=== PATIENT | female | born 1995 | race Caucasian/White ===

== ENCOUNTER 2024-06-17 13:25 | Outpatient (OUT) | payer BC, SELFPAY ==
--- NOTE | 2024-06-17 13:27 | US_ITS ---
[address] [address] Patient Name: VITALIY PAIZ MRN: [id number] date: 1995 Sex: F Assigned Patient Location: [facility] Current Patient Location: Accession/Order Number: [id number] Exam Date: 06/17/2024 13:27 Report Date: 06/18/2024 04:19 At the request of: OUMAR LAGOS Procedure: US OB transvaginal EXAMINATION: US OB transvaginal HISTORY: MISSED MENSES COMPARISON: No relevant comparison available. FINDINGS: GESTATIONAL SAC: Present and normal appearing. YOLK SAC: Present and normal appearing. POLE: Present and normal appearing. CARDIAC: Present. UTERUS: Normal size and appearance. OVARIES: Right: Normal. Left: Not seen. CERVIX: 4.1 cm in length and closed. CUL-DE-SAC: Normal. OTHER: Tiny subchorionic hematoma. AGE BY LMP: 8 weeks 3 days BRIAN BY LMP: 01/24/2025 AGE BY US CRL: 8 weeks 0 days BRIAN BY US CRL: 01/27/2025 US/US OB transvaginal IMPRESSION: 1. Single live intrauterine . Electronically authenticated by: LEONOR COOPER Date: 06/18/2024 04:19
== END 2024-06-17 13:26 | disposition home or self-care (01) ==
LOC: NOMS 13:26
PROVIDERS: PCP Family Medicine; Visit Provider Obstetrics & Gynecology
DX: Z34.91 Encounter for supervision of normal pregnancy, unspecified, first trimester (principal); Z3A.08 8 weeks gestation of pregnancy; N92.6 Irregular menstruation, unspecified
CPT/HCPCS: 76817

== ENCOUNTER 2024-07-08 11:34 | Outpatient (OUT) | payer BC, SELFPAY ==
--- OUTSIDE RECORDS SUMMARY | 2024-07-08 11:47 | XMS_ITS | CCD ---
Author Organization [facility] CliniSywv Care Team Providers Care Dye Winch Operator Name Role Phone PACO CHACON Attending Unavailable PACO CHACON Consulting Unavailable PACO CHACON Admitting Unavailable REQUEST, NONE LISTED Admitting Unavaila ble REQUEST, NONE LISTED Attending Unavaila ble REQUEST, NONE LISTED Consulting Unavaila ble Samra Aguirre DO Primary Care Provider [phone] Raegan Medina MD Primary Care Provider CANDICE MENG Attending Unavailable BHUMIKA CARRILLO Attending Unavailable Medications Current Medications Medication Drug Class(es) Dates Sig (Normalized) Sig (Original) busPIRone hydrochloride 5 mg oral tablet (5 sources) Start: 04-28-2023 take 1 tablet by mouth twice daily busPIRone (Buspar) 5 MG tablet Indications: Major depressive disorder, recurrent, moderate (CMS/HCC) TAKE 1 TABLET BY MOUTH TWICE A DAY FOR 90 DAYS 180 tablet 3 04/28/2023 Active cetirizine hydrochloride 10 mg oral tablet (4 sources) Histamine-1 Receptor Antagonist cetirizine (ZyrTEC) 10 MG tablet 1 (one) time each day at the same time Active citalopram 20 mg oral tablet (3 sources) Serotonin Reuptake Inhibitor Start: 04-28-2023 End: 06-02-2024 take 1 tablet by mouth once daily citalopram (CeleXA) 20 MG tablet Indications: Major depressive disorder, recurrent, moderate (CMS/HCC) TAKE 1 TABLET BY MOUTH EVERY DAY FOR 90 DAYS 90 tablet 3 04/28/2023 06/02/2024 Discontinued (Alternate therapy) sertraline 25 mg oral tablet (4 sources) Serotonin Reuptake Inhibitor Start: 06-02-2024 take 1 tablet by mouth once daily sertraline (Zoloft) 25 MG tablet Indications: Panic disorder (CMS/HCC) , Moderate episode of recurrent major depressive disorder (CMS/HCC) Take 1 tablet (25 mg) by mouth Daily 90 tablet 06/02/2024 Active Problems Active Problems Problem Classification Problem Date Documented Da te Episodic/Chronic Anxiety disorders (6 sources) Panic disorder; Translations: [Panic disorder [episodic paroxysmal anxiety]] Onset: 06-02-2024 06-02-2024 Chronic Asthma (4 sources) Exercise-induced asthma; Translations: [Exercise induced bronchospasm] Onset: 06-02-2024 06-02-2024 Chronic Menstrual disorders (1 source) Missed period; Translations: [Irregular menstruation, unspecified] 06-17-2024 Chronic Mood disorders (6 sources) Moderate recurrent major depression; Translations: [Major depressive disorder, recurrent, moderate] Onset: 06-02-2024 06-02-2024 Chronic Other and delivery including normal (2 sources) ; Translations: [Encounter for supervision of normal , unspecified, unspecified trimester] 06-17-2024 Episodic Other upper respiratory disease (4 sources) Allergic rhinitis; Translations: [Allergic rhinitis, unspecified] Onset: 06-02-2024 06-02-2024 Chronic Past or Other Problems Problem Classification Problem Date Documented Da te Episodic/Chronic Mood disorders (4 sources) Mood disorders Onset: 06-02-2024 06-02-2024 Results Test Name Value Interpretation Reference Range Facil ity HCG ( test) Ql (U)o n 06-17-2024 Interpretation and review of laboratory results Abnormal [facility] P[facility] Test, Ur Positive Negative [facility] care [facility] Urinalysis macro (dipstick) panel (U)on 06-17-2024 Bilirubin, UA Negative Negative - 4(7 0) +++ mg/dL [facility] Blood, UA Negative Negative - 50 Immanuel/mcL [facility] Clarity, UA Clear [facility] Color, UA Yellow [facility] Glucose, UA Negative Negative - 2000 (110) ++++ mg/dL [facility] Interpretation and review of laboratory results [facility] Ketones, UA Negative Negative - 160( 16) ++++ mg/dL [facility] Leukocytes, UA Negative Negative - 50 0+++ Jennyfer/mcL [facility] Nitrite, UA Negative Negative - Positive [facility] pH, UA 5.5 5 - 9 [facility] e Protein, UA Negative Negative - 1999 (20) ++++ mg/dL [facility] Spec Grav, UA 1.02 1 - 1.03 [facility] Urobilinogen, UA 1.0 0.2 - 12 mg/dL [facility] Vital Signs Date Time Vital Sign Value Performing Clinician Juliann cooper 06-17-2024 14:25-0500 Body mass index (BMI) [Ratio] 24.88 kg/m2 [facility] Nurse [facility] 06-17-2024 14:25-0500 Body weight 68.86 kg [facility] Nurse [facility] 06-02-2024 10:49-0400 Body height 166.4 cm Bhumika Dorseyjose PROCESS SPECIALIST Work Phone: [facility] 06-02-2024 10:49-0400 Body mass index (BMI) [Ratio] 24.88 kg/m2 Bhumika Dorseyjose PROCESS SPECIALIST Work Phone: [facility] 06-02-2024 10:49-0400 Body weight 68.86 kg Bhumika Dorseysunnywilliam PROCESS SPECIALIST Work Phone: [facility] 06-02-2024 10:49-0400 Diastolic blood pressure 60 mm[Hg] Bhumika Dorseyjose PROCESS SPECIALIST Work Phone: [facility] 06-02-2024 10:49-0400 Heart rate 75 /min Bhumika Dorseysunnywilliam PROCESS SPECIALIST Work Phone: [facility] 06-02-2024 10:49-0400 SaO2% (BldA) [Mass fraction] 99 % Bhumika Dorseyjose PROCESS SPECIALIST Work Phone: [facility] 06-02-2024 10:49-0400 Systolic blood pressure 120 mm[Hg] Bhumika Dorseyjose PROCESS SPECIALIST Work Phone: [facility] Encounters Encounter Date Encounter Type Care Provider Facility Start: 07-08-2024 End: 07-08-2024 Bamboo flowsheet Slim Yvonne DO Work Phone: [facility] Start: 07-08-2024 End: 07-08-2024 Bamboo flowsheet Slim Yvonne DO Work Phone: [facility] Start: 06-17-2024 End: 06-17-2024 Office outpatient visit 5 minutes [facility] Yvonne Nurse [facility] Comment on above: GA: 8w3d Start: 06-17-2024 End: 06-17-2024 ambulatory CANDICE TAQUERIA Not Available Start: 06-02-2024 End: 06-02-2024 Bamboo flowsheet Bhumika Carrillo PROCESS SPECIALIST Work Phone: [facility] Start: 06-02-2024 End: 06-02-2024 Bamboo flowsheet Bhumika Carrillo PROCESS SPECIALIST Work Phone: [facility] Start: 06-02-2024 End: 06-02-2024 Office outpatient visit 15 minutes Bhumika Carrillo PROCESS SPECIALIST Work Phone: [facility] Comment on above: Panic disorder (CMS/ HCC) (Primary Dx); Moderate episode of recurrent major depressive disorder (CMS/HCC) Start: 06-02-2024 End: 06-02-2024 ambulatory BHUMIKA CARRILLO Not Available Start: 02-12-2024 End: 02-12-2024 ambulatory CANDICE MENG Not Available Start: 11-29-2020 End: 11-30-2020 ambulatory PACO CHACON Facility: Start: 11-08-2020 End: 11-09-2020 ambulatory NONE LISTED REQUEST Facility: Procedures Date Procedure Procedure Detail Performing Clinician Start: 06-17-2024 End: 06-17-2024 Urnls dip stick/tablet rgnt non-auto w/o micrscp Slim Yvonne DO Work Phone: Start: 02-27-2019 Follow-up visit Plan of Treatment Date Care Activity Detail Author Start: 10-13-2025 Screening for malign ant neoplasm of cervix [facility] Healthcare Start: 07-08-2024 End: 07-08-2024 Patient encounter procedure [facility] Comment on above: Arrived Start: 06-17-2024 End: 06-17-2025 ABO/Rh ABO/Rh Lab Routine Missed menses , unspecified gestational age Expected: 06/17/2024 (Approximate), Expires: 06/17/2025 [facility] Comment on above: Expected: 06/17/2024 (Approximate), Expires: 06/17/2025 Start: 06-17-2024 End: 06-17-2024 ambulatory 06/17/2024 2:00 PM EST Initial [facility] [address] [place] [address] [place] [id number] [facility] Start: 06-17-2024 End: 06-17-2025 Blood type and Indirect antibody screen panel - Blood Type and screen Lab Routine Missed menses , unspecified gestational age Expected: 06/17/2024 (Approximate), Expires: 06/17/2025 [facility] Work Phone: Comment on above: Expected: 06/17/2024 (Approximate), Expires: 06/17/2025 Start: 06-17-2024 End: 06-17-2025 Drugs of abuse panel - Urine by Screen method Rapid drug screen, urine Lab Routine , unspecified gestational age Encounter for supervision of normal first in first trimester Expected: 06/17/2024 (Approximate), Expires: 06/17/2025 [facility] Healthcare Comment on above: Expected: 06/17/2024 (Approximate), Expires: 06/17/2025 Start: 06-17-2024 End: 06-17-2025 US Pelvis transvaginal US OB transvaginal Imaging Routine Missed menses Expected: 06/17/2024 (Approximate), Expires: 06/17/2025 [facility] Healthcare Comment on above: Expected: 06/17/2024 (Approximate), Expires: 06/17/2025 Start: 06-17-2024 End: 06-17-2024 Professional / ancillary services management 06/17/2024 1:30 PM EST Ancillary Procedure [facility] [address] [place] [phone] [facility] OB Start: 06-02-2024 End: 06-02-2024 Patient encounter procedure 06/02/2024 11:00 AM EDT Office Visit [facility] [address] [facility] [place] [address] Bhumika Carrillo, SANDHYA [address] [place] [address] Arrived [facility] Comment on above: Arrived Start: 04-04-2024 Influenza vaccination Influenza Vacc ine (#1) [facility] Start: 2014 Screening for malign ant neoplasm of cervix Pap Smear [facility] Bacteria identified in Urine by Culture Urine culture Microbiology Routine Missed menses Ordered: 06/17/2024 [facility] Comment on above: Ordered: 06/17/2024 CBC W Auto Different ial panel - Blood CBC and differential Lab Routine Missed menses , unspecified gestational age Ordered: 06/17/2024 [facility] Comment on above: Ordered: 06/17/2024 Hemoglobin A1c/Hemoglobin.total in Blood Hemoglobin A1c Lab Routine Missed menses , unspecified gestational age Ordered: 06/17/2024 [facility] Comment on above: Ordered: 06/17/2024 Hepatitis B virus surface Ag [Presence] in Serum or Plasma by Immunoassay Hepatitis B surface antigen Lab Routine Missed menses , unspecified gestational age Ordered: 06/17/2024 [facility] Comment on above: Ordered: 06/17/2024 Hepatitis C virus Ab [Presence] in Serum or Plasma by Immunoassay Hepatitis C antibody Lab Routine Missed menses , unspecified gestational age Ordered: 06/17/2024 [facility] Comment on above: Ordered: 06/17/2024 HIV-1/HIV-2 antigen/antibody combination immunoassay HIV-1 and HIV-2 antibodies Lab Routine Missed menses , unspecified gestational age Ordered: 06/17/2024 [facility] Comment on above: Ordered: 06/17/2024 Reagin Ab [Presence] in Serum by RPR RPR Lab Routine Missed menses , unspecified gestational age Ordered: 06/17/2024 [facility] Comment on above: Ordered: 06/17/2024 Rubella antibody, IgG Rubella an tibody, IgG Lab Routine Missed menses , unspecified gestational age Ordered: 06/17/2024 [facility] Comment on above: Ordered: 06/17/2024 Immunizations Immunization Date Immunization Notes Care Provider Fa cility 02-24-2012 tetanus toxoid, redu srinath diphtheria toxoid, and acellular pertussis vaccine, adsorbed Bhumika Hoskinsfer PROCESS SPECIALIST Work Phone: [facility] Payers Date Payer Category Payer [facility] er [id number] 2022 Unknown [id number] 1995 Unknown [id number] 1995 Unknown [id number] 1995 Unknown [id number] 1961 Self-pay Unknown [id number] Unknown [id number] Social History Date Type Detail Facility Start: 02-12-2024 Tobacco smoking status TXIS Never sm oked tobacco [facility] Start: 02-12-2024 Tobacco use and exposure Smoke less tobacco non-user [facility] Start: 02-12-2024 Alcoholic beverage intake Curr ent drinker of alcohol (finding) [facility] Start: 06-01-2024 End: 06-02-2024 History of Social function [facility] Start: 06-01-2024 End: 06-02-2024 [id number] Health Literacy [facility] How often do you nee d to have someone help you when you read instructions, pamphlets, or other written material from your doctor or pharmacy [SILS] Never [facility] Do you belong to any clubs or organizations such as evangelical groups, unions, fraternal or athletic groups, or school groups? No [facility] Are you now , , , , never or living with a partner? Living with partner [facility] How often to you hav e a drink containing alcohol? Never [facility] How hard is it for y ou to pay for the very basics like food, housing, medical care, and heating Not very hard [facility] Do you feel stress - tense, restless, nervous, or anxious, or unable to sleep at night because your mind is troubled all the time - these days [OSQ] Only a little [facility] (I/We) worried wheth er (my/our) food would run out before (I/we) got money to buy more. Never true [facility] Start: 1995 Sex assigned at Not on file [facility] Start: 06-02-2024 End: 06-17-2024 Alcoholic beverage intake Ex-drinker (finding) [facility] Start: 06-02-2024 Alcohol Comment caffeine intak e: 200mg daily [facility] Start: 05-03-2024 [facility] History of Present illness Narrative 06-17-2024 Laura Jacome LPN - 06/17/2024 2:00 PM EST Note Date & Type Note Facility 06-17-2024 History of Presen t illness Narrative Reason for Appointment: Patient ID: Greta Pineda is a 28 y.o. female who presents for Amenorrhea Patient presents today for a Nurse OB Intake appointment. Patient is 8w3d with a Estimated Date of Delivery: 01/24/25 OB History Para Term AB Living 1 0 0 0 0 0 SAB IAB Ectopic Multiple Live Births 0 0 0 0 0 # Outcome Date GA Lbr Luis/2nd Weight Sex Type Anes PTL Lv 1 Current Current Medications: has a current medication list which includes the following prescription(s): buspirone, cetirizine, and sertraline. Medical History: Active Ambulatory Problems Diagnosis Date Noted Allergic rhinitis 06/02/2024 Exercise-induced asthma (CMS/HCC) 06/02/2024 Moderate episode of recurrent major depressive disorder (CMS/HCC) 06/02/2024 Panic disorder (CMS/HCC) 06/02/2024 Resolved Ambulatory Problems Diagnosis Date Noted No Resolved Ambulatory Problems Past Medical History: Diagnosis Date Anxiety Depression (CMS/HCC) No family history on file. Social History Tobacco Use Smoking status: Never Smokeless tobacco: Never Vaping Use Vaping status: Never Used Substance Use Topics Alcohol use: Not Currently Comment: caffeine intake: 200mg daily Drug use: Never Past Surgical History: Procedure Laterality Date ANTERIOR CRUCIATE LIGAMENT REPAIR No Known Allergies Vitals: Estimated body mass index is 24.88 kg/m as calculated from the following: Height as of 06/02/24: 5' 5.5 . Weight as of this encounter: 151 lb 12.8 oz. BP: Patient's last menstrual period was 04/19/2024. Assessment/Plan Diagnoses and all orders for this visit: Missed menses - Type and screen; Future - ABO/Rh; Future - CBC and differential - Hemoglobin A1c - RPR - Rubella antibody, IgG - Hepatitis B surface antigen - Hepatitis C antibody - HIV-1 and HIV-2 antibodies - Urine culture - US OB transvaginal; Future - POCT , urine manually resulted - POCT urinalysis dipstick manually resulted , unspecified gestational age - Type and screen; Future - ABO/Rh; Future - CBC and differential - Hemoglobin A1c - RPR - Rubella antibody, IgG - Hepatitis B surface antigen - Hepatitis C antibody - HIV-1 and HIV-2 antibodies - Rapid drug screen, urine; Future Encounter for supervision of normal first in first trimester - Rapid drug screen, urine; Future Nurse Note: OB Intake: Patient presents today for first OB visit. Patients history has been reviewed in great detail including any potential risks. Patient signed consent forms and patient desires testing in both trimesters. Patient currently has no complaints and has been advised to drink 6-8 glasses of water a day, eat no raw or undercooked meat, and [facility]. Patient has also been advised to not change litter boxes and eat 6 small meals a day. Patient has been consulted regarding the do's and don'ts of . Patient was given labs and all questions and concerns were answered. Follow Up: Patient is to return in 4 weeks for routine OB appointment. Follow Up: Patient is to have labs drawn at directed and return to office for initial OB appointment with provider. Patient may call office as needed with any concerns or questions. Nurse Visit Completed by: Laura Jacome LPN Documented by Laura Jacome LPN on behalf of: * No providers found * documented in this encounter [facility] History of Present illness Narrative 06-02-2024 Bhumika Carrillo NP - 06/02/2024 11:00 AM EDT Note Date & Type Note Facility 06-02-2024 History of Presen t illness Narrative Images from the original note were not included. Greta Pineda is a 28 y.o. female presents with chief complaint of Medication Problem HPI: HPI LMP 04/17/24, had a positive test at home, Has an appointment scheduled with Dr. Russell next month. Would like to discuss switching her medications d/t . Over the past 2 weeks, how often have you been bothered by any of the following problems? Little interest or pleasure in doing things: Not at all Feeling down, depressed, or hopeless: Not at all Trouble falling or staying asleep, or sleeping too much: Not at all Feeling tired or having little energy: Not at all Poor appetite or overeating: Not at all Feeling bad about yourself - or that you are a failure or have let yourself or your family down: Not at all Trouble concentrating on things, such as reading the newspaper or watching television: Not at all Moving or speaking so slowly that other people could have noticed? Or the opposite - being so fidgety or restless that you have been moving around a lot more than usual.: Not at all Thoughts that you would be better off or hurting yourself in some way: Not at all Patient Health Questionnaire-9 Score: 0 Over the last 2 weeks, how often have you been bothered by any of the following problems? Feeling nervous, anxious, or on edge: Several days Not being able to stop or control worrying: Not at all Worrying too much about different things: Not at all Trouble relaxing: Not at all Being so restless that it is hard to sit still: Not at all Becoming easily annoyed or irritable: Several days Feeling afraid as if something awful might happen: Not at all MIKE-7 Total Score: 2 SUBJECTIVE: MEDICATIONS: Current Outpatient Medications Medication Instructions busPIRone (Buspar) 5 MG tablet TAKE 1 TABLET BY MOUTH TWICE A DAY FOR 90 DAYS cetirizine (ZyrTEC) 10 MG tablet Every 24 hours citalopram (CeleXA) 20 MG tablet TAKE 1 TABLET BY MOUTH EVERY DAY FOR 90 DAYS REVIEW OF SYMPTOMS: Review of Systems OBJECTIVE: Visit Vitals BP 120/60 (BP Location: Left arm, Patient Position: Sitting, BP Cuff Size: Adult) Pulse 75 Ht 5' 5.5 Wt 151 lb 12.8 oz LMP 01/22/2024 (Approximate) SpO2 99% BMI 24.88 kg/m OB Status Smoking Status Never BSA 1.78 m Physical Exam Vitals reviewed. Constitutional: Appearance: Normal appearance. HENT: Head: Normocephalic and atraumatic. Nose: Nose normal. Mouth/Throat: Mouth: Mucous membranes are moist. Eyes: Pupils: Pupils are equal, round, and reactive to light. Cardiovascular: Rate and Rhythm: Normal rate and regular rhythm. Pulses: Normal pulses. Heart sounds: Normal heart sounds. Pulmonary: Effort: Pulmonary effort is normal. Breath sounds: Normal breath sounds. Abdominal: General: Bowel sounds are normal. Palpations: Abdomen is soft. Musculoskeletal: Cervical back: Normal range of motion and neck supple. Right lower leg: No edema. Left lower leg: No edema. Skin: General: Skin is warm and dry. Capillary Refill: Capillary refill takes less than 2 seconds. Findings: No rash. Neurological: General: No focal deficit present. Mental Status: She is alert and oriented to person, place, and time. ASSESSMENT AND PLAN: Assessment/Plan Diagnoses and all orders for this visit: Panic disorder (CMS/HCC) - sertraline (Zoloft) 25 MG tablet; Take 1 tablet (25 mg) by mouth Daily Moderate episode of recurrent major depressive disorder (CMS/HCC) - sertraline (Zoloft) 25 MG tablet; Take 1 tablet (25 mg) by mouth Daily -Stop celexa and switch to zoloft d/t . Reviewed importance of healthy diet and exercise, stress management, and social support. Follow up with OBGYN as scheduled documented in this encounter [facility] Evaluation note Note Date & Type Note Facility Evaluation note Diagnosis Panic disorder (CMS/HCC)- Primary Panic disorder without agoraphobia Moderate episode of recurrent major depressive disorder (CMS/HCC) documented in this encounter [facility] Evaluation note Note Date & Type Note Facility Evaluation note Diagnosis Missed menses , unspecified gestational age Encounter for supervision of normal first in first trimester documented in this encounter [facility] Summary Purpose Family History No Family History Records FoundNo Family History Records FoundNo Family History Records Found Advance Directives No Advanced Directives Records FoundNo Advanced Directives Records FoundNo Advanced Directives Records Found Additional Source Comments INFORMATION SOURCE (unrecogn ized section and content) DATE CREATED AUTHOR 02/27/2019 [facility] DATE CREATED AUTHOR AUTHOR'S ORGANIZ ATION 11/28/2020 [facility] DATE CREATED AUTHOR AUTHOR'S ORGANIZ ATION 06/20/2024 [facility] dical Specialists [facility] Care Teams (unrecognized sec tion and content) Dye Winch Operator Relationship Specialty Start Date End Date Samra Aguirre DO [address] [place] [address] PCP - General Family Medicine 12/10/22 Dye Winch Operator Relationship Specialty Start Date End Date Raegan Medina MD [address] [place] [address] PCP - General Family Medicine 06/02/24 Dye Winch Operator Relationship Specialty Start Date End Date Raegan Medina MD [address] [place] [address] PCP - General Family Medicine 06/02/24 Dye Winch Operator Relationship Specialty Start Date End Date Raegan Medina MD [address] [place] [address] PCP - General Family Medicine 06/02/24 Reason for Visit (unrecogniz ed section and content) Reason Comments Medication Problem Pt would like to see about switching anxiety medication due to . Reason Comments Amenorrhea FOR RECORDS PERTAINING TO PATIENTS WHO ARE OR HAVE BEEN ENROLLED IN A CHEMICAL DEPENDENCY/SUBSTANCEABUSE PROGRAM, SOME INFORMATION MAY BE OMITTED. This clinical summary was aggregated from multiple sources. Caution should be exercised in using it in the provision of clinical care. This summary normalizes information from multiple sources, and as a consequence, information in this document may materially change the coding, format and clinical context of patient data. In addition, data may be omitted in some cases. CLINICAL DECISIONS SHOULD BE BASED ON THE PRIMARY CLINICAL RECORDS. [employer] [facility]. provides no warranty or guarantee of the accuracy or completeness of information in this document.
[2024-07-08 12:47] LABS: Basophils Absolute Auto 0.1 10^3/uL (0.0-0.1); Basophils Percent Auto 0.6 % (0.2-2.0); Eosinophils Absolute Auto 0.1 10^3/uL (0.0-0.7); Eosinophils Percent Auto 0.6 % (0.9-7.0); Hematocrit 39.1 % (36.0-48.0); Immature Granulocytes Abs Auto 0.02 10^3/uL (0.00-0.03); Immature Granulocytes Pct Auto 0.2 % (0.0-0.5); Lymphocytes Percent Auto 22.3 % (20.5-60.0); Mean Corpuscular HGB Conc 33.2 g/dL (29.9-35.2); Mean Corpuscular Hemoglobin 31.5 pg (26.7-34.0); Mean Corpuscular Volume 94.7 fL (81.0-99.0); Mean Platelet Volume 9.3 fL (9.5-13.5); Monocytes Absolute Auto 0.5 10^3/uL (0.3-0.8); Monocytes Percent Auto 5.6 % (1.7-12.0); Neutrophils Absolute Auto 6.3 10^3/uL (1.4-6.5); Neutrophils Percent Auto 70.7 % (43.0-75.0); Platelet Count 268 10^3/uL (150-450); Red Blood Count 4.13 10^6/uL (4.20-5.40); Red Cell Distribution Width 11.5 % (11.0-15.0)
[2024-07-08 12:57] LABS: Amphetamine Screen Urine NEGATIVE (NEGATIVE); Benzodiazepines Screen Urine NEGATIVE (NEGATIVE); Cannabinoid Screen Urine NEGATIVE (NEGATIVE); Cocaine Screen Urine NEGATIVE (NEGATIVE); Methamphetamines Screen Urine NEGATIVE (NEGATIVE); Opiate Screen Urine NEGATIVE (NEGATIVE); Phencyclidine Screen Urine NEGATIVE (NEGATIVE); Tricyclic Antidepressant Urine NEGATIVE (NEGATIVE)
[2024-07-08 13:00] LABS: Barbiturates Screen Urine NEGATIVE (NEGATIVE); Buprenorphine Screen Urine NEGATIVE (NEGATIVE); Methadone Screen Urine NEGATIVE (NEGATIVE); Oxycodone Screen Urine NEGATIVE (NEGATIVE)
[2024-07-08 13:12] LABS: Estimated Average Glucose 111 mg/dL; Glycohemoglobin A1C 5.5 % (4.5-6.2)
[2024-07-08 16:13] LABS: BOX Test Reference Lab UNITY; BOX Test Sent Out Y
[2024-07-09 06:10] LABS: HBsAg Screen Negative (Negative); HCV Ab Non Reactive (Non Reactive); HIV Ab/p24 Ag Screen Non Reactive (Non Reactive)
[2024-07-09 08:13] LABS: Rubella Antibodies, IgG 1.86 index (Immune >0.99)
[2024-07-09 10:11] LABS: Rapid Plasma Reagin, Quant Non Reactive titer (NonRea<1:1)
== END 2024-07-08 11:35 | disposition home or self-care (01) ==
LOC: LAB 11:35
PROVIDERS: PCP Family Medicine; Visit Provider Obstetrics & Gynecology
DX: Z34.01 Encounter for supervision of normal first pregnancy, first trimester (principal); Z36.0 Encounter for antenatal screening for chromosomal anomalies; N92.6 Irregular menstruation, unspecified
CPT/HCPCS: 36415; 80307; 83036; 85025; 86592; 86762; 86803; 86850; 86900; 86901; 87086; 87340; 87389

== ENCOUNTER 2024-09-06 11:22 | Outpatient (OUT) | payer BC, SELFPAY ==
--- OUTSIDE RECORDS SUMMARY | 2024-09-06 11:27 | XMS_ITS | CCD ---
Author Organization [facility] CliniSyga Care Team Providers Care Corduroy Cutter Operator Name Role Phone PACO CHACON Attending Unavailable PACO CHACON Consulting Unavailable PACO CHACON Admitting Unavailable REQUEST, NONE LISTED Admitting Unavaila ble REQUEST, NONE LISTED Attending Unavaila ble REQUEST, NONE LISTED Consulting Unavaila ble Samra Aguirre DO Primary Care Provider Raegan Medina MD Primary Care Provider CANDICE MENG Attending Unavailable BHUMIKA JOHNSON Attending Unavailable OUMAR RUSSELL Attending Unavailable BRENDA JEFF Attending Unavailable Medications Current Medications Medication Drug Class(es) Dates Sig (Normalized) Sig (Original) busPIRone hydrochloride 5 mg oral tablet (13 sources) Start: 04-28-2023 take 1 tablet by mouth twice daily busPIRone (Buspar) 5 MG tablet Indications: Major depressive disorder, recurrent, moderate (CMS/HCC) TAKE 1 TABLET BY MOUTH TWICE A DAY FOR 90 DAYS 180 tablet 3 04/28/2023 Active cetirizine hydrochloride 10 mg oral tablet (12 sources) Histamine-1 Receptor Antagonist cetirizine (ZyrTEC) 10 [...] (Alternate therapy) sertraline 25 mg oral tablet (13 sources) Serotonin Reuptake Inhibitor Start: 09-01-2024 take 1 tablet by mouth once daily sertraline (Zoloft) 25 MG tablet Indications: Panic disorder (CMS/HCC) , Moderate episode of recurrent major depressive disorder (CMS/HCC) TAKE 1 TABLET BY MOUTH EVERY DAY 90 tablet 1 09/01/2024 Active Start: 06-02-2024 End: 09-01-2024 take 1 tablet by mouth once daily sertraline (Zoloft) 25 MG tablet Indications: Panic disorder (CMS/HCC) , Moderate episode of recurrent major depressive disorder (CMS/HCC) Take 1 tablet (25 mg) by mouth Daily 90 tablet 06/02/2024 09/01/2024 Discontinued Problems Active Problems Problem Classification Problem Date Documented Date Episodic/Chronic Anxiety disorders (15 sources) Panic disorder; Translations: [Panic disorder [episodic paroxysmal anxiety]] Onset: 06-02-2024 06-02-2024 Chronic Asthma (12 sources) Exercise-induced asthma; Translations: [Exercise induced bronchospasm] Onset: 06-02-2024 06-02-2024 Chronic Immunizations and screening for infectious disease (2 sources) Exposure to sexually transmissible disorder; Translations: [Contact with and (suspected) exposure to infections with a predominantly sexual mode of transmission] 08-09-2024 Episodic Menstrual disorders (1 source) Missed period; Translations: [Irregular menstruation, unspecified] 06-17-2024 Chronic Mood disorders (15 sources) Moderate recurrent major depression; Translations: [Major depressive disorder, recurrent, moderate] Onset: 06-02-2024 06-02-2024 Chronic Other and delivery including normal (6 sources) ; Translations: [Encounter for supervision of normal , unspecified, unspecified trimester] 06-17-2024 Episodic Other screening for suspected conditions (not mental disorders or infectious disease) (4 sources) Alpha-fetoprotein blood test status; Translations: [Encounter for screening for raised alphafetoprotein level] 08-09-2024 Episodic Other upper respiratory disease (12 sources) Allergic rhinitis; Translations: [Allergic rhinitis, unspecified] Onset: 06-02-2024 06-02-2024 Chronic Residual codes; unclassified (2 sources) Gestation period, 13 weeks; Translations: [13 weeks gestation of ] 07-08-2024 Episodic Residual codes; unclassified (2 sources) Gestation period, 16 weeks; Translations: [16 weeks gestation of ] 08-09-2024 Episodic Past or Other Problems Problem Classification Problem Date Documented Da te Episodic/Chronic Mood disorders (12 sources) Mood disorders Onset: 06-02-2024 06-02-2024 Results Test Name Value Interpretation Reference Range Facil ity RECURRENT VAGINITIS (HTRX)on 08-11-2024 ATOPOBIUM VAGINAE 0 [facility] ATOPOBIUM VAGINAE Not detected [facility] BVAB 2,3 (BACTERIAL VAGINOSIS ASSOCIATED BACTERIA 2, 3); MOBILUNCUS SPP 0 [facility] BVAB 2,3 (BACTERIAL VAGINOSIS ASSOCIATED BACTERIA 2, 3); MOBILUNCUS SPP Not detected [facility] MALOU ALBICANS, PARAPSILOSIS, TROPICALIS 0 [facility] MALOU ALBICANS, PARAPSILOSIS, TROPICALIS Not detected [facility] MALOU GLABRATA 0 [facility] MALOU GLABRATA Not detected [facility] Not detected [facility] CHLAMYDIA TRACHOMATIS 0 [facility] CHLAMYDIA TRACHOMATIS Not detected [facility] GARDNERELLA VAGINALIS 0 [facility] GARDNERELLA VAGINALIS Not detected [facility] MEGASPHAERA (TYPES 1, 2) 0 [facility] MEGASPHAERA (TYPES 1, 2) Not detected [facility] MYCOPLASMA GENITALIUM 0 [facility] MYCOPLASMA GENITALIUM Not detected [facility] NEISSERIA GONORRHOEAE 0 [facility] NEISSERIA GONORRHOEAE Not detected N [facility] TRICHOMONAS VAGINALIS 0 [facility] TRICHOMONAS VAGINALIS Not detected N [facility] Urinalysis macro (dipstick) panel (U)on 08-09-2024 Bilirubin, UA Negative Negative - 4(7 0) +++ mg/dL [facility] Blood, UA Negative Negative - 50 Immanuel/mcL [facility] Clarity, UA Clear [facility] Color, UA Yellow [facility] Glucose, UA Negative Negative - 1999(110) ++++ mg/dL [facility] Interpretation and review of laboratory results Normal [facility] Ketones, UA Negative Negative - 160( 16) ++++ mg/dL [facility] Leukocytes, UA Negative Negative - 50 0+++ Jennyfer/mcL [facility] Nitrite, UA Negative Negative - Positive [facility] pH, UA 7 5 - 9 [facility] Protein, UA Negative Negative - 1999(20) ++++ mg/dL [facility] Spec Grav, UA 1.01 1 - 1.03 [facility] Urobilinogen, UA 0.2 0.2 - 12 mg/dL [facility] ALL CBC WITH AUTO DIFFon BASOPHILS ABSOLUTE AUTO 0.1 N [facility] Basophils/100 WBC (Bld) 0.6 % 0.2 - 2.0 % [facility] Eosinophils/100 WBC (Bld) 0.6 % Low 0.9 - 7.0 % [facility] Erythrocyte distribution width (RBC) [Ratio] 11.5 % 11.0 - 15.0 % [facility] Hematocrit (Bld) [Volume fraction] 39.1 % 36.0 - 48.0 % [facility] e Hemoglobin (Bld) [Mass/Vol] 13 g/dL 12.0 - 16.0 g/dL [facility] IMMATURE GRANULOCYTES ABS AUTO 0.02 [facility] Immature granulocytes/100 WBC (Bld) 0.2 % 0.0 - 0.5 % [facility] Interpretation and review of laboratory results Abnormal [facility] LYMPHOCYTES ABSOLUTE AUTO 2 [facility] Lymphocytes/100 WBC (Bld) 22.3 % 20.5 - 60.0 % [facility] MCH (RBC) [Entitic mass] 31.5 pg 26.7 - 34.0 pg [facility] MCHC (RBC) [Mass/Vol] 33.2 g/dL 29.9 - 35.2 g/ dL [facility] MCV (RBC) [Entitic vol] 94.7 fL 81.0 - 99.0 fL [facility] MONOCYTES ABSOLUTE AUTO 0.5 N [facility] Monocytes/100 WBC (Bld) 5.6 % 1.7 - 12.0 % [facility] NEUTROPHILS ABSOLUTE AUTO 6.3 [facility] Neutrophils/100 WBC (Bld) 70.7 % 43.0 - 75.0 % [facility] Platelet mean volume (Bld) [Entitic vol] 9.3 fL Low 9.5 - 13.[address] EO # 0.1 [facility] PLT 268 [facility] RBC 4.13 Low [facility] TB WBC 9 [facility] Urinalysis macro (dipstick) panel (U)on 07-08-2024 Bilirubin, UA Negative Negative - 4(7 0) +++ mg/dL [facility] Blood, UA Negative Negative - 50 Immanuel/mcL [facility] Clarity, UA Clear [facility] re Color, UA Yellow [facility] Glucose, UA Negative Negative - 1999(110) ++++ mg/dL [facility] Interpretation and review of laboratory results Normal [facility] Ketones, UA Negative Negative - 160( 16) ++++ mg/dL [facility] Leukocytes, UA Negative Negative - 50 0+++ Jennyfer/mcL [facility] Nitrite, UA Negative Negative - Positive [facility] pH, UA 6.5 5 - 9 [facility] Protein, UA Negative Negative - 1999(20) ++++ mg/dL [facility] Spec Grav, UA 1.02 1 - 1.03 [facility] Urobilinogen, UA 1.0 0.2 - 12 mg/dL [facility] HCG ( test) Ql (U)o n 06-17-2024 Interpretation and review of laboratory results Abnormal [facility] Preg Test, Ur Positive Negative [facility] Urinalysis macro (dipstick) panel (U)on 06-17-2024 Bilirubin, UA Negative Negative - 4(7 0) +++ mg/dL [facility] Blood, UA Negative Negative - 50 Immanuel/mcL [facility] Clarity, UA Clear [facility] Color, UA Yellow [facility] Glucose, UA Negative Negative - 1999(110) ++++ mg/dL [facility] Interpretation and review of laboratory results Normal [facility] Ketones, UA Negative Negative - 160( 16) ++++ mg/dL [facility] Leukocytes, UA Negative Negative - 50 0+++ Jennyfer/mcL [facility] Nitrite, UA Negative Negative - Positive [facility] pH, UA 5.5 5 - 9 [facility] Protein, UA Negative Negative - 1999(20) ++++ mg/dL [facility] Spec Grav, UA 1.02 1 - 1.03 [facility] care Urobilinogen, UA 1.0 0.2 - 12 mg/dL [facility] Vital Signs Date Time Vital Sign Value Performing Clinician Faci lity 08-09-2024 10:44-0500 Body mass index (BMI) [Ratio] 26.06 kg/m2 Brenda Jeff PA Work Phone: [facility] 08-09-2024 10:44-0500 Body weight 72.12 kg Brenda Jeff PA Work Phone: [facility] 08-09-2024 10:44-0500 Diastolic blood pressure 68 mm[Hg] Brenda Jeff PA Work Phone: [facility] 08-09-2024 10:44-0500 Systolic blood pressure 110 mm[Hg] Brenda Jeff PA Work Phone: [facility] 07-08-2024 10:50-0500 Body mass index (BMI) [Ratio] 25.73 kg/m2 Oumar Yvonne DO Work Phone: [facility] 07-08-2024 10:50-0500 Body weight 71.22 kg Oumar Yvonne DO Work Phone: [facility] 07-08-2024 10:50-0500 Diastolic blood pressure 70 mm[Hg] Oumar Yvonne DO Work Phone: [facility] 07-08-2024 10:50-0500 Systolic blood pressure 110 mm[Hg] Oumar Yvonne DO Work Phone: [facility] 06-17-2024 14:25-0500 Body mass index (BMI) [Ratio] 24.88 kg/m2 Nom Nurse [facility] 06-17-2024 14:25-0500 Body weight 68.86 kg [facility] Nurse [facility] 06-02-2024 10:49-0400 Body height 166.4 cm Bhumika Johnson [employer] Work Phone: [facility] 06-02-2024 10:49-0400 Body mass index (BMI) [Ratio] 24.88 kg/m2 Bhumika Johnson [employer] Work Phone: [facility] 06-02-2024 10:49-0400 Body weight 68.86 kg Bhumika Johnson [employer] Work Phone: [facility] 06-02-2024 10:49-0400 Diastolic blood pressure 60 mm[Hg] Bhumika Johnson [employer] Work Phone: [facility] 06-02-2024 10:49-0400 Heart rate 75 /min Bhumika Johnson [employer] Work Phone: [facility] 06-02-2024 10:49-0400 SaO2% (BldA) [Mass fraction] 99 % Bhumika Johnson [employer] Work Phone: [facility] 06-02-2024 10:49-0400 Systolic blood pressure 120 mm[Hg] Bhumika Johnson [employer] Work Phone: [facility] Encounters Encounter Date Encounter Type Care Provider Facility Start: 08-28-2024 End: 09-01-2024 Refill Bhumika Johnson [employer] Work Phone: [facility] Comment on above: Panic disorder (CMS/ HCC); Moderate episode of recurrent major depressive disorder (CMS/HCC) Start: 08-09-2024 End: 08-09-2024 Bamboo flowsheet Brenda ZIMMER Work Phone: [facility] Start: 08-09-2024 End: 08-11-2024 Bamboo flowsheet Brenda ZIMMER Work Phone: [facility] Start: 08-09-2024 End: 08-11-2024 External Result Encounter Brenda ZIMMER Work Phone: [facility] External Department Unsolicited Start: 08-09-2024 End: 08-09-2024 flow sheet Brenda ZIMMER Work Phone: [facility] Comment on above: Second trimester pre gnancy; 16 weeks gestation of ; Need for maternal serum alpha-protein (MSAFP) screening; Exposure to STD; Screening, , for anatomic survey Start: 08-09-2024 End: 08-09-2024 ambulatory BRENDA JEFF Not Available Start: 07-08-2024 End: 07-08-2024 Bamboo flowsheet Oumar Russell DO Work Phone: [facility] Start: 07-08-2024 End: 07-08-2024 Bamboo flowsheet Oumar Yvonne DO Work Phone: [facility] Start: 07-08-2024 End: 07-08-2024 Clinisync Result Encounter Oumar Yvonne DO Work Phone: [facility] External [facility] Unsolicited Start: 07-08-2024 End: 07-08-2024 flow sheet Oumar Yvonne DO Work Phone: [facility] Comment on above: Second trimester pre gnancy; 13 weeks gestation of Start: 07-08-2024 End: 07-08-2024 ambulatory OUMAR YVONNE Not Available Start: 06-17-2024 End: 06-17-2024 Office outpatient visit 5 minutes [facility] Yvonne Nurse [facility] Comment on above: GA: 8w3d Start: 06-17-2024 End: 06-17-2024 ambulatory CANDICE FLORO Not Available Start: 06-02-2024 End: 06-02-2024 Bamboo flowsheet Bhumika Johnson [employer]ER Work Phone: [facility] Start: 06-02-2024 End: 06-02-2024 Bamboo flowsheet Bhumika Johnson [employer]ER Work Phone: [facility] Start: 06-02-2024 End: 06-02-2024 Office outpatient visit 15 minutes Bhumika Johnson [employer]ER Work Phone: [facility] Comment on above: Panic disorder (CMS/ HCC) (Primary Dx); Moderate episode of recurrent major depressive disorder (CMS/HCC) Start: 06-02-2024 End: 06-02-2024 ambulatory BHUMIKA MARMOLEJOFER Not Available Start: 02-12-2024 End: 02-12-2024 ambulatory CANDICE L FLORO Not Available Start: 11-29-2020 End: 11-30-2020 ambulatory PACO CHACON Facility:[facility] Start: 11-08-2020 End: 11-09-2020 ambulatory NONE LISTED REQUEST Facility:[facility] Procedures Date Procedure Procedure Detail Performing Clinician Start: 08-09-2024 RECURRENT VAGINITIS (HTRX) Brenda ZIMMER Work Phone: Start: 08-09-2024 Urnls dip stick/tabl et rgnt non-auto w/o micrscp Brenda ZIMMER Work Phone: Start: 07-08-2024 ALL CBC WITH AUTO DIFF Oumar Yvonne DO Work Phone: Start: 07-08-2024 Urnls dip stick/tabl et rgnt non-auto w/o micrscp Oumar Yvonne DO Work Phone: Start: 06-17-2024 End: 06-17-2024 Urnls dip stick/tablet rgnt non-auto w/o micrscp Oumar Yvonne DO Work Phone: Start: 02-27-2019 Follow-up visit Plan of Treatment Date Care Activity Detail Author Start: 10-13-2025 Screening for malign ant neoplasm of cervix [facility] Start: 09-06-2024 End: 09-06-2024 Patient encounter procedure 09/06/2024 10:50 AM EST Routine [facility] [address] [place] [id number] Oumar Russell, [place] [address] [facility] Start: 09-06-2024 End: 09-06-2024 Professional / ancillary services management 09/06/2024 9:30 AM EST Ancillary Procedure [facility] [address] [place] [id number] [facility] Start: 08-09-2024 End: 09-09-2024 Alpha fetoprotein, maternal Alpha fetoprotein, maternal Lab Routine Need for maternal serum alpha-protein (MSAFP) screening Expected: 08/09/2024 (Approximate), Expires: 09/09/2024 [facility] Comment on above: Expected: 08/09/2024 (Approximate), Expires: 09/09/2024 Start: 08-09-2024 End: 08-09-2025 US for US OB 14+ weeks anatomy scan Imaging Routine Screening, , for anatomic survey Expected: 08/09/2024, Expires: 08/09/2025 [facility] Comment on above: Expected: 08/09/2024 , Expires: 08/09/2025 Start: 08-09-2024 End: 08-09-2024 Patient encounter procedure [facility] Comment on above: Arrived Start: 07-08-2024 End: 07-08-2024 Patient encounter procedure [facility] Comment on above: Arrived Start: 06-17-2024 End: 06-17-2025 ABO/Rh ABO/Rh Lab Routine Missed menses , unspecified gestational age Expected: 06/17/2024 (Approximate), Expires: 06/17/2025 [facility] Comment on above: Expected: 06/17/2024 (Approximate), Expires: 06/17/2025 Start: 06-17-2024 End: 06-17-2024 ambulatory 06/17/2024 2:00 PM EST Initial [facility] [address] [place] [address] [place] [address] [facility] Start: 06-17-2024 End: 06-17-2025 Blood type and Indirect antibody screen panel - Blood Type and screen Lab Routine Missed menses , unspecified gestational age Expected: 06/17/2024 (Approximate), Expires: 06/17/2025 [facility] Work Phone: Comment on above: Expected: 06/17/2024 (Approximate), Expires: 06/17/2025 Start: 06-17-2024 End: 06-17-2025 Drugs of abuse panel - Urine by Screen method Rapid drug screen, urine Lab Routine , unspecified gestational age Encounter for supervision of normal first in first trimester Expected: 06/17/2024 (Approximate), Expires: 06/17/2025 [facility] Comment on above: Expected: 06/17/2024 (Approximate), Expires: 06/17/2025 Start: 06-17-2024 End: 06-17-2025 US Pelvis transvaginal US OB transvaginal Imaging Routine Missed menses Expected: 06/17/2024 (Approximate), Expires: 06/17/2025 [facility] Comment on above: Expected: 06/17/2024 (Approximate), Expires: 06/17/2025 Start: 06-17-2024 End: 06-17-2024 Professional / ancillary services management 06/17/2024 1:30 PM EST Ancillary Procedure [facility] [address] [place] [address] [facility] Start: 06-02-2024 End: 06-02-2024 Patient encounter procedure 06/02/2024 11:00 AM EDT [facility] [address] [place] [address] Bhumika Johnson NP [address] [place], [place] [id number] Arrived [facility] Comment on above: Arrived Start: 04-04-2024 Influenza vaccination Influenza Vacc ine (#1) [facility] Start: 2014 Screening for malign ant neoplasm of cervix Pap Smear [facility] Bacteria identified in Urine by Culture Urine culture Microbiology Routine Missed menses Ordered: 06/17/2024 [facility] Comment on above: Ordered: 06/17/2024 CBC W Auto Different ial panel - Blood CBC and differential Lab Routine Missed menses , unspecified gestational age Ordered: 06/17/2024 [facility] Comment on above: Ordered: 06/17/2024 CHLAMYDIA TRACHOMATI S (GENITO/STI) CHLAMYDIA TRACHOMATIS (GENITO/STI) Lab Routine Exposure to STD Ordered: 08/09/2024 [facility] Comment on above: Ordered: 08/09/2024 Hemoglobin A1c/Hemoglobin.total in Blood Hemoglobin A1c Lab Routine Missed menses , unspecified gestational age Ordered: 06/17/2024 [facility] Comment on above: Ordered: 06/17/2024 Hepatitis B virus surface Ag [Presence] in Serum or Plasma by Immunoassay Hepatitis B surface antigen Lab Routine Missed menses , unspecified gestational age Ordered: 06/17/2024 [facility] Comment on above: Ordered: 06/17/2024 Hepatitis C virus Ab [Presence] in Serum or Plasma by Immunoassay Hepatitis C antibody Lab Routine Missed menses , unspecified gestational age Ordered: 06/17/2024 [facility] Comment on above: Ordered: 06/17/2024 HIV-1/HIV-2 antigen/antibody combination immunoassay HIV-1 and HIV-2 antibodies Lab Routine Missed menses , unspecified gestational age Ordered: 06/17/2024 [facility] Comment on above: Ordered: 06/17/2024 Neisseria gonorrhoea e DNA [Presence] in Unspecified specimen by SEVERO with probe detection Neisseria gonorrhea DNA probe, direct Lab Routine Exposure to STD Ordered: 08/09/2024 [facility] Comment on above: Ordered: 08/09/2024 Reagin Ab [Presence] in Serum by RPR RPR Lab Routine Missed menses , unspecified gestational age Ordered: 06/17/2024 [facility] Comment on above: Ordered: 06/17/2024 Rubella antibody, IgG Rubella an tibody, IgG Lab Routine Missed menses , unspecified gestational age Ordered: 06/17/2024 [facility] Comment on above: Ordered: 06/17/2024 SURESWAB(R) ADVANCED VAGINITIS PLUS, TMA SURESWAB(R) ADVANCED VAGINITIS PLUS, TMA Pathology and Cytology Routine Exposure to STD Ordered: 08/09/2024 [facility] Work Phone: Comment on above: Ordered: 08/09/2024 Immunizations Immunization Date Immunization Notes Care Provider Damon dumont 02-24-2012 tetanus toxoid, redu srinath diphtheria toxoid, and acellular pertussis vaccine, adsorbed Bhumika Johnson NP Work Phone: [facility] Payers Date Payer Category Payer [facility] [id number] 2022 Unknown [id number] 1993 Unknown [id number] 2.16.84 [id number] 1993 Unknown [id number] 2.16.84 [id number] 1993 Unknown [id number] 2.16.84 [id number] 1993 Unknown [id number] 2.16.84 [id number] 1993 Unknown [id number] 2.16.84 [id number] 1959 Self-pay Unknown [id number] 2.16.84 [id number] Unknown [id number] 2.16.84 [id number] Social History Date Type Detail Facility Start: 02-12-2024 Tobacco smoking status NHIS Never sm oked tobacco [facility] Start: [...] to any clubs or organizations such as uatsdin groups, unions, fraternal or athletic groups, or [...] file [facility] Start: 06-02-2024 End: 08-09-2024 Alcoholic beverage intake Ex-drinker (finding) [facility] Start: 06-02-2024 Alcohol Comment caffeine intak e: 200mg daily [facility] Start: 05-03-2024 [facility] History of Present illness Narrative 08-09-2024 GORAN Pedroza - 08/09/2024 10:30 AM EST Note Date & Type Note Facility 08-09-2024 History of Presen t illness Narrative Reason for Appointment: Patient ID: Greta Pineda is a 28 y.o. female who presents for Routine Visit Patient presents today for STD Check. and Return OB appointment. MEDICATIONS Current Outpatient Medications Medication Instructions busPIRone (Buspar) 5 MG tablet TAKE 1 TABLET BY MOUTH TWICE A DAY FOR 90 DAYS cetirizine (ZyrTEC) 10 MG tablet Every 24 hours sertraline (ZOLOFT) 25 mg, Oral, Daily ALLERGIES No Known Allergies PROBLEMS Active Ambulatory Problems Diagnosis Date Noted Allergic rhinitis 06/02/2024 Exercise-induced asthma (CMS/HCC) 06/02/2024 Moderate episode of recurrent major depressive disorder (CMS/HCC) 06/02/2024 Panic disorder (CMS/HCC) 06/02/2024 Resolved Ambulatory Problems Diagnosis Date Noted No Resolved Ambulatory Problems Past Medical History: Diagnosis Date Anxiety Depression (CMS/HCC) HISTORY PAST MEDICAL HISTORY SOCIAL HISTORY Past Medical History: Diagnosis Date Anxiety Depression (CMS/HCC) Social History Tobacco Use Smoking status: Never Smokeless tobacco: Never Vaping Use Vaping status: Never Used Substance Use Topics Alcohol use: Not Currently Comment: caffeine intake: 200mg daily Drug use: Never FAMILY HISTORY No family history on file. SURGICAL HISTORY Past Surgical History: Procedure Laterality Date ANTERIOR CRUCIATE LIGAMENT REPAIR REVIEW OF SYSTEMS Review of Systems: Review of Systems Constitutional: Negative. HENT: Negative. Eyes: Negative. Respiratory: Negative. Cardiovascular: Negative. Gastrointestinal: Negative. Genitourinary: Negative. Musculoskeletal: Negative. Skin: Negative. Neurological: Negative. All other systems reviewed and are negative. Hematological: Negative. Endocrine: Negative. Allergic/Immunologic: Negative. OBJECTIVE Objective: Physical Exam Constitutional: Appearance: Normal appearance. Genitourinary: Right Adnexa: not tender and no mass present. Left Adnexa: not tender and no mass present. No cervical discharge. Breasts: Breasts are soft. Right: Normal. Left: Normal. HENT: Head: Normocephalic. Nose: Nose normal. Mouth/Throat: Mouth: Mucous membranes are moist. Cardiovascular: Rate and Rhythm: Normal rate. Pulmonary: Effort: Pulmonary effort is normal. Abdominal: General: Bowel sounds are normal. Palpations: Abdomen is soft. Musculoskeletal: General: Normal range of motion. Cervical back: Normal range of motion. Neurological: General: No focal deficit present. Mental Status: She is alert. Skin: General: Skin is warm and dry. Psychiatric: Mood and Affect: Mood normal. Vitals and nursing note reviewed. Exam conducted with a washing and screening plant supervisor present. Vitals: Estimated body mass index is 25.73 kg/m as calculated from the following: Height as of 06/02/24: 5' 5.5 . Weight as of 07/08/24: 157 lb. BP: Patient's last menstrual period was 04/19/2024. ASSESSMENT & PLAN ICD-10-CM 1. Second trimester Z34.92 POCT urinalysis dipstick manually resulted 2. 16 weeks gestation of Z3A.16 3. Need for maternal serum alpha-protein (MSAFP) screening Z36.1 Alpha fetoprotein, maternal Alpha fetoprotein, maternal 4. Exposure to STD Z20.2 SURESWAB(R) ADVANCED VAGINITIS PLUS, TMA CHLAMYDIA TRACHOMATIS (GENITO/STI) Neisseria gonorrhea DNA probe, direct 5. Screening, , for anatomic survey Z36.89 US OB 14+ weeks anatomy scan Return OB/Annual Exam: Patient presents today for a annual exam/routine obstetrics appointment. Patient is currently 16w0d . Patient states she is doing well but has complaints of nausea in the morning. Pap was done on 02/12/2024. Cultures was obtained without difficulty and patient was given orders for anatomy scan and msAFP to be obtained. Orders Placed This Encounter Procedures US OB 14+ weeks anatomy scan CHLAMYDIA TRACHOMATIS (GENITO/STI) Neisseria gonorrhea DNA probe, direct Alpha fetoprotein, maternal POCT urinalysis dipstick manually resulted Follow Up: Patient is to schedule annual exam for next year and return to office in 4 weeks for OB appointment. Documented by Edita Chavez MA on behalf of: GORAN Pedroza documented in this encounter [facility] History of Present illness Narrative 07-08-2024 Rosa MeredithCOLBY judd - 07/08/2024 10:30 AM EST Note Date & Type Note Facility 07-08-2024 History of Presen t illness Narrative Reason for Appointment: Patient ID: Greta Pineda is a 28 y.o. female who presents for Routine Visit Patient presents today for Return OB appointment. MEDICATIONS Current Outpatient Medications Medication Instructions busPIRone (Buspar) 5 MG tablet TAKE 1 TABLET BY MOUTH TWICE A DAY FOR 90 DAYS cetirizine (ZyrTEC) 10 MG tablet Every 24 hours sertraline (ZOLOFT) 25 mg, Oral, Daily ALLERGIES No Known Allergies PROBLEMS Active Ambulatory Problems Diagnosis Date Noted Allergic rhinitis 06/02/2024 Exercise-induced asthma ([facility]/HCC) 06/02/2024 Moderate episode of recurrent major depressive disorder ([facility]/HCC) 06/02/2024 Panic disorder (CMS/HCC) 06/02/2024 Resolved Ambulatory Problems Diagnosis Date Noted No Resolved Ambulatory Problems Past Medical History: Diagnosis Date Anxiety Depression (CMS/HCC) HISTORY PAST MEDICAL HISTORY SOCIAL HISTORY Past Medical History: Diagnosis Date Anxiety Depression (CMS/HCC) Social History Tobacco Use Smoking status: Never Smokeless tobacco: Never Vaping Use Vaping status: Never Used Substance Use Topics Alcohol use: Not Currently Comment: caffeine intake: 200mg daily Drug use: Never FAMILY HISTORY No family history on file. SURGICAL HISTORY Past Surgical History: Procedure Laterality Date ANTERIOR CRUCIATE LIGAMENT REPAIR REVIEW OF SYSTEMS Review of Systems: Review of Systems All other systems reviewed and are negative. OBJECTIVE Objective: Physical Exam Constitutional: Appearance: Normal appearance. She is well-developed. Genitourinary: Vulva normal. Cardiovascular: Rate and Rhythm: Normal rate and regular rhythm. Pulmonary: Effort: Pulmonary effort is normal. Breath sounds: Normal breath sounds. Abdominal: General: Bowel sounds are normal. There is no distension. Palpations: Abdomen is soft. Tenderness: There is no abdominal tenderness. There is no guarding or rebound. Musculoskeletal: General: No swelling. Normal range of motion. Right lower leg: No edema. Left lower leg: No edema. Neurological: Mental Status: She is alert and oriented to person, place, and time. Skin: General: Skin is warm and dry. Psychiatric: Mood and Affect: Mood normal. Behavior: Behavior normal. Vitals and nursing note reviewed. Exam conducted with a washing and screening plant supervisor present. Vitals: Estimated body mass index is 25.73 kg/m as calculated from the following: Height as of 06/02/24: 5' 5.5 . Weight as of this encounter: 157 lb. BP: 110/70 Patient's last menstrual period was 04/19/2024. ASSESSMENT & PLAN ICD-10-CM 1. Second trimester Z34.92 POCT urinalysis dipstick manually resulted 2. 13 weeks gestation of Z3A.13 POCT urinalysis dipstick manually resulted New OB: Patient presents today for 1st time obstetrics appointment with provider. Patient is currently 11w3d . Patients history has been reviewed in great detail including any potential risks. Patient stated she currently has no complaints. Expectations throughout regarding labs, ultrasounds, and appointments have been discussed with the patient in detail. It was reiterated that the patient is to drink 6-8 glasses of water a day, eat 6 small meals a day, do not consume raw or undercooked meat, and stay away from [facility]. Patient has been consulted regarding any further do's and don'ts of . Patient voiced understanding and all questions and concerns were answered. Orders Placed This Encounter Procedures POCT urinalysis dipstick manually resulted Follow Up: Patient is to return in 4 weeks for routine OB appointment. Documented by Rosa Nguyen LPN on behalf of: Oumar Russell DO documented in this encounter [facility] History of Present illness Narrative 06-17-2024 Laura [...] Date Noted Allergic rhinitis 06/02/2024 Exercise-induced asthma ([facility]) 06/02/2024 Moderate episode of recurrent major depressive disorder ([facility]) 06/02/2024 Panic disorder ([facility]) 06/02/2024 Resolved Ambulatory Problems Diagnosis Date Noted No Resolved Ambulatory Problems Past Medical History: Diagnosis Date Anxiety Depression ([facility]) No family history on file. Social History [...] or undercooked meat, and stay away from [facility]. Patient has also been advised to [...] History of Present illness Narrative 06-02-2024 Bhumika Johnson NP - 06/02/2024 11:00 AM EDT Note [...] OBGYN as scheduled documented in this encounter [facility] Evaluation note Note Date & Type Note Facility Evaluation note Diagnosis Panic disorder (CMS/HCC)- Primary Panic disorder without agoraphobia Moderate episode of recurrent major depressive disorder (CMS/HCC) documented in this encounter [facility] Evaluation note Note Date & Type Note Facility Evaluation note Diagnosis Missed menses , unspecified gestational age Encounter for supervision of normal first in first trimester documented in this encounter [facility] Evaluation note Note Date & Type Note Facility Evaluation note Diagnosis Second trimester state, incidental 13 weeks gestation of documented in this encounter [facility] Evaluation note Note Date & Type Note Facility Evaluation note Diagnosis Second trimester state, incidental 16 weeks gestation of Need for maternal serum alpha-protein (MSAFP) screening Exposure to STD Screening, , for anatomic survey Encounter for anatomic survey documented in this encounter [facility] Evaluation note Note Date & Type Note Facility Evaluation note Diagnosis Panic disorder (CMS/HCC) Panic disorder without agoraphobia Moderate episode of recurrent major depressive disorder (CMS/HCC) documented in this encounter [facility] Summary Purpose Family History No Family History Records FoundNo Family History Records FoundNo Family History Records Found Advance Directives No Advanced Directives Records FoundNo Advanced Directives Records FoundNo Advanced Directives Records Found Additional Source Comments INFORMATION SOURCE (unrecogn ized section and content) DATE CREATED AUTHOR 02/27/2019 [employer] DATE CREATED AUTHOR AUTHOR'S ORGANIZ ATION 11/28/2020 [facility] DATE CREATED AUTHOR AUTHOR'S ORGANIZ ATION 08/15/2024 [facility] EPIC Care Teams (unrecognized sec tion and content) Corduroy Cutter Operator Relationship Specialty Start Date End Date Samra Aguirre DO [address] [place] [address] PCP - General Family Medicine 12/10/22 Corduroy Cutter Operator Relationship Specialty Start Date End Date Raegan Medina MD [address] [place] [address] PCP - General Family Medicine 06/02/24 Corduroy Cutter Operator Relationship Specialty Start Date End Date Raegan Medina MD [address] [facility] [place] [address] PCP - General Family Medicine 06/02/24 Corduroy Cutter Operator Relationship Specialty Start Date End Date Raegan Medina MD [address] [place] [address] PCP - General Family Medicine 06/02/24 Corduroy Cutter Operator Relationship Specialty Start Date End Date Raegan Medina MD [address] [facility] [place] [address] PCP - General Family Medicine 06/02/24 Corduroy Cutter Operator Relationship Specialty Start Date End Date Raegan Medina MD [address] [place] [address] PCP - General Family Medicine 06/02/24 Corduroy Cutter Operator Relationship Specialty Start Date End Date Raegan Medina MD [address] [place] [address] PCP - General Family Medicine 06/02/24 Reason for Visit (unrecogniz ed section and content) Reason Comments Medication Problem Pt would like to see about switching anxiety medication due to . Reason Comments Amenorrhea Reason Comments Routine Visit Reason Comments Med Refill FOR RECORDS PERTAINING TO PATIENTS WHO ARE [...] BE BASED ON THE PRIMARY CLINICAL RECORDS. [facility]. provides no warranty or guarantee of the accuracy or completeness of information in this document.
[2024-09-08 17:07] LABS: AFP Value 74.7 ng/mL (.); Insulin Dep Diabetes No (.); Maternal Age At EDD 31.1 yr (.); OSBR Risk 1 IN 3704 (.); Results Report (.)
== END 2024-09-06 11:23 | disposition home or self-care (01) ==
LOC: LAB 11:24
PROVIDERS: Visit Provider Physician Assistant
DX: Z34.92 Encounter for supervision of normal pregnancy, unspecified, second trimester (principal); Z36.1 Encounter for antenatal screening for raised alphafetoprotein level
CPT/HCPCS: 36415; 82105

== ENCOUNTER 2024-10-04 09:12 | Outpatient (OUT) | payer BC, SELFPAY ==
[2024-10-04 10:30] LABS: Basophils Percent Auto 0.3 % (0.2-2.0); Eosinophils Absolute Auto 0.1 10^3/uL (0.0-0.7); Eosinophils Percent Auto 1.3 % (0.9-7.0); Hematocrit 35.1 % (36.0-48.0); Hemoglobin 11.5 g/dL (12.0-16.0); Immature Granulocytes Abs Auto 0.02 10^3/uL (0.00-0.03); Immature Granulocytes Pct Auto 0.2 % (0.0-0.5); Lymphocytes Absolute Auto 1.6 10^3/uL (1.2-3.8); Lymphocytes Percent Auto 17.7 % (20.5-60.0); Mean Corpuscular HGB Conc 32.8 g/dL (29.9-35.2); Mean Corpuscular Hemoglobin 31.6 pg (26.7-34.0); Mean Corpuscular Volume 96.4 fL (81.0-99.0); Mean Platelet Volume 8.8 fL (9.5-13.5); Monocytes Absolute Auto 0.4 10^3/uL (0.3-0.8); Monocytes Percent Auto 4.7 % (1.7-12.0); Neutrophils Percent Auto 75.8 % (43.0-75.0); Platelet Count 300 10^3/uL (150-450); Red Blood Count 3.64 10^6/uL (4.20-5.40); Red Cell Distribution Width 11.9 % (11.0-15.0); White Blood Count 9.2 10^3/uL (4.0-11.0)
[2024-10-04 10:43] LABS: Glucose 1 Hour 120 mg/dL (<130)
== END 2024-10-04 09:13 | disposition home or self-care (01) ==
PROVIDERS: PCP Nurse Practitioner Family; Visit Provider Physician Assistant
DX: Z13.1 Encounter for screening for diabetes mellitus (principal); Z3A.24 24 weeks gestation of pregnancy
CPT/HCPCS: 36415; 82950; 85025

== ENCOUNTER 2024-12-29 11:50 | Outpatient (REF) | payer BC, SELFPAY ==
--- OUTSIDE RECORDS SUMMARY | 2024-12-29 09:00 | XMS_ITS | Encounter Summary ---
Author Organization [facility] Address [address] [place] [address] Care Team Providers Care Manual Plate Filler Name Role Phone Raegan Medina MD Primary Care Provider [phone] Encounter Details Date Type Department Care Team (Latest Contact Info) Description 12/29/2024 9:00 AM EDT Ancillary Procedure [facility] [address] [place] [address] LGA (large for gestational age) fetus affecting management of mother, first trimester, fetus 3 Social History Tobacco Use Types Packs/Day Years Used Date Smoking Tobacco: Never Smokeless Tobacco: Never Alcohol Use Standard Drinks/Week Comments Not Currently 0 (1 standard drink = 0.6 oz pur e alcohol) caffeine intake: 200mg daily [id number] Health Literacy Answer Date Recor ded How often do you need to hav e someone help you when you read instructions, pamphlets, or other written material from your doctor or pharmacy? Never 06/01/2024 Social Connection and Isolation Panel [NHANES] A nswer Date Recorded In a typical week, how many times do you talk on the phone with family, friends, or neighbors? Once a week 06/01/20 How often do you get togethe r with friends or relatives? Once a week 06/01/2024 How often do you attend chur ch or synagogue services? Never 06/01/2024 Do you belong to any clubs o r organizations such as anabaptist groups, unions, fraternal or athletic groups, or school groups? No 06/01/2024 How often do you attend meet ings of the clubs or organizations you belong to? Never 06/01/2024 Are you , , di vorced, , never , or living with a partner? Living with partner 06/01/2024 AUDIT-C Answer Date Recorded Q1: How often do you have a drink containing alcohol? Never 06/01/2024 Q2: How many drinks containi ng alcohol do you have on a typical day when you are drinking? Patient does not drink Q3: How often do you have si x or more drinks on one occasion? Never 06/01/2024 Overall Financial Resource Strain (CARDIA) Answe r Date Recorded How hard is it for you to pa y for the very basics like food, housing, medical care, and heating? Not very hard 06/01/2024 PHQ-2 Answer Date Recorded Patient Health Questionnaire-2 Score 0 06/02/2024 [facility] - Occupational Stress Questionnaire Answer Date Recorded Do you feel stress - tense, restless, nervous, or anxious, or unable to sleep at night because your mind is troubled all the time - these days? Only a little 06/01/2024 Exercise Vital Sign Answer Date Recorde d On average, how many days pe r week do you engage in moderate to strenuous exercise (like a brisk walk)? 7 days 06/01/2024 On average, how many minutes do you engage in exercise at this level? 30 min 06/01/2024 Hunger Vital Sign Answer Date Recorded Within the past 12 months, y ou worried that your food would run out before you got the money to buy more. Never true 06/01/20 24 Within the past 12 months, t he food you bought just didn't last and you didn't have money to get more. Never true 06/01/2024 PRAPARE - Transportation Answer Date Re corded In the past 12 months, has l ack of transportation kept you from medical appointments or from getting medications? No 05/05 In the past 12 months, has l ack of transportation kept you from meetings, work, or from getting things needed for daily living? No 06/01/2024 Housing Stability Vital Sign Answer Javier e Recorded In the last 12 months, was t here a time when you were not able to pay the mortgage or rent on time? No 06/01/2024 In the past 12 months, how m any times have you moved where you were living? 0 06/01/2024 At any time in the past 12 m [facility], were you homeless or living in a prison (including now)? No 06/01/2024 Estimated Date of Delivery Comme nts Yes 01/24/2025 Date entered radha or to episode creation Sex and Gender Information Value Date Recorded Sex Assigned at Not on file Legal Sex Female 7:40 PM EDT Gender Identity Not on file Sexual Orientation Not on file documented as of this encounter Plan of Treatment Upcoming Encounters Date Type Department Care Team (Late st Contact Info) Description 01/05/2025 1:20 PM EDT Routine [facility] [address] [place] [id number] Slim Russell, [address] [place] [address] Pending Results Name Type Priority Associated Diagnoses Date /Time US OB follow up transabdominal approach Imaging Routine LGA (large for gestational age) fetus affecting management of mother, first trimester, fetus 3 12/29/2024 9:17 AM EDT documented as of this encounter Visit Diagnoses Diagnosis LGA (large for gestational age) fetus affecting management of mother, first trimester, fetus 3 documented in this encounter Additional Health Concerns Assessment Noted Time PHQ-9 Depression Total Score: 0 06/02/20 10:00 AM EDT documented as of this encounter Care Teams Manual Plate Filler Relationship Specialty Start Date End Date Raegan Medina MD [address] [place] [address] PCP - General Family Medicine 06/02/24 documented as of this encounter
--- OUTSIDE RECORDS SUMMARY | 2024-12-29 09:20 | XMS_ITS | Encounter Summary ---
Author Organization [facility] Address [address] [place] [address] Care Team Providers Care River Tester Name Role Phone Raegan Medina MD Primary Care Provider [phone] Reason for Visit * Reason Comments Routine Visit Encounter Details Date Type Department Care Team (Late st Contact Info) Description 12/29/2024 9:20 AM EDT Routine [facility] [address] [place] [address] Brenda Owusu PA [address] [place] [address] 36 weeks gestation of ; Third trimester Social History Tobacco Use Types Packs/Day Years [...] friends, or neighbors? Once a week 06/01/20 24 How often do you get togethe r with friends or relatives? Once a week 06/01/2024 How often do you attend chur or episcopalian services? Never 06/01/2024 Do you belong to any clubs o r organizations such as sikhism groups, unions, fraternal or athletic groups, or [...] Recorded Patient Health Questionnaire-2 Score 0 06/02/2024 [facility] - Occupational [...] any time in the past 12 m [facility], were you homeless or living in a detention (including now)? No 06/01/2024 Estimated Date of Delivery Comme nts Yes 01/24/2025 Date entered radha or to episode creation Sex and Gender Information Value Date Recorded Sex Assigned at Not on file Legal Sex Female 7:40 PM EDT Gender Identity Not on file Sexual Orientation Not on file documented as of this encounter Last Filed Vital Signs Vital Sign Reading Time Taken Comments Blood Pressure 120/70 12/29/2024 9:25 AM EDT Pulse - - Temperature - - Respiratory Rate - - Oxygen Saturation - - Inhaled Oxygen Concentration - - Weight 83 kg (183 lb) 12/29/2024 9:25 AM EDT Height - - Body Mass Index 29.99 06/02/2024 10:49 AM EDT documented in this encounter Progress Notes * GORAN Pedroza - 12/29/2024 9:20 AM EDT Reason for Appointment: Patient ID: Greta Pineda is a 29 y.o. female who presents for Routine Visit Patient presents today for Return OB appointment. MEDICATIONS Current Outpatient Medications Medication Instructions busPIRone (Buspar) 5 MG tablet TAKE 1 TABLET BY MOUTH TWICE A DAY FOR 90 DAYS cetirizine (ZyrTEC) 10 MG tablet Every 24 hours MV-Min-Fe Fum-FA-DHA ( 1 PO) Take by mouth sertraline (ZOLOFT) 25 mg, Oral, Daily ALLERGIES No Known Allergies PROBLEMS Active Ambulatory Problems Diagnosis Date Noted Allergic rhinitis 06/02/2024 Exercise-induced asthma 06/02/2024 Moderate episode of recurrent major depressive [...] Exam Constitutional: Appearance: Normal appearance. She is normal weight. HENT: Head: Normocephalic. Cardiovascular: Rate and Rhythm: Normal rate. Pulses: Normal pulses. Pulmonary: Effort: Pulmonary effort is normal. Breath sounds: Normal breath sounds. Abdominal: Palpations: Abdomen is soft. Musculoskeletal: General: Normal range of motion. Neurological: General: No focal deficit present. Mental Status: She is alert and oriented to person, place, and time. Psychiatric: Mood and Affect: Mood normal. Behavior: Behavior normal. Thought Content: Thought content normal. Judgment: Judgment normal. Vitals and nursing note reviewed. Vitals: Estimated body mass index is 29.99 kg/m?? as calculated from the following: Height as of 06/02/24: 5' 5.5 . Weight as of this encounter: 183 lb. BP: 120/70 Patient's last menstrual period was 04/19/2024. ASSESSMENT & PLAN ICD-10-CM 1. 36 weeks gestation of Z3A.36 POCT urinalysis dipstick manually resulted 2. Third trimester Z34.93 POCT urinalysis dipstick manually resulted CULTURE, GROUP B STREP WITH SUSCEPTIBLITY CULTURE, GROUP B STREP WITH SUSCEPTIBLITY Return OB: Patient presents today for a routine obstetrics appointment. Patient is currently 36w2d . Patient states she is doing well but has complaints of being tired due to current . Patient has verbalizes frequent movement. labor precautions was discussed/given and patient was instructed to perform kick counts three times a day. Orders Placed This Encounter Procedures CULTURE, GROUP B STREP WITH SUSCEPTIBLITY POCT urinalysis dipstick manually resulted Follow Up: Patient is to return to office in 1 week for routine OB appointment. Documented by GORAN Pedroza on behalf of: GORAN Pedroza documented in this encounter Plan of Treatment Upcoming Encounters Date Type Department Care Team (Late st Contact Info) Description 01/05/2025 1:20 PM EDT Routine [facility] [address] [place] [address] Slim Russell DO [address] [place] [address] Scheduled Orders Name Type Priority Associated Diagnoses Orde r Schedule CULTURE, GROUP B STREP WITH SUSCEPTIBLITY Lab Routine Third trimester Expected: 12/29/2024, Expires: 12/29/2025 documented as of this encounter Procedures Procedure Name Priority Date/Time Associated Diagnosis Comments POCT URINALYSIS DIPSTICK Routine 12/29/2024 9:31 AM EDT 36 weeks gestation of Third trimester documented in this encounter Results * (ABNORMAL) POCT urinalysis dipstick manually resulted (12/29/2024 9:31 AM EDT) Color, UA Yellow Clarity, UA Clear Glucose, UA Negative Negative - 2000(110) ++++ mg/dL Bilirubin, UA Negative Negative - 4(70) +++ mg/dL Ketones, UA Negative Negative - 160(16) ++++ mg/dL Spec Grav, UA 1.010 1 - 1.03 Blood, UA Negative Negative - 50 Immanuel/mcL pH, UA 7.0 5 - 9 Protein, UA Negative Negative - 2000(20) ++++ mg/dL Urobilinogen, UA 0.2 0.2 - 12 mg/dL Leukocytes, UA Trace Negative - 500+++ Jennyfer/mcL Nitrite, UA Negative Negative - Positive Urine 12/29/2024 9:31 AM EDT us Brenda ZIMMER POINT OF CARE TEST ENTER/EDIT OR DERABLES Final Result documented in this encounter Visit Diagnoses Diagnosis 36 weeks gestation of Third trimester state, incidental documented in this encounter Additional Health Concerns Assessment Noted Time PHQ-9 Depression Total Score: 0 06/02/20 10:00 AM EDT documented as of this encounter Care Teams River Tester Relationship Specialty Start Date End Date Raegan Medina MD [address] [place] [address] PCP - General Family Medicine 06/02/24 documented as of this encounter
--- OUTSIDE RECORDS SUMMARY | 2024-12-29 11:54 | XMS_ITS | Encounter Summary ---
Author Organization [facility] Address [address] [place] [address] Care Team Providers Care Securities Settlement Processor Name Role Phone Raegan Medina MD Primary Care Provider [phone] Mary Ann Johnson NP Unavailable [phone] Encounter Details Date Type Department Care Team (Late st Contact Info) Description 06/18/2024 Clinisync Result Encounter [facility] External Department Unsolicited Oumar Russell, DO [address] [place] [address] Social History Tobacco Use Types Packs/Day Years [...] often do you attend chur ch or advent services? Never 06/01/2024 Do you belong to any clubs o r organizations such as religious groups, unions, fraternal or athletic groups, or [...] Recorded Patient Health Questionnaire-2 Score 0 06/02/2024 [facility] - Occupational Stress [...] any time in the past 12 m [facility], were you homeless or living in a correction (including now)? No 06/01/2024 Estimated Date of [...] Description 01/05/2025 1:20 PM EDT Routine [facility] OB [address] [place] [id number] Oumar Russell DO [address] [place] [address] documented as of this encounter Procedures Procedure Name Priority Date/Time Associated Diagnosis Comments US OB TRANSVAGINAL 06/18/2024 4: 19 AM EST documented in this encounter Results * US OB TRANSVAGINAL (06/18/2024 4:19 AM EST) Anatomical Region Laterality Modality Other 06/18/2024 4:19 AM EST Narrative 06/18/2024 4:21 AM EST [facility] [place] [id number] Ultrasound Report Signed Patient: Greta Pineda MR#: [id number] : 1995 Acct:[id number] Age/Sex: 28 / F ADM Date: 06/17/24 Loc: [facility] Attending Dr: Oumar Russell D.O. Ordering Physician: Oumar Russell D.O. Date of Service: 06/17/24 Procedure(s): US OB transvaginal Accession Number(s): [id number] cc: Oumar Russell D.O.; Samra Aguirre D.O. The [address] [address] Patient Name: GRETA PINEDA MRN: [id number] date: 1995 Sex: F Assigned Patient Location: [facility] Current Patient Location: Accession/Order Number: [id number] Exam Date: 06/17/2024 13:27 Report Date: 06/18/2024 04:19 At the request of: OUMAR RUSSELL Procedure: US OB transvaginal EXAMINATION: US OB transvaginal HISTORY: MISSED MENSES COMPARISON: No relevant comparison available. FINDINGS: GESTATIONAL SAC: Present and normal appearing. YOLK SAC: Present and normal appearing. POLE: Present and normal appearing. CARDIAC: Present. UTERUS: Normal size and appearance. OVARIES: Right: Normal. Left: Not seen. CERVIX: 4.1 cm in length and closed. CUL-DE-SAC: Normal. OTHER: Tiny subchorionic hematoma. AGE BY LMP: 8 weeks 3 days BRIAN BY LMP: 01/24/2025 AGE BY US CRL: 8 weeks 0 days BRIAN BY US CRL: 01/27/2025 US/US OB transvaginal IMPRESSION: 1. Single live intrauterine . Electronically authenticated by: MANPREET GARRIDO Date: 06/18/2024 04:19 Dictated By: Manpreet Garrido M.D. Signed By: 06/18/24 0421 DD/ 0419 TD/TT: Shaft Tender: Procedure Note Radiology, Radiologist, MD - 06/18/2024 [place] [address] Ultrasound Report Signed Patient: Mary Pindea#: [id number] : 1995Acct:[id number] Age/Sex: 28 / FADM Date: 06/17/24 Loc: [facility] Attending Dr: Oumar Russell D.O. Ordering Physician: Oumar Russell D.O. Date of Service: 06/17/24 Procedure(s): US OB transvaginal Accession Number(s): [id number] cc: Oumar Russell D.O.; Samra Aguirre D.O. [place] [id number] Patient Name: GRETA PINEDA MRN: [id number] date: 1995 Sex: F Assigned Patient Location: [facility] Current Patient Location: Accession/Order Number: [id number] Exam Date: 06/17/2024 13:27 Report Date: 06/18/2024 04:19 At the request of: OUMAR RUSSELL Procedure: US OB transvaginal EXAMINATION: US OB transvaginal HISTORY: MISSED MENSES COMPARISON: No relevant comparison available. FINDINGS: GESTATIONAL SAC: Present and normal appearing. YOLK SAC: Present and normal appearing. POLE: Present and normal appearing. CARDIAC: Present. UTERUS: Normal size and appearance. OVARIES: Right: Normal. Left: Not seen. CERVIX: 4.1 cm in length and closed. CUL-DE-SAC: Normal. OTHER: Tiny subchorionic hematoma. AGE BY LMP: 8 weeks 3 days BRIAN BY LMP: 01/24/2025 AGE BY US CRL: 8 weeks 0 days BRIAN BY US CRL: 01/27/2025 US/US OB transvaginal IMPRESSION: 1. Single live intrauterine . Electronically authenticated by: MANRPEET GARRIDO Date: 06/18/2024 04:19 Dictated By: Manpreet Garrido M.D. Signed By:06/18/24 0421 DD/ 0419 TD/TT: Shaft Tender: us Oumar Russell DO [facility] Final Result documented in this encounter Visit Diagnoses Not on filedocumented in this encounter Additional Health Concerns Assessment Noted Time PHQ-9 Depression Total Score: 0 06/02/20 24 10:00 AM EDT documented as of this encounter Care Teams Securities Settlement Processor Relationship Specialty Start Date End Date Raegan Medina MD [address] [place] [address] PCP - General Family Medicine 06/02/24 Mary Ann Johnson NP [address] [place] [address] PCP - [place] Commercial 07/04/24 documented as of this encounter
--- OUTSIDE RECORDS SUMMARY | 2024-12-29 11:54 | XMS_ITS | Clinical Summary ---
[facility] Address [id number] [address] [id number] Care Team Providers Care Orthotist/Prosthetist Name Role Phone Unavailable Primary Care Provider Unavailabl e Social History Tobacco Use Types Packs/Day Years Used Date Smoking Tobacco: Never Assessed Childcare Answer Date Recorded Childcare Unknown 01/13/2019 Employment Answer Date Recorded Employment Unknown 01/13/2019 Comments Unknown Sex and Gender Information Value Date Recorded Sex Assigned at Not on file Legal Sex Female 11:48 AM EDT Gender Identity Not on file Sexual Orientation Not on file Plan of Treatment Not on file Medical Devices Not on file
--- OUTSIDE RECORDS SUMMARY | 2024-12-29 11:54 | XMS_ITS | Encounter Summary ---
Author Organization [facility] Address [address] [place] [address] Care Team Providers Care Regional Program Manager Name Role Phone Raegan Medina MD Primary Care Provider [phone] Mary Ann Johnson NP Unavailable [phone] Encounter Details Date Type Department Care Team (Late st Contact Info) Description 06/18/2024 Abstract [facility] OB [address] [place] [address] Slim Russell, DO [address] [place], [id number] Social History Tobacco Use Types Packs/Day Years [...] often do you attend chur ch or faith services? Never 06/01/2024 Do you belong to [...] Recorded Patient Health Questionnaire-2 Score 0 06/02/2024 [facility] - Occupational Stress Questionnaire Answer Date Recorded [...] any time in the past 12 m [facility], were you homeless or living in a snf (including now)? No 06/01/2024 Estimated Date of [...] PM EDT Routine [facility] OB [address] [place] [address] Slim Russell, DO [address] [place], [place] [id number] documented as of this encounter Visit Diagnoses Not on filedocumented in this encounter Additional Health Concerns Assessment Noted Time PHQ-9 Depression Total Score: 0 06/02/20 24 10:00 AM EDT documented as of this encounter Care Teams Regional Program Manager Relationship Specialty Start Date End Date Raegan Medina MD [address] [facility] [place] [address] PCP - General Family Medicine 06/02/24 Mary Ann Johnson NP [address] [facility] [place] [address] PCP - Anny Commercial 07/04/24 documented as of this encounter
--- OUTSIDE RECORDS SUMMARY | 2024-12-29 11:54 | XMS_ITS | Patient Health Record ---
Author Organization [facility] Address [address] [place], [place] [id number] Care Team Providers Care Fisher Gill Net Name Role Phone Stanley Martellmarisa Unavailable [phone] Allergies No Known Allergies Reason For Referral No Information Medications Medication SIG (Take, Route, Frequency, Duration) Notes Start Date End Date Status ZyrTEC 10 MG 1 tablet Orally Once a day Active Sertraline HCl 25 MG Oral for 90 Days Active Citalopram Hydrobromide 20 MG TAKE 1 TABLET BY MOUTH EVERY DAY Oral for 90 Days Not-Taking busPIRone HCl 5 MG TAKE 1 TABLET BY VALERIE TH TWICE A DAY Oral for 90 Days Active Social History Tobacco Use: Social History Observation Description Date Details (start date - stop date) Never Smoker NA - NA Sex Assigned At : Social History Observation Description Sex Assigned At Female Tobacco Control (Standard) Question Answer Notes Tobacco use: Nonsmoker Additional Findings: Tobacco non-user Current no nsmoker Vital Signs Heart Rate 75 /min 09/10/2024 Blood pressure diastolic 67 mm Hg 09/10/2024 Height-cm 162.56 cm 09/10/2024 Weight-kg 71.21 kg 09/10/2024 Height 5'4 in 09/10/2024 Blood pressure systolic 112 mm Hg 09/10/2024 Weight 157 lbs 09/10/2024 BMI 26.95 kg/m2 09/10/2024 Encounters Encounter Location Date Provider Diagnosis Dental Main [address] [place], [place] [id number] 09/10/2024 [facility] Dental caries into dentine K02.62 and Encounter for dental examination and cleaning with abnormal findings Z01.21 Assessments Encounter Date Diagnosis (ICD Code) Assessment Notes Treatment Notes Treatment Clinical Notes Section Notes 09/10/2024 Dental caries into dentine (ICD-10 - K02.62) 09/10/2024 Encounter for dental examination and cleaning with abnormal findings (ICD-10 - Z01.21) Plan Of Treatment Next Appt Details Provider Name:An Angel , 02/14/2025 09:15:00 AM, [address] [place] [address], [id number], Insurance Providers Payer Name Payer Address Payer Phone Subscriber Number Group Number Insured Name Patient Relationship to Insured Coverage Start Date Coverage End Date [address] [place], [place] [id number] Greta Pineda Self - patient is the insured 4
--- OUTSIDE RECORDS SUMMARY | 2024-12-29 11:54 | XMS_ITS | Encounter Summary ---
Author Organization [facility] Address [address] [place] [address] Care Team Providers Care Insurance Risk Manager Name Role Phone Raegan Medina MD Primary Care Provider [phone] Mary Ann Johnson NP Unavailable [phone] Encounter Details Date Type Department Care Team (Late st Contact Info) Description 07/14/2024 Abstract [facility] OB [address] [place] [address] Slim Russell, DO [address] [place], [facility] Social History Tobacco Use Types Packs/Day Years [...] any clubs o r organizations such as buddhist groups, unions, fraternal or athletic groups, or [...] Recorded Patient Health Questionnaire-2 Score 0 06/02/2024 [facility] - Occupational Stress Questionnaire Answer [...] any time in the past 12 m [facility], were you homeless or living in a [...] EDT Routine [facility] OB [address] [place] [address] Slim Russell, DO [address] [place], [place] [id number] documented as of this encounter Visit Diagnoses Not on filedocumented in this encounter Additional Health Concerns Assessment Noted Time PHQ-9 Depression Total Score: 0 06/02/20 24 10:00 AM EDT documented as of this encounter Care Teams Insurance Risk Manager Relationship Specialty Start Date End Date Raegan Medina MD [address] [facility] [place] [address] PCP - General Family Medicine 06/02/24 Mary Ann Johnson NP [address] [facility] [place] [address] PCP - Anny Commercial 07/04/24 documented as of this encounter
--- OUTSIDE RECORDS SUMMARY | 2024-12-29 11:54 | XMS_ITS | Encounter Summary ---
Author Organization [facility] Address [address] [place] [address] Care Team Providers Care Business Development Manager Name Role Phone Raegan Medina MD Primary Care Provider [phone] Encounter Details Date Type Department Care Team (Latest Contact Info) Description 12/22/2024 Travel Social History Tobacco Use Types Packs/Day Years [...] often do you attend chur ch or scientology services? Never 06/01/2024 Do you belong to [...] Recorded Patient Health Questionnaire-2 Score 0 06/02/2024 [facility] Occupat ional Health - Occupational [...] any time in the past 12 m [facility], were you homeless or living in a jail (including now)? No 06/01/2024 Estimated Date of [...] PM EDT Routine [facility] OB [address] [place] [address] Slim Russell, DO [address] [place] [address] documented as of this encounter Visit Diagnoses Not on filedocumented in this encounter Additional Health Concerns Assessment Noted Time PHQ-9 Depression Total Score: 0 06/02/20 10:00 AM EDT documented as of this encounter Care Teams Business Development Manager Relationship Specialty Start Date End Date Raegan Medina MD [address] [place] [address] PCP - General Family Medicine 06/02/24 documented as of this encounter
--- OUTSIDE RECORDS SUMMARY | 2024-12-29 11:54 | XMS_ITS | Clinical Summary ---
Author Organization [facility] Address [address] [place] [address] Phone Care Team Providers Care Parts Washer Name Role Phone Unavailable Primary Care Provider Unavailabl e Social History Tobacco Use Types Packs/Day Years Used Date Smoking Tobacco: Never Assessed Comments Unknown Sex and Gender Information Value Date Recorded Sex Assigned at Not on file Legal Sex Female 7:08 AM EST Gender Identity Not on file Sexual Orientation Not on file Plan of Treatment Not on file
--- OUTSIDE RECORDS SUMMARY | 2024-12-29 11:54 | XMS_ITS | Encounter Summary ---
Author Organization [facility] Address [address] [place] [address] Care Team Providers Care It Operations Specialist Name Role Phone Raegan Medina MD Primary Care Provider [phone] Mary Ann Johnson NP Unavailable [phone] Encounter Details Date Type Department Care Team (Late st Contact Info) Description 06/18/2024 Abstract [facility] OB [address] [place] [address] Slim Russell, DO [address] [place], [facility] Social History Tobacco Use Types Packs/Day Years [...] often do you attend chur ch or protestant services? Never 06/01/2024 Do you belong to any clubs o r organizations such as muslim groups, unions, fraternal or athletic groups, or [...] Recorded Patient Health Questionnaire-2 Score 0 06/02/2024 [facility] - Occupational Stress Questionnaire Answer Date Recorded [...] any time in the past 12 m [facility], were you homeless or living in [...] EDT Routine [facility] OB [address] [place] [address] Slim Russell, DO [address] [place], [place] [id number] documented as of this encounter Visit Diagnoses Not on filedocumented in this encounter Additional Health Concerns Assessment Noted Time PHQ-9 Depression Total Score: 0 06/02/20 24 10:00 AM EDT documented as of this encounter Care Teams It Operations Specialist Relationship Specialty Start Date End Date Raegan Medina MD [address] [facility] [place] [place] [address] PCP - General Family Medicine 06/02/24 Mary Ann Johnson NP [address] [facility] [place] [place] [address] PCP - Anny Commercial 07/04/24 documented as of this encounter
--- OUTSIDE RECORDS SUMMARY | 2024-12-29 11:54 | XMS_ITS | Encounter Summary ---
Author Organization [facility] Address [address] [place] [address] Care Team Providers Care Maintenance Shop Laborer Name Role Phone Raegan Medina MD Primary Care Provider [phone] Mary Ann Johnson NP Unavailable [phone] Encounter Details Date Type Department Care Team (Late st Contact Info) Description 07/14/2024 Abstract [facility] OB [address] [place] [address] Slim Russell, DO [address] [facility] [address] [facility] [address] [place], [facility] Social History Tobacco Use Types Packs/Day Years [...] often do you attend chur ch or restorationism services? Never 06/01/2024 Do you belong to any clubs o r organizations such as islam groups, unions, fraternal or athletic groups, or [...] Recorded Patient Health Questionnaire-2 Score 0 06/02/2024 [facility] - Occupational Stress Questionnaire Answer Date Recorded [...] any time in the past 12 m [facility], were you homeless or living in a fpc (including now)? No 06/01/2024 Estimated Date of [...] EDT Routine [facility] OB [address] [place] [address] Slim Russell, DO [address] [facility] [address] [place], [place] [id number] documented as of this encounter Visit Diagnoses Not on filedocumented in this encounter Additional Health Concerns Assessment Noted Time PHQ-9 Depression Total Score: 0 06/02/20 24 10:00 AM EDT documented as of this encounter Care Teams Maintenance Shop Laborer Relationship Specialty Start Date End Date Raegan Medina MD [address] [facility] [place] [address] PCP - General Family Medicine 06/02/24 Mary Ann Johnson NP [address] [facility] [place] [address] PCP - Anny Commercial 07/04/24 documented as of this encounter
--- OUTSIDE RECORDS SUMMARY | 2024-12-29 11:54 | XMS_ITS | Encounter Summary ---
Author Organization [facility] Address [address] [place] [address] Care Team Providers Care Participant Administrator Name Role Phone Raegan Medina MD Primary Care Provider [phone] Mary Ann Johnson NP Unavailable [phone] Encounter Details Date Type Department Care Team (Late st Contact Info) Description 07/19/2024 Abstract [facility] OB [address] [place] [address] Slim Russell, DO [address] [facility] [address] [place], [facility] Social History Tobacco Use Types Packs/Day [...] often do you attend chur ch or rastafari services? Never 06/01/2024 Do you belong to any clubs o r organizations such as congregational groups, unions, fraternal or athletic groups, or [...] Patient Health Questionnaire-2 Score 0 06/02/2024 [facility] - Occupational Stress Questionnaire Answer [...] were you homeless or living in a chcf (including now)? No 06/01/2024 Estimated Date of [...] EDT Routine [facility] OB [address] [place] [address] Slim Russell, DO [address] [facility] [address] [place], [place] [address] documented as of this encounter Visit Diagnoses Not on filedocumented in this encounter Additional Health Concerns Assessment Noted Time PHQ-9 Depression Total Score: 0 06/02/20 24 10:00 AM EDT documented as of this encounter Care Teams Participant Administrator Relationship Specialty Start Date End Date Raegan Medina MD [address] [place] [address] PCP - General Family Medicine 06/02/24 Mary Ann Johnson NP [address] [facility] [address] PCP - Anny Commercial 07/04/24 documented as of this encounter
--- OUTSIDE RECORDS SUMMARY | 2024-12-29 11:54 | XMS_ITS | Clinical Summary ---
Author Organization [facility] Healthcare Address [address] [place] [address] Care Team Providers Care Referral Specialist Name Role Phone Raegan Medina MD Primary Care Provider [phone] Allergies No known active allergies Medications busPIRone (Buspar) 5 MG tabletIndication s:Major depressive disorder, recurrent, moderate (CMS/HCC) TAKE 1 TABLET BY MOUTH TWICE A DAY FOR 90 DAYS 180 tablet 3 04/28/2023 Active cetirizine (ZyrTEC) 10 MG tablet 1 (one) time each day at the same time Active sertraline (Zoloft) 25 MG tabletIndication s:Panic disorder (CMS/HCC),Modera te episode of recurrent major depressive disorder (CMS/HCC) TAKE 1 TABLET BY MOUTH EVERY DAY 90 tablet 1 09/01/2024 Active MV-Min-Fe Fum-FA-DHA ( 1 PO) Take by mouth Active Active Problems Problem Noted Date Diagnosed Date Allergic rhinitis 06/02/2024 Exercise-induced asthma 06/02/2024 Moderate episode of recurrent major depressive d isorder 06/02/2024 Panic disorder 06/02/2024 Estimated Date of Delivery Comme nts Yes 01/24/2025 Date entered radha or to episode creation Encounters Date Type Department Care Team Description 12/29/2024 9:20 AM EDT Routine [facility] [place] [address] [place] [id number] Brenda Owusu PA 36 weeks gestation of ; Third trimester 12/29/2024 9:00 AM EDT Ancillary Procedure [facility] [address] [place] [address] LGA (large for gestational age) fetus affecting management of mother, first trimester, fetus 3 12/22/2024 Travel 12/14/2024 8:30 AM EDT Routine [facility] [address] [place] [address] [place] [address] Slim Russell, DO Third trimester ; 34 weeks gestation of 12/14/2024 Bamboo flowsheet [facility] [address] [place] [address] [place] [address] Slim Russell, DO 12/08/2024 Telephone [facility] [address] [place] [address] [place] [address] Slim Russell, DO 12/07/2024 Travel 12/01/2024 9:50 AM EDT Routine [facility] [address] [place] [address] [place] [address] Ling Graham, SANDHYA LGA (large for gestational age) fetus affecting management of mother, first trimester, fetus 3 (Primary Dx); Third trimester ; 32 weeks gestation of 12/01/2024 9:00 AM EDT Ancillary Procedure [facility] [address] [place] [address] [place] [address] size inconsistent with dates 11/30/2024 Travel 11/28/2024 Travel 11/16/2024 11:20 AM EDT Routine [facility] [address] [place] [address] [place] [address] Slim Russell, DO Third trimester ; 30 weeks gestation of ; size inconsistent with dates 11/16/2024 Bamboo flowsheet [facility] OB [address] [place] [address] [place] [address] Slim Russell, DO 11/15/2024 Travel 11/01/2024 8:50 AM EDT Routine [facility] [address] [place] [address] [place] [address] Slim Russell DO Size of fetus inconsistent with dates in third trimester (Primary Dx); Third trimester ; 28 weeks gestation of 11/01/2024 Bamboo flowsheet [facility] [address] [place] [address] Slim Russell DO 10/30/2024 Travel 10/18/2024 11:30 AM EDT Ancillary Procedure [facility] [address] [place] [address] Encounter for follow-up ultrasound of anatomy 10/17/2024 Travel 10/04/2024 8:30 AM EST Routine [facility] [address] [place] [address] Brenda Owusu PA Second trimester ; 24 weeks gestation of ; Diabetes mellitus screening; Encounter for follow-up ultrasound of anatomy 10/04/2024 Clinisync Result Encounter [facility] External Department Unsolicited Brenda Owusu PA 10/04/2024 Bamboo flowsheet [facility] [address] [place] [address] Brenda Owusu PA 10/03/2024 Travel from Last 3 Months Immunizations Immunization Administration Dates Next Due Tdap 02/24/2012 Family History Relation Name Status Comments Father Alive Mother Alive Social History Tobacco Use Types Packs/Day Years Used Date Smoking Tobacco: Never Smokeless Tobacco: Never Tobacco Cessation:Counseling Given: Not Answered Alcohol Use Standard Drinks/Week Comments Not Currently [...] week 06/01/2024 How often do you attend [facility] or denominational services? Never 06/01/2024 Do you belong to any clubs o r organizations such as amish groups, unions, fraternal or athletic groups, or [...] Recorded Patient Health Questionnaire-2 Score 0 06/02/2024 [facility] - Occupational Stress Questionnaire Answer Date Recorded [...] any time in the past 12 m [facility], were you homeless or living in a [place] facility (including now)? No 06/01/2024 Estimated Date of Delivery Comme nts Yes 01/24/2025 Date entered radha or to episode creation Sex and Gender Information Value Date Recorded Sex Assigned at Not on file Legal Sex Female 7:40 PM EDT Gender Identity Not on file Sexual Orientation Not on file Last Filed Vital Signs Vital Sign Reading Time Taken Comments Blood Pressure 120/70 12/29/2024 9:25 AM EDT Pulse 75 06/02/2024 10:49 AM EDT Temperature - - Respiratory Rate - - Oxygen Saturation 99% 06/02/2024 10:49 AM EDT Inhaled Oxygen Concentration - - Weight 83 kg (183 lb) 12/29/2024 9:25 AM EDT Height 166.4 cm (5' 5.5 ) 06/02/2024 10:49 AM ED T Body Mass Index 29.99 06/02/2024 10:49 AM EDT Plan of Treatment Upcoming Encounters Date Type Department Care Team (Late st Contact Info) Description 01/05/2025 1:20 PM EDT Routine [facility] [address] [facility] [place] [address] Slim Russell, [address] [facility] [place] [address] Health Maintenance Due Date Last Done Comments Pap Smear 2014 Influenza Vaccine (Season Ended) 2025 Cervical Cancer Screening 10/13/2025 HPV/Cotest 10/13/2025 10/13/2020, 09/05, 09/21/2018 Procedures Procedure Name Priority Date/Time Associated Diagnosis Comments POCT URINALYSIS DIPSTICK Routine 12/29/2024 9:31 AM EDT 36 weeks gestation of Third trimester POCT URINALYSIS DIPSTICK Routine 12/14/2024 8:35 AM EDT Third trimester POCT URINALYSIS DIPSTICK Routine 12/01/2024 9:29 AM EDT Third trimester US OB FOLLOW UP TRANSABDOMINAL APPROACH Routine 12/01/2024 9:14 AM EDT size inconsistent with dates POCT URINALYSIS DIPSTICK Routine 11/16/2024 11:42 AM EDT Third trimester 30 weeks gestation of POCT URINALYSIS DIPSTICK Routine 11/01/2024 9:04 AM EDT Third trimester US OB LIMITED 1+ FETUSES Routine 10/18/2024 11:38 AM EDT Encounter for follow-up ultrasound of anatomy GLUCOSE 1 HOUR Routine 10/04/2024 10:21 AM EST ALL CBC WITH AUTO DIFF Routine 10:21 AM EST POCT URINALYSIS DIPSTICK Routine 10/04/2024 8:32 AM EST Second trimester Q - THINPREP(R) TIS AND HPV MRNA E6/E7 RFL HPV 16,18/45 Routine 10/13/2020 from Last 3 Months or Most Recently Relevant to Health Maintenance Results * (ABNORMAL) POCT urinalysis dipstick manually resulted (12/29/2024 9:31 AM EDT) Only the most recent of6 resultswithin the time period is included. Color, UA Yellow Clarity, UA Clear Glucose, [...] CARE TEST ENTER/EDIT OR DERABLES Final Result * US OB follow up transabdominal approach (12/01/2024 9:14 AM EDT) Anatomical Region Laterality Modality Body Ultrasound 12/05/2024 8:54 PM EDT Narrative 12/05/2024 8:54 PM EDT EXAM: US OB FOLLOW UP TRANSABDOMINAL APPROACH HISTORY: Inconsistent size. BRIAN 01/24/2025. G1. COMPARISON: U/S OB 10/18/2024 TECHNIQUE: Two-dimensional transabdominal grayscale ultrasound imaging of the pelvis was performed. FINDINGS: Gestation: Single Presentation: Cephalic Cardiac Activity: 150 beats per minute Placental Location: Anterior with no sonographic abnormalities identified. Distance from Placental Tip to Cervix: Not visualized Cervical Length: Not visualized Amniotic Fluid Index: 10.0 cm; MVP 3.5 cm MEASUREMENTS: BPD: 8.2 cm EGA: 32 weeks 6 days HC: 30.4 cm EGA: 33 weeks 6 days AC: 30.7 cm EGA: 34 weeks 5 days FL: 6.3 cm EGA: 32 weeks 5 days HC/AC Ratio: 0.99 (0.95 -1.11) Gestational age by today's ultrasound is 32 weeks 2 days (+/- 16 days gestation). Estimated Weight: 2295 grams, +/- 344 grams ( 5 lb 1 oz). Weight Percentile for gestational age: 87 % IMPRESSION: 1. Single, live intrauterine gestation 32 weeks, 2 days by LMP. Today's ultrasound measurements correlate with a gestational age of 33 weeks for days. The fetus is measuring in the 87th weight percentile for gestational age. Interpreted by: Electronically signed by ARVIN JIMENEZ II, MD, PHD at 05-Dec-2024 08:53:04 PM [facility] Procedure Note Arvin Jimenez MD - 12/05/2024 EXAM: US OB FOLLOW UP TRANSABDOMINAL APPROACH HISTORY: Inconsistent size. BRIAN 01/24/2025. G1. COMPARISON: U/S OB 10/18/2024 TECHNIQUE: Two-dimensional transabdominal grayscale ultrasound imaging ofthe pelvis was performed. FINDINGS: Gestation: Single Presentation: Cephalic Cardiac Activity: 150 beats per minute Placental Location: Anterior with no sonographic abnormalitiesidentified. Distance from Placental Tip to Cervix: Not visualized Cervical Length: Not visualized Amniotic Fluid Index: 10.0 cm; MVP 3.5 cm MEASUREMENTS: BPD: 8.2 cm EGA: 32 weeks 6 days HC: 30.4 cm EGA: 33 weeks 6 days AC: 30.7 cm EGA: 34 weeks 5 days FL: 6.3 cm EGA: 32 weeks 5 days HC/AC Ratio: 0.99 (0.95 -1.11) Gestational age by today's ultrasound is 32 weeks 2 days (+/- 16 daysgestation). Estimated Weight: 2295 grams, +/- 344 grams ( 5 lb 1 oz). Weight Percentile for gestational age: 87 % IMPRESSION: 1. Single, live intrauterine gestation 32 weeks, 2 days by LMP. Today'sultrasound measurements correlate with a gestational age of 33 weeks fordays. The fetus is measuring in the 87th weight percentile forgestational age. Interpreted by: Electronically signed by ARVIN JIMENEZ II, MD, PHD [id number] 08:53:04 PM [facility] us Slim Yvonne DO IMG OB US PROCEDURES Final Resul t * US OB limited 1+ fetuses (10/18/2024 11:38 AM EDT) Anatomical Region Laterality Modality Body Ultrasound 10/19/2024 12:3 4 AM EDT Narrative 10/19/2024 12:34 AM EDT EXAM: US OB LIMITED 1+ FETUSES HISTORY: Follow up anatomy. COMPARISON: Ob ultrasound 09/06/2024. TECHNIQUE: Two-dimensional transabdominal grayscale ultrasound imaging of the pelvis was performed. FINDINGS: Gestation: Single Presentation: Cephalic Cardiac Activity: 144 beats per minute Placental Location: Anterior with no sonographic abnormalities identified. Cervical canal: Not well visualized Amniotic Fluid: Appears adequate ANATOMY Four Chamber Heart: Unremarkable IMPRESSION: 1. Single, live intrauterine gestation 26 weeks, 0 days by LMP. BRIAN is 01/24/2025. 2. Unremarkable follow-up anatomy, as described above. Electronically Signed:Electronically signed by ARVIN JIMENEZ II, MD, PHD at 19-Oct-2024 12:32:31 AM [facility] Procedure Note Arvin Jimenez MD - 10/19/2024 EXAM: US OB LIMITED 1+ FETUSES HISTORY: Follow up anatomy. COMPARISON: Ob ultrasound 09/06/2024. TECHNIQUE: Two-dimensional transabdominal grayscale ultrasound imaging ofthe pelvis was performed. FINDINGS: Gestation: Single Presentation: Cephalic Cardiac Activity: 144 beats per minute Placental Location: Anterior with no sonographic abnormalitiesidentified. Cervical canal: Not well visualized Amniotic Fluid: Appears adequate ANATOMY Four Chamber Heart: Unremarkable IMPRESSION: 1. Single, live intrauterine gestation 26 weeks, 0 days by LMP. BRIAN is01/24/2025. 2. Unremarkable follow-up anatomy, as described above. Electronically Signed:Electronically signed by ARVIN JIMENEZ II, MD, PHDat 19-Oct-2024 12:32:31 AM [facility] us Brenda ZIMMRE IMG OB US PROCEDURES Final Resul t * GLUCOSE 1 HOUR (10/04/2024 10:21 AM EST) GLUCOSE 1 HOUR 120 <130 mg/dL [facility] 10/04/2024 10:2 1 AM EST 10/04/2024 10:23 AM EST Narrative [facility] - 10/04/2024 10:45 AM EST us Brenda ZIMMER LAB BLOOD ORDERABLES Final Resul t [facility] * (ABNORMAL) ALL CBC WITH AUTO DIFF (10/04/2024 10:21 AM EST) [facility] WBC 9.2 4.0 - 11.0 10 3/uL [facility] RBC 3.64(L) 4.20 - 5.40 10 6/uL [facility] HGB 11.5(L) 12.0 - 16.0 g/dL [facility] TB[facility] HCT 35.1(L) 36.0 - 48.0 % [facility] MCV 96.4 81.0 - 99.0 fL [facility]H TBH MCH 31.6 26.7 - 34.0 pg TBH TBH MCHC 32.8 29.9 - 35.2 g/dL [facility] TBH RDW 11.9 11.0 - 15.0 % [facility] PLT 300 150 - 450 10 3/uL [facility]H MPV 8.8(L) 9.5 - 13.5 fL [facility]H NEUTROPHILS PERCENT AUTO 75.8(H) 43.0 - 75.0 % [facility]H LYMPHOCYTES PERCENT AUTO 17.7(L) 20.5 - 60.0 % [facility] MONOCYTES PERCENT AUTO 4.7 1.7 - 12.0 % [facility]H EO % 1.3 0.9 - 7.0 % [facility] BASOPHILS PERCENT AUTO 0.3 0.2 - 2.0 % [facility] IMMATURE GRANULOCYTES PCT AUTO 0.2 0.0 - 0.5 % [facility] NEUTROPHILS ABSOLUTE AUTO 7.0(H) 1.4 - 6.5 10 3/uL [facility]H LYMPHOCYTES ABSOLUTE AUTO 1.6 1.2 - 3.8 10 3/uL [facility] MONOCYTES ABSOLUTE AUTO 0.4 0.3 - 0.8 10 3/uL [facility] TBH EO # 0.1 0.0 - 0.7 10 3/uL [facility]H BASOPHILS ABSOLUTE AUTO 0.0 0.0 - 0.1 10 3/uL [facility] IMMATURE GRANULOCYTES ABS AUTO 0.02 0.00 - 0.03 10 3/uL [facility] 10/04/2024 10:2 1 AM EST 10/04/2024 10:23 AM EST Narrative [facility] - 10/04/2024 10:30 AM EST us Brenda CARDENAS Final Result RONALD [facility] * (ABNORMAL) Q - THINPREP(R) TIS AND HPV MRNA E6/E7 RFL HPV 16,18/45 (10/13/2020) CLINICAL INFORMATION: None given [facility] LMP: None given [facility] PREV. PAP: None given [facility] ACY [facility] PREV. BX: None given [facility] SOURCE: None given [facility] STATEMENT OF ADEQUACY: SEE NOTE [facility] Comment: Satisfactory for evaluation. Endocervical/transformation zone component present. INTERPRETATION/RE SULT: Negative for intraepithelial lesion or malignancy. [facility] COMMENT: This Pap test has been evaluated with computer assisted technology. [facility] DATA ANALYTICS DEVELOPER: SEE NOTE NO [facility] Comment: PCJ, SCT(ASCP) CT screening location: [place] [address]. REVIEW DATA ANALYTICS DEVELOPER: SEE NOTE [facility] Comment: [facility], CT(ASCP) CT screening location: [place] [address]. COMMENT SEE NOTE [facility] Comment: EXPLANATORY NOTE: The Pap is a screening test for cervical cancer. It is not a diagnostic test and is subject to false negative and false positive results. It is most reliable when a satisfactory sample, regularly obtained, is submitted with relevant clinical findings and history, and when the Pap result is evaluated along with historic and current clinical information. HPV MRNA E6/E7 Detected(A) Not Detected [facility] Comment: Methodology: Senior Production Manager-Mediated Amplification This assay detects E6/E7 viral messenger RNA (mRNA) from 14 high-risk HPV types (16,18,31,33,35,39,45,51,52,56,58,59,66,68). The analytical performance characteristics of this assay have been determined by [employer]. The modifications have not been cleared or approved by the FDA. This assay has been validated pursuant to the CLIA regulations and is used for clinical purposes. For additional information, please refer to http://education.[employer].com.com/faq/DDX378e9 (This link if provided for information/ educational purposes only.) 10/13/2020 us Bennie Cosme FEEDER/FOLDER [facility] Final Result [facility] from Last 3 Months or Most Recently Relevant to Health Maintenance Insurance BCBS Care Teams Referral Specialist Relationship Specialty Start Date End Date Raegan Medina MD [address] [place] [address] PCP - General Family Medicine 06/02/24
--- OUTSIDE RECORDS SUMMARY | 2024-12-29 12:11 | XMS_ITS | CCD ---
Author Organization [facility] CliniSynd Care Team Providers Care Converting Supervisor Name Role Phone PACO CHACON Attending Unavailable PACO CHACON Consulting Unavailable PACO CHACON Admitting Unavailable REQUEST, NONE LISTED Admitting Unavaila ble REQUEST, NONE LISTED Attending Unavaila ble REQUEST, NONE LISTED Consulting Unavaila ble Samra Aguirre DO Primary Care Provider Raegan Medina MD Primary Care Provider Alex REAL ESTATE APPRAISER SUPERVISOR, Bhumika Unavailable OUMAR RUSSELL Attending Unavailable BRENDA JEFF Attending Unavailable OUMAR RUSSELL Attending Unavailable OUMAR RUSSELL Attending Unavailable CANDICE MENG Attending Unavailable BHUMIKA JOHNSON Attending Unavailable OUMAR RUSSELL Attending Unavailable BRENDA JEFF Attending Unavailable OUMAR RUSSELL Referring Unavailable LING GRAHAM Attending Unavailable OUMAR RUSSELL Attending Unavailable Medications Current Medications Medication Drug Class(es) Dates Sig (Normalized) Sig (Original) busPIRone hydrochloride 5 mg oral tablet (20 sources) Start: 04-28-2023 take 1 tablet by mouth twice daily busPIRone (Buspar) 5 MG tablet Indications: Major depressive disorder, recurrent, moderate (CMS/HCC) TAKE 1 TABLET BY MOUTH TWICE A DAY FOR 90 DAYS 180 tablet 3 04/28/2023 Active cetirizine hydrochloride 10 mg oral tablet (20 sources) Histamine-1 Receptor Antagonist cetirizine (ZyrTEC) 10 [...] tablet 3 04/28/2023 06/02/2024 Discontinued (Alternate therapy) MV-Min-Fe Fum-FA-DHA ( 1 PO) (12 sources) MV-Min- Fe Fum-FA-DHA ( 1 PO) Take by mouth Active sertraline 25 mg oral tablet (20 sources) Serotonin Reuptake Inhibitor Start: 06-02-2024 End: 09-01-2024 take 1 tablet by mouth once daily sertraline (Zoloft) 25 MG tablet Indications: Panic disorder (CMS/HCC) , Moderate episode of recurrent major depressive disorder (CMS/HCC) TAKE 1 TABLET BY MOUTH EVERY DAY 90 tablet 1 09/01/2024 Active Problems Active Problems Problem Classification Problem Date Documented Date Episodic/Chronic Anxiety disorders (20 sources) Panic disorder; Translations: [Panic disorder [episodic paroxysmal anxiety]] Onset: 06-02-2024 06-02-2024 Chronic Asthma (20 sources) Exercise-induced asthma; Translations: [Exercise induced bronchospasm] Onset: 06-02-2024 06-02-2024 Chronic Immunizations and screening for infectious disease (2 sources) Exposure to sexually transmissible disorder; Translations: [Contact with and (suspected) exposure to infections with a predominantly sexual mode of transmission] 08-09-2024 Episodic Menstrual disorders (1 source) Missed period; Translations: [Irregular menstruation, unspecified] 06-17-2024 Chronic Mood disorders (20 sources) Moderate recurrent major depression; Translations: [Major depressive disorder, recurrent, moderate] Onset: 06-02-2024 06-02-2024 Chronic Other complications of (4 sources) size does not accord with dates; Translations: [Uterine size-date discrepancy, third trimester] 11-01-2024 Episodic Other and delivery including normal (20 sources) ; Translations: [Encounter for supervision of normal , unspecified, unspecified trimester] 06-17-2024 Episodic Other screening for suspected conditions (not mental disorders or infectious disease) (10 sources) Alpha-fetoprotein blood test status; Translations: [Encounter for screening for raised alphafetoprotein level] 08-09-2024 Episodic Other upper respiratory disease (20 sources) Allergic rhinitis; Translations: [Allergic rhinitis, unspecified] Onset: 06-02-2024 06-02-2024 Chronic Residual codes; unclassified (2 sources) Gestation period, 13 weeks; Translations: [13 weeks gestation of ] 07-08-2024 Episodic Residual codes; unclassified (2 sources) Gestation period, 16 weeks; Translations: [16 weeks gestation of ] 08-09-2024 Episodic Residual codes; unclassified (2 sources) Gestation period, 20 weeks; Translations: [20 weeks gestation of ] 09-06-2024 Episodic Residual codes; unclassified (2 sources) Gestation period, 24 weeks; Translations: [24 weeks gestation of ] 10-04-2024 Episodic Residual codes; unclassified (2 sources) Gestation period, 28 weeks; Translations: [28 weeks gestation of ] 11-01-2024 Episodic Residual codes; unclassified (2 sources) Gestation period, 30 weeks; Translations: [30 weeks gestation of ] 11-16-2024 Episodic Residual codes; unclassified (2 sources) Gestation period, 32 weeks; Translations: [32 weeks gestation of ] 12-01-2024 Episodic Residual codes; unclassified (2 sources) Gestation period, 34 weeks; Translations: [34 weeks gestation of ] 12-14-2024 Episodic Residual codes; unclassified (2 sources) Gestation period, 36 weeks; Translations: [36 weeks gestation of ] 12-29-2024 Episodic Past or Other Problems Problem Classification Problem Date Documented Da te Episodic/Chronic Mood disorders (20 sources) Mood disorders Onset: 06-02-2024 06-02-2024 Results Test Name Value Interpretation Reference Range Facility Urinalysis macro (dipstick) panel (U)on 12-29-2024 Bilirubin, UA Negative Negative - 4(70) +++ mg/dL [facility] Blood, UA Negative Negative - 50 Immanuel/mcL [facility] Clarity, UA Clear [facility] Healthca re Color, UA Yellow [facility] Healthcar e Glucose, UA Negative Negative - 2000(110) ++++ mg/dL [facility] Interpretation and review of laboratory results Abnormal [facility] Ketones, UA Negative Negative - 160(16) ++++ mg/dL [facility] Leukocytes, UA Trace Negative - 500+++ Jennyfer/mcL [facility] Nitrite, UA Negative Negative - Positive [facility] pH, UA 7 5 - 9 [facility] Healthcar e Protein, UA Negative Negative - 1999(20) ++++ mg/dL [facility] Spec Grav, UA 1.01 1 - 1.03 [facility] Urobilinogen, UA 0.2 0.2 - 12 mg/dL [facility] Urinalysis macro (dipstick) panel (U)on 12-14-2024 Bilirubin, UA Negative Negative - 4(70) +++ mg/dL [facility] Blood, UA Negative Negative - 50 Immanuel/mcL [facility] Clarity, UA Clear [facility] re Color, UA Light [facility] Glucose, UA Negative Negative - 1999(110) ++++ mg/dL [facility] Interpretation and review of laboratory results Normal [facility] Ketones, UA Negative Negative - 160(16) ++++ mg/dL [facility] Leukocytes, UA Trace Negative - 500+++ Jennyfer/mcL [facility] Nitrite, UA Negative Negative - Positive [facility] pH, UA 7 5 - 9 [facility] [employer] Protein, UA Negative Negative - 1999(20) ++++ mg/dL [facility] Spec Grav, UA 1.015 1 - 1.03 [facility] Urobilinogen, UA 0.2 0.2 - 12 mg/dL [facility] e US OB FOLLOW UP TRANSABDOMIN AL APPROACHon 12-01-2024 US OB FOLLOW UP TRANSABDOMINAL APPROACH EXAM: US OB FOLLOW UP TRANSABDOMINAL APPROACH [...] II, MD, PHD at 05-Dec-2024 08:53:04 PM [facility] Normal Not Available Comment on above: Order Comment: US OB SCAN FOR GROWTH Estimated Date of Delivery: 01/24/25 Gestational Age as of 11/16/2024: 30w1d Urinalysis macro (dipstick) panel (U)on 12-01-2024 Bilirubin, UA Negative Negative - 4(70) +++ mg/dL [facility] Blood, UA Positive Negative - 50 Immanuel/mcL [facility] Healthcare Comment on above: Trace-intact Clarity, UA Clear [facility] Color, UA Yellow [facility] Glucose, UA Negative Negative - 1999(110) ++++ mg/dL [facility] Interpretation and review of laboratory results Abnormal [facility] Ketones, UA Negative Negative - 160(16) ++++ mg/dL [facility] Leukocytes, UA Positive Negative - 500+++ Jennyfer/mcL [facility] Healthcare Comment on above: Moderate Nitrite, UA Negative Negative - Positive [facility] pH, UA 6.5 5 - 9 [facility] Healthcar e Comment on above: ne Protein, UA Negative Negative - 1999(20) ++++ mg/dL [facility] Spec Grav, UA 1.01 1 - 1.03 [facility] care Urobilinogen, UA 0.2 0.2 - 12 mg/dL [facility] Urinalysis macro (dipstick) panel (U)on 11-16-2024 Bilirubin, UA Negative Negative - 4(70) +++ mg/dL [facility] Blood, UA Negative Negative - 50 Immanuel/mcL [facility] Healthcare Clarity, UA Clear [facility] Color, UA Yellow [facility] Glucose, UA Negative Negative - 1999(110) ++++ mg/dL [facility] Interpretation and review of laboratory results Normal [facility] Ketones, UA Negative Negative - 160(16) ++++ mg/dL [facility] Leukocytes, UA Negative Negative - 500+++ Jennyfer/mcL [facility] Nitrite, UA Negative Negative - Positive [facility] pH, UA 6.5 5 - 9 [facility] Healthcar e Protein, UA Negative Negative - 1999(20) ++++ mg/dL [facility] Spec Grav, UA 1.025 1 - 1.03 [facility] Urobilinogen, UA 1.0 0.2 - 12 mg/dL [facility] Urinalysis macro (dipstick) panel (U)on 11-01-2024 Bilirubin, UA Negative Negative - 4(70) +++ mg/dL [facility] Blood, UA Negative Negative - 50 Immanuel/mcL [facility] Clarity, UA Clear [facility] re Color, UA Yellow [facility] e Glucose, UA Negative Negative - 1999(110) ++++ mg/dL [facility] Interpretation and review of laboratory results Normal [facility] Ketones, UA Negative Negative - 160(16) ++++ mg/dL [facility] Leukocytes, UA Negative Negative - 500+++ Jennyfer/mcL [facility] Nitrite, UA Negative Negative - Positive [facility] pH, UA 6.5 5 - 9 [facility] Healthcar e Protein, UA Negative Negative - 1999(20) ++++ mg/dL [facility] Spec Grav, UA 1.01 1 - 1.03 [facility] Urobilinogen, UA 0.2 0.2 - 12 mg/dL [facility] US OB LIMITED 1+ FETUSESon 0 10-18-2024 US OB LIMITED 1+ FETUSES EXAM: US OB LIMITED 1+ FETUSES HISTORY: [...] II, MD, PHD at 19-Oct-2024 12:32:31 AM [facility] Normal Not Available Comment on above: Order Comment: US OB INCOMPLETE ANATOMY Estimated Date of Delivery: 01/24/25 Gestational Age as of 10/04/2024: 24w0d ALL CBC WITH AUTO DIFFon BASOPHILS ABSOLUTE AUTO 0 [facility] Basophils/100 WBC (Bld) 0.3 % 0.2 - 2.0 % [facility] Eosinophils/100 WBC (Bld) 1.3 % 0.9 - 7.0 % [facility] Erythrocyte distribution width (RBC) [Ratio] 11.9 % 11.0 - 15.0 % [facility] Hematocrit (Bld) [Volume fraction] 35.1 % Low 36.0 - 48.0 % [facility] Hemoglobin (Bld) [Mass/Vol] 11.5 g/dL Low 12.0 - 16.0 g/dL [facility] IMMATURE GRANULOCYTES ABS AUTO 0.02 [facility] Healthcare Immature granulocytes/100 WBC (Bld) 0.2 % 0.0 - 0.5 % [facility] Interpretation and review of laboratory results Abnormal [facility] LYMPHOCYTES ABSOLUTE AUTO 1.6 [facility] Lymphocytes/100 WBC (Bld) 17.7 % Low 20.5 - 60.0 % [facility] Healthcare MCH (RBC) [Entitic mass] 31.6 pg 26.7 - 34.0 pg [facility] MCHC (RBC) [Mass/Vol] 32.8 g/dL 29.9 - 35.2 g/dL [facility] MCV (RBC) [Entitic vol] 96.4 fL 81.0 - 99.0 fL [facility] MONOCYTES ABSOLUTE AUTO 0.4 [facility] Monocytes/100 WBC (Bld) 4.7 % 1.7 - 12.0 % [facility] NEUTROPHILS ABSOLUTE AUTO 7 High [facility] Neutrophils/100 WBC (Bld) 75.8 % High 43.0 - 75.0 % [facility] Platelet mean volume (Bld) [Entitic vol] 8.8 fL Low 9.5 - 13.5 fL [facility] are [facility] EO # 0.1 [facility] PLT 300 [facility] TB RBC 3.64 Low [facility] WBC 9.2 [facility] Urinalysis macro (dipstick) panel (U)on 10-04-2024 Bilirubin, UA Negative Negative - 4(70) +++ mg/dL [facility] Blood, UA Negative Negative - 50 Immanuel/mcL [facility] Clarity, UA Clear [facility] re Color, UA Yellow [facility] e Glucose, UA Negative Negative - 1999(110) ++++ mg/dL [facility] Interpretation and review of laboratory results Normal [facility] Ketones, UA Negative Negative - 160(16) ++++ mg/dL [facility] Leukocytes, UA Negative Negative - 500+++ Jennyfer/mcL [facility] Nitrite, UA Negative Negative - Positive [facility] pH, UA 7 5 - 9 [facility] e Protein, UA Negative Negative - 1999(20) ++++ mg/dL [facility] Spec Grav, UA 1.01 1 - 1.03 [facility] Urobilinogen, UA 0.2 0.2 - 12 mg/dL [facility] AFP, SERUM, OPEN SPINA BIFID Aon 09-08-2024 AFP MOM 1.39 . [facility] Health[facility] e AFP VALUE 74.7 ng/mL . [facility] COMMENT: Comment . [facility] Comment on above: Gwendolyn Tarango , Ph.D., [facility] Director References: Available Upon Request. Multiples Of Median Cutoffs For AFP Elevations Stevens 2.5 Black 2.8 IDD 2.0 Twins 4.5 Abbreviation Definitions IDD - Insulin Dep Diabetes OSBR - Open Spina Bifida Risk For further inquiries contact [employer] at [phone]. This test was developed and its performance characteristics determined by [employer]. It has not been cleared or approved by the Food and Drug Administration. Performed at: [facility] [address] [place], [place] [id number] Business Transformation Manager: Micah Mancia [facility], Phone: [phone] GEST. AGE ON COLLECTION DATE 20.0 . weeks [facility] GESTAT. AGE BASED ON LMP . [facility] Comment on above: Recalculations are n ot recommended when gestational dating by LMP and ultrasound are within 10 days. INSULIN DEP DIABETES No . [facility] INTERPRETATION Comment . [facility] Comment on above: Interpretation: Scre en Negative This result is screen negative for OSB. The AFP MoM calculated is based on the gestational age provided. MS-AFP can identify up to 80% of open neural tube defects. Closed neural tube defects and some open defects may not be detected by this test. This test does not screen for Down Syndrome or Trisomy 18. If screening for Down Syndrome or Trisomy 18 is desired, contact [employer] to discuss available options. The [employer] recommends amniocentesis be offered to women age 35 and older. [age] [facility] MULTIPLE GESTATION No . [facility] H [facility]althcare OSBR RISK 1 [place] [phone] . [facility] Ariadna [employer]wer RACE . [facility] [employer] RESULTS Report . [facility] [employer] TEST RESULTS: Negative . [facility] [employer] [facility] WEIGHT 159 . lbs [facility] [employer] N [id number] N LMP [id number] 0 16 N 1 Y 159 N N N N N White/ [facility] [employer] US OB 14+ WEEKS ANATOMY SCAN on 09-06-2024 US OB 14+ WEEKS ANATOMY SCAN TITLE OF EXAM: OB Ultrasound: REASON FOR EXAM: Anatomy. COMPARISON: None TECHNIQUE: Grayscale and M-mode Doppler imaging is performed. FINDINGS: heart rate: 148 bpm BPD: 4.6 cm HC: 17.0 cm AC: 15.2 cm FL: 3.4 cm GA for sonogram: 20.0 wk (18.6-21.4) Hadlock Cervix length: 4.3 cm BRIAN: 01/24/2025 Weight Estimate: Weight: 353 gm / 0 lbs, 12 oz (301-404 gm) Hadlock Normal: 331 gm (275-387 gm) Hadlock Wt%: 70% for 20.0 wks Presentation: Cephalic Lie: Longitudinal Amniotic Fluid: Subjectively normal Placental Location: Anterior Distance from Placenta edge to Cervical os: 6.6 cm Cervical Length: 4.3 Closed Heart Rate: 148 bpm Anatomy Observed: Lateral Ventricles: Visualized Cerebellum: Visualized Posterior Fossa: Visualized Nose Lips: Visualized Orbits: Visualized 4 Chamber heart: Visualized RVOT/LVOT: Visualized Diaphragm: Visualized Stomach: Visualized Kidneys: Visualized Abd Cord Insert: Visualized Bladder: Visualized Umbilical Arteries: Visualized 3 Vessel Cord: Visualized Spine: Visualized Extremities: Visualized Gender: XX IMPRESSION: 1. Single live intrauterine gestation demonstrated in cephalic position. EGA by ultrasound 20.0 weeks. This corresponds with provided clinical dates. 2. Four-chamber heart view is slightly suboptimal related to position and/or habitus. Repeat ultrasound in 4-6 weeks could be useful to better demonstrate. 3. Otherwise visualized structures are unremarkable. *This report is generated using voice recognition reporting (Monesbat). On occasion [employer] erroneously drops words from the report or replaces the spoken word with similar sounding words. Please call with any questions/concerns regarding this report.* Dictated and transcribed 09/06/24/dpd This report has been electronically signed and approved by the interpreting radiologist. Normal Not Available Comment on above: Order Comment: US OB ANATOMY SINGLE W US OB CERVICAL LENGTH Estimated Date of Delivery: 01/24/25 Gestational Age as of 08/09/2024: 16w0d Urinalysis macro (dipstick) panel (U)on 09-06-2024 Bilirubin, UA Negative Negative - 4(70) +++ mg/dL [facility] Blood, UA Negative Negative - 50 Immanuel/mcL [facility] Clarity, UA Clear [facility] re Color, UA Colorless [facility] e Glucose, UA Negative Negative - 1999(110) ++++ mg/dL [facility] Interpretation and review of laboratory results Normal [facility] Ketones, UA Negative Negative - 160(16) ++++ mg/dL [facility] Leukocytes, UA Negative Negative - 500+++ Jennyfer/mcL [facility] Nitrite, UA Negative Negative - Positive [facility] pH, UA 7 5 - 9 [facility] e Protein, UA Negative Negative - 1999(20) ++++ mg/dL [facility] Spec Grav, UA 1.01 1 - 1.03 [facility] Urobilinogen, UA 0.2 0.2 - 12 mg/dL [facility] e RECURRENT VAGINITIS (HTRX)on 08-11-2024 ATOPOBIUM VAGINAE 0 [facility] ATOPOBIUM VAGINAE Not detected [facility] BVAB 2,3 (BACTERIAL VAGINOSIS ASSOCIATED BACTERIA 2, 3); MOBILUNCUS SPP 0 [facility] BVAB 2,3 (BACTERIAL VAGINOSIS ASSOCIATED BACTERIA 2, 3); MOBILUNCUS SPP Not detected [facility] MALOU ALBICANS, PARAPSILOSIS, TROPICALIS 0 [facility] MALOU ALBICANS, PARAPSILOSIS, TROPICALIS Not detected [facility] MALOU GLABRATA 0 [facility] MALOU GLABRATA Not detected [facility] MALOU KRUSEI 0 [facility] Healt hcare MALOU KRUSEI Not detected [facility] CHLAMYDIA TRACHOMATIS 0 [facility] CHLAMYDIA TRACHOMATIS Not detected [facility] GARDNERELLA VAGINALIS 0 [facility] GARDNERELLA VAGINALIS Not detected [facility] MEGASPHAERA (TYPES 1, 2) 0 [facility] MEGASPHAERA (TYPES 1, 2) Not detected [facility] MYCOPLASMA GENITALIUM 0 [facility] MYCOPLASMA GENITALIUM Not detected [facility] NEISSERIA GONORRHOEAE 0 [facility] NEISSERIA GONORRHOEAE Not detected [facility] TRICHOMONAS VAGINALIS 0 [facility] TRICHOMONAS VAGINALIS Not detected [facility] Urinalysis macro (dipstick) panel (U)on 08-09-2024 Bilirubin, UA Negative Negative - 4(70) +++ mg/dL [facility] Blood, UA Negative Negative - 50 Immanuel/mcL [facility] Clarity, UA Clear [facility] re Color, UA Yellow [facility] Glucose, UA Negative Negative - 1999(110) ++++ mg/dL [facility] Interpretation and review of laboratory results Normal [facility] Ketones, UA Negative Negative - 160(16) ++++ mg/dL [facility] Leukocytes, UA Negative Negative - 500+++ Jennyfer/mcL [facility] Nitrite, UA Negative Negative - Positive [facility] pH, UA 7 5 - 9 [facility] Health[facility] e Protein, UA Negative Negative - 1999(20) ++++ mg/dL [facility] Spec Grav, UA 1.01 1 - 1.03 [facility] Urobilinogen, UA 0.2 0.2 - 12 mg/dL [facility] ALL CBC WITH AUTO DIFFon BASOPHILS ABSOLUTE AUTO 0.1 [facility] Basophils/100 WBC (Bld) 0.6 % 0.2 - 2.0 % [facility] Eosinophils/100 WBC (Bld) 0.6 % Low 0.9 - 7.0 % [facility] Erythrocyte distribution width (RBC) [Ratio] 11.5 % 11.0 - 15.0 % [facility] Hematocrit (Bld) [Volume fraction] 39.1 % 36.0 - 48.0 % [facility] Health[facility] e Hemoglobin (Bld) [Mass/Vol] 13 g/dL 12.0 - 16.0 g/dL [facility] IMMATURE GRANULOCYTES ABS AUTO 0.02 [facility] Immature granulocytes/100 WBC (Bld) 0.2 % 0.0 - 0.5 % [facility] Interpretation and review of laboratory results Abnormal [facility] LYMPHOCYTES ABSOLUTE AUTO 2 [facility] Lymphocytes/100 WBC (Bld) 22.3 % 20.5 - 60.0 % [facility] MCH (RBC) [Entitic mass] 31.5 pg 26.7 - 34.0 pg [facility] MCHC (RBC) [Mass/Vol] 33.2 g/dL 29.9 - 35.2 g/dL [facility] MCV (RBC) [Entitic vol] 94.7 fL 81.0 - 99.0 fL [facility] MONOCYTES ABSOLUTE AUTO 0.5 [facility] Monocytes/100 WBC (Bld) 5.6 % 1.7 - 12.0 % [facility] NEUTROPHILS ABSOLUTE AUTO 6.3 [facility] Neutrophils/100 WBC (Bld) 70.7 % 43.0 - 75.0 % [facility] Platelet mean volume (Bld) [Entitic vol] 9.3 fL Low 9.5 - 13.5 fL [facility] EO # 0.1 [facility] TB PLT 268 [facility] TB RBC 4.13 Low [facility] WBC 9 [facility] e Urinalysis macro (dipstick) panel (U)on 07-08-2024 Bilirubin, UA Negative Negative - 4(70) +++ mg/dL [facility] Blood, UA Negative Negative - 50 Immanuel/mcL [facility] Clarity, UA Clear [facility] re Color, UA Yellow [facility] e Glucose, UA Negative Negative - 2000(110) ++++ mg/dL [facility] Interpretation and review of laboratory results Normal [facility] Ketones, UA Negative Negative - 160(16) ++++ mg/dL [facility] Leukocytes, UA Negative Negative - 500+++ Jennyfer/mcL [facility] Nitrite, UA Negative Negative - Positive [facility] pH, UA 6.5 5 - 9 [facility] Health[facility] e Protein, UA Negative Negative - 1999(20) ++++ mg/dL [facility] Spec Grav, UA 1.02 1 - 1.03 [facility] Urobilinogen, UA 1.0 0.2 - 12 mg/dL [facility] HCG ( test) Ql (U)o n 06-17-2024 Interpretation and review of laboratory results Abnormal [facility] Preg Test, Ur Positive Negative [facility] Urinalysis macro (dipstick) panel (U)on 06-17-2024 Bilirubin, UA Negative Negative - 4(70) +++ mg/dL [facility] Blood, UA Negative Negative - 50 Immanuel/mcL [facility] Clarity, UA Clear [facility] re Color, UA Yellow [facility] Glucose, UA Negative Negative - 1999(110) ++++ mg/dL [facility] Interpretation and review of laboratory results Normal [facility] Ketones, UA Negative Negative - 160(16) ++++ mg/dL [facility] Leukocytes, UA Negative Negative - 500+++ Jennyfer/mcL [facility] Nitrite, UA Negative Negative - Positive [facility] pH, UA 5.5 5 - 9 [facility] Health[facility] e Protein, UA Negative Negative - 1999(20) ++++ mg/dL [facility] Spec Grav, UA 1.02 1 - 1.03 [facility] Urobilinogen, UA 1.0 0.2 - 12 mg/dL [facility] Vital Signs Date Time Vital Sign Value Performing Clinician Juliann cooper 12-29-2024 09:25-0400 Body mass index (BMI) [Ratio] 29.99 kg/m2 Brenda ZIMMER Work Phone: [facility] 12-29-2024 09:25-0400 Body weight 83.01 kg Brenda ZIMMER Work Phone: [facility] 12-29-2024 09:25-0400 Diastolic blood pressure 70 mm[Hg] Brenda ZIMMER Work Phone: [facility] 12-29-2024 09:25-0400 Systolic blood pressure 120 mm[Hg] Brenda ZIMMER Work Phone: [facility] 12-14-2024 08:35-0400 Body mass index (BMI) [Ratio] 29.66 kg/m2 Oumar Yvonne DO Work Phone: [facility] 12-14-2024 08:35-0400 Body weight 82.1 kg Oumar Yvonne DO Work Phone: [facility] 12-14-2024 08:35-0400 Diastolic blood pressure 68 mm[Hg] Oumar Yvonne DO Work Phone: [facility] 12-14-2024 08:35-0400 Systolic blood pressure 110 mm[Hg] Oumar Yvonne DO Work Phone: [facility] 12-01-2024 10:07-0400 Body mass index (BMI) [Ratio] 29.14 kg/m2 Ling Graham [employer] AP[employer]ISER SUPERVISOR Work Phone: [facility] 12-01-2024 10:07-0400 Body weight 80.65 kg Ling Graham [employer] E[employer] APPRAISER SUPERVISOR Work Phone: [facility] 12-01-2024 10:07-0400 Diastolic blood pressure 72 mm[Hg] Ling Graham [employer] ESTATE APPRAISER SUPERVISOR Work Phone: [facility] 12-01-2024 10:07-0400 Systolic blood pressure 120 mm[Hg] Ling Graham REAL ESTATE APPRAISER SUPERVISOR Work Phone: [facility] 11-16-2024 11:39-0400 Body mass index (BMI) [Ratio] 28.65 kg/m2 Oumar Yvonne DO Work Phone: [facility] 11-16-2024 11:39-0400 Body weight 79.29 kg Oumar Yvonne DO Work Phone: [facility] 11-16-2024 11:39-0400 Diastolic blood pressure 74 mm[Hg] Oumar Yvonne DO Work Phone: [facility] 11-16-2024 11:39-0400 Systolic blood pressure 122 mm[Hg] Oumar Yvonne DO Work Phone: [facility] 11-01-2024 08:58-0400 Body mass index (BMI) [Ratio] 28.25 kg/m2 Oumar Yvonne DO Work Phone: [facility] 11-01-2024 08:58-0400 Body weight 78.2 kg Oumar Yvonne DO Work Phone: [facility] 11-01-2024 08:58-0400 Diastolic blood pressure 60 mm[Hg] Oumar Yvonne DO Work Phone: [facility] 11-01-2024 08:58-0400 Systolic blood pressure 120 mm[Hg] Oumar Yvonne DO Work Phone: [facility] 10-04-2024 08:30-0500 Body mass index (BMI) [Ratio] 27.92 kg/m2 Brenda Jeff PA Work Phone: [facility] 10-04-2024 08:30-0500 Body weight 77.29 kg Brenda Umer PA Work Phone: [facility] 10-04-2024 08:30-0500 Diastolic blood pressure 64 mm[Hg] Brenda Umer PA Work Phone: [facility] 10-04-2024 08:30-0500 Systolic blood pressure 110 mm[Hg] Brenda Umer PA Work Phone: [facility] 09-06-2024 10:48-0500 Body mass index (BMI) [Ratio] 25.86 kg/m2 Oumar Yvonne DO Work Phone: [facility] 09-06-2024 10:48-0500 Body weight 71.58 kg Oumar Yvonne DO Work Phone: [facility] 09-06-2024 10:48-0500 Diastolic blood pressure 60 mm[Hg] Oumar Yvonne DO Work Phone: [facility] 09-06-2024 10:48-0500 Systolic blood pressure 116 mm[Hg] Oumar Yvonne DO Work Phone: [facility] 08-09-2024 10:44-0500 Body mass index (BMI) [Ratio] 26.06 kg/m2 Brenda Jeff PA Work Phone: [facility] 08-09-2024 10:44-0500 Body weight 72.12 kg Brenda Umer PA Work Phone: [facility] 08-09-2024 10:44-0500 Diastolic blood pressure 68 mm[Hg] Brenda Umer PA Work Phone: [facility] 08-09-2024 10:44-0500 Systolic blood pressure 110 mm[Hg] Brenda Umer PA Work Phone: [facility] 07-08-2024 10:50-0500 Body mass index (BMI) [Ratio] 25.73 kg/m2 Oumar Yvonne DO Work Phone: [facility] 07-08-2024 10:50-0500 Body weight 71.22 kg Oumar Yvonne DO Work Phone: [facility] 07-08-2024 10:50-0500 Diastolic blood pressure 70 mm[Hg] Oumar Yvonne DO Work Phone: [facility] 07-08-2024 10:50-0500 Systolic blood pressure 110 mm[Hg] Oumar Yvonne DO Work Phone: [facility] 06-17-2024 14:25-0500 Body mass index (BMI) [Ratio] 24.88 kg/m2 Nom Nurse [facility] 06-17-2024 14:25-0500 Body weight 68.86 kg [facility] Nurse [facility] 06-02-2024 10:49-0400 Body height 166.4 cm Bhumika Johnson [employer]ER SUPERVISOR Work Phone: [facility] 06-02-2024 10:49-0400 Body mass index (BMI) [Ratio] 24.88 kg/m2 Bhumika Johnson [employer] APPRAISER SUPERVISOR Work Phone: [facility] 06-02-2024 10:49-0400 Body weight 68.86 kg Bhumika Johnson REAL ESTATE APPRAISER SUPERVISOR Work Phone: [facility] 06-02-2024 10:49-0400 Diastolic blood pressure 60 mm[Hg] Bhumika Johnson REAL ESTATE APPRAISER SUPERVISOR Work Phone: [facility] 06-02-2024 10:49-0400 Heart rate 75 /min Bhumika Johnson REAL ESTATE APPRAISER SUPERVISOR Work Phone: [facility] 06-02-2024 10:49-0400 SaO2% (BldA) [Mass fraction] 99 % Bhumika Johnson [employer] ESTATE APPRAISER SUPERVISOR Work Phone: [facility] 06-02-2024 10:49-0400 Systolic blood pressure 120 mm[Hg] Bhumika Johnson REAL ESTATE APPRAISER SUPERVISOR Work Phone: [facility] Healthcare Encounters Encounter Date Encounter Type Care Provider Facility Start: 12-29-2024 End: 12-29-2024 flow sheet Brenda ZIMMER Work Phone: [facility] Comment on above: 36 weeks gestation o f ; Third trimester Start: 12-14-2024 End: 12-14-2024 Bamboo flowsheet Oumar Yvonne DO Work Phone: [facility] Start: 12-14-2024 End: 12-14-2024 Bamboo flowsheet Oumar Yvonne DO Work Phone: [facility] Start: 12-14-2024 End: 12-14-2024 flow sheet Oumar Yvonne DO Work Phone: [facility] Comment on above: Third trimester preg kirk; 34 weeks gestation of Start: 12-14-2024 End: 12-14-2024 ambulatory OUMAR YVONNE Not Available Start: 12-01-2024 End: 12-01-2024 flow sheet Ling Graham [employer] APPRAISER SUPERVISOR Work Phone: [facility] Comment on above: Third trimester preg kirk; 32 weeks gestation of Start: 12-01-2024 End: 12-01-2024 ambulatory OUMAR YVONNE Not Available Start: 11-16-2024 End: 11-16-2024 Bamboo flowsheet Oumar Yvonne DO Work Phone: [facility] Start: 11-16-2024 End: 11-16-2024 Bamboo flowsheet Oumar Yvonne DO Work Phone: [facility] Start: 11-16-2024 End: 11-16-2024 flow sheet Oumar Yvonne DO Work Phone: [facility] Comment on above: Third trimester preg kirk; 30 weeks gestation of ; size inconsistent with dates Start: 11-16-2024 End: 11-16-2024 ambulatory OUMAR YVONNE Not Available Start: 11-01-2024 End: 11-01-2024 Bamboo flowsheet Oumar Yvonne DO Work Phone: [facility] Start: 11-01-2024 End: 11-01-2024 Bamboo flowsheet Oumar Yvonne DO Work Phone: [facility] Start: 11-01-2024 End: 11-01-2024 flow sheet Oumar Yvonne DO Work Phone: [facility] Comment on above: Size of fetus incons istent with dates in third trimester (Primary Dx); Third trimester ; 28 weeks gestation of Start: 11-01-2024 End: 11-01-2024 ambulatory OUMAR YVONNE Not Available Start: 10-18-2024 End: 10-18-2024 ambulatory OUMAR YVONNE Not Available Start: 10-04-2024 End: 10-04-2024 Bamboo flowsheet Brenda ZIMMER Work Phone: [facility] Start: 10-04-2024 End: 10-04-2024 Bamboo flowsheet Brenda ZIMMER Work Phone: [facility] Start: 10-04-2024 End: 10-04-2024 Clinisync Result Encounter Brenda ZIMMER Work Phone: [facility] External Department Unsolicited Start: 10-04-2024 End: 10-04-2024 flow sheet Brenda ZIMMER Work Phone: [facility] Comment on above: Second trimester pre gnancy; 24 weeks gestation of ; Diabetes mellitus screening; Encounter for follow-up ultrasound of anatomy Start: 10-04-2024 End: 10-04-2024 ambulatory BRENDA JEFF Not Available Start: 09-06-2024 End: 09-08-2024 Clinisync Result Encounter Brenda ZIMMER Work Phone: [facility] Unsolicited Start: 09-06-2024 End: 09-08-2024 Clinisync Result Encounter Brenda ZIMMER Work Phone: [facility] Unsolicited Start: 09-06-2024 End: 09-06-2024 flow sheet Oumar Yvonne DO Work Phone: [facility] Comment on above: 20 weeks gestation o f ; Second trimester ; Diabetes mellitus screening Start: 09-06-2024 End: 09-06-2024 ambulatory OUMAR YVONNE Not Available Start: 09-06-2024 End: 09-06-2024 ambulatory OUMAR YVONNE Not Available Start: 08-28-2024 End: 09-01-2024 Refill Bhumika Johnson NP Work Phone: [facility] Comment on above: Panic disorder (CMS/ HCC); Moderate episode of recurrent major depressive disorder (CMS/HCC) Start: 08-09-2024 End: 08-09-2024 Bamboo flowsheet Brenda ZIMMER Work Phone: [facility] Start: 08-09-2024 End: 08-11-2024 Bamboo flowsheet Brenda ZIMMER Work Phone: [facility] Start: 08-09-2024 End: 08-11-2024 External Result Encounter Brenda ZIMMER Work Phone: [facility] Unsolicited Start: 08-09-2024 End: 08-09-2024 flow sheet Brenda ZIMMER Work Phone: [facility] Comment on above: Second trimester pre gnancy; 16 weeks gestation of ; Need for maternal serum alpha-protein (MSAFP) screening; Exposure to STD; Screening, , for anatomic survey Start: 08-09-2024 End: 08-09-2024 ambulatory BRENDA JEFF Not Available Start: 07-08-2024 End: 07-08-2024 Bamboo flowsheet Oumar Yvonne DO Work Phone: [facility] Start: 07-08-2024 End: 07-08-2024 Bamboo [...] GA: 8w3d Start: 06-17-2024 End: 06-17-2024 ambulatory OUMAR YVONNE Not Available Start: 06-02-2024 End: 06-02-2024 Bamboo flowsheet Bhumika Johnson [employer] APPRAISER SUPERVISOR Work Phone: [facility] Start: 06-02-2024 End: 06-02-2024 Bamboo flowsheet Bhumika Johnson [employer] APPRAISER SUPERVISOR Work Phone: [facility] Start: 06-02-2024 End: 06-02-2024 Office outpatient visit 15 minutes Bhumika Johnson NP Work Phone: [facility] Comment on above: Panic disorder (CMS/ HCC) (Primary Dx); Moderate episode of recurrent major depressive disorder (CMS/HCC) Start: 06-02-2024 End: 06-02-2024 ambulatory BHUMIKA JOHNSON Not Available Start: 02-12-2024 End: 02-12-2024 ambulatory CANDICE MENG Not Available Start: 11-29-2020 End: 11-30-2020 ambulatory PACO CHACON Facility:[facility] Start: 11-08-2020 End: 11-09-2020 ambulatory NONE LISTED REQUEST Facility: Procedures Date Procedure Procedure Detail Performing Clinician Start: 12-29-2024 Urnls dip stick/tabl et rgnt non-auto w/o micrscp Brenda ZIMMER Work Phone: Start: 12-14-2024 Urnls dip stick/tabl et rgnt non-auto w/o micrscp Oumar Yvonne DO Work Phone: Start: 12-01-2024 Urnls dip stick/tabl et rgnt non-auto w/o micrscp Ling Graham NP Work Phone: Start: 11-16-2024 Urnls dip stick/tabl et rgnt non-auto w/o micrscp Oumar Yvonne DO Work Phone: Start: 11-01-2024 Urnls dip stick/tabl et rgnt non-auto w/o micrscp Oumar Yvonne DO Work Phone: Start: 10-04-2024 ALL CBC WITH AUTO DIFF Brenda ZIMMER Work Phone: Start: 10-04-2024 Urnls dip stick/tabl et rgnt non-auto w/o micrscp Brenda ZIMMER Work Phone: Start: 09-06-2024 AFP, SERUM, OPEN SPI NA BIFIDA Brenda ZIMMER Work Phone: Start: 09-06-2024 Urnls dip stick/tabl et rgnt non-auto w/o micrscp Oumar Yvonne DO Work Phone: Start: 08-09-2024 RECURRENT VAGINITIS (HTRX) Brenda ZIMMER [...] Screening for malign ant neoplasm of cervix [facility] Start: 04-04-2025 Influenza vaccination Influenz a Vaccine (Season Ended) [facility] Start: 01-05-2025 End: 01-05-2025 Patient encounter procedure 01/05/2025 1:20 PM EDT Routine [facility] [address] [place] [address] Oumar Russell DO [address] [place] [address] [facility] Start: 12-29-2024 End: 12-29-2025 CULTURE, GROUP B STREP WITH SUSCEPTIBLITY CULTURE, GROUP B STREP WITH SUSCEPTIBLITY Lab Routine Third trimester Expected: 12/29/2024, Expires: 12/29/2025 [facility] Work Phone: Comment on above: Expected: 12/29/2024 , Expires: 12/29/2025 Start: 12-29-2024 End: 12-29-2024 Patient encounter procedure 12/29/2024 9:20 AM EDT Routine [facility] [address] [place] [id number] Brenda Jeff PA [address] [facility] [address] [place], [place] [id number] [facility] Start: 12-29-2024 End: 12-29-2024 Professional / ancillary services management 12/29/2024 9:00 AM EDT Ancillary Procedure [facility] [address] [place] [phone] [facility] Start: 12-14-2024 End: 12-14-2024 Patient encounter procedure [facility] Comment on above: Arrived Start: 12-01-2024 End: 12-01-2024 Patient encounter procedure 12/01/2024 9:50 AM EDT Routine [facility] [address] [place] [phone] Brenda Jeff PA [address] [place] [address] [facility] Start: 12-01-2024 End: 12-01-2024 Professional / ancillary services management 12/01/2024 9:00 AM EDT Ancillary Procedure [facility] [address] [place] [phone] [facility] Start: 11-16-2024 End: 03-18-2025 US for US OB follow up transabdominal approach Imaging Routine size inconsistent with dates Expected: 11/16/2024, Expires: 03/18/2025 [facility] Work Phone: Comment on above: Expected: 11/16/2024 , Expires: 03/18/2025 Start: 11-16-2024 End: 11-16-2024 Patient encounter procedure [facility] Comment on above: Arrived Start: 11-01-2024 End: 11-01-2025 US for US OB follow up transabdominal approach Imaging Routine Size of fetus inconsistent with dates in third trimester Expected: 11/01/2024, Expires: 11/01/2025 [facility] Work Phone: Comment on above: Expected: 11/01/2024 , Expires: 11/01/2025 Start: 11-01-2024 End: 11-01-2024 Patient encounter procedure [facility] Comment on above: Arrived Start: 10-18-2024 End: 10-18-2024 Professional / ancillary services management 10/18/2024 11:30 AM EDT Ancillary Procedure [facility] [address] [place] [address] [facility] Start: 10-04-2024 End: 10-04-2025 CBC panel - Blood by Automated count CBC Lab Routine Diabetes mellitus screening Expected: 10/04/2024 (Approximate), Expires: 10/04/2025 [facility] Healthcare Comment on above: Expected: 10/04/2024 (Approximate), Expires: 10/04/2025 Start: 10-04-2024 End: 10-04-2025 Measurement of glucose 1 hour after glucose challenge for glucose tolerance test Glucose tolerance, 1 hour Lab Routine Diabetes mellitus screening Expected: 10/04/2024 (Approximate), Expires: 10/04/2025 [facility] Comment on above: Expected: 10/04/2024 (Approximate), Expires: 10/04/2025 Start: 10-04-2024 End: 10-04-2025 US for US OB limited 1+ fetuses Imaging Routine Encounter for follow-up ultrasound of anatomy Expected: 10/04/2024, Expires: 10/04/2025 [facility] Work Phone: Comment on above: Expected: 10/04/2024 , Expires: 10/04/2025 Start: 10-04-2024 End: 10-04-2024 Patient encounter procedure [facility] Comment on above: Arrived Start: 09-06-2024 End: 09-06-2025 CBC panel - Blood by Automated count CBC Lab Routine Diabetes mellitus screening Expected: 09/06/2024 (Approximate), Expires: 09/06/2025 [facility] Work Phone: Comment on above: Expected: 09/06/2024 (Approximate), Expires: 09/06/2025 Start: 09-06-2024 End: 09-06-2025 Measurement of glucose 1 hour after glucose challenge for glucose tolerance test Glucose tolerance, 1 hour Lab Routine Diabetes mellitus screening Expected: 09/06/2024 (Approximate), Expires: 09/06/2025 [facility] Comment on above: Expected: 09/06/2024 (Approximate), Expires: 09/06/2025 Start: 09-06-2024 End: 09-06-2024 Patient encounter procedure 09/06/2024 10:50 AM EST Routine [facility] [address] [place] [phone] Oumar Russell, DO [address] [place] [address] [facility] Start: 09-06-2024 End: 09-06-2024 Professional / ancillary services management 09/06/2024 9:30 AM EST Ancillary Procedure [facility] [address] [place] [phone] [facility] Start: 08-09-2024 End: 09-09-2024 Alpha fetoprotein, maternal Alpha fetoprotein, maternal Lab Routine Need for maternal serum alpha-protein (MSAFP) screening Expected: 08/09/2024 (Approximate), Expires: 09/09/2024 [facility] Comment on above: Expected: 08/09/2024 (Approximate), Expires: [...] 2:00 PM EST Initial [facility] [address] [place] [place] [phone] [facility] Start: 06-17-2024 End: 06-17-2025 Blood [...] Missed menses Expected: 06/17/2024 (Approximate), Expires: 06/17/2025 [facility] Comment on above: Expected: 06/17/2024 (Approximate), Expires: 06/17/2025 Start: 06-17-2024 End: 06-17-2024 Professional / ancillary services management 06/17/2024 1:30 PM EST Ancillary Procedure [facility] [address] [place] [address] [facility] Start: 06-02-2024 End: 06-02-2024 Patient encounter procedure 06/02/2024 11:00 AM EDT Office Visit [facility] [address] [place] [phone] Bhumika Johnson NP [address] [place] [address] [facility] Comment on above: Arrived Start: 04-04-2024 Influenza vaccination Influenza Vacc ine (#1) [facility] Start: 2014 Screening for malign ant neoplasm of cervix Pap Smear [facility] Bacteria identified in Urine by Culture Urine culture Microbiology Routine Missed menses Ordered: 06/17/2024 [facility] Comment on above: Ordered: 06/17/2024 CBC W Auto Different ial panel - Blood CBC and differential Lab Routine Missed menses , unspecified gestational age Ordered: 06/17/2024 [facility] Comment on above: Ordered: 06/17/2024 CHLAMYDIA TRACHOMATI S (GENITO/STI) CHLAMYDIA TRACHOMATIS (GENITO/STI) Lab Routine Exposure to STD Ordered: 08/09/2024 [facility] Comment on above: Ordered: 08/09/2024 Hemoglobin A1c/Hemoglobin.total in Blood Hemoglobin A1c Lab Routine Missed menses , unspecified gestational age Ordered: 06/17/2024 [facility] Comment on above: Ordered: 06/17/2024 Hepatitis B virus surface Ag [Presence] in Serum or Plasma by Immunoassay Hepatitis B surface antigen Lab Routine Missed menses , unspecified gestational age Ordered: 06/17/2024 [facility] Comment on above: Ordered: 06/17/2024 Hepatitis C virus Ab [Presence] in Serum or Plasma by Immunoassay Hepatitis C antibody Lab Routine Missed menses , unspecified gestational age Ordered: 06/17/2024 [facility] Comment on above: Ordered: 06/17/2024 HIV-1/HIV-2 antigen/antibody combination immunoassay HIV-1 and HIV-2 antibodies Lab Routine Missed menses , unspecified gestational age Ordered: 06/17/2024 [facility] Comment on above: Ordered: 06/17/2024 Neisseria gonorrhoea e DNA [Presence] in Unspecified specimen by SEVERO with probe detection Neisseria gonorrhea DNA probe, direct Lab Routine Exposure to STD Ordered: 08/09/2024 [facility] Comment on above: Ordered: 08/09/2024 Reagin Ab [Presence] in Serum by RPR RPR Lab Routine Missed menses , unspecified gestational age Ordered: 06/17/2024 [facility] Comment on above: Ordered: 06/17/2024 Rubella antibody, IgG Rubella an tibody, IgG Lab Routine Missed menses , unspecified gestational age Ordered: 06/17/2024 [facility] Comment on above: Ordered: 06/17/2024 SURESWAB(R) ADVANCED VAGINITIS PLUS, TMA SURESWAB(R) ADVANCED VAGINITIS PLUS, TMA Pathology and Cytology Routine Exposure to STD Ordered: 08/09/2024 [facility] Work Phone: Comment on above: Ordered: 08/09/2024 Immunizations Immunization Date Immunization Notes Care Provider Damon dumont 02-24-2012 tetanus toxoid, redu srinath diphtheria toxoid, and acellular pertussis vaccine, adsorbed Bhumika Alex [employer] APPRAISER SUPERVISOR Work Phone: [facility] Healthcare Payers Date Payer Category Payer [facility] [id number] 2022 Unknown [id number] 1993 Unknown [id number] 2.16.84 [id number] 1993 Unknown [id number] 2.16.84 [id number] 1993 Unknown [id number] 2.16.84 0.1.190183.3.579.2.1258 1993 Unknown [id number] 2.16.84 0.1.149904.3.579.2.1258 1993 Unknown [id number] 2.16.84 0.1.185330.3.579.2.1258 1993 Unknown [id number] 2.16.84 0.1.350510.3.579.2.1258 1993 Unknown [id number] 2.16.84 0.1.892137.3.579.2.1258 1993 Unknown [id number] 2.16.84 0.1.963974.3.579.2.1258 1993 Unknown [id number] 2.16.84 0.1.830646.3.579.2.1259 1993 Unknown [id number] 2.16.84 0.1.816158.3.579.2.9 1993 Unknown [id number] 2.16.84 0.1.415098.3.579.2.1259 1993 Unknown [id number] 2.16.84 0.1.597397.3.579.2.9 1993 Unknown [id number] 2.16.84 0.1.000068.3.579.2.1259 1993 Unknown [id number] 2.16.84 0.1.599751.3.579.2.1259 1959 Self-pay Unknown [id number] 2.16.84 [id number] Unknown [id number] 2.16.84 [id number] Social History Date Type Detail Facility Start: 02-12-2024 Tobacco smoking status [facility] Never sm oked tobacco [facility] Start: [...] to any clubs or organizations such as holiness groups, unions, fraternal or athletic groups, or [...] file [facility] Start: 06-02-2024 End: 12-29-2024 Alcoholic beverage intake Ex-drinker (finding) [facility] Start: 06-02-2024 Alcohol Comment caffeine intak e: 200mg daily [facility] Start: 05-03-2024 [facility] Clinical Notes 06-02-2024 to 12-29-2024 GORAN Pedroza - 12/29/2024 9:20 AM Iveth Dietrich LPN - 12/14/2024 8:30 AM Nathalie Graham NP - 12/01/2024 9:50 AM Iveth Dietrich LPN - 11/16/2024 11:20 AM EDT Note Date & Type Note Facility 12-29-2024 History of Presen t illness Narrative Reason [...] Vitals: Estimated body mass index is 29.99 kg/m as calculated from the following: Height [...] of: GORAN Pedroza documented in this encounter [facility] 12-14-2024 History of Presen t illness Narrative Reason [...] 24 hours MV-Min-Fe Fum-FA-DHA ( 1 PO) Oral sertraline (ZOLOFT) 25 mg, Oral, Daily ALLERGIES [...] Constitutional: Appearance: Normal appearance. She is well-developed. Cardiovascular: Rate and Rhythm: Normal rate and [...] nursing note reviewed. Exam conducted with a teletype telegrapher present. Vitals: Estimated body mass index is 29.66 kg/m as calculated from the following: Height as of 06/02/24: 5' 5.5 . Weight as of this encounter: 181 lb. BP: 110/68 Patient's last menstrual period was 04/19/2024. ASSESSMENT & PLAN ICD-10-CM 1. Third trimester Z34.93 POCT urinalysis dipstick manually resulted 2. 34 weeks gestation of Z3A.34 Return OB: Patient presents today for a routine obstetrics appointment. Patient is currently 34w1d . Patient states she is doing well but has complaints of being tired due to current . Patient has verbalizes frequent movement. labor precautions was discussed/given and patient was instructed to perform kick counts three times a day. Discussed GBS and cervical check next visit. Will repeat growth ultrasound. Orders Placed This Encounter Procedures POCT urinalysis dipstick manually resulted Follow Up: Patient is to return to office in 2 week for routine OB appointment. Documented by Ronda Dietrich LPN on behalf of: Oumar Russell DO documented in this encounter [facility] 12-01-2024 History of Presen t illness Narrative Reason [...] 24 hours MV-Min-Fe Fum-FA-DHA ( 1 PO) Oral sertraline (ZOLOFT) 25 mg, Oral, Daily ALLERGIES No Known Allergies PROBLEMS Active Ambulatory Problems Diagnosis Date Noted Allergic rhinitis 06/02/2024 Exercise-induced asthma 06/02/2024 Moderate episode of recurrent major depressive disorder ([facility]) 06/02/2024 Panic disorder ([facility]) 06/02/2024 Resolved Ambulatory Problems Diagnosis Date Noted No Resolved Ambulatory Problems Past Medical History: Diagnosis Date Anxiety Depression ([facility]) HISTORY PAST MEDICAL HISTORY SOCIAL HISTORY Past Medical History: Diagnosis Date Anxiety Depression ([facility]) Social History Tobacco Use Smoking status: Never [...] Constitutional: Appearance: Normal appearance. She is well-developed. Cardiovascular: Rate and Rhythm: Normal rate and [...] nursing note reviewed. Exam conducted with a teletype telegrapher present. Vitals: Estimated body mass index is 29.09 kg/m as calculated from the following: Height as of 06/02/24: 5' 5.5 . Weight as of this encounter: 177 lb 8 oz. BP: 120/72 Patient's last menstrual period was 04/19/2024. ASSESSMENT & PLAN ICD-10-CM 1. Third trimester Z34.93 POCT urinalysis dipstick manually resulted 2. 32 weeks gestation of Z3A.32 Return OB: Patient presents today for a routine obstetrics appointment. Patient is currently 32w2d . Patient states she is doing well but has complaints of being tired due to current . Patient has verbalizes frequent movement. labor precautions was discussed/given and patient was instructed to perform kick counts three times a day. Orders Placed This Encounter Procedures POCT urinalysis dipstick manually resulted Follow Up: Patient is to return to office in 2 week for routine OB appointment. Documented by Ling Graham NP on behalf of: Ling Graham NP documented in this encounter [facility] 11-16-2024 History of Presen t illness Narrative Reason [...] 24 hours MV-Min-Fe Fum-FA-DHA ( 1 PO) Oral sertraline (ZOLOFT) 25 mg, Oral, Daily ALLERGIES [...] Constitutional: Appearance: Normal appearance. She is well-developed. Cardiovascular: Rate and Rhythm: Normal rate and [...] nursing note reviewed. Exam conducted with a teletype telegrapher present. Vitals: Estimated body mass index is 28.65 kg/m as calculated from the following: Height as of 06/02/24: 5' 5.5 . Weight as of this encounter: 174 lb 12.8 oz. BP: 122/74 Patient's last menstrual period was 04/19/2024. ASSESSMENT & PLAN ICD-10-CM 1. Third trimester Z34.93 POCT urinalysis dipstick manually resulted 2. 30 weeks gestation of Z3A.30 POCT urinalysis dipstick manually resulted Return OB: Patient presents today for a routine obstetrics appointment. Patient is currently 30w1d . Patient states she is doing well but has complaints of being tired due to current . Patient has verbalizes frequent movement. labor precautions was discussed/given and patient was instructed to perform kick counts three times a day. Orders Placed This Encounter Procedures POCT urinalysis dipstick manually resulted Follow Up: Patient is to return to office in 2 week for routine OB appointment. Documented by Ronda Dietrich LPN on behalf of: Oumar Russell DO documented in this encounter [facility] 11-01-2024 History of Presen t illness Narrative Reason [...] 24 hours MV-Min-Fe Fum-FA-DHA ( 1 PO) Oral sertraline (ZOLOFT) 25 mg, Oral, Daily ALLERGIES [...] Constitutional: Appearance: Normal appearance. She is well-developed. Cardiovascular: Rate and Rhythm: Normal rate and [...] nursing note reviewed. Exam conducted with a teletype telegrapher present. Vitals: Estimated body mass index is 28.25 kg/m as calculated from the following: Height as of 06/02/24: 5' 5.5 . Weight as of this encounter: 172 lb 6.4 oz. BP: 120/60 Patient's last menstrual period was 04/19/2024. ASSESSMENT & PLAN ICD-10-CM 1. Third trimester Z34.93 POCT urinalysis dipstick manually resulted 2. 28 weeks gestation of Z3A.28 Return OB: Patient presents today for a routine obstetrics appointment. Patient is currently 28w0d . Patient states she is doing well but has complaints of being tired due to current . Patient has verbalizes frequent movement. labor precautions was discussed/given and patient was instructed to perform kick counts three times a day. Orders Placed This Encounter Procedures POCT urinalysis dipstick manually resulted Follow Up: Patient is to return to office in 2 week for routine OB appointment. Documented by Ling Graham NP on behalf of: Oumar Russell DO documented in this encounter [facility] 10-04-2024 History of Presen t illness Narrative Reason [...] reviewed. Vitals: Estimated body mass index is 27.92 kg/m as calculated from the following: Height as of 06/02/24: 5' 5.5 . Weight as of this encounter: 170 lb 6.4 oz. BP: 110/64 Patient's last menstrual period was 04/19/2024. ASSESSMENT & PLAN ICD-10-CM 1. Second trimester Z34.92 POCT urinalysis dipstick manually resulted 2. 24 weeks gestation of Z3A.24 3. Diabetes mellitus screening Z13.1 CBC Glucose tolerance, 1 hour CBC Glucose tolerance, 1 hour 4. Encounter for follow-up ultrasound of anatomy Z36.2 US OB limited 1+ fetuses Patient presents today for a routine obstetrics appointment. Patient is currently 24w0d with a Estimated Date of Delivery: 01/24/25. Documented by Vonnie Del Cid MA on behalf of: GORAN Pedroza documented in this encounter [facility] 09-06-2024 History of Presen t illness Narrative Reason [...] Exam Constitutional: Appearance: Normal appearance. She is well-developed and normal weight. HENT: Head: Normocephalic. Cardiovascular: Rate and Rhythm: Normal rate and regular rhythm. Pulses: Normal pulses. Pulmonary: Effort: Pulmonary effort is normal. Breath sounds: Normal breath sounds. Abdominal: General: Bowel sounds are normal. There is no distension. Palpations: Abdomen is soft. Tenderness: There is no abdominal tenderness. There is no guarding or rebound. Musculoskeletal: General: No swelling. Normal range of motion. Right lower leg: No edema. Left lower leg: No edema. Neurological: General: No focal deficit present. Mental Status: She is alert and oriented to person, place, and time. Skin: General: Skin is warm and dry. Psychiatric: Mood and Affect: Mood normal. Behavior: Behavior normal. Thought Content: Thought content normal. Judgment: Judgment normal. Vitals and nursing note reviewed. Exam conducted with a teletype telegrapher present. Vitals: Estimated body mass index is 25.86 kg/m as calculated from the following: Height as of 06/02/24: 5' 5.5 . Weight as of this encounter: 157 lb 12.8 oz. BP: 116/60 Patient's last menstrual period was 04/19/2024. ASSESSMENT & PLAN ICD-10-CM 1. 20 weeks gestation of Z3A.20 POCT urinalysis dipstick manually resulted 2. Second trimester Z34.92 POCT urinalysis dipstick manually resulted 3. Diabetes mellitus screening Z13.1 CBC Glucose tolerance, 1 hour CBC Glucose tolerance, 1 hour Patient presents today for Routine OB visit. Patient was given her CBC and 1 hour test to have completed. Return to office in 4 weeks. Documented by Saira Jaime LPN on behalf of: Oumar Russell DO documented in this encounter [facility] 08-09-2024 History of Presen t illness Narrative [...] nursing note reviewed. Exam conducted with a teletype telegrapher present. Vitals: Estimated body mass index is [...] of: GORAN Pedroza documented in this encounter [facility] 07-08-2024 History of Presen t illness Narrative [...] nursing note reviewed. Exam conducted with a teletype telegrapher present. Vitals: Estimated body mass index is [...] or undercooked meat, and stay away from [facility]. Patient has been consulted regarding any further do's and don'ts of . Patient voiced understanding and all questions and concerns were answered. Orders Placed This Encounter Procedures POCT urinalysis dipstick manually resulted Follow Up: Patient is to return in 4 weeks for routine OB appointment. Documented by Rosa Nguyen LPN on behalf of: Oumar Russell DO documented in this encounter [place] [address]-14-2024 History of Presen t illness Narrative Reason [...] major depressive disorder (CMS/HCC) 06/02/2024 Panic disorder ([facility]/HCC) 06/02/2024 Resolved Ambulatory Problems Diagnosis Date Noted [...] or undercooked meat, and stay away from [facility]. Patient has also been advised to [...] providers found * documented in this encounter [facility] 06-02-2024 History of Presen t illness Narrative [...] OBGYN as scheduled documented in this encounter [facility] Healthcare Evaluation note Diagnosis Panic disorder (CMS/HCC)- Primary Panic disorder without agoraphobia Moderate episode of recurrent major depressive disorder (CMS/HCC) [facility] Diagnosis Missed menses , unspecified gestational age Encounter for supervision of normal first in first trimester [facility]* Diagnosis Second trimester state, incidental 13 weeks gestation of [facility]* Diagnosis Second trimester state, incidental 16 weeks gestation of Need for maternal serum alpha-protein (MSAFP) screening Exposure to STD Screening, , for anatomic survey Encounter for anatomic survey [facility]* Diagnosis Panic disorder (CMS/HCC) Panic disorder without agoraphobia Moderate episode of recurrent major depressive disorder (CMS/HCC) [facility]* Diagnosis 20 weeks gestation of Second trimester state, incidental Diabetes mellitus screening Screening for diabetes mellitus [facility] Diagnosis Second trimester state, incidental 24 weeks gestation of Diabetes mellitus screening Screening for diabetes mellitus Encounter for follow-up ultrasound of anatomy [facility]* Diagnosis Size of fetus inconsistent with dates in third trimester- Primary Third trimester state, incidental 28 weeks gestation of [facility]* Diagnosis Third trimester state, incidental 30 weeks gestation of size inconsistent with dates [facility]* Diagnosis Third trimester state, incidental 32 weeks gestation of [facility]* Diagnosis Third trimester state, incidental 34 weeks gestation of [facility]* Diagnosis 36 weeks gestation of Third trimester state, incidental documented in this encounter [facility] Summary Purpose Family History No Family History Records FoundNo Family History Records FoundNo Family History Records Found Advance Directives No Advanced Directives Records FoundNo Advanced Directives Records FoundNo Advanced Directives Records Found Additional Source Comments INFORMATION SOURCE (unrecogn ized section and content) DATE CREATED AUTHOR 02/27/2019 [employer] DATE CREATED AUTHOR AUTHOR'S ORGANIZ ATION 11/28/2020 [facility] DATE CREATED AUTHOR AUTHOR'S ORGANIZ ATION 12/15/2024 [facility] Care Teams (unrecognized sec tion and content) Converting Supervisor Relationship Specialty Start Date End Date Samra Aguirre DO [address] [place] [address] PCP - General Family Medicine 12/10/22 Converting Supervisor Relationship Specialty Start Date End Date Raegan Medina MD [address] [place] [address] PCP - General Family Medicine 06/02/24 Converting Supervisor Relationship Specialty Start Date End Date Raegan Medina MD [address] [place] [address] PCP - General Family Medicine 06/02/24 Converting Supervisor Relationship Specialty Start Date End Date Raegan Medina MD [address] [place] [address] PCP - General Family Medicine 06/02/24 Converting Supervisor Relationship Specialty Start Date End Date Raegan Medina MD [address] [place] [address] PCP - General Family Medicine 06/02/24 Converting Supervisor Relationship Specialty Start Date End Date Raegan Medina MD [address] [place] [address] PCP - General Family Medicine 06/02/24 Converting Supervisor Relationship Specialty Start Date End Date Raegan Medina MD [address] [place] [address] PCP - General Family Medicine 06/02/24 Converting Supervisor Relationship Specialty Start Date End Date Raegan Medina MD [address] [place] [address] PCP - General Family Medicine 06/02/24 Bhumika Johnson NP [address] [place] [address] PCP - [employer] 07/04/24 Converting Supervisor Relationship Specialty Start Date End Date Raegan Medina MD [address] [place] [address] PCP - General Family Medicine 06/02/24 Bhumika Johnson NP [address] [place] [address] PCP - [employer] 07/04/24 Converting Supervisor Relationship Specialty Start Date End Date Raegan Medina MD [address] [place] [address] PCP - General Family Medicine 06/02/24 Bhumika Johnson NP [address] [place] [address] PCP - [employer] 07/04/24 Converting Supervisor Relationship Specialty Start Date End Date Raegan Medina MD [address] [place] [address] PCP - General Family Medicine 06/02/24 Bhumika Johnson NP [address] [place] [address] PCP - [employer] 07/04/24 Converting Supervisor Relationship Specialty Start Date End Date Raegan Medina MD [address] [place] [address] PCP - General Family Medicine 06/02/24 Bhumika Johnson NP [address] [place] [address] PCP - [employer] 07/04/24 Converting Supervisor Relationship Specialty Start Date End Date Raegan Medina MD [address] [place] [address] PCP - General Family Medicine 06/02/24 Bhumika Johnson NP [address] [place] [address] PCP - [employer] 07/04/24 Converting Supervisor Relationship Specialty Start Date End Date Raegan Medina MD [address] [place] [address] PCP - General Family Medicine 06/02/24 Converting Supervisor Relationship Specialty Start Date End Date Raegan Medina MD [address] [place] [address] PCP - General Family Medicine 06/02/24 Reason [...] BE BASED ON THE PRIMARY CLINICAL RECORDS. [employer] provides no warranty or guarantee of the accuracy or completeness of information in this document.
== END 2024-12-29 11:51 | disposition home or self-care (01) ==
LOC: LAB 11:50
PROVIDERS: PCP Nurse Practitioner Family; Visit Provider Physician Assistant
DX: Z34.93 Encounter for supervision of normal pregnancy, unspecified, third trimester (principal)
CPT/HCPCS: 87081

== ENCOUNTER 2025-01-13 19:45 | Outpatient (OUT) | payer BC, SELFPAY ==
--- OUTSIDE RECORDS SUMMARY | 2025-01-13 19:49 | XMS_ITS | CCD ---
Author Organization [facility] CliniSymn Care Team Providers Care Wireless Sales Consultant Name Role Phone PACO CHACNO Attending Unavailable PACO CHACON Consulting Unavailable PACO CHACON Admitting Unavailable REQUEST, NONE LISTED Admitting Unavaila ble REQUEST, NONE LISTED Attending Unavaila ble REQUEST, NONE LISTED Consulting Unavaila ble Samra Aguirre DO Primary Care Provider Raegan Medina MD Primary Care Provider Alex MENTAL HEALTH SPECIALIST, Bhumika Unavailable OUMAR RUSSELL Attending Unavailable BRENDA JEFF Attending Unavailable YVONNE, OUMAR Attending Unavailable YVONNE, OUMAR Attending Unavailable YVONNE, OUMAR Referring Unavailable GLADYS, LING Attending Unavailable YVONNE, OUMAR Attending Unavailable GLADYS, LING Referring Unavailable TOMER, BRENDA Attending Unavailable YVONNE, OUMAR Attending Unavailable CANDICE MENG Attending Unavailable KAMToñoFER, BHUMIKA Attending Unavailable YVONNE, OUMAR Attending Unavailable TOMER, BRENDA Attending Unavailable Medications Current Medications Medication Drug [...] (Alternate therapy) MV-Min-Fe Fum-FA-DHA ( 1 PO) (18 sources) MV-Min- Fe Fum-FA-DHA ( 1 PO) [...] size-date discrepancy, third trimester] 11-01-2024 Episodic Other complications of (2 sources) Excessive growth affecting management of mother; Translations: [Maternal care for excessive growth, third trimester, not applicable or unspecified] 01-12-2025 Episodic Other and delivery including normal (20 [...] [36 weeks gestation of ] 12-29-2024 Episodic Residual codes; unclassified (2 sources) Gestation period, 37 weeks; Translations: [37 weeks gestation of ] 01-05-2025 Episodic Residual codes; unclassified (2 sources) Gestation period, 38 weeks; Translations: [38 weeks gestation of ] 01-12-2025 Episodic Past or Other Problems Problem Classification Problem Date Documented Da te Episodic/Chronic Mood disorders (20 sources) Mood disorders Onset: 06-02-2024 06-02-2024 Results Test Name Value Interpretation Reference Range Facility Urinalysis macro (dipstick) panel (U)on 01-12-2025 Bilirubin, UA Negative Negative - 4(70) +++ mg/dL [facility] Blood, UA Positive Negative - 50 Immanuel/mcL [facility] Comment on above: trace-intact Clarity, UA Clear [facility] re Color, UA Yellow [facility] Glucose, UA Negative Negative - 1999(110) ++++ mg/dL [facility] Interpretation and review of laboratory results Abnormal [facility] Ketones, UA Negative Negative - 160(16) ++++ mg/dL [facility] Leukocytes, UA Trace Negative - 500+++ Jennyfer/mcL [facility] Nitrite, UA Negative Negative - Positive [facility] pH, UA 6 5 - 9 formerly [facility] e Protein, UA Negative Negative - 1999(20) ++++ mg/dL [facility] Spec Grav, UA 1.01 1 - 1.03 [facility] Urobilinogen, UA 0.2 0.2 - 12 mg/dL [facility] OB FOLLOW UP TRANSABDOMIN AL APPROACHon 12-29-2024 US OB FOLLOW UP TRANSABDOMINAL APPROACH EXAM: US OB FOLLOW UP TRANSABDOMINAL APPROACH HISTORY: Large for gestational age. COMPARISON: Ob ultrasound 12/01/2024. TECHNIQUE: Two-dimensional transabdominal grayscale ultrasound imaging of the pelvis was performed. FINDINGS: Gestation: Single Presentation: Cephalic Cardiac Activity: 162 beats per minute Placental Location: Anterior with no sonographic abnormalities identified. Amniotic Fluid Index: 12.5 cm MEASUREMENTS: BPD: 8.9 cm EGA: 35 weeks 5 days HC: 32.4 cm EGA: 36 weeks 5 days AC: 34.9 cm EGA: 38 weeks 5 days FL: 7.5 cm EGA: 38 weeks 2 days HC/AC Ratio: 0.93 The gestational age by today's ultrasound is 37 weeks 3 days (+/- 18 days gestation). Estimated Weight: 3374 grams, +/- 506 grams ( 7 lb 7 oz). Weight Percentile for gestational age: 91 % IMPRESSION: 1. Single, live intrauterine gestation 36 weeks, 2 days by LMP. Today's ultrasound measurements correlate with a gestational age of 37 weeks 3 days. Estimated weight is 3374 grams, +/- 506 grams ( 7 lb 7 oz) which correlates to 91 %. BRIAN is 01/16/2025. 2. growth is measuring large for gestational age. Interpreted by: Electronically signed by ARVIN JIMENEZ II, MD, PHD at 29-Dec-2024 11:18:48 PM [facility] Normal Not Available Comment on above: Order Comment: US OB SCAN FOR GROWTH Estimated Date of Delivery: 01/24/25 Gestational Age as of 12/01/2024: 32w2d Urinalysis macro (dipstick) panel (U)on 12-29-2024 Bilirubin, UA Negative Negative - 4(70) +++ mg/dL [facility] Blood, UA Negative Negative - 50 Immanuel/mcL [facility] Clarity, UA Clear [facility] Color, UA Yellow [facility] Glucose, UA Negative Negative - 1999(110) ++++ mg/dL [facility] Interpretation and review of laboratory results Abnormal [facility] Ketones, UA Negative Negative - 160(16) ++++ mg/dL [facility] Leukocytes, UA Trace Negative - 500+++ Jennyfer/mcL [facility] Nitrite, UA Negative Negative - Positive [facility] pH, UA 7 5 - 9 [facility] Protein, UA Negative Negative - 1999(20) ++++ mg/dL [facility] Spec Grav, UA 1.01 1 - 1.03 [facility] Urobilinogen, UA 0.2 0.2 - 12 mg/dL [facility] Urinalysis macro (dipstick) panel (U)on 12-14-2024 Bilirubin, UA Negative Negative - 4(70) +++ mg/dL [facility] Blood, UA Negative Negative - 50 Immanuel/mcL [facility] Clarity, UA Clear [facility] Color, UA Light Yellow [facility] Glucose, UA Negative Negative - 1999(110) ++++ mg/dL [facility] Interpretation and review of laboratory results Normal [facility] Ketones, UA Negative Negative - 160(16) ++++ mg/dL [facility] Leukocytes, UA Trace Negative - 500+++ Jennyfer/mcL [facility] Nitrite, UA Negative Negative - Positive [facility] pH, UA 7 5 - 9 [facility] Protein, UA Negative Negative - 1999(20) ++++ mg/dL [facility] Spec Grav, UA 1.015 1 - 1.03 [facility] Urobilinogen, UA 0.2 0.2 - 12 mg/dL [facility] [employer] [facility] US OB FOLLOW UP TRANSABDOMIN [...] II, MD, PHD at 05-Dec-2024 08:53:04 PM [facility] Normal Not Available Comment on above: Order Comment: US OB SCAN FOR GROWTH Estimated Date of Delivery: 01/24/25 Gestational Age as of 11/16/2024: 30w1d Urinalysis macro (dipstick) panel (U)on 12-01-2024 Bilirubin, UA Negative Negative - 4(70) +++ mg/dL [facility] Blood, UA Positive Negative - 50 Immanuel/mcL [facility] Comment on above: Trace-intact Clarity, UA Clear [facility] Color, UA Yellow [facility] Glucose, UA Negative Negative - 2000(110) ++++ mg/dL [facility] Interpretation and review of laboratory results Abnormal [facility] Ketones, UA Negative Negative - 160(16) ++++ mg/dL [facility] Leukocytes, UA Positive Negative - 500+++ Jennyfer/mcL [facility] Comment on above: Moderate Nitrite, UA Negative Negative - Positive [facility] pH, UA 6.5 5 - 9 [facility] Comment on above: ne Protein, UA Negative Negative - 1999(20) ++++ mg/dL [facility] Spec Grav, UA 1.01 1 - 1.03 [facility] Urobilinogen, UA 0.2 0.2 - 12 mg/dL [facility] Urinalysis macro (dipstick) panel (U)on 11-16-2024 Bilirubin, UA Negative Negative - 4(70) +++ mg/dL [facility] Blood, UA Negative Negative - 50 Immanuel/mcL [facility] Clarity, UA Clear [facility] Color, UA Yellow [facility] Glucose, UA Negative Negative - 1999(110) ++++ mg/dL [facility] Interpretation and review of laboratory results Normal [facility] Ketones, UA Negative Negative - 160(16) ++++ mg/dL [facility] Leukocytes, UA Negative Negative - 500+++ Jennyfer/mcL [facility] Healthcare Nitrite, UA Negative Negative - Positive [facility] pH, UA 6.5 5 - 9 [facility] Protein, UA Negative Negative - 1999(20) ++++ mg/dL [facility] Spec Grav, UA 1.025 1 - 1.03 [facility] Urobilinogen, UA 1.0 0.2 - 12 mg/dL [facility] Urinalysis macro (dipstick) panel (U)on 11-01-2024 Bilirubin, UA Negative Negative - 4(70) +++ mg/dL [facility] Blood, UA Negative Negative - 50 Immanuel/mcL [facility] Clarity, UA Clear [facility] Color, UA Yellow [facility] Glucose, UA Negative Negative - 1999(110) ++++ mg/dL [facility] Interpretation and review of laboratory results Normal [facility] Ketones, UA Negative Negative - 160(16) ++++ mg/dL [facility] Leukocytes, UA Negative Negative - 500+++ Jennyfer/mcL [facility] Nitrite, UA Negative Negative - Positive [facility] pH, UA 6.5 5 - 9 [facility] Protein, UA Negative Negative - 1999(20) ++++ mg/dL [facility] Spec Grav, UA 1.01 1 - 1.03 [facility] Urobilinogen, UA 0.2 0.2 - 12 mg/dL [facility] US OB LIMITED 1+ FETUSESon [...] II, MD, PHD at 19-Oct-2024 12:32:31 AM [facility] Normal Not Available Comment on above: Order Comment: US OB INCOMPLETE ANATOMY Estimated Date of Delivery: 01/24/25 Gestational Age as of 10/04/2024: 24w0d ALL CBC WITH AUTO DIFFon BASOPHILS ABSOLUTE AUTO 0 [facility] Basophils/100 WBC (Bld) 0.3 % 0.2 - 2.0 % [facility] Eosinophils/100 WBC (Bld) 1.3 % 0.9 - 7.0 % [facility] Erythrocyte distribution width (RBC) [Ratio] 11.9 % 11.0 - 15.0 % [facility] Hematocrit (Bld) [Volume fraction] 35.1 % Low 36.0 - 48.0 % [facility] Hemoglobin (Bld) [Mass/Vol] 11.5 g/dL Low 12.0 - 16.0 g/dL [facility] IMMATURE GRANULOCYTES ABS AUTO 0.02 [facility] Immature granulocytes/100 WBC (Bld) 0.2 % 0.0 - 0.5 % [facility] Interpretation and review of laboratory results Abnormal [facility] LYMPHOCYTES ABSOLUTE AUTO 1.6 [facility] Lymphocytes/100 WBC (Bld) 17.7 % Low 20.5 - 60.0 % [facility] MCH (RBC) [Entitic mass] 31.6 pg 26.7 - 34.0 pg [facility] MCHC (RBC) [Mass/Vol] 32.8 g/dL 29.9 - 35.2 g/dL [facility] MCV (RBC) [Entitic vol] 96.4 fL 81.0 - 99.0 fL [facility] MONOCYTES ABSOLUTE AUTO 0.4 [facility] Monocytes/100 WBC (Bld) 4.7 % 1.7 - 12.0 % [facility] NEUTROPHILS ABSOLUTE AUTO 7 High [facility] Neutrophils/100 WBC (Bld) 75.8 % High 43.0 - 75.0 % [facility] Platelet mean volume (Bld) [Entitic vol] 8.8 fL Low 9.5 - 13.5 fL [facility] are TBH EO # 0.1 [facility] TB PLT 300 [facility] RBC 3.64 Low [facility] TB WBC 9.2 [facility] Urinalysis macro (dipstick) panel (U)on 10-04-2024 Bilirubin, UA Negative Negative - 4(70) +++ mg/dL [facility] Blood, UA Negative Negative - 50 Immanuel/mcL [facility] Clarity, UA Clear [facility] re Color, UA Yellow [facility] Glucose, UA Negative Negative - 1999(110) ++++ mg/dL [facility] Interpretation and review of laboratory results Normal [facility] Ketones, UA Negative Negative - 160(16) ++++ mg/dL [facility] Leukocytes, UA Negative Negative - 500+++ Jennyfer/mcL [facility] Nitrite, UA Negative Negative - Positive [facility] pH, UA 7 5 - 9 formerly [facility] e Protein, UA Negative Negative - 1999(20) ++++ mg/dL [facility] Spec Grav, UA 1.01 1 - 1.03 [facility] Urobilinogen, UA 0.2 0.2 - 12 mg/dL [facility] AFP, SERUM, OPEN SPINA BIFID Aon 09-08-2024 AFP MOM 1.39 . [facility] AFP VALUE 74.7 ng/mL . [facility] COMMENT: Comment . [facility] Comment on above: Gwendolyn Tarango , Ph.D., [facility] Director References: Available Upon Request. Multiples Of Median Cutoffs For AFP Elevations Stevens 2.5 Black 2.8 IDD 2.0 Twins 4.5 Abbreviation Definitions IDD - Insulin Dep Diabetes OSBR - Open Spina Bifida Risk For further inquiries contact [employer] at [phone]. This test was developed and its performance characteristics determined by [employer]. It has not been cleared or approved by the Food and Drug Administration. Performed at: [facility] [address] [place], [place] [id number] Game Designer: Micah Mancia [facility], Phone: [phone] GEST. AGE ON COLLECTION DATE 20.0 . weeks [facility] GESTAT. AGE BASED ON LMP . [facility] Comment on above: Recalculations are n ot recommended when gestational dating by LMP and ultrasound are within 10 days. INSULIN DEP DIABETES No . [facility] Healthcare INTERPRETATION Comment . [facility] Comment on above: Interpretation: Scre en Negative [...] Customer Services to discuss available options. The [employer] recommends amniocentesis be offered to women age 35 and older. [age]AN [age] [facility] [employer] MULTIPLE GESTATION No . [facility] OSBR RISK [phone] IN [phone] . [facility] RACE . [facility] RESULTS Report . [facility] TEST RESULTS: Negative . [facility] WEIGHT 159 . lbs [facility] [employer] N [id number] N LMP [id number] 0 16 N 1 Y 159 N N N N N White/ [facility] US OB 14+ WEEKS ANATOMY SCAN [...] report is generated using voice recognition reporting ([employer]). On occasion [employer] erroneously drops words from the report or [...] UA Negative Negative - 4(70) +++ mg/dL [facility] Blood, UA Negative Negative - 50 Immanuel/mcL [facility] Clarity, UA Clear [facility] Color, UA Colorless [facility] Glucose, UA Negative Negative - 1999(110) ++++ mg/dL [facility] Interpretation and review of laboratory results Normal [facility] Ketones, UA Negative Negative - 160(16) ++++ mg/dL [facility] Leukocytes, UA Negative Negative - 500+++ Jennyfer/mcL [facility] Nitrite, UA Negative Negative - Positive [facility] pH, UA 7 5 - 9 [facility] Protein, UA Negative Negative - 1999(20) ++++ mg/dL [facility] Spec Grav, UA 1.01 1 - 1.03 [facility] Urobilinogen, UA 0.2 0.2 - 12 mg/dL [facility] RECURRENT VAGINITIS (HTRX)on 08-11-2024 ATOPOBIUM VAGINAE 0 [facility] ATOPOBIUM VAGINAE Not detected [facility] BVAB 2,3 (BACTERIAL VAGINOSIS ASSOCIATED BACTERIA 2, 3); MOBILUNCUS SPP 0 [facility] BVAB 2,3 (BACTERIAL VAGINOSIS ASSOCIATED BACTERIA 2, 3); MOBILUNCUS SPP Not detected [facility] MALOU ALBICANS, PARAPSILOSIS, TROPICALIS 0 [facility] MAOLU ALBICANS, PARAPSILOSIS, TROPICALIS Not detected [facility] MALOU GLABRATA 0 [facility] lthcare MALOU GLABRATA Not detected [facility] ealthcare MALOU KRUSEI 0 [facility] hcare MALOU KRUSEI Not detected [facility] CHLAMYDIA TRACHOMATIS 0 [facility] CHLAMYDIA TRACHOMATIS Not detected [facility] GARDNERELLA VAGINALIS 0 [facility] GARDNERELLA VAGINALIS Not detected [facility] MEGASPHAERA (TYPES 1, 2) 0 [facility] MEGASPHAERA (TYPES 1, 2) Not detected [facility] MYCOPLASMA GENITALIUM 0 [facility] MYCOPLASMA GENITALIUM Not detected [facility] NEISSERIA GONORRHOEAE 0 [facility] NEISSERIA GONORRHOEAE Not detected [facility] TRICHOMONAS VAGINALIS 0 [facility] TRICHOMONAS VAGINALIS Not detected [facility] Urinalysis macro (dipstick) panel (U)on 08-09-2024 Bilirubin, UA Negative Negative - 4(70) +++ mg/dL [facility] Blood, UA Negative Negative - 50 Immanuel/mcL [facility] Clarity, UA Clear [facility] re Color, UA Yellow [facility] Glucose, UA Negative Negative - 1999(110) ++++ mg/dL [facility] Interpretation and review of laboratory results Normal [facility] Ketones, UA Negative Negative - 160(16) ++++ mg/dL [facility] Leukocytes, UA Negative Negative - 500+++ Jennyfer/mcL [facility] Nitrite, UA Negative Negative - Positive [facility] pH, UA 7 5 - 9 [facility] e Protein, UA Negative Negative - 1999(20) ++++ mg/dL [facility] Spec Grav, UA 1.01 1 - 1.03 [facility] Urobilinogen, UA 0.2 0.2 - 12 mg/dL [facility] ALL CBC WITH AUTO DIFFon BASOPHILS ABSOLUTE AUTO 0.1 [facility] Basophils/100 WBC (Bld) 0.6 % 0.2 - 2.0 % [facility] Eosinophils/100 WBC (Bld) 0.6 % Low 0.9 - 7.0 % [facility] Erythrocyte distribution width (RBC) [Ratio] 11.5 % 11.0 - 15.0 % [facility] Hematocrit (Bld) [Volume fraction] 39.1 % 36.0 - 48.0 % [facility] Hem[facility] (Bld) [Mass/Vol] 13 g/dL 12.0 - 16.0 g/dL [facility] IMMATURE GRANULOCYTES ABS AUTO 0.02 [facility] Immature granulocytes/100 WBC (Bld) 0.2 % 0.0 - 0.5 % [facility] Interpretation and review of laboratory results Abnormal [facility] LYMPHOCYTES ABSOLUTE AUTO 2 [facility] Lymphocytes/100 WBC (Bld) 22.3 % 20.5 - 60.0 % [facility] MCH (RBC) [Entitic mass] 31.5 pg 26.7 - 34.0 pg [facility] MCHC (RBC) [Mass/Vol] 33.2 g/dL 29.9 - 35.2 g/dL [facility] MCV (RBC) [Entitic vol] 94.7 fL 81.0 - 99.0 fL [facility] MONOCYTES ABSOLUTE AUTO 0.5 [facility] Monocytes/100 WBC (Bld) 5.6 % 1.7 - 12.0 % [facility] NEUTROPHILS ABSOLUTE AUTO 6.3 [facility] Neutrophils/100 WBC (Bld) 70.7 % 43.0 - 75.0 % [facility] Platelet mean volume (Bld) [Entitic vol] 9.3 fL Low 9.5 - 13.5 fL [facility] are TBH EO # 0.1 [facility] TB PLT 268 [facility] e [facility] RBC 4.13 Low [facility] e TB WBC 9 [facility] Urinalysis macro (dipstick) panel (U)on 07-08-2024 Bilirubin, UA Negative Negative - 4(70) +++ mg/dL [facility] Blood, UA Negative Negative - 50 Immanuel/mcL [facility] Clarity, UA Clear [facility] re Color, UA Yellow [facility] e Glucose, UA Negative Negative - 1999(110) ++++ mg/dL [facility] Interpretation and review of laboratory results Normal [facility] Ketones, UA Negative Negative - 160(16) ++++ mg/dL [facility] Leukocytes, UA Negative Negative - 500+++ Jennyfer/mcL [facility] Nitrite, UA Negative Negative - Positive [facility] pH, UA 6.5 5 - 9 formerly [facility] e Protein, UA Negative Negative - 1999(20) ++++ mg/dL [facility] Spec Grav, UA 1.02 1 - 1.03 [facility] Urobilinogen, UA 1.0 0.2 - 12 mg/dL [facility] HCG ( test) Ql (U)o n 06-17-2024 Interpretation and review of laboratory results Abnormal [facility] Preg Test, Ur Positive Negative [facility] Urinalysis macro (dipstick) panel (U)on 06-17-2024 Bilirubin, UA Negative Negative - 4(70) +++ mg/dL [facility] Blood, UA Negative Negative - 50 Immanuel/mcL [facility] Clarity, UA Clear [facility] Color, UA Yellow [facility] Glucose, UA Negative Negative - 1999(110) ++++ mg/dL [facility] Interpretation and review of laboratory results Normal [facility] Ketones, UA Negative Negative - 160(16) ++++ mg/dL [facility] Leukocytes, UA Negative Negative - 500+++ Jennyfer/mcL [facility] Nitrite, UA Negative Negative - Positive [facility] pH, UA 5.5 5 - 9 [facility] Protein, UA Negative Negative - 1999(20) ++++ mg/dL [facility] Spec Grav, UA 1.02 1 - 1.03 [facility] Urobilinogen, UA 1.0 0.2 - 12 mg/dL [facility] Vital Signs Date Time Vital Sign Value Performing Clinician Juliann cooper 01-12-2025 13:56-0400 Body mass index (BMI) [Ratio] 30.61 kg/m2 Brenda ZIMMER Work Phone: [facility] 01-12-2025 13:56-0400 Body weight 84.73 kg Brenda ZIMMER Work Phone: [facility] 01-12-2025 13:56-0400 Diastolic blood pressure 80 mm[Hg] Brenda ZIMMER Work Phone: [facility] 01-12-2025 13:56-0400 Systolic blood pressure 120 mm[Hg] Brenda ZIMMER Work Phone: [facility] 01-05-2025 13:27-0400 Body mass index (BMI) [Ratio] 30.61 kg/m2 Oumar Yvonne DO Work Phone: [facility] 01-05-2025 13:27-0400 Body weight 84.73 kg Oumar Yvonne DO Work Phone: [facility] 01-05-2025 13:27-0400 Diastolic blood pressure 72 mm[Hg] Oumar Yvonne DO Work Phone: [facility] 01-05-2025 13:27-0400 Systolic blood pressure 110 mm[Hg] Oumar Yvonne DO Work Phone: [facility] 12-29-2024 09:25-0400 Body mass index (BMI) [Ratio] 29.99 kg/m2 Brenda ZIMMER Work Phone: [facility] 12-29-2024 09:25-0400 Body weight 83.01 kg Brenda ZIMMER Work Phone: [facility] 12-29-2024 09:25-0400 Diastolic blood pressure 70 mm[Hg] Brenda ZIMMER Work Phone: [facility] 12-29-2024 09:25-0400 Systolic blood pressure 120 mm[Hg] Brenda ZIMMER Work Phone: [facility] 12-14-2024 08:35-0400 Body mass index (BMI) [Ratio] 29.66 kg/m2 Oumar Yvonne DO Work Phone: [facility] 12-14-2024 08:35-0400 Body weight 82.1 kg Oumar Yvonne DO Work Phone: [facility] 12-14-2024 08:35-0400 Diastolic blood pressure 68 mm[Hg] Oumar Yvonne DO Work Phone: [facility] 12-14-2024 08:35-0400 Systolic blood pressure 110 mm[Hg] Oumar Yvonne DO Work Phone: [facility] 12-01-2024 10:07-0400 Body mass index (BMI) [Ratio] 29.14 kg/m2 Ling Gladys MENTAL HEALTH SPECIALIST Work Phone: [facility] 12-01-2024 10:07-0400 Body weight 80.65 kg Ling Gladys MENTAL HEALTH SPECIALIST Work Phone: [facility] 12-01-2024 10:07-0400 Diastolic blood pressure 72 mm[Hg] Ling Gladys MENTAL HEALTH SPECIALIST Work Phone: [facility] 12-01-2024 10:07-0400 Systolic blood pressure 120 mm[Hg] Ling Gladys MENTAL HEALTH SPECIALIST Work Phone: [facility] 11-16-2024 11:39-0400 Body mass index (BMI) [Ratio] 28.65 kg/m2 Oumar Yvonne DO Work Phone: [facility] 11-16-2024 11:39-0400 Body weight 79.29 kg Oumar Yvonne DO Work Phone: [facility] 11-16-2024 11:39-0400 Diastolic blood pressure 74 mm[Hg] Oumar Yvonne DO Work Phone: [facility] 11-16-2024 11:39-0400 Systolic blood pressure 122 mm[Hg] Oumar Yvonne DO Work Phone: [facility] 11-01-2024 08:58-0400 Body mass index (BMI) [Ratio] 28.25 kg/m2 Oumar Yvonne DO Work Phone: [facility] 11-01-2024 08:58-0400 Body weight 78.2 kg Oumar Yvonne DO Work Phone: [facility] 11-01-2024 08:58-0400 Diastolic blood pressure 60 mm[Hg] Oumar Yvonne DO Work Phone: [facility] 11-01-2024 08:58-0400 Systolic blood pressure 120 mm[Hg] Oumar Yvonne DO Work Phone: [facility] 10-04-2024 08:30-0500 Body mass index (BMI) [Ratio] 27.92 kg/m2 Brenda Jeff PA Work Phone: [facility] 10-04-2024 08:30-0500 Body weight 77.29 kg Brenda Tomer PA Work Phone: [facility] 10-04-2024 08:30-0500 Diastolic blood pressure 64 mm[Hg] Brenda Tomer PA Work Phone: [facility] 10-04-2024 08:30-0500 Systolic blood pressure 110 mm[Hg] Brenda Tomer PA Work Phone: [facility] 09-06-2024 10:48-0500 Body mass index (BMI) [Ratio] 25.86 kg/m2 Oumar Yvonne DO Work Phone: [facility] 09-06-2024 10:48-0500 Body weight 71.58 kg Oumar Yvonne DO Work Phone: [facility] 02-03-2025 10:48-0500 Diastolic blood pressure 60 mm[Hg] Oumar Yvonne DO Work Phone: [facility] 09-06-2024 10:48-0500 Systolic blood pressure 116 mm[Hg] Oumar Yvonne DO Work Phone: [facility] 08-09-2024 10:44-0500 Body mass index (BMI) [Ratio] 26.06 kg/m2 Brenda Phoenix PA Work Phone: [facility] 08-09-2024 10:44-0500 Body weight 72.12 kg Brenda Phoenix PA Work Phone: [facility] 08-09-2024 10:44-0500 Diastolic blood pressure 68 mm[Hg] Brenda Phoenix PA Work Phone: [facility] 08-09-2024 10:44-0500 Systolic blood pressure 110 mm[Hg] Brenda Tomer PA Work Phone: [facility] 07-08-2024 10:50-0500 Body mass index (BMI) [Ratio] 25.73 kg/m2 Oumar Yvonne DO Work Phone: [facility] 07-08-2024 10:50-0500 Body weight 71.22 kg Oumar Yvonne DO Work Phone: [facility] 07-08-2024 10:50-0500 Diastolic blood pressure 70 mm[Hg] Oumar Yvonne DO Work Phone: [facility] 07-08-2024 10:50-0500 Systolic blood pressure 110 mm[Hg] Oumar Yvonne DO Work Phone: [facility] 06-17-2024 14:25-0500 Body mass index (BMI) [Ratio] 24.88 kg/m2 [facility] Nurse [facility] 06-17-2024 14:25-0500 Body weight 68.[address] [facility] Nurse [facility] 06-02-2024 10:49-0400 Body height 166.4 cm Bhumika Johnson NP Work Phone: [facility] 06-02-2024 10:49-0400 Body mass index (BMI) [Ratio] 24.88 kg/m2 Bhumika Johnson MENTAL HEALTH SPECIALIST Work Phone: [facility] 06-02-2024 10:49-0400 Body weight 68.86 kg Bhumika Johnson MENTAL HEALTH SPECIALIST Work Phone: [facility] 06-02-2024 10:49-0400 Diastolic blood pressure 60 mm[Hg] Bhumika Johnson MENTAL HEALTH SPECIALIST Work Phone: [facility] 06-02-2024 10:49-0400 Heart rate 75 /min Bhumika Johnson MENTAL HEALTH SPECIALIST Work Phone: [facility] 06-02-2024 10:49-0400 SaO2% (BldA) [Mass fraction] 99 % Bhumika Johnson MENTAL HEALTH SPECIALIST Work Phone: [facility] 06-02-2024 10:49-0400 Systolic blood pressure 120 mm[Hg] Bhumika Johnson MENTAL HEALTH SPECIALIST Work Phone: [facility] Healthcare Encounters Encounter Date Encounter Type Care Provider Facility Start: 01-12-2025 End: 01-12-2025 Bamboo flowsheet Brenda ZIMMER Work Phone: [facility] Start: 01-12-2025 End: 01-12-2025 Bamboo flowsheet Brenda ZIMMER Work Phone: [facility] Start: 01-12-2025 End: 01-12-2025 flow sheet Brenda ZIMMER Work Phone: [facility] Comment on above: Excessive grow th affecting management of in third trimester, single or unspecified fetus (Primary Dx); 38 weeks gestation of ; Third trimester Start: 01-05-2025 End: 01-05-2025 Bamboo flowsheet Oumar Yvonne DO Work Phone: [facility] Start: 01-05-2025 End: 01-05-2025 Bamboo flowsheet Oumar Yvonne DO Work Phone: [facility] Start: 01-05-2025 End: 01-05-2025 flow sheet Oumar Yvonne DO Work Phone: [facility] Comment on above: Third trimester preg kirk; 37 weeks gestation of Start: 01-05-2025 End: 01-05-2025 ambulatory OUMAR YVONNE Not Available Start: 12-29-2024 End: 12-29-2024 flow sheet Brenda Tomer PA Work Phone: [facility] Comment on above: 36 weeks gestation o f ; Third trimester Start: 12-29-2024 End: 12-29-2024 ambulatory BRENDA JEFF Not Available Start: 12-14-2024 End: 12-14-2024 Bamboo flowsheet Oumar Yvonne DO Work Phone: [facility] Start: 12-14-2024 End: 12-14-2024 Bamboo flowsheet Oumar Yvonne DO Work Phone: [facility] Start: 12-14-2024 End: 12-14-2024 flow sheet Oumar Yvonne DO Work Phone: [facility] Comment on above: Third trimester preg kirk; 34 weeks gestation of Start: 12-14-2024 End: 12-14-2024 ambulatory OUMAR YVONNE Not Available Start: 12-01-2024 End: 12-01-2024 flow sheet Ling Graham MENTAL HEALTH SPECIALIST Work Phone: [facility] Comment on [...] Bamboo flowsheet Oumar Yvonne DO Work Phone: [facility] Start: 11-01-2024 End: 11-01-2024 Bamboo flowsheet Oumar Yvonne DO Work Phone: [facility] Start: 11-01-2024 End: 11-01-2024 flow sheet Oumar Yvonne DO Work Phone: [facility] Comment on above: Size of fetus incons istent with dates in third trimester (Primary Dx); Third trimester ; 28 weeks gestation of Start: 11-01-2024 End: 11-01-2024 ambulatory OUMAR YVONNE Not Available Start: 10-18-2024 End: 10-18-2024 ambulatory OUMAR YVONNE Not Available Start: 10-04-2024 End: 10-04-2024 Bamboo flowsheet Brenda ZIMMER Work Phone: [facility] Start: 10-04-2024 End: 10-04-2024 Bamboo flowsheet Brenda ZIMMER Work Phone: [facility] Start: 10-04-2024 End: 10-04-2024 Clinisync Result Encounter Brenda ZIMMER Work Phone: [facility] External Department Unsolicited Start: 10-04-2024 End: 10-04-2024 flow sheet Brenda ZIMMER Work Phone: [facility] Comment on above: Second trimester [...] 08-09-2024 Bamboo flowsheet Brenda ZIMMER Work Phone: [facility] Start: 08-09-2024 End: 08-11-2024 Bamboo flowsheet Brenda ZIMMER Work Phone: [facility] Start: 08-09-2024 End: 08-11-2024 External Result Encounter Brenda ZIMMER Work Phone: [facility] External Department Unsolicited Start: 08-09-2024 End: 08-09-2024 [...] 06-02-2024 End: 06-02-2024 Bamboo flowsheet Bhumika Johnson MENTAL HEALTH SPECIALIST Work Phone: [facility] Start: 06-02-2024 End: 06-02-2024 Bamboo flowsheet Bhumika Johnson MENTAL HEALTH SPECIALIST Work Phone: [facility] Start: 06-02-2024 End: 06-02-2024 Office outpatient visit 15 minutes Bhumika Johnson MENTAL HEALTH SPECIALIST Work Phone: [facility] Comment [...] Date Procedure Procedure Detail Performing Clinician Start: 01-12-2025 Urnls dip stick/tabl et rgnt non-auto w/o micrscp Brenda ZIMMER Work Phone: Start: 12-29-2024 Urnls dip stick/tabl et rgnt non-auto w/o micrscp Brenda ZIMMER Work Phone: Start: 12-14-2024 Urnls dip stick/tabl et rgnt non-auto w/o micrscp Oumar Yvonne DO Work Phone: Start: 12-01-2024 Urnls dip stick/tabl et rgnt non-auto w/o micrscp Ling Tinocolilly ARTHUR Work Phone: Start: 11-16-2024 Urnls dip stick/tabl [...] dip stick/tabl et rgnt non-auto w/o micrscp Ouamr Yvonne DO Work Phone: Start: 06-17-2024 End: 06-17-2024 Urnls dip stick/tablet rgnt non-auto w/o micrscp Oumar Yvonne DO Work Phone: Start: 02-27-2019 Follow-up visit Plan of Treatment Date Care Activity Detail Author Start: 10-13-2025 Screening for malign ant neoplasm of cervix [facility] Start: 04-04-2025 Influenza vaccination Influenz a Vaccine (Season Ended) [facility] Start: 01-19-2025 End: 01-19-2025 Patient encounter procedure 01/19/2025 1:40 PM EDT Routine [facility] [address] [place] [id number] Oumar Russell, DO [address] [place] [address] [facility] Start: 01-12-2025 End: 07-14-2025 US biophysical profile w non stress test US biophysical profile w non stress test Imaging Routine Excessive growth affecting management of in third trimester, single or unspecified fetus Expected: 01/12/2025 (Approximate), Expires: 07/14/2025 [facility] Comment on above: Expected: 01/12/2025 (Approximate), Expires: 07/14/2025 Start: 01-12-2025 End: 05-14-2025 US for US OB follow up transabdominal approach Imaging Routine Excessive growth affecting management of in third trimester, single or unspecified fetus Expected: 01/12/2025, Expires: 05/14/2025 [facility] Work Phone: Comment on above: Expected: 01/12/2025 , Expires: 05/14/2025 Start: 01-12-2025 End: 01-12-2025 Patient encounter procedure [facility] Comment on above: Arrived Start: 01-05-2025 End: 01-05-2025 Patient encounter procedure [facility] Comment on above: Arrived Start: 12-29-2024 End: 12-29-2025 CULTURE, GROUP B STREP WITH SUSCEPTIBLITY CULTURE, GROUP B STREP WITH SUSCEPTIBLITY Lab Routine Third trimester Expected: 12/29/2024, Expires: 12/29/2025 [facility] Work Phone: Comment on above: Expected: 12/29/2024 , Expires: 12/29/2025 Start: 12-29-2024 End: 12-29-2024 Patient encounter procedure 12/29/2024 9:20 AM EDT Routine [facility] [address] [place] [id number] Brenda Jeff PA [address] [place] [address] [facility] Start: 12-29-2024 End: 12-29-2024 Professional / ancillary services management 12/29/2024 9:00 AM EDT Ancillary Procedure [facility] [address] [place] [address] [facility] Start: 12-14-2024 End: 12-14-2024 Patient encounter procedure [facility] Comment on above: Arrived Start: 12-01-2024 End: 12-01-2024 Patient encounter procedure 12/01/2024 9:50 AM EDT Routine [facility] [address] [place] [address] Brenda Jeff, PA [address] [place] [address] [facility] Start: 12-01-2024 End: 12-01-2024 Professional / ancillary services management 12/01/2024 9:00 AM EDT Ancillary Procedure [facility] [address] [place] [id number] [facility] Start: 11-16-2024 End: 03-18-2025 US for US OB follow up transabdominal approach Imaging Routine size inconsistent with dates Expected: 11/16/2024, Expires: 03/18/2025 [facility] Work Phone: Comment on above: Expected: 11/16/2024 , Expires: 03/18/2025 Start: 11-16-2024 End: 11-16-2024 Patient encounter procedure [facility] Comment on above: Arrived Start: 11-01-2024 End: 11-01-2025 US for US OB follow up transabdominal approach Imaging Routine Size of fetus inconsistent with dates in third trimester Expected: 11/01/2024, Expires: 11/01/2025 [facility] Work Phone: Comment on above: Expected: 11/01/2024 , Expires: 11/01/2025 Start: 11-01-2024 End: 11-01-2024 Patient encounter procedure [facility] Comment on above: Arrived Start: 10-18-2024 End: 10-18-2024 Professional / ancillary services management 10/18/2024 11:30 AM EDT Ancillary Procedure [facility] [address] [place] [address] [facility] Start: 10-04-2024 End: 10-04-2025 CBC panel - Blood by Automated count CBC Lab Routine Diabetes mellitus screening Expected: 10/04/2024 (Approximate), Expires: 10/04/2025 [facility] Comment on above: Expected: 10/04/2024 (Approximate), Expires: 10/04/2025 Start: 10-04-2024 End: 10-04-2025 Measurement of glucose 1 hour after glucose challenge for glucose tolerance test Glucose tolerance, 1 hour Lab Routine Diabetes mellitus screening Expected: 10/04/2024 (Approximate), Expires: 10/04/2025 [facility] Comment on above: Expected: 10/04/2024 (Approximate), Expires: 10/04/2025 Start: 10-04-2024 End: 10-04-2025 US for US OB limited 1+ fetuses Imaging Routine Encounter for follow-up ultrasound of anatomy Expected: 10/04/2024, Expires: 10/04/2025 [facility] Work Phone: Comment on above: Expected: 10/04/2024 , Expires: 10/04/2025 Start: 10-04-2024 End: 10-04-2024 Patient encounter procedure [facility] Comment on above: Arrived Start: 09-06-2024 End: 09-06-2025 CBC panel - Blood by Automated count CBC Lab Routine Diabetes mellitus screening Expected: 09/06/2024 (Approximate), Expires: 09/06/2025 [facility] Work Phone: Comment on above: Expected: 09/06/2024 (Approximate), Expires: 09/06/2025 Start: 09-06-2024 End: 09-06-2025 Measurement of glucose 1 hour after glucose challenge for glucose tolerance test Glucose tolerance, 1 hour Lab Routine Diabetes mellitus screening Expected: 09/06/2024 (Approximate), Expires: 09/06/2025 [facility] Comment on above: Expected: 09/06/2024 (Approximate), Expires: 09/06/2025 Start: 09-06-2024 End: 09-06-2024 Patient encounter procedure 09/06/2024 10:50 AM EST Routine [facility] [address] [place] [phone] Oumar Russell DO [address] [place] [address] [facility] Start: 09-06-2024 End: 09-06-2024 Professional / ancillary services management 09/06/2024 9:30 AM EST Ancillary Procedure [facility] [address] [place] [id number] [facility] Start: 08-09-2024 End: 09-09-2024 Alpha fetoprotein, maternal Alpha fetoprotein, maternal Lab Routine Need for maternal serum alpha-protein (MSAFP) screening Expected: 08/09/2024 (Approximate), Expires: 09/09/2024 [facility] Comment on above: Expected: 08/09/2024 (Approximate), [...] 2:00 PM EST Initial [facility] [address] [place] [address] [place] [address] [facility] Start: 06-17-2024 End: 06-17-2025 Blood type and Indirect antibody screen panel - Blood Type and screen Lab Routine Missed menses , unspecified gestational age Expected: 06/17/2024 (Approximate), Expires: 06/17/2025 [facility] Work Phone: Comment on above: [...] Missed menses Expected: 06/17/2024 (Approximate), Expires: 06/17/2025 [facility] Comment on above: Expected: 06/17/2024 (Approximate), Expires: 06/17/2025 Start: 06-17-2024 End: 06-17-2024 Professional / ancillary services management 06/17/2024 1:30 PM EST Ancillary Procedure [facility] [address] [place] [address] [facility] Start: 06-02-2024 End: 06-02-2024 Patient encounter procedure 06/02/2024 11:00 AM EDT [facility] [address] [place] [address] Bhumika Johnson NP [address] [place] [address] Arrived [facility] Comment on above: Arrived Start: 04-04-2024 Influenza vaccination Influenza Vacc ine (#1) [facility] Start: 2014 Screening for malign ant neoplasm of cervix Pap Smear [facility] Bacteria identified in Urine by Culture Urine culture Microbiology Routine Missed menses Ordered: 06/17/2024 [facility] Comment on above: Ordered: 06/17/2024 CBC W Auto Different ial panel - Blood CBC and differential Lab Routine Missed menses , unspecified gestational age Ordered: 06/17/2024 [facility] Comment on above: Ordered: 06/17/2024 CHLAMYDIA TRACHOMATI S (GENITO/STI) CHLAMYDIA TRACHOMATIS (GENITO/STI) Lab Routine Exposure to STD Ordered: 08/09/2024 [facility] Comment on above: Ordered: 08/09/2024 Hemoglobin A1c/Hemoglobin.total in Blood Hemoglobin A1c Lab Routine Missed menses , unspecified gestational age Ordered: 06/17/2024 [facility] Comment on above: Ordered: 06/17/2024 Hepatitis B virus surface Ag [Presence] in Serum or Plasma by Immunoassay Hepatitis B surface antigen Lab Routine Missed menses , unspecified gestational age Ordered: 06/17/2024 [facility] Comment on above: Ordered: 06/17/2024 Hepatitis C virus Ab [Presence] in Serum or Plasma by Immunoassay Hepatitis C antibody Lab Routine Missed menses , unspecified gestational age Ordered: 06/17/2024 [facility] Comment on above: Ordered: 06/17/2024 HIV-1/HIV-2 antigen/antibody combination immunoassay HIV-1 and HIV-2 antibodies Lab Routine Missed menses , unspecified gestational age Ordered: 06/17/2024 [facility] Comment on above: Ordered: 06/17/2024 Neisseria gonorrhoea e DNA [Presence] in Unspecified specimen by SEVERO with probe detection Neisseria gonorrhea DNA probe, direct Lab Routine Exposure to STD Ordered: 08/09/2024 [facility] Comment on above: Ordered: 08/09/2024 Reagin Ab [Presence] in Serum by RPR RPR Lab Routine Missed menses , unspecified gestational age Ordered: 06/17/2024 [facility] Comment on above: Ordered: 06/17/2024 Rubella antibody, IgG Rubella an tibody, IgG Lab Routine Missed menses , unspecified gestational age Ordered: 06/17/2024 [facility] Comment on above: Ordered: 06/17/2024 SURESWAB(R) ADVANCED VAGINITIS PLUS, TMA SURESWAB(R) ADVANCED VAGINITIS PLUS, TMA Pathology and Cytology Routine Exposure to STD Ordered: 08/09/2024 [facility] Work Phone: Comment on above: Ordered: 08/09/2024 Immunizations Immunization Date Immunization Notes Care Provider Damon dumont 02-24-2012 tetanus toxoid, redu srinath diphtheria toxoid, and acellular pertussis vaccine, adsorbed Bhumika Johnson MENTAL HEALTH SPECIALIST Work Phone: [facility] Payers Date Payer Category Payer [facility] [id number] 2022 Unknown [id number] 1993 Unknown [id number] 2.16.8 [id number] 1993 Unknown [id number] 2.16.84 0.1.097933.3.579.2.9 1993 Unknown [id number] 2.16.84 0.1.352480.3.579.2.1258 1993 Unknown [id number] 2.16.84 0.1.079974.3.579.2.1258 1993 Unknown [id number] 2.16.84 0.1.537528.3.579.2.1258 1993 Unknown [id number] 2.16.84 0.1.564748.3.579.2.1258 1993 Unknown [id number] 2.16.84 0.1.770962.3.579.2.1258 1993 Unknown [id number] 2.16.84 0.1.459147.3.579.2.1258 1993 Unknown [id number] 2.16.84 0.1.733705.3.579.2.1258 1993 Unknown [id number] 2.16.84 0.1.528145.3.579.2.1258 1993 Unknown [id number] 2.16.84 0.1.951035.3.579.2.1258 1993 Unknown [id number] 2.16.84 0.1.153895.3.579.2.1258 1993 Unknown [id number] 2.16.84 0.1.452142.3.579.2.1258 1993 Unknown [id number] 2.16.84 0.1.822245.3.579.2.1258 1993 Unknown [id number] 2.16.84 0.1.449824.3.579.2.1258 1993 Unknown [id number] 2.16.84 0.1.496626.3.579.2.1258 1993 Unknown [id number] 2.16.84 0.1.401229.3.579.2.1259 1959 Self-pay Unknown [id number] 2.16.84 0.1.510909.3.579.2.593 Unknown [id number] 2.16.84 0.1.146455.3.579.2.593 Social History Date Type Detail Facility Start: [...] to any clubs or organizations such as confucianism groups, unions, fraternal or athletic groups, or [...] file [facility] Start: 06-02-2024 End: 01-12-2025 Alcoholic beverage intake Ex-drinker (finding) [facility] Start: 06-02-2024 Alcohol Comment caffeine intak e: 200mg daily [facility] Start: 05-03-2024 [facility] Clinical Notes 06-02-2024 to 01-12-2025 GORAN Pedroza - 01/12/2025 1:50 PM Iveth Dietrich LPN - 01/05/2025 1:20 PM GORAN Miller - 12/29/2024 9:20 AM Iveth Dietrich LPN - 12/14/2024 8:30 AM Iveth Dietrich LPN - 11/16/2024 11:20 AM EDT Note Date & Type Note Facility 01-12-2025 History of Presen t illness Narrative Reason [...] Vitals: Estimated body mass index is 30.61 kg/m as calculated from the following: Height [...] of: GORAN Pedroza documented in this encounter [facility] 01-05-2025 History of Presen t illness Narrative Reason [...] Moderate episode of recurrent major depressive disorder ([facility]/HCC) 06/02/2024 Panic disorder ([facility]) 06/02/2024 Resolved Ambulatory Problems Diagnosis Date Noted No Resolved Ambulatory Problems Past Medical History: Diagnosis Date Anxiety Depression ([facility]) HISTORY PAST MEDICAL HISTORY SOCIAL HISTORY Past Medical History: Diagnosis Date Anxiety Depression ([facility]) Social History Tobacco Use Smoking status: Never [...] nursing note reviewed. Exam conducted with a glazier artist present. Vitals: Estimated body mass index is 30.61 kg/m as calculated from the following: Height as of 06/02/24: 5' 5.5 . Weight as of this encounter: 186 lb 12.8 oz. BP: 110/72 Patient's last menstrual period was 04/19/2024. ASSESSMENT & PLAN ICD-10-CM 1. Third trimester Z34.93 2. 37 weeks gestation of Z3A.37 Return OB: Patient presents today for a routine obstetrics appointment. Patient is currently 37w2d . Patient states she is doing well but has complaints of being tired due to current . Patient has verbalizes frequent movement. labor precautions was discussed/given and patient was instructed to perform kick counts three times a day. No orders of the defined types were placed in this encounter. Follow Up: Patient is to return to office in 1 week for routine OB appointment. Documented by Ronda Dietrich LPN on behalf of: Oumar Russell DO documented in this encounter [facility] 12-29-2024 History of Presen t illness Narrative [...] of: GORAN Pedroza documented in this encounter [facility] 12-14-2024 History of Presen t illness Narrative [...] nursing note reviewed. Exam conducted with a glazier artist present. Vitals: Estimated body mass index is [...] Oumar Russell DO documented in this encounter [facility] 12-01-2024 History of Presen t illness Narrative [...] nursing note reviewed. Exam conducted with a glazier artist present. Vitals: Estimated body mass index is [...] Ling Graham NP documented in this encounter [facility] 11-16-2024 History of Presen t illness Narrative [...] nursing note reviewed. Exam conducted with a glazier artist present. Vitals: Estimated body mass index is [...] Oumar Russell DO documented in this encounter [facility] 11-01-2024 History of Presen t illness Narrative [...] Moderate episode of recurrent major depressive disorder ([facility]) 06/02/2024 Panic disorder ([facility]) 06/02/2024 Resolved Ambulatory Problems Diagnosis Date Noted No Resolved Ambulatory Problems Past Medical History: Diagnosis Date Anxiety Depression ([facility]) HISTORY PAST MEDICAL HISTORY SOCIAL HISTORY Past Medical History: Diagnosis Date Anxiety Depression ([facility]) Social History Tobacco Use Smoking status: Never [...] nursing note reviewed. Exam conducted with a glazier artist present. Vitals: Estimated body mass index is [...] Oumar Russell DO documented in this encounter [facility] 10-04-2024 History of Presen t illness Narrative [...] of: GORAN Pedroza documented in this encounter [facility] 09-06-2024 History of Presen t illness Narrative [...] Date Noted Allergic rhinitis 06/02/2024 Exercise-induced asthma ([facility]) 06/02/2024 Moderate episode of recurrent major depressive disorder ([facility]) 06/02/2024 Panic disorder ([facility]) 06/02/2024 Resolved Ambulatory Problems Diagnosis Date Noted No Resolved Ambulatory Problems Past Medical History: Diagnosis Date Anxiety Depression ([facility]) HISTORY PAST MEDICAL HISTORY SOCIAL HISTORY Past Medical History: Diagnosis Date Anxiety Depression ([facility]) Social History Tobacco Use Smoking status: Never [...] nursing note reviewed. Exam conducted with a glazier artist present. Vitals: Estimated body mass index is [...] Oumar Russell DO documented in this encounter [facility] 08-09-2024 History of Presen t illness Narrative [...] nursing note reviewed. Exam conducted with a glazier artist present. Vitals: Estimated body mass index is [...] of: GORAN Pedroza documented in this encounter [facility] 07-08-2024 History of Presen t illness Narrative [...] nursing note reviewed. Exam conducted with a glazier artist present. Vitals: Estimated body mass index is [...] or undercooked meat, and stay away from [facility]. Patient has been consulted regarding any further do's and don'ts of . Patient voiced understanding and all questions and concerns were answered. Orders Placed This Encounter Procedures POCT urinalysis dipstick manually resulted Follow Up: Patient is to return in 4 weeks for routine OB appointment. Documented by Rosa Nguyen LPN on behalf of: Oumar Russell DO documented in this encounter [facility] 06-17-2024 History of Presen t illness Narrative [...] Date Noted Allergic rhinitis 06/02/2024 Exercise-induced asthma ([facility]) 06/02/2024 Moderate episode of recurrent major depressive disorder ([facility]) 06/02/2024 Panic disorder ([facility]) 06/02/2024 Resolved Ambulatory Problems Diagnosis Date Noted No Resolved Ambulatory Problems Past Medical History: Diagnosis Date Anxiety Depression ([facility]) No family history on file. Social History [...] or undercooked meat, and stay away from [facility]. Patient has also been advised to [...] providers found * documented in this encounter [facility] 06-02-2024 History of Presen t illness Narrative [...] in this encounter [facility] Evaluation note Diagnosis Panic disorder (CMS/HCC)- [...] state, incidental [facility] Diagnosis Third trimester state, incidental 37 weeks gestation of [facility] Diagnosis Excessive growth affecting management of in third trimester, single or unspecified fetus- Primary 38 weeks gestation of Third trimester state, incidental [...] pital DATE CREATED AUTHOR AUTHOR'S ORGANIZ ATION 01/06/2025 [facility] Care Teams (unrecognized sec tion and content) Wireless Sales Consultant Relationship Specialty Start Date End Date Samra Aguirre DO [address] [place] [address] PCP - General Family Medicine 12/10/22 Wireless Sales Consultant Relationship Specialty Start Date End Date Raegan Medina MD [address] [place] [address] PCP - General Family Medicine 06/02/24 Wireless Sales Consultant Relationship Specialty Start Date End Date Raegan Medina MD [address] [place] [address] PCP - General Family Medicine 06/02/24 Wireless Sales Consultant Relationship Specialty Start Date End Date Raegan Medina MD [address] [place] [address] PCP - General Family Medicine 06/02/24 Wireless Sales Consultant Relationship Specialty Start Date End Date Raegan Medina MD [address] [place] [address] PCP - General Family Medicine 06/02/24 Wireless Sales Consultant Relationship Specialty Start Date End Date Raegan Medina MD [address] [place] [address] PCP - General Family Medicine 06/02/24 Wireless Sales Consultant Relationship Specialty Start Date End Date Raegan Medina MD [address] [place] [address] PCP - General Family Medicine 06/02/24 Wireless Sales Consultant Relationship Specialty Start Date End Date Raegan Medina MD [address] [place] [address] PCP - General Family Medicine 06/02/24 Bhumika Johnson NP [address] [place] [address] PCP - [employer] 07/04/24 Wireless Sales Consultant Relationship Specialty Start Date End Date Raegan Medina MD [address] [place] [address] PCP - General Family Medicine 06/02/24 Bhumika Johnson NP [address] [place] [address] PCP - [employer] 07/04/24 Wireless Sales Consultant Relationship Specialty Start Date End Date Raegan Medina MD [address] [place] [address] PCP - General Family Medicine 06/02/24 Bhumika Johnson NP [address] [place] [address] PCP - [employer] 07/04/24 Wireless Sales Consultant Relationship Specialty Start Date End Date Raegan Medina MD [address] [place] [address] PCP - General Family Medicine 06/02/24 Bhumika Johnson NP [address] [place] [address] PCP - [employer] 07/04/24 Wireless Sales Consultant Relationship Specialty Start Date End Date Raegan Medina MD [address] [place] [address] PCP - General Family Medicine 06/02/24 Bhumika Johnson NP [address] [place] [address] PCP - [employer] 07/04/24 Wireless Sales Consultant Relationship Specialty Start Date End Date Raegan Medina MD [address] [place] [address] PCP - General Family Medicine 06/02/24 Bhumika Johnson NP [address] [place] [address] PCP - [employer] 07/04/24 Wireless Sales Consultant Relationship Specialty Start Date End Date Raegan Medina MD [address] [place] [address] PCP - General Family Medicine 06/02/24 Wireless Sales Consultant Relationship Specialty Start Date End Date Raegan Medina MD [address] [place] [address] PCP - General Family Medicine 06/02/24 Wireless Sales Consultant Relationship Specialty Start Date End Date Raegan Medina MD [address] [place] [address] PCP - General Family Medicine 06/02/24 Wireless Sales Consultant Relationship Specialty Start Date End Date Raegan Medina MD [address] [place] [address] PCP - General Family Medicine 06/02/24 Reason [...] BE BASED ON THE PRIMARY CLINICAL RECORDS. [employer] provides no warranty or guarantee of the accuracy or completeness of information in this document.
--- NOTE | 2025-01-13 19:54 | US_ITS ---
[place] [id number] Patient Name: VITALIY PAIZ MRN: [id number] date: 1995 Sex: F Assigned Patient Location: [facility] Current Patient Location: Accession/Order Number: [id number] Exam Date: 01/13/2025 21:27 Report Date: 01/13/2025 21:30 At the request of: JEFF JEFF Procedure: US OB BPP w non-stress Ultrasound biophysical profile HISTORY: Excessive growth Adequate breathing movement, gross body movement, tone and amniotic fluid volume for total score of 8 out of 8. The amniotic fluid index is 16.79cm within normal limits. The heart rate 148 bpm. US/US OB BPP w non-stress IMPRESSION: Adequate ultrasound biophysical profile Impression dictated by: Casper Bauman M.D. 01/13/2025 9:30 PM Dictation Location: [employer] Electronically authenticated by: [id number] Y Date: 01/13/2025 21:30
--- NOTE | 2025-01-13 19:58 | US_ITS ---
The [address] [address] Patient Name: VITALIY PAIZ MRN: [id number] date: 1995 Sex: F Assigned Patient Location: [facility] Current Patient Location: Accession/Order Number: [id number] Exam Date: 01/13/2025 21:21 Report Date: 01/13/2025 21:26 At the request of: JEFF JEFF Procedure: US OB growth Obstetrical Ultrasound for Fetus greater than 14 weeks HISTORY: growth heart rate is 148 bpm. The fetus is in cephalic presentation. The placenta is in a posterior position with normal appearance. Amniotic fluid index is 16.79cm. The cervix not assessed The estimated weight is 3248 g. with percentile 43%. The ovaries are not visualized. No fluid identified in the cul-de-sac. Following anatomy identifiednot assessed The biparietal diameter measures 9.1cm consistent with 37 weeks 1 day. Head circumference measures 33.3cm consistent with 38 weeks 1 day. Abdominal circumference measures 33.3cm consistent with 37 weeks 1 day. Femur length is 7.5cm consistent with 38 weeks 3 days. The average gestational age is 37 weeks 5 days. Estimated due date is 01/29/2025. somatic motion identified. US/US OB growth IMPRESSION: Single live intrauterine gestation 37 weeks 5 days. Impression dictated by: Casper Bauman M.D. 01/13/2025 9:26 PM Dictation Location[facility] Electronically authenticated by: [id number] Y Date: 01/13/2025 21:26
[2025-01-13 20:36] VITALS: BP 124/79; PULSE 74
== END 2025-01-13 21:02 | disposition home or self-care (01) ==
LOC: US 19:45 → FBC 19:48
PROVIDERS: Visit Provider Physician Assistant
DX: O36.63X0 Maternal care for excessive fetal growth, third trimester, not applicable or unspecified (principal); Z3A.38 38 weeks gestation of pregnancy
CPT/HCPCS: 76816; 76818

== ENCOUNTER 2025-01-17 06:56 | Outpatient (OUT) | payer BC, SELFPAY ==
--- OUTSIDE RECORDS SUMMARY | 2025-01-17 06:59 | XMS_ITS | CCD ---
Author Organization [facility] CliniSytn Care Team Providers Care Special Shopper Name Role Phone PACO CHACON Attending Unavailable PACO CHACON Consulting Unavailable PACO CHACON Admitting Unavailable REQUEST, NONE LISTED Admitting Unavaila ble REQUEST, NONE LISTED Attending Unavaila ble REQUEST, NONE LISTED Consulting Unavaila ble Samra Aguirre DO Primary Care Provider [phone] Raegan Medina MD Primary Care Provider Alex RADIUS CORNER MACHINE OPERATOR, Bhumika Unavailable OUMAR RUSSELL Attending Unavailable TOMER, BRENDA Attending Unavailable YVONNE, OUMAR Attending Unavailable YVONNE, OUMAR Attending Unavailable YVNONE, OUMAR Referring Unavailable GLADYS, LING Attending Unavailable YVONNE, OUMAR Attending Unavailable GLADYS, LING Referring Unavailable TOMER, BRENDA Attending Unavailable YVONNE, OUMAR Attending Unavailable TOMER, BRENDA Attending Unavailable CANDICE MENG Attending Unavailable KAMPFER, BHUMIKA Attending Unavailable YVONNE, OUMAR Attending Unavailable TOMER, BRENDA Attending Unavailable Medications Current Medications Medication Drug Class(es) Dates Sig (Normalized) Sig (Original) busPIRone hydrochloride 5 mg oral tablet (20 sources) Start: 04-28-2023 take 1 tablet by mouth twice daily busPIRone (Buspar) 5 MG tablet Indications: Major depressive disorder, recurrent, moderate (HCC) TAKE 1 TABLET BY MOUTH TWICE A [...] (Alternate therapy) MV-Min-Fe Fum-FA-DHA ( 1 PO) (20 sources) MV-Min- Fe Fum-FA-DHA ( 1 PO) Take by mouth Active sertraline 25 mg oral tablet (20 sources) Serotonin Reuptake Inhibitor Start: 06-02-2024 End: 09-01-2024 take 1 tablet by mouth once daily sertraline (Zoloft) 25 MG tablet Indications: Panic disorder , Moderate episode of recurrent major depressive disorder (HCC) TAKE 1 TABLET BY MOUTH EVERY DAY [...] Test Name Value Interpretation Reference Range Facility US OB BPP W NON-STRESS on 01-13-[address] [address] Ultrasound Report Signed Patient: GRETA PINEDA MR#: [id number] : 1995 Acct:[id number] Age/Sex: 29 / F ADM Date: 01/13/25 Loc: US Attending Dr: Brenda Jeff Ordering Physician: Brenda Jeff Date of Service: 01/13/25 Procedure(s): US OB BPP w non-stress Accession Number(s): [id number] cc: Brenda Jeff; Physician,Non-Staff M.D. The [place] [address] Patient Name: GRETA PINEDA MRN: [facility]:[id number] date: 1995 Sex: F Assigned Patient Location: [facility] Current Patient Location: Accession/Order Number: [id number] Exam Date: 01/13/2025 21:27 Report Date: 01/13/2025 21:30 At the request of: BRENDA JEFF Procedure: US OB BPP w non-stress Ultrasound biophysical profile HISTORY: Excessive growth Adequate breathing movement, gross body movement, tone and amniotic fluid volume for total score of 8 out of 8. The amniotic fluid index is 16.79cm within normal limits. The heart rate 148 bpm. US/US OB BPP w non-stress IMPRESSION: Adequate ultrasound biophysical profile Impression dictated by: Casper Bauman M.D. 01/13/2025 9:30 PM Dictation Location: [place] [address] Electronically authenticated by: [id number] Y Date: 01/13/2025 21:30 Dictated By: Casper Bauman D.O. Signed By: 01/13/252132 DD/ 29 TD/TT: Production Manufacturing Worker: [facility] Radiology, Radiologist, MD - 01/13/2025 [place] [address] Ultrasound Report Signed Patient: GRETA PINEDA MR#: [id number] : 1995 Acct:[id number] Age/Sex: 29 / F ADM Date: 01/13/25 Loc: US Attending Dr: Brenda Jeff Ordering Physician: Brenda Jeff Date of Service: 01/13/25 Procedure(s): US OB BPP w non-stress Accession Number(s): [id number] cc: Brenda Jeff; Physician,Non-Staff MIsabella The [address] [address] Patient Name: GRETA PINEDA MRN: [id number] date: 1995 Sex: F Assigned Patient Location: [facility] Current Patient Location: Accession/Order Number: [id number] Exam Date: 01/13/2025 21:27 Report Date: 01/13/2025 21:30 At the request of: BRENDA JEFF Procedure: US OB BPP w non-stress Ultrasound biophysical profile HISTORY: Excessive growth Adequate breathing movement, gross body movement, tone and amniotic fluid volume for total score of 8 out of 8. The amniotic fluid index is 16.79cm within normal limits. The heart rate 148 bpm. US/US OB BPP w non-stress IMPRESSION: Adequate ultrasound biophysical profile Impression dictated by: Casper Bauman M.D. 01/13/2025 9:30 PM Dictation Location: [place] [address] Electronically authenticated by: [id number] Y Date: 01/13/2025 21:30 Dictated By: Casper Bauman D.O. Signed By: 01/13/252132 DD/ 29 TD/TT: Production Manufacturing Worker: [facility] Radiology Study observation (narrative) [facility] US OB BPP W NON-STRESS Ordered By: Radiologist Radiology on 01-13-2025 [facility] e Work Phone: US OB GROWTHon 01-13-2025 [place] [address] Ultrasound Report Signed Patient: GRETA PINEDA MR#: [id number] : 1995 Acct:[id number] Age/Sex: 29 / F ADM Date: 01/13/25 Loc: US Attending Dr: Brenda Jeff Ordering Physician: Brenda Jeff Date of Service: 01/13/25 Procedure(s): US OB growth Accession Number(s): [id number] cc: Brenda Jeff; Physician,Non-Staff Radhames The [place] [id number] Patient Name: GRETA PINEDA MRN: [facility]:[id number] date: 1995 Sex: F Assigned Patient Location: [facility] Current Patient Location: Accession/Order Number: [id number] Exam Date: 01/13/2025 21:21 Report Date: 01/13/2025 21:26 At the request of: BRENDA JEFF Procedure: US OB growth Obstetrical Ultrasound for Fetus greater than 14 weeks HISTORY: growth heart rate is 148 bpm. The fetus is in cephalic presentation. The placenta is in a posterior position with normal appearance. Amniotic fluid index is 16.79cm. The cervix not assessed The estimated weight is 3248 g. with percentile 43%. The ovaries are not visualized. No fluid identified in the cul-de-sac. Following anatomy identifiednot assessed The biparietal diameter measures 9.1cm consistent with 37 weeks 1 day. Head circumference measures 33.3cm consistent with 38 weeks 1 day. Abdominal circumference measures 33.3cm consistent with 37 weeks 1 day. Femur length is 7.5cm consistent with 38 weeks 3 days. The average gestational age is 37 weeks 5 days. Estimated due date is 01/29/2025. somatic motion identified. US/US OB growth IMPRESSION: Single live intrauterine gestation 37 weeks 5 days. Impression dictated by: Casper Bauman M.D. 01/13/2025 9:26 PM Dictation Location: [place] [address] Electronically authenticated by: [id number] Y Date: 01/13/2025 21:26 Dictated By: Casper Bauman D.O. Signed By: 01/13/252128 DD/ 25 TD/TT: Production Manufacturing Worker: [facility] Radiology, Radiologist, - 01/13/2025 [place] [address] Ultrasound Report Signed Patient: GRETA PINEDA MR#: [id number] : 1995 Acct:[id number] Age/Sex: 29 / F ADM Date: 01/13/25 Loc: US Attending Dr: Brenda Jeff Ordering Physician: Brenda Jeff Date of Service: 01/13/25 Procedure(s): US OB growth Accession Number(s): [id number] cc: Brenda Jeff; Physician,Non-Staff Radhames [place] [id number] Patient Name: GRETA PINEDA MRN: [facility]:[id number] date: 1995 Sex: F Assigned Patient Location: [facility] Current Patient Location: Accession/Order Number: [id number] Exam Date: 01/13/2025 21:21 Report Date: 01/13/2025 21:26 At the request of: BRENDA JEFF Procedure: US OB growth Obstetrical Ultrasound for Fetus greater than 14 weeks HISTORY: growth heart rate is 148 bpm. The fetus is in cephalic presentation. The placenta is in a posterior position with normal appearance. Amniotic fluid index is 16.79cm. The cervix not assessed The estimated weight is 3248 g. with percentile 43%. The ovaries are not visualized. No fluid identified in the cul-de-sac. Following anatomy identifiednot assessed The biparietal diameter measures 9.1cm consistent with 37 weeks 1 day. Head circumference measures 33.3cm consistent with 38 weeks 1 day. Abdominal circumference measures 33.3cm consistent with 37 weeks 1 day. Femur length is 7.5cm consistent with 38 weeks 3 days. The average gestational age is 37 weeks 5 days. Estimated due date is 01/29/2025. somatic motion identified. US/US OB growth IMPRESSION: Single live intrauterine gestation 37 weeks 5 days. Impression dictated by: Casper Bauman M.D. 01/13/2025 9:26 PM Dictation Location: [facility] Electronically authenticated by: [id number] Y Date: 01/13/2025 21:26 Dictated By: Casper Bauman D.O. Signed By: 01/13/252128 DD/ 25 TD/TT: Production Manufacturing Worker: [facility] Radiology Study observation (narrative) [facility] OB GROWTHOrdered By: Lloyd ologist Radiology on 01-13-2025 [employer] Work Phone: Urinalysis macro (dipstick) panel (U)on 01-12-2025 Bilirubin, UA Negative Negative - 4(70) +++ mg/dL [facility] Blood, UA Positive Negative - 50 Immnauel/mcL [facility] Comment on above: trace-intact Clarity, UA Clear [facility] [employer] re Color, UA Yellow [facility] [employer] Glucose, UA Negative Negative - 1999(110) ++++ mg/dL [facility] Interpretation and review of laboratory results Abnormal [facility] Ketones, UA Negative Negative - 160(16) ++++ mg/dL [facility] Leukocytes, UA Trace Negative - 500+++ Jennyfer/mcL [facility] Nitrite, UA Negative Negative - Positive [facility] pH, UA 6 5 - 9 [facility] [employer] Protein, UA Negative Negative - 1999(20) ++++ mg/dL [facility] Spec Grav, UA 1.01 1 - 1.03 [facility] Urobilinogen, UA 0.2 0.2 - 12 mg/dL [facility] [employer] US OB FOLLOW UP TRANSABDOMIN AL [...] II, MD, PHD at 29-Dec-2024 11:18:48 PM [facility] Normal Not Available Comment on above: [...] UA Negative Negative - 1999(110) ++++ mg/dL [facility] Healthcare Interpretation and review of laboratory results Abnormal [facility] Ketones, UA Negative Negative - 160(16) ++++ mg/dL [facility] Leukocytes, UA Trace Negative - 500+++ Jennyfer/mcL [facility] Healthcare Nitrite, UA Negative Negative - Positive [facility] Healthcare pH, UA 7 5 - 9 [facility] Protein, UA Negative Negative - 1999(20) ++++ mg/dL [facility] Healthcare Spec Grav, UA 1.01 1 - 1.03 [facility] care Urobilinogen, UA 0.2 0.2 - 12 mg/dL [facility] Urinalysis macro (dipstick) panel (U)on 12-14-2024 Bilirubin, UA Negative Negative - 4(70) +++ mg/dL [facility] Healthcare Blood, UA Negative Negative - 50 Immanuel/mcL [facility] Clarity, UA Clear [facility] Color, UA Light Yellow [facility] are Glucose, UA Negative Negative - 1999(110) ++++ mg/dL [facility] Interpretation and review of laboratory results Normal [facility] Ketones, UA Negative Negative - 160(16) ++++ mg/dL [facility] Leukocytes, UA Trace Negative - 500+++ Jennyfer/mcL [facility] Nitrite, UA Negative Negative - Positive [facility] pH, UA 7 5 - 9 [facility] Protein, UA Negative Negative - 1999(20) ++++ mg/dL [facility] Spec Grav, UA 1.015 1 - 1.03 [facility] Urobilinogen, UA 0.2 0.2 - 12 mg/dL [facility] US OB FOLLOW UP TRANSABDOMIN [...] II, MD, PHD at 05-Dec-2024 08:53:04 PM [facility] Normal Not Available Comment on above: Order Comment: US OB SCAN FOR GROWTH Estimated Date of Delivery: 01/24/25 Gestational Age as of 11/16/2024: 30w1d Urinalysis macro (dipstick) panel (U)on 12-01-2024 Bilirubin, UA Negative Negative - 4(70) +++ mg/dL [facility] Blood, UA Positive Negative - 50 Immanuel/mcL [facility] Comment on above: Trace-intact Clarity, UA Clear [facility] Color, UA Yellow [facility] Glucose, UA Negative Negative - 1999(110) ++++ mg/dL [facility] Interpretation and review of laboratory results Abnormal [facility] Ketones, UA Negative Negative - 160(16) ++++ mg/dL [facility] Healthcare Leukocytes, UA Positive Negative - 500+++ Jennyfer/mcL [facility] Healthcare Comment on above: Moderate Nitrite, UA Negative Negative - Positive [facility] Healthcare pH, UA 6.5 5 - 9 [facility] Comment on above: ne Protein, UA Negative Negative - 1999(20) ++++ mg/dL [facility] Healthcare Spec Grav, UA 1.01 1 - 1.03 [facility] care Urobilinogen, UA 0.2 0.2 - 12 [facility]dL [facility] Urinalysis macro (dipstick) panel (U)on 11-16-2024 Bilirubin, UA Negative Negative - 4(70) +++ mg/dL [facility] Blood, UA Negative Negative - 50 Immanuel/mcL [facility] Healthcare Clarity, UA Clear [facility] Healthca re Color, UA Yellow [facility] e Glucose, UA Negative Negative - 1999(110) ++++ mg/dL [facility] Interpretation and review of laboratory results Normal [facility] Ketones, UA Negative Negative - 160(16) ++++ mg/dL [facility] Leukocytes, UA Negative Negative - 500+++ Jennyfer/mcL [facility] Nitrite, UA Negative Negative - Positive [facility] pH, UA 6.5 5 - 9 [facility] Health[facility] e Protein, UA Negative Negative - 1999(20) ++++ mg/dL [facility] Healthcare Spec Grav, UA 1.025 1 - 1.03 [facility] Health care Urobilinogen, UA 1.0 0.2 - 12 mg/dL [facility] Health[facility] e Urinalysis macro (dipstick) panel (U)on 11-01-2024 Bilirubin, UA Negative Negative - 4(70) +++ mg/dL [facility] Healthcare Blood, UA Negative Negative - 50 Immanuel/mcL [facility] Healthcare Clarity, UA Clear [facility] Color, UA Yellow [facility] Glucose, UA Negative Negative - 1999(110) ++++ mg/dL [facility] Interpretation and review of laboratory results Normal [facility] Ketones, UA Negative Negative - 160(16) ++++ mg/dL [facility] Leukocytes, UA Negative Negative - 500+++ Jennyfer/mcL [facility] Nitrite, UA Negative Negative - Positive [facility] pH, UA 6.5 5 - 9 [facility] e Protein, UA Negative Negative - 2000(20) ++++ mg/dL [facility] Spec Grav, UA 1.01 1 - 1.03 [facility] Urobilinogen, UA 0.2 0.2 - 12 mg/dL [facility] US OB LIMITED 1+ FETUSESon [...] II, MD, PHD at 19-Oct-2024 12:32:31 AM [facility] Normal Not Available Comment on above: Order Comment: US OB INCOMPLETE ANATOMY Estimated Date of Delivery: 01/24/25 Gestational Age as of 10/04/2024: 24w0d ALL CBC WITH AUTO DIFFon BASOPHILS ABSOLUTE AUTO 0 [facility] Basophils/100 WBC (Bld) 0.3 % 0.2 - 2.0 % [facility] Eosinophils/100 WBC (Bld) 1.3 % 0.9 - 7.0 % [facility] Erythrocyte distribution width (RBC) [Ratio] 11.9 % 11.0 - 15.0 % [facility] Hematocrit (Bld) [Volume fraction] 35.1 % Low 36.0 - 48.0 % [facility] Hemoglobin (Bld) [Mass/Vol] 11.5 g/dL Low 12.0 - 16.0 g/dL [facility] IMMATURE GRANULOCYTES ABS AUTO 0.02 [facility] Immature granulocytes/100 WBC (Bld) 0.2 % 0.0 - 0.5 % [facility] Interpretation and review of laboratory results Abnormal [facility] LYMPHOCYTES ABSOLUTE AUTO 1.6 [facility] Lymphocytes/100 WBC (Bld) 17.7 % Low 20.5 - 60.0 % [facility] MCH (RBC) [Entitic mass] 31.6 pg 26.7 - 34.0 pg [facility] MCHC (RBC) [Mass/Vol] 32.8 g/dL 29.9 - 35.2 g/dL [facility] MCV (RBC) [Entitic vol] 96.4 fL 81.0 - 99.0 fL [facility] MONOCYTES ABSOLUTE AUTO 0.4 [facility] Monocytes/100 WBC (Bld) 4.7 % 1.7 - 12.0 % [facility] NEUTROPHILS ABSOLUTE AUTO 7 High [facility] Neutrophils/100 WBC (Bld) 75.8 % High 43.0 - 75.0 % [facility] Platelet mean volume (Bld) [Entitic vol] 8.8 fL Low 9.5 - 13.5 fL [facility] EO # 0.1 [facility] TB PLT 300 [facility] e TB RBC 3.64 Low [facility] TB WBC 9.2 [facility] Urinalysis macro (dipstick) panel (U)on 10-04-2024 Bilirubin, UA Negative Negative - 4(70) +++ mg/dL [facility] Blood, UA Negative Negative - 50 Immanuel/mcL [facility] Clarity, UA Clear [facility] re Color, UA Yellow [facility] e Glucose, UA Negative Negative - 1999(110) ++++ mg/dL [facility] Interpretation and review of laboratory results Normal [facility] Ketones, UA Negative Negative - 160(16) ++++ mg/dL [facility] Leukocytes, UA Negative Negative - 500+++ Jennyfer/mcL [facility] Nitrite, UA Negative Negative - Positive [facility] pH, UA 7 5 - 9 [facility] e Protein, UA Negative Negative - 1999(20) ++++ mg/dL [facility] Spec Grav, UA 1.01 1 - 1.03 [facility] Urobilinogen, UA 0.2 0.2 - 12 mg/dL [facility] AFP, SERUM, OPEN SPINA BIFID Aon 09-08-2024 AFP MOM 1.39 . [facility] [employer] AFP VALUE 74.7 ng/mL . [facility] [employer] COMMENT: Comment . [facility] [employer] Comment on above: Gwendolyn Tarango , Ph.D., [facility] Director References: Available Upon Request. Multiples Of Median Cutoffs For AFP Elevations Stevens 2.5 Black 2.8 IDD 2.0 Twins 4.5 Abbreviation Definitions IDD - Insulin Dep Diabetes OSBR - Open Spina Bifida Risk For further inquiries contact [employer] [facility] at [phone]. This test was developed and its performance characteristics determined by [employer]. It has not been cleared or approved by the Food and Drug Administration. Performed at: [facility] [address] [place], [place] [id number] Supply Chain Project Manager: Micah Mancia [facility], Phone: [phone] GEST. AGE ON COLLECTION DATE 20.0 . weeks [facility] GESTAT. AGE BASED ON LMP . [facility] Comment on above: Recalculations are n ot recommended when gestational dating by LMP and ultrasound are within 10 days. INSULIN DEP DIABETES No . [facility] INTERPRETATION Comment . [facility] Ariadna brewer Comment on above: Interpretation: Scre en Negative [...] Customer Services to discuss available options. The [employer] recommends amniocentesis be offered to women age 35 and older. [age] [facility] MULTIPLE GESTATION No . [facility] OSBR RISK 1 IN 3703 . CHAKA brewer RACE . [facility] [employer] RESULTS Report . [facility] [employer] TEST RESULTS: Negative . [facility] WEIGHT 159 . lbs [facility] [employer] N [id number] N LMP [id number] [phone] N 1 Y 159 N N N N N White/ [facility] US OB 14+ WEEKS ANATOMY SCAN [...] report is generated using voice recognition reporting (Helishoptere). On occasion [employer] erroneously drops words from the report or [...] UA Negative Negative - 4(70) +++ mg/dL [facility] Blood, UA Negative Negative - 50 Immanuel/mcL [facility] Clarity, UA Clear [facility] re Color, UA Colorless [facility] e Glucose, UA Negative Negative - 1999(110) ++++ mg/dL [facility] Interpretation and review of laboratory results Normal [facility] Ketones, UA Negative Negative - 160(16) ++++ mg/dL [facility] Leukocytes, UA Negative Negative - 500+++ Jennyfer/mcL [facility] Nitrite, UA Negative Negative - Positive [facility] pH, UA 7 5 - 9 [facility] e Protein, UA Negative Negative - 1999(20) ++++ mg/dL [facility] Spec Grav, UA 1.01 1 - 1.03 [facility] Urobilinogen, UA 0.2 0.2 - 12 mg/dL [facility] RECURRENT VAGINITIS (HTRX)on 08-11-2024 ATOPOBIUM VAGINAE 0 [facility] ATOPOBIUM VAGINAE Not detected [facility] BVAB 2,3 (BACTERIAL VAGINOSIS ASSOCIATED BACTERIA 2, 3); MOBILUNCUS SPP 0 [facility] BVAB 2,3 (BACTERIAL VAGINOSIS ASSOCIATED BACTERIA 2, 3); MOBILUNCUS SPP Not detected [facility] MALOU ALBICANS, PARAPSILOSIS, TROPICALIS 0 [facility] MALOU ALBICANS, PARAPSILOSIS, TROPICALIS Not detected [facility]ATA 0 [facility] MALOU GLABRATA Not detected [facility] ealthcare MALOU KRUSEI 0 [facility] hcare MALOU KRUSEI Not detected [facility]thcare CHLAMYDIA TRACHOMATIS 0 [facility] CHLAMYDIA TRACHOMATIS Not detected [facility] GARDNERELLA VAGINALIS 0 [facility] GARDNERELLA VAGINALIS Not detected [facility] MEGASPHAERA (TYPES 1, 2) 0 [facility] MEGASPHAERA (TYPES 1, 2) Not detected [facility] MYCOPLASMA GENITALIUM 0 [facility] MYCOPLASMA GENITALIUM Not detected [facility] NEISSERIA GONORRHOEAE 0 [facility] NEISSERIA GONORRHOEAE Not detected [facility] TRICHOMONAS VAGINALIS 0 [facility] TRICHOMONAS VAGINALIS Not detected [facility] Urinalysis macro (dipstick) panel (U)on 08-09-2024 Bilirubin, UA Negative Negative - 4(70) +++ mg/dL [facility] Blood, UA Negative Negative - 50 Immanuel/mcL [facility] Clarity, UA Clear [facility] re Color, UA Yellow [facility] Glucose, UA Negative Negative - 1999(110) ++++ mg/dL [facility] Interpretation and review of laboratory results Normal [facility] Ketones, UA Negative Negative - 160(16) ++++ mg/dL [facility] Leukocytes, UA Negative Negative - 500+++ Jennyfer/mcL [facility] Nitrite, UA Negative Negative - Positive [facility] pH, UA 7 5 - 9 [facility] e Protein, UA Negative Negative - 1999(20) ++++ mg/dL [facility] Spec Grav, UA 1.01 1 - 1.03 [facility] Urobilinogen, UA 0.2 0.2 - 12 mg/dL [facility] ALL CBC WITH AUTO DIFFon BASOPHILS ABSOLUTE AUTO 0.1 [facility] Basophils/100 WBC (Bld) 0.6 % 0.2 - 2.0 % [facility] Eosinophils/100 WBC (Bld) 0.6 % Low 0.9 - 7.0 % [facility] Erythrocyte distribution width (RBC) [Ratio] 11.5 % 11.0 - 15.0 % [facility] Hematocrit (Bld) [Volume fraction] 39.1 % 36.0 - 48.0 % [facility] Hem[facility] (Bld) [Mass/Vol] 13 g/dL 12.0 - 16.0 g/dL [facility] IMMATURE GRANULOCYTES ABS AUTO 0.02 [facility] Immature granulocytes/100 WBC (Bld) 0.2 % 0.0 - 0.5 % [facility] Interpretation and review of laboratory results Abnormal [facility] LYMPHOCYTES ABSOLUTE AUTO 2 [facility] Lymphocytes/100 WBC (Bld) 22.3 % 20.5 - 60.0 % [facility] MCH (RBC) [Entitic mass] 31.5 pg 26.7 - 34.0 pg [facility] MCHC (RBC) [Mass/Vol] 33.2 g/dL 29.9 - 35.2 g/dL [facility] MCV (RBC) [Entitic vol] 94.7 fL 81.0 - 99.0 fL [facility] MONOCYTES ABSOLUTE AUTO 0.5 [facility] Monocytes/100 WBC (Bld) 5.6 % 1.7 - 12.0 % [facility] Healthcare NEUTROPHILS ABSOLUTE AUTO 6.3 [facility] Neutrophils/100 WBC (Bld) 70.7 % 43.0 - 75.0 % [facility] Platelet mean volume (Bld) [Entitic vol] 9.3 fL Low 9.5 - 13.5 [facility]L [facility].1 [facility] PLT 268 [facility] RBC 4.13 Low [facility] TB WBC 9 [facility] CLINISYNC [facility] Urinalysis macro (dipstick) panel (U)on 07-08-2024 Bilirubin, UA Negative Negative - 4(70) +++ mg/dL [facility] Blood, UA Negative Negative - 50 Immanuel/mcL [facility] Clarity, UA Clear [facility] Color, UA Yellow [facility] Glucose, UA Negative Negative - 1999(110) ++++ mg/dL [facility] Interpretation and review of laboratory results Normal [facility] Ketones, UA Negative Negative - 160(16) ++++ mg/dL [facility] Leukocytes, UA Negative Negative - 500+++ Jennyfer/mcL [facility] Nitrite, UA Negative Negative - Positive [facility] pH, UA 6.5 5 - 9 [facility] Protein, UA Negative Negative - 1999(20) ++++ mg/dL [facility] Spec Grav, UA 1.02 1 - 1.03 [facility] Urobilinogen, UA 1.0 0.2 - 12 mg/dL [facility] HCG ( test) Ql (U)o n 06-17-2024 Interpretation and review of laboratory results Abnormal [facility] Preg Test, Ur Positive Negative [facility] Urinalysis macro (dipstick) panel (U)on 06-17-2024 Bilirubin, UA Negative Negative - 4(70) +++ mg/dL [facility] Blood, UA Negative Negative - 50 Immanuel/mcL [facility] Clarity, UA Clear [facility] Color, UA Yellow [facility] Glucose, UA Negative Negative - 1999(110) ++++ mg/dL [facility] Interpretation and review of laboratory results Normal [facility] Ketones, UA Negative Negative - 160(16) ++++ mg/dL [facility] Leukocytes, UA Negative Negative - 500+++ Jennyfer/mcL [facility] Nitrite, UA Negative Negative - Positive [facility] pH, UA 5.5 5 - 9 [facility] Protein, UA Negative Negative - 2000(20) ++++ mg/dL [facility] Spec Grav, UA 1.02 1 - 1.03 [facility] Urobilinogen, UA 1.0 0.2 - 12 mg/dL [facility] Vital Signs Date Time Vital Sign Value Performing Clinician Juliann cooper 01-12-2025 13:56-0400 Body mass index (BMI) [Ratio] 30.61 kg/m2 Brenda ZIMMER Work Phone: [facility] 01-12-2025 13:56-0400 Body weight 84.73 kg Brenda ZIMMER Work Phone: [facility] 01-12-2025 13:56-0400 Diastolic blood pressure 80 mm[Hg] Brenda ZIMMER Work Phone: [facility] 01-12-2025 13:56-0400 Systolic blood pressure 120 mm[Hg] Brenda ZIMMER Work Phone: [facility] 01-05-2025 13:27-0400 Body mass index (BMI) [Ratio] 30.61 kg/m2 Oumar Yvonne DO Work Phone: [facility] 01-05-2025 13:27-0400 Body weight 84.73 kg Oumar Yvonne DO Work Phone: [facility] 01-05-2025 13:27-0400 Diastolic blood pressure 72 mm[Hg] Oumar Yvonne DO Work Phone: [facility] 01-05-2025 13:27-0400 Systolic blood pressure 110 mm[Hg] Oumar Yvonne DO Work Phone: [facility] 12-29-2024 09:25-0400 Body mass index (BMI) [Ratio] 29.99 kg/m2 Brenda Mobile PA Work Phone: [facility] 12-29-2024 09:25-0400 Body weight 83.01 kg Brenda Paytoney PA Work Phone: [facility] 12-29-2024 09:25-0400 Diastolic blood pressure 70 mm[Hg] Brenda Jeff PA Work Phone: [facility] 12-29-2024 09:25-0400 Systolic blood pressure 120 mm[Hg] Brenda Jeff PA Work Phone: [facility] 12-14-2024 08:35-0400 Body mass index (BMI) [Ratio] 29.66 kg/m2 Uomar Yvonne DO Work Phone: [facility] 12-14-2024 08:35-0400 Body weight 82.1 kg Oumar Yvonne DO Work Phone: [facility] 12-14-2024 08:35-0400 Diastolic blood pressure 68 mm[Hg] Oumar Yvonne DO Work Phone: [facility] 12-14-2024 08:35-0400 Systolic blood pressure 110 mm[Hg] Oumar Yvonne DO Work Phone: [facility] 12-01-2024 10:07-0400 Body mass index (BMI) [Ratio] 29.14 kg/m2 Ling Gladys [employer] MACHINE OPERATOR Work Phone: [facility] 12-01-2024 10:07-0400 Body weight 80.65 kg Ling Gladys [employer] MACHINE OPERATOR Work Phone: [facility] 12-01-2024 10:07-0400 Diastolic blood pressure 72 mm[Hg] Ling Gladys [employer] MACHINE OPERATOR Work Phone: [facility] 12-01-2024 10:07-0400 Systolic blood pressure 120 mm[Hg] Ling Gladys [employer] MACHINE OPERATOR Work Phone: [facility] 11-16-2024 11:39-0400 Body mass index (BMI) [Ratio] 28.65 kg/m2 Oumar Yvonne DO Work Phone: [facility] 11-16-2024 11:39-0400 Body weight 79.29 kg Oumar Yvonne DO Work Phone: [facility] 11-16-2024 11:39-0400 Diastolic blood pressure 74 mm[Hg] Oumar Yvonne DO Work Phone: [facility] 11-16-2024 11:39-0400 Systolic blood pressure 122 mm[Hg] Oumar Yvonne DO Work Phone: [facility] 11-01-2024 08:58-0400 Body mass index (BMI) [Ratio] 28.25 kg/m2 Oumar Yvonne DO Work Phone: [facility] 11-01-2024 08:58-0400 Body weight 78.2 kg Oumar Yvonne DO Work Phone: [facility] 11-01-2024 08:58-0400 Diastolic blood pressure 60 mm[Hg] Oumar Yvonne DO Work Phone: [facility] 11-01-2024 08:58-0400 Systolic blood pressure 120 mm[Hg] Oumar Yvonne DO Work Phone: [facility] 10-04-2024 08:30-0500 Body mass index (BMI) [Ratio] 27.92 kg/m2 Brenda Jeff PA Work Phone: [facility] 10-04-2024 08:30-0500 Body weight 77.29 kg Brenda ZIMMER Work Phone: [facility] 10-04-2024 08:30-0500 Diastolic blood pressure 64 mm[Hg] Brenda Jeff PA Work Phone: [facility] 10-04-2024 08:30-0500 Systolic blood pressure 110 mm[Hg] Brenda Jeff PA Work Phone: [facility] 09-06-2024 10:48-0500 Body mass index (BMI) [Ratio] 25.86 kg/m2 Oumar Yvonne DO Work Phone: [facility] 09-06-2024 10:48-0500 Body weight 71.58 kg Oumar Yvonne DO Work Phone: [facility] 09-06-2024 10:48-0500 Diastolic blood pressure 60 mm[Hg] Oumar Yvonne DO Work Phone: [facility] 09-06-2024 10:48-0500 Systolic blood pressure 116 mm[Hg] Oumar Yvonne DO Work Phone: [facility] 08-09-2024 10:44-0500 Body mass index (BMI) [Ratio] 26.06 kg/m2 Brenda Tomer PA Work Phone: [facility] 08-09-2024 10:44-0500 Body weight 72.12 kg Brenda Mobile PA Work Phone: [facility] 08-09-2024 10:44-0500 Diastolic blood pressure 68 mm[Hg] Brenda Tomer PA Work Phone: [facility] 08-09-2024 10:44-0500 Systolic blood pressure 110 mm[Hg] Brenda Mobile PA Work Phone: [facility] 07-08-2024 10:50-0500 Body mass index (BMI) [Ratio] 25.73 kg/m2 Oumar Yvonne DO Work Phone: [facility] 07-08-2024 10:50-0500 Body weight 71.22 kg Oumar Yvonne DO Work Phone: [facility] 07-08-2024 10:50-0500 Diastolic blood pressure 70 mm[Hg] Oumar Yvonne DO Work Phone: [facility] 07-08-2024 10:50-0500 Systolic blood pressure 110 mm[Hg] Oumar Yvonne DO Work Phone: [facility] 06-17-2024 14:25-0500 Body mass index (BMI) [Ratio] 24.88 kg/m2 Noms Nurse [facility] 06-17-2024 14:25-0500 Body weight 68.86 kg Nom Nurse [facility] 06-02-2024 10:49-0400 Body height 166.4 cm Bhumika Johnson [employer] MACHINE OPERATOR Work Phone: [facility] 06-02-2024 10:49-0400 Body mass index (BMI) [Ratio] 24.88 kg/m2 Bhumika Johnson [employer] MACHINE OPERATOR Work Phone: [facility] 06-02-2024 10:49-0400 Body weight 68.86 kg Bhumika Johnson [employer] MACHINE OPERATOR Work Phone: [facility] 06-02-2024 10:49-0400 Diastolic blood pressure 60 mm[Hg] Bhumika Johnson [employer] MACHINE OPERATOR Work Phone: [facility] 06-02-2024 10:49-0400 Heart rate 75 /min Bhumika Johnson [employer] MACHINE OPERATOR Work Phone: [facility] 06-02-2024 10:49-0400 SaO2% (BldA) [Mass fraction] 99 % Bhumika Johnson [employer] MACHINE OPERATOR Work Phone: [facility] 06-02-2024 10:49-0400 Systolic blood pressure 120 mm[Hg] Bhumika Johnson [employer] MACHINE OPERATOR Work Phone: [facility] Healthcare Encounters Encounter Date Encounter Type Care Provider Facility Start: 01-13-2025 End: 01-13-2025 Clinisync Result Encounter Brenda ZIMMER Work Phone: [facility] External Department Unsolicited Start: 01-13-2025 End: 01-13-2025 Clinisync Result Encounter Brenda ZIMMER Work Phone: [facility] External Department Unsolicited Start: 01-12-2025 End: 01-12-2025 Bamboo flowsheet Brenda ZIMMER Work Phone: [facility] Start: 01-12-2025 End: 01-12-2025 Bamboo flowsheet Brenda ZIMMER Work Phone: [facility] Start: 01-12-2025 End: 01-12-2025 flow sheet Brenda ZIMMER Work Phone: [facility] Comment on above: Excessive grow th affecting management of in third trimester, single or unspecified fetus (Primary Dx); 38 weeks gestation of ; Third trimester Start: 01-12-2025 End: 01-12-2025 ambulatory BRENDA JEFF Not Available Start: 01-05-2025 End: 01-05-2025 Bamboo flowsheet Oumar Yvonne DO Work Phone: [facility] Start: 01-05-2025 End: 01-05-2025 Bamboo flowsheet Oumar Yvonne DO Work Phone: [facility] Start: 01-05-2025 End: 01-05-2025 flow sheet Oumar Yvonne DO Work Phone: [facility] Comment on above: Third trimester preg kirk; 37 weeks gestation of Start: 01-05-2025 End: 01-05-2025 ambulatory OUMAR YVONNE Not Available Start: 12-29-2024 End: 12-29-2024 flow sheet Brenda ZIMMER Work Phone: [facility] [...] 12-01-2024 End: 12-01-2024 flow sheet Ling Graham NP Work Phone: [facility] Comment on [...] Work Phone: [facility] External Department Unsolicited Start: 10-04-2024 End: 10-04-2024 [...] Start: 08-09-2024 End: 08-09-2024 flow sheet Brenda Jeff PA Work Phone: [facility] Comment on above: Second trimester pre gnancy; 16 weeks gestation of ; Need for maternal serum alpha-protein (MSAFP) screening; Exposure to STD; Screening, , for anatomic survey Start: 08-09-2024 End: 08-09-2024 ambulatory BRENDA TOMER Not Available Start: 07-08-2024 End: 07-08-2024 Bamboo [...] 06-02-2024 End: 06-02-2024 Bamboo flowsheet Bhumika Johnson [employer] MACHINE OPERATOR Work Phone: [facility] Start: 06-02-2024 End: 06-02-2024 Bamboo flowsheet Bhumika Johnson [employer] MACHINE OPERATOR Work Phone: [facility] Start: 06-02-2024 [...] Date Procedure Procedure Detail Performing Clinician Start: 01-13-2025 OB BPP W NON-STRESS Brenda ZIMMER Work Phone: Start: 01-13-2025 US OB GROWTH Brenda ZIMMER Work Phone: Start: 01-12-2025 Urnls dip stick/tabl et rgnt [...] [facility] Healthcare Start: 04-04-2025 Influenza vaccination Influenz a Vaccine (Season Ended) [facility] Start: 01-19-2025 End: 01-19-2025 Patient encounter procedure 01/19/2025 1:40 PM EDT Routine [facility] [address] [place] [address] Oumar Russell, DO [address] [place], [place] [id number] [facility] Start: 01-12-2025 End: 07-14-2025 US biophysical profile w non stress test US biophysical profile w non stress test Imaging Routine Excessive growth affecting management of in third trimester, single or unspecified fetus Expected: 01/12/2025 (Approximate), Expires: 07/14/2025 [facility] Comment on above: Expected: 01/12/2025 (Approximate), Expires: 07/14/2025 Start: 01-12-2025 End: 05-14-2025 US for US OB follow up transabdominal approach Imaging Routine Excessive growth affecting management of in third trimester, single or unspecified fetus Expected: 01/12/2025, Expires: 05/14/2025 [facility] Work Phone: Comment on above: [...] AM EDT Routine [facility] [address] [place] [address] Brenda Jeff PA [address] [place] [address] [facility] Start: 12-29-2024 End: 12-29-2024 Professional / ancillary services management 12/29/2024 9:00 AM EDT Ancillary Procedure [facility] [address] [place] [id number] [facility] Start: 12-14-2024 End: 12-14-2024 Patient encounter procedure [facility] Comment on above: Arrived Start: 12-01-2024 End: 12-01-2024 Patient encounter procedure 12/01/2024 9:50 AM EDT Routine [facility] [address] [place] [address] Brenda Jeff PA [address] [place] [address] [facility] Start: 12-01-2024 End: 12-01-2024 Professional / ancillary services management 12/01/2024 9:00 AM EDT Ancillary Procedure [facility] [address] [place] [address] [facility] Start: 11-16-2024 End: 03-18-2025 [...] Ancillary Procedure [facility] [address] [place] [address] [facility] Start: 10-04-2024 End: 10-04-2025 CBC panel - Blood by Automated count CBC Lab Routine Diabetes mellitus screening Expected: 10/04/2024 (Approximate), Expires: 10/04/2025 [facility] Healthcare Comment on above: Expected: 10/04/2024 (Approximate), Expires: 10/04/2025 Start: 10-04-2024 End: 10-04-2025 Measurement of glucose 1 hour after glucose challenge for glucose tolerance test Glucose tolerance, 1 hour Lab Routine Diabetes mellitus screening Expected: 10/04/2024 (Approximate), Expires: 10/04/2025 [facility] Healthcare Comment on above: Expected: 10/04/2024 (Approximate), Expires: 10/04/2025 Start: 10-04-2024 End: 10-04-2025 US for US OB limited 1+ fetuses Imaging Routine Encounter for follow-up ultrasound of anatomy Expected: 10/04/2024, Expires: 10/04/2025 [facility] Healthcare Work Phone: Comment on above: Expected: 10/04/2024 , Expires: 10/04/2025 Start: 10-04-2024 End: 10-04-2024 Patient encounter procedure [facility] Comment on above: Arrived Start: 09-06-2024 End: 09-06-2025 CBC panel - Blood by Automated count CBC Lab Routine Diabetes mellitus screening Expected: 09/06/2024 (Approximate), Expires: 09/06/2025 [facility] Work Phone: Comment on above: Expected: 09/06/2024 (Approximate), Expires: 09/06/2025 Start: 09-06-2024 End: 09-06-2025 Measurement of glucose 1 hour after glucose challenge for glucose tolerance test Glucose tolerance, 1 hour Lab Routine Diabetes mellitus screening Expected: 09/06/2024 (Approximate), Expires: 09/06/2025 [facility] Healthcare Comment on above: Expected: 09/06/2024 (Approximate), Expires: 09/06/2025 Start: 09-06-2024 End: 09-06-2024 Patient encounter procedure 09/06/2024 10:50 AM EST Routine [facility] [address] [place] [id number] Oumar Russell, DO [address] [place] [place] [address] [facility] Start: 09-06-2024 End: 09-06-2024 Professional / ancillary services management 09/06/2024 9:30 AM EST Ancillary Procedure [facility] [address] [address] [facility] Start: 08-09-2024 End: 09-09-2024 Alpha fetoprotein, maternal Alpha fetoprotein, maternal Lab Routine Need for maternal serum alpha-protein (MSAFP) screening Expected: 08/09/2024 (Approximate), Expires: 09/09/2024 [facility] Comment on above: Expected: 08/09/2024 (Approximate), Expires: 09/09/2024 Start: 08-09-2024 End: 08-09-2025 US for US OB 14+ weeks anatomy scan Imaging Routine Screening, , for anatomic survey Expected: 08/09/2024, Expires: 08/09/2025 [facility] Healthcare Comment on above: Expected: 08/09/2024 , Expires: 08/09/2025 Start: 08-09-2024 End: 08-09-2024 Patient encounter procedure [facility] Comment on above: Arrived Start: 07-08-2024 End: 07-08-2024 Patient encounter procedure [facility] Comment on above: Arrived Start: 06-17-2024 End: 06-17-2025 ABO/Rh ABO/Rh Lab Routine Missed menses , unspecified gestational age Expected: 06/17/2024 (Approximate), Expires: 06/17/2025 [facility] Healthcare Comment on above: Expected: 06/17/2024 (Approximate), Expires: 06/17/2025 Start: 06-17-2024 End: 06-17-2024 ambulatory 06/17/2024 2:00 PM EST Initial [facility] [address] [id number] [facility] Start: 06-17-2024 End: 06-17-2025 Blood type and Indirect antibody screen panel - Blood Type and screen Lab Routine Missed menses , unspecified gestational age Expected: 06/17/2024 (Approximate), Expires: 06/17/2025 [facility] Healthcare Work Phone: Comment on above: Expected: 06/17/2024 (Approximate), Expires: 06/17/2025 Start: 06-17-2024 End: 06-17-2025 Drugs of abuse panel - Urine by Screen method Rapid drug screen, urine Lab Routine , unspecified gestational age Encounter for supervision of normal first in first trimester Expected: 06/17/2024 (Approximate), Expires: 06/17/2025 [facility] Comment on above: Expected: 06/17/2024 (Approximate), Expires: 06/17/2025 Start: 06-17-2024 End: 06-17-2025 US Pelvis transvaginal US OB transvaginal Imaging Routine Missed menses Expected: 06/17/2024 (Approximate), Expires: 06/17/2025 [facility] Comment on above: Expected: 06/17/2024 (Approximate), Expires: 06/17/2025 Start: 06-17-2024 End: 06-17-2024 Professional / ancillary services management 06/17/2024 1:30 PM EST Ancillary Procedure [facility] [address] [place] [address] [facility] Start: 06-02-2024 End: 06-02-2024 Patient encounter procedure 06/02/2024 11:00 AM EDT [facility] [address] [place] [phone] Bhumika Johnson NP [address] [place], [place] [id number] Arrived [facility] Comment on above: Arrived Start: 04-04-2024 Influenza vaccination Influenza Vacc ine (#1) [facility] Start: 2014 Screening for malign ant neoplasm of cervix Pap Smear [facility] Bacteria identified in Urine by Culture Urine culture Microbiology Routine Missed menses Ordered: 06/17/2024 [facility] Comment on above: Ordered: 06/17/2024 CBC W Auto Different ial panel - Blood CBC and differential Lab Routine Missed menses , unspecified gestational age Ordered: 06/17/2024 [facility] Comment on above: Ordered: 06/17/2024 CHLAMYDIA TRACHOMATI S (GENITO/STI) CHLAMYDIA TRACHOMATIS (GENITO/STI) Lab Routine Exposure to STD Ordered: 08/09/2024 [facility] Comment on above: Ordered: 08/09/2024 Hemoglobin A1c/Hemoglobin.total in Blood Hemoglobin A1c Lab Routine Missed menses , unspecified gestational age Ordered: 06/17/2024 [facility] Comment on above: Ordered: 06/17/2024 Hepatitis B virus surface Ag [Presence] in Serum or Plasma by Immunoassay Hepatitis B surface antigen Lab Routine Missed menses , unspecified gestational age Ordered: 06/17/2024 [facility] Comment on above: Ordered: 06/17/2024 Hepatitis C virus Ab [Presence] in Serum or Plasma by Immunoassay Hepatitis C antibody Lab Routine Missed menses , unspecified gestational age Ordered: 06/17/2024 [facility] Comment on above: Ordered: 06/17/2024 HIV-1/HIV-2 antigen/antibody combination immunoassay HIV-1 and HIV-2 antibodies Lab Routine Missed menses , unspecified gestational age Ordered: 06/17/2024 [facility] Comment on above: Ordered: 06/17/2024 Neisseria gonorrhoea e DNA [Presence] in Unspecified specimen by SEVERO with probe detection Neisseria gonorrhea DNA probe, direct Lab Routine Exposure to STD Ordered: 08/09/2024 [facility] Comment on above: Ordered: 08/09/2024 Reagin Ab [Presence] in Serum by RPR RPR Lab Routine Missed menses , unspecified gestational age Ordered: 06/17/2024 [facility] Comment on above: Ordered: 06/17/2024 Rubella antibody, IgG Rubella an tibody, IgG Lab Routine Missed menses , unspecified gestational age Ordered: 06/17/2024 [facility] Comment on above: Ordered: 06/17/2024 SURESWAB(R) ADVANCED VAGINITIS PLUS, TMA SURESWAB(R) ADVANCED VAGINITIS PLUS, TMA Pathology and Cytology Routine Exposure to STD Ordered: 08/09/2024 [facility] Work Phone: Comment on above: Ordered: 08/09/2024 Immunizations Immunization Date Immunization Notes Care Provider Damon dumont 02-24-2012 tetanus toxoid, redu srinath diphtheria toxoid, and acellular pertussis vaccine, adsorbed Bhumika Johnson NP Work Phone: [facility] Payers Date Payer Category Payer Blue [employer] Blue Shield [id number] 2022 Unknown [id number] 1993 Unknown [id number] 2.16.8 [id number] 1993 Unknown [id number] 2.16.8 [id number] 1993 Unknown [id number] 2.16.84 0.1.382860.3.579.2.1258 1993 Unknown [id number] 2.16.84 0.1.588134.3.579.2.1258 1993 Unknown [id number] 2.16.84 0.1.223996.3.579.2.1258 1993 Unknown [id number] 2.16.84 0.1.736626.3.579.2.1258 1993 Unknown [id number] 2.16.84 0.1.892760.3.579.2.1258 1993 Unknown [id number] 2.16.84 0.1.711213.3.579.2.1258 1993 Unknown [id number] 2.16.84 0.1.310990.3.579.2.1258 1993 Unknown [id number] 2.16.84 0.1.096010.3.579.2.1258 1993 Unknown [id number] 2.16.84 0.1.234089.3.579.2.1258 1993 Unknown [id number] 2.16.84 0.1.348785.3.579.2.1259 1993 Unknown [id number] 2.16.84 0.1.513624.3.579.2.9 1993 Unknown [id number] 2.16.84 0.1.849324.3.579.2.9 1993 Unknown [id number] 2.16.84 0.1.363719.3.579.2.1258 1993 Unknown [id number] 2.16.84 0.1.897099.3.579.2.1258 1993 Unknown [id number] 2.16.84 0.1.694897.3.579.2.1258 1993 Unknown [id number] 2.16.84 0.1.636638.3.579.2.1259 1959 Self-pay Unknown [id number] 2.16.84 0.1.441954.3.579.2.593 Unknown [id number] 2.16.84 0.1.617300.3.579.2.593 Social History Date Type Detail Facility Start: 02-12-2024 Tobacco smoking status ARIS Never sm oked tobacco [facility] Start: [...] to any clubs or organizations such as taoism groups, unions, fraternal or athletic groups, or [...] End: 01-12-2025 Alcoholic beverage intake Ex-drinker (finding) [facility] Start: 06-02-2024 Alcohol Comment caffeine intak e: 200mg daily [facility] Start: 05-03-2024 [facility] Ariadna brweer Clinical Notes 06-02-2024 to 01-12-2025 GORAN Pedroza [...] of: GORAN Pedroza documented in this encounter [facility] 01-05-2025 History of Presen t illness Narrative [...] nursing note reviewed. Exam conducted with a supervisor malted milk present. Vitals: Estimated body mass index is [...] Oumar Russell DO documented in this encounter [facility] 12-29-2024 History of Presen t illness Narrative [...] of: GORAN Pedroza documented in this encounter [facility] 12-14-2024 History of Presen t illness [...] nursing note reviewed. Exam conducted with a supervisor malted milk present. Vitals: Estimated body mass index is [...] Oumar Russell DO documented in this encounter [facility] 12-01-2024 History of Presen t illness [...] nursing note reviewed. Exam conducted with a supervisor malted milk present. Vitals: Estimated body mass index is [...] Ling Graham NP documented in this encounter [facility] 11-16-2024 History of Presen t illness [...] nursing note reviewed. Exam conducted with a supervisor malted milk present. Vitals: Estimated body mass index is [...] Oumar Russell DO documented in this encounter [facility] 11-01-2024 History of Presen t illness [...] nursing note reviewed. Exam conducted with a supervisor malted milk present. Vitals: Estimated body mass index is [...] Oumar Russell DO documented in this encounter [facility] 10-04-2024 History of Presen t illness [...] Date Noted Allergic rhinitis 06/02/2024 Exercise-induced asthma ([facility]/HCC) 06/02/2024 Moderate episode of recurrent major depressive disorder ([facility]/HCC) 06/02/2024 Panic disorder ([facility]/HCC) 06/02/2024 Resolved Ambulatory Problems Diagnosis Date Noted No Resolved Ambulatory Problems Past Medical History: Diagnosis Date Anxiety Depression ([facility]) HISTORY PAST MEDICAL HISTORY SOCIAL HISTORY Past Medical History: Diagnosis Date Anxiety Depression ([facility]/HCC) Social History Tobacco Use Smoking status: Never [...] of: GORAN Pedroza documented in this encounter [facility] 09-06-2024 History of Presen t illness [...] nursing note reviewed. Exam conducted with a supervisor malted milk present. Vitals: Estimated body mass index is [...] Saira Jaime LPN on behalf of: Oumar Rusesll DO documented in this encounter [facility] 08-09-2024 History of Presen t illness [...] Date Noted Allergic rhinitis 06/02/2024 Exercise-induced asthma ([facility]/HCC) 06/02/2024 Moderate episode of recurrent major depressive disorder (CMS/HCC) 06/02/2024 Panic disorder ([facility]/HCC) 06/02/2024 Resolved Ambulatory Problems Diagnosis Date [...] nursing note reviewed. Exam conducted with a supervisor malted milk present. Vitals: Estimated body mass index is [...] of: GORAN Pedroza documented in this encounter [facility] 07-08-2024 History of Presen t illness [...] major depressive disorder (CMS/HCC) 06/02/2024 Panic disorder ([facility]/HCC) 06/02/2024 Resolved Ambulatory Problems Diagnosis Date Noted No Resolved Ambulatory Problems Past Medical History: Diagnosis Date Anxiety Depression ([facility]/HCC) HISTORY PAST MEDICAL HISTORY SOCIAL HISTORY Past Medical History: Diagnosis Date Anxiety Depression ([facility]) Social History Tobacco Use Smoking status: Never [...] nursing note reviewed. Exam conducted with a supervisor malted milk present. Vitals: Estimated body mass index is [...] or undercooked meat, and stay away from [facility]. Patient has been consulted regarding any further do's and don'ts of . Patient voiced understanding and all questions and concerns were answered. Orders Placed This Encounter Procedures POCT urinalysis dipstick manually resulted Follow Up: Patient is to return in 4 weeks for routine OB appointment. Documented by Rosa Nguyen LPN on behalf of: Oumar Russell DO documented in this encounter [facility] 06-17-2024 History of Presen t illness Narrative [...] or undercooked meat, and stay away from [facility]. Patient has also been advised to [...] providers found * documented in this encounter [facility] 06-02-2024 History of Presen t illness [...] OBGYN as scheduled documented in this encounter [facility] Healthcare Evaluation note Diagnosis Panic disorder [...] section and content) DATE CREATED AUTHOR 02/27/2019 [employer] DATE CREATED AUTHOR AUTHOR'S ORGANIZ ATION 11/28/[address] [facility] p[facility] DATE CREATED AUTHOR AUTHOR'S ORGANIZ ATION 01/15/2025 [facility] EPIC Care Teams (unrecognized sec tion and content) Special Shopper Relationship Specialty Start Date End Date Samra Aguirre DO [address] [place] [place] [address] PCP - General Family Medicine 12/10/22 Special Shopper Relationship Specialty Start Date End Date Raegan Medina MD [address] [place] [address] PCP - General Family Medicine 06/02/24 Special Shopper Relationship Specialty Start Date End Date Raegan Medina MD [address] [place] [address] PCP - General Family Medicine 06/02/24 Special Shopper Relationship Specialty Start Date End Date Raegan Medina MD [address] [place] [address] PCP - General Family Medicine 06/02/24 Special Shopper Relationship Specialty Start Date End Date Raegan Medina MD [address] [place] [address] PCP - General Family Medicine 06/02/24 Special Shopper Relationship Specialty Start Date End Date Raegan Medina MD [address] [place] [address] PCP - General Family Medicine 06/02/24 Special Shopper Relationship Specialty Start Date End Date Raegan Medina MD [address] [place] [address] PCP - General Family Medicine 06/02/24 Special Shopper Relationship Specialty Start Date End Date Raegan Medina MD [address] [place] [address] PCP - General Family Medicine 06/02/24 Bhumika Johnson NP [address] [place] [address] PCP - [facility] 07/04/24 Special Shopper Relationship Specialty Start Date End Date Raegan Medina MD [address] [place] [address] PCP - General Family Medicine 06/02/24 Bhumika Johnson NP [address] [place] [address] PCP - [facility] 07/04/24 Special Shopper Relationship Specialty Start Date End Date Raegan Medina MD [address] [place] [address] PCP - General Family Medicine 06/02/24 Bhumika Johnson NP [address] [place] [address] PCP - [facility] 07/04/24 Special Shopper Relationship Specialty Start Date End Date Raegan Medina MD [address] [place] [address] PCP - General Family Medicine 06/02/24 Bhumika Johnson NP [address] [place] [address] PCP - [facility] 07/04/24 Special Shopper Relationship Specialty Start Date End Date Raegan Medina MD [address] [place] [address] PCP - General Family Medicine 06/02/24 Bhumika Johnson NP [address] [place] [address] PCP - [facility] 07/04/24 Special Shopper Relationship Specialty Start Date End Date Raegan Medina MD [address] [place] [address] PCP - General Family Medicine 06/02/24 Bhumika Johnson NP [address] [place] [address] PCP - [facility] 07/04/24 Special Shopper Relationship Specialty Start Date End Date Raegan Medina MD [address] [place] [address] PCP - General Family Medicine 06/02/24 Special Shopper Relationship Specialty Start Date End Date Raegan Medina MD [address] [place] [address] PCP - General Family Medicine 06/02/24 Special Shopper Relationship Specialty Start Date End Date Raegan Medina MD [address] [place] [address] PCP - General Family Medicine 06/02/24 Special Shopper Relationship Specialty Start Date End Date Raegan Medina MD [address] [place] [address] PCP - General Family Medicine 06/02/24 Reason [...] BE BASED ON THE PRIMARY CLINICAL RECORDS. [facility]. provides no warranty or guarantee of the accuracy or completeness of information in this document.
[2025-01-17 07:04] VITALS: BP 115/75; PULSE 76
== END 2025-01-17 07:35 | disposition home or self-care (01) ==
LOC: FBCO 06:56 → FBC 06:58
PROVIDERS: Visit Provider Obstetrics & Gynecology
DX: O36.63X0 Maternal care for excessive fetal growth, third trimester, not applicable or unspecified (principal); Z3A.39 39 weeks gestation of pregnancy
CPT/HCPCS: 59025

== ENCOUNTER 2025-01-20 06:59 | Outpatient (OUT) | payer BC, SELFPAY ==
--- OUTSIDE RECORDS SUMMARY | 2025-01-12 13:50 | XMS_ITS | Encounter Summary ---
Author Organization [facility] Address [address] [place] [address] Care Team Providers Care Dough Machine Operator Name Role Phone Raegan Medina MD Primary Care Provider [phone] Reason for Visit * Reason Comments Routine Visit Encounter Details Date Type Department Care Team (Late st Contact Info) Description 01/12/2025 1:50 PM EDT Routine [facility] [address] [place] [address] Brenda Owusu PA [address] [place], [facility] Excessive growth affecting management of in third trimester, single or unspecified fetus (HHS-HCC) (Primary Dx); 38 weeks gestation of ([facility]-HCC); Third trimester ([facility]-HCC) Social History Tobacco Use Types Packs/Day Years [...] often do you attend chur ch or gnosticism services? Never 06/01/2024 Do you belong to any clubs o r organizations such as roman catholic groups, unions, fraternal or athletic groups, or [...] Recorded Patient Health Questionnaire-2 Score 0 06/02/2024 [facility] of Occupat ional Health - Occupational [...] any time in the past 12 m [facility], were you homeless or living in a usp (including now)? No 06/01/2024 Estimated Date of [...] PM EDT Routine [facility] [address] [place] [id number] Slim Russell DO [address] [place] [address] Scheduled Orders Name Type Priority Associated Diagnoses [...] 38 weeks gestation of (HHS-HCC) Third trimester ([facility]-HCC) documented in this encounter Results * (ABNORMAL) [...] 38 weeks gestation of (HHS-HCC) Third trimester ([facility]-HCC) state, incidental documented in this encounter Additional Health Concerns Assessment Noted Time PHQ-9 Depression Total Score: 0 06/02/20 10:00 AM EDT documented as of this encounter Care Teams Dough Machine Operator Relationship Specialty Start Date End Date Raegan Medina MD [address] [place] [address] PCP - General Family Medicine 06/02/24 documented as of this encounter
--- OUTSIDE RECORDS SUMMARY | 2025-01-19 13:40 | XMS_ITS | Encounter Summary ---
Author Organization [facility] Address [address] [place] [address] Care Team Providers Care Bridge Game Director Name Role Phone Raegan Medina MD Primary Care Provider [phone] Reason for Visit * Reason Comments Routine Visit Encounter Details Date Type Department Care Team (Late st Contact Info) Description 01/19/2025 1:40 PM EDT Routine [facility] B[facility] OB [address] [place] [address] Slim Russell, DO [address] [place]ma, [facility]11 Third trimester ([facility]); 39 weeks gestation of ([facility]) Social History Tobacco Use Types Packs/Day [...] week 06/01/2024 How often do you attend [facility] or buddhist services? Never 06/01/2024 Do you belong to any clubs o r organizations such as uatsdin groups, unions, fraternal [...] [facility] ional [facility] - Occupational Stress Questionnaire Answer Date [...] any time in the past 12 m [facility], were you homeless or living in a fci (including now)? No 06/01/2024 Estimated Date of [...] nursing note reviewed. Exam conducted with a drop crew laborer present. Vitals: Estimated body mass index is 30.56 kg/m?? as calculated from the following: Height as of 06/02/24: 5' 5.5 . Weight as of this encounter: 186 lb 8 oz. BP: Patient's last menstrual period was 04/19/2024. ASSESSMENT & PLAN ICD-10-CM 1. Third trimester ([facility]) Z34.93 2. 39 weeks gestation of ([facility]) Z3A.39 POCT urinalysis dipstick manually resulted Return [...] PM EDT Routine [facility] OB [address] [place] [address] Slim Russell DO [address] [place] [address] documented as of this encounter Procedures Procedure Name Priority Date/Time Associated Diagnosis Comments POCT URINALYSIS DIPSTICK Routine 01/19/2025 1:45 PM EDT 39 weeks gestation of ([facility]) documented in this encounter Results * (ABNORMAL) [...] this encounter Visit Diagnoses Diagnosis Third trimester ([facility]) state, incidental 39 weeks gestation of ([facility]) documented in this encounter Additional Health Concerns Assessment Noted Time PHQ-9 Depression Total Score: 0 06/02/20 10:00 AM EDT documented as of this encounter Care Teams Bridge Game Director Relationship Specialty Start Date End Date Raegan Medina MD [address] [place] [address] PCP - General Family Medicine 06/02/24 documented as of this encounter
--- NOTE | 2025-01-20 | US_ITS ---
[facility] [place] [id number] Patient Name: VITALIY PAIZ MRN: [id number] date: 1995 Sex: F Assigned Patient Location: [facility] Current Patient Location: [facility] Accession/Order Number: [id number] Exam Date: 01/20/2025 07:59 Report Date: 01/20/2025 08:01 At the request of: JEFF JEFF Procedure: US OB BPP w non-stress BIOPHYSICAL PROFILE: CLINICAL INFORMATION: EXCESSIVE GROWTH O36.63X0 COMPARISON: 01/13/2025 There is a single live intrauterine gestation in cephalic presentation. The reported gestational age is 39 weeks 3 days. The heart rate measures 150 beats per minute. FINDINGS: TONE: 1 or more episodes of activity extension and flexion of extremity or opening and closing of the hand [Y] 2/2 GROSS BODY MOVEMENTS: 3 or more discrete body or limb movements [Y] 2/2 BREATHING MOVEMENTS: 1 or more episodes of breathing lasting at least 30 seconds [Y] 2/2 YUE: A single deepest vertical pocket of amniotic fluid greater than 2 cm [Y] 2/2 YUE: 11.0 cm . This is in normal range. Total score: 8/8 US/US OB BPP w non-stress IMPRESSION: NORMAL BIOPHYSICAL PROFILE. Impression dictated by: Ronda Aggarwal M.D. 01/20/2025 8:01 AM Dictation Location: [place] [address] Electronically authenticated by: [id number] Y Date: 01/20/2025 08:01
--- OUTSIDE RECORDS SUMMARY | 2025-01-20 07:02 | XMS_ITS | Clinical Summary ---
Author Organization [facility] Address [address] [place] [address] Phone Care Team Providers Care Patrol Deputy Sheriff Name Role Phone Unavailable Primary Care Provider [...]
--- OUTSIDE RECORDS SUMMARY | 2025-01-20 07:02 | XMS_ITS | Encounter Summary ---
Author Organization [facility] Address [address] [place] [address] Care Team Providers Care Motor Vehicle Escort Driver Name Role Phone Raegan Medina MD Primary Care Provider [phone] Encounter Details Date Type Department Care Team (Latest Contact Info) Description 01/06/2025 Travel Social History Tobacco Use Types Packs/Day [...] often do you attend chur ch or samaritan services? Never 06/01/2024 Do you belong to any clubs o r organizations such as gnosticism groups, unions, fraternal or athletic groups, or [...] Patient Health Questionnaire-2 Score 0 06/02/2024 [facility] - Occupational [...] any time in the past 12 m [facility], were you homeless or living in a assisted (including now)? No 06/01/2024 Estimated Date of [...] PM EDT Routine [facility] OB [address] [place] [id number] Slim Russell, DO [address] [place] [address] documented as of this encounter Visit Diagnoses Not on filedocumented in this encounter Additional Health Concerns Assessment Noted Time PHQ-9 Depression Total Score: 0 06/02/20 10:00 AM EDT documented as of this encounter Care Teams Motor Vehicle Escort Driver Relationship Specialty Start Date End Date Raegan Medina MD [address] [place] [address] PCP - General Family Medicine 06/02/24 documented as of this encounter
--- OUTSIDE RECORDS SUMMARY | 2025-01-20 07:02 | XMS_ITS | Patient Health Record ---
Author Organization [facility] Address [address] [place], [place] [id number] Care Team Providers Care Production Quality Manager Name Role Phone Stanley Martellmarisa Unavailable [phone] Allergies No Known Allergies Reason For Referral [...] Location Date Provider Diagnosis Dental Main [address] [place], [place] [id number] 09/10/2024 An Angel Dental caries into dentine [...] Provider Name:An Angel , 02/14/2025 09:15:00 AM, [address] [place] [address], [id number], Insurance Providers Payer Name Payer Address Payer Phone Subscriber Number Group Number Insured Name Patient Relationship to Insured Coverage Start Date Coverage End Date [employer] [address] [place], [place] [id number] Greta Pineda Self - patient is the insured 4
--- OUTSIDE RECORDS SUMMARY | 2025-01-20 07:02 | XMS_ITS | Encounter Summary ---
Author Organization [facility] Address [address] [place] [address] Care Team Providers Care Boiler Repair Supervisor Name Role Phone Raegan Medina MD Primary Care Provider [phone] Mary Ann Johnson NP Unavailable [phone] Encounter Details Date Type Department Care Team (Late st Contact Info) Description 06/18/2024 Clinisync Result Encounter [facility] External Department Unsolicited Oumar Russell, DO [address] [facility] [address] [place] [address] Social History Tobacco Use Types Packs/Day Years [...] Patient Health Questionnaire-2 Score 0 06/02/2024 [facility] - Occupational [...] time in the past 12 m [facility], were you homeless or living in a intermediate (including now)? No 06/01/2024 Estimated Date of [...] Description 01/24/2025 1:00 PM EDT Routine [facility] OB [address] [place] [address] Oumar Russell DO [address] [facility] [address] [place], [place] [id number] documented as of this encounter Procedures Procedure Name Priority Date/Time Associated Diagnosis Comments US OB TRANSVAGINAL 06/18/2024 4: 19 AM EST documented in this encounter Results * US OB TRANSVAGINAL (06/18/2024 4:19 AM EST) Anatomical Region Laterality Modality Other 06/18/2024 4:19 AM EST Narrative 06/18/2024 4:21 AM EST The [place] [id number] Ultrasound Report Signed Patient: Greta Pineda MR#: [id number] : 1995 Acct:[id number] Age/Sex: 28 / F ADM Date: 06/17/24 Loc: [facility] Attending Dr: Oumar Russell D.O. Ordering Physician: Oumar Russell D.O. Date of Service: 06/17/24 Procedure(s): US OB transvaginal Accession Number(s): [id number] cc: Oumar Russell D.O.; Samra Aguirre D.O. The [address] [address] Patient Name: GRETA PINEDA MRN: [id number] date: 1995 Sex: F Assigned Patient Location: [facility] Current Patient Location: Accession/Order Number: [id number] Exam Date: 06/17/2024 13:27 Report Date: 06/18/2024 [...] Signed By: 06/18/24 0421 DD/ 0419 TD/TT: Stemmer Machine: Procedure Note Radiology, Radiologist, MD - 06/18/2024 [place] [address] Ultrasound Report Signed Patient: Mary Pineda#: [id number] : 1995Acct:[id number] Age/Sex: 28 / FADM Date: 06/17/24 Loc: [facility] Attending Dr: Oumar Russell D.O. Ordering Physician: Oumar Russell D.O. Date of Service: 06/17/24 Procedure(s): US OB transvaginal Accession Number(s): [id number] cc: Oumar Russell D.O.; Samra Aguirre D.O. [place] [id number] Patient Name: GRETA PINEDA MRN: [id number] date: 1995 Sex: F Assigned Patient Location: [facility] Current Patient Location: Accession/Order Number: [id number] Exam Date: 06/17/2024 13:27 Report Date: 06/18/2024 [...] M.D. Signed By:06/18/24 0421 DD/ 0419 TD/TT: Stemmer Machine: us Oumar Russell DO [facility] Final Result documented in this encounter Visit Diagnoses Not on filedocumented in this encounter Additional Health Concerns Assessment Noted Time PHQ-9 Depression Total Score: 0 06/02/20 24 10:00 AM EDT documented as of this encounter Care Teams Boiler Repair Supervisor Relationship Specialty Start Date End Date Raegan Medina MD [address] [place] [address] PCP - General Family Medicine 06/02/24 Mary Ann Johnson NP [address] [place] [address] PCP - [place] [employer] 07/04/24 documented as of this encounter
--- OUTSIDE RECORDS SUMMARY | 2025-01-20 07:02 | XMS_ITS | Encounter Summary ---
Author Organization [facility] Address [address] [place] [address] Care Team Providers Care Rfid Systems Engineer Name Role Phone Raegan Medina MD Primary Care Provider [phone] Encounter Details Date Type Department Care Team (Late st Contact Info) Description 01/13/2025 Clinisync Result Encounter [facility] External Department Unsolicited Brenda Jeff, GORAN [address] [place] [address] Dr [place], [facility] Social History Tobacco Use Types Packs/Day [...] often do you attend chur ch or episcopal services? Never 06/01/2024 Do you belong to any clubs o r organizations such as zoroastrian groups, unions, fraternal or athletic groups, or [...] Recorded Patient Health Questionnaire-2 Score 0 06/02/2024 [facility] - Occupational [...] PM EDT Routine [facility] BCP OB [address] [place] [address] Slim Russell, DO [address] [place] [address] [place] [address] documented as of this encounter Procedures Procedure Name Priority Date/Time Associated Diagnosis Comments US OB BPP W NON-STRESS 01/13/2025 9:30 PM EDT documented in this encounter Results * US OB BPP W NON-STRESS (01/13/2025 9:30 PM EDT) Anatomical Region Laterality Modality Other 01/13/2025 9:30 PM EDT Narrative 01/13/2025 9:33 PM EDT The [address] [address] Ultrasound Report Signed Patient: GRETA PINEDA MR#: [id number] : 1995 Acct:[id number] Age/Sex: 29 / F ADM Date: 01/13/25 Loc: US Attending Dr: Brenda Jeff Ordering Physician: Brenda Jeff Date of Service: 01/13/25 Procedure(s): US OB BPP w non-stress Accession Number(s): [id number] cc: Brenda Jeff; Physician,Non-Staff M.D. The [address] [address] Patient Name: GRETA PINEDA MRN: [id number] date: 1995 Sex: F Assigned Patient Location: [facility] Current Patient Location: Accession/Order Number: [id number] Exam Date: 01/13/2025 21:27 Report Date: 01/13/2025 [...] Bauman M.D. 01/13/2025 9:30 PM Dictation Location: [place] [address] Electronically authenticated by: [id number] Y Date: 01/13/2025 21:30 Dictated By: Casper Bauman D.O. Signed By: 01/13/252132 DD/ 29 TD/TT: Security Chief Museum: Procedure Note Radiology, Radiologist, MD - 01/13/[address] [address] Ultrasound Report Signed Patient: YARY PINEDA#: [id number] : 1995Acct:[id number] Age/Sex: 29 / FADM Date: 01/13/25 Loc: US Attending Dr: Brenda Jeff Ordering Physician: Brenda Jeff Date of Service: 01/13/25 Procedure(s): US OB BPP w non-stress Accession Number(s): [id number] cc: Brenda Jeff; Physician,Non-Staff Radhames The [address] [address] Patient Name: GRETA PINEDA MRN: [id number] date: 1995 Sex: F Assigned Patient Location: [facility] Current Patient Location: Accession/Order Number: [id number] Exam Date: 01/13/2025 21:27 Report Date: 01/13/2025 21:30 At the request of: BRENDA JEFF Procedure: US OB BPP w non-stress Ultrasound biophysical profile HISTORY: Excessive growth Adequate breathing movement, gross body movement, tone and amniotic fluid volume for total score of 8 out of 8. The amniotic fluidindex is 16.79cm within normal limits. The heart rate 148 bpm. US/US OB BPP w non-stress IMPRESSION: Adequate ultrasound biophysical profile Impression dictated by: Casper Bauman M.D. 01/13/2025 9:30 PM Dictation Location: [place] Electronically authenticated by: [id number] Y Date: 1:30 Dictated By: Casper Bauman D.O. Signed By:01/13/252132 DD/ 29 TD/TT: Security Chief Museum: us Brenda ZIMMER [facility] Final Result documented in this encounter Visit Diagnoses Not on filedocumented in this encounter Additional Health Concerns Assessment Noted Time PHQ-9 Depression Total Score: 0 06/02/20 24 10:00 AM EDT documented as of this encounter Care Teams Rfid Systems Engineer Relationship Specialty Start Date End Date Raegan Medina MD [address] [place] [address] PCP - General Family Medicine 06/02/24 documented as of this encounter
--- OUTSIDE RECORDS SUMMARY | 2025-01-20 07:02 | XMS_ITS | Encounter Summary ---
Author Organization [facility] Address [address] [place] [address] Care Team Providers Care Cvt Tech Name Role Phone Raegan eMdina MD Primary Care Provider Mary Ann Johnson NP Unavailable [phone] Encounter Details Date Type Department Care Team (Late st Contact Info) Description 06/18/2024 Abstract [facility] OB [address] [place] [address] Slim Russell, DO [address] [facility] [address] [place], [facility] Social History Tobacco Use Types Packs/Day [...] any clubs o r organizations such as hindu groups, unions, fraternal or athletic groups, or [...] Recorded Patient Health Questionnaire-2 Score 0 06/02/2024 [facility] - Occupational Stress Questionnaire Answer Date [...] any time in the past 12 m [facility], were you homeless or living in a nursing home (including now)? No 06/01/2024 Estimated Date of [...] EDT Routine [facility] BCP OB [address] [place] [address] Slim Russell, DO [address] [facility] [address] [place], [place] [address] documented as of this encounter Visit Diagnoses Not on filedocumented in this encounter Additional Health Concerns Assessment Noted Time PHQ-9 Depression Total Score: 0 06/02/20 24 10:00 AM EDT documented as of this encounter Care Teams Cvt Tech Relationship Specialty Start Date End Date Raegna Medina MD [address] [facility] [place] [address] PCP - General Family Medicine 06/02/24 Mary Ann Johnson NP [address] [facility] [place] [address] PCP - An[employer] 07/04/24 documented as of this encounter
--- OUTSIDE RECORDS SUMMARY | 2025-01-20 07:02 | XMS_ITS | Clinical Summary ---
Author Organization [facility] Address [address] [place] [address] Care Team Providers Care Technical Account Representative Name Role Phone Raegan Medina MD Primary Care Provider [phone] Allergies No known active allergies Medications busPIRone (Buspar) 5 MG tabletIndication s:Major depressive disorder, recurrent, moderate (HCC) TAKE 1 TABLET BY MOUTH TWICE A DAY FOR 90 DAYS 180 tablet 3 04/28/2023 Active cetirizine (ZyrTEC) 10 MG tablet 1 (one) time each day at the same time Active sertraline (Zoloft) 25 MG tabletIndication s:Panic disorder,Moderat e episode of recurrent major depressive disorder (HCC) [...] Encounters Date Type Department Care Team Description 01/19/2025 1:40 PM EDT Routine [facility] [address] [place] [id number] Slim Russell DO Third trimester ([facility]); 39 weeks gestation of ([facility]) 01/19/2025 Bamboo flowsheet [facility] [address] [place] [address] Slim Russell, 01/18/2025 Travel 01/13/2025 Clinisync Result Encounter NOMS External Department Unsolicited Brenda Jeff PA 01/13/2025 Clinisync Result Encounter NOMS External Department Unsolicited Brenda Jeff PA 01/12/2025 1:50 PM EDT Routine [facility] [address] [place] [address] Brenda Jeff PA Excessive growth affecting management of in third trimester, single or unspecified fetus ([facility]) (Primary Dx); 38 weeks gestation of ([facility]); Third trimester ([facility]) 01/12/2025 Bamboo flowsheet [facility]OM[facility] [address] [place] [address] Brenda Jeff PA 01/06/2025 Travel 01/05/2025 1:20 PM EDT Routine [facility] [address] [place] [address] Slim Russell, Third trimester ([facility]); 37 weeks gestation of ([facility]) 01/05/2025 Bamboo flowsheet [facility] [address] [place] [address] Slim Russell, 12/30/2024 Travel 12/29/2024 9:20 AM EDT Routine [facility] [address] [place] [address] Brenda Jeff PA 36 weeks gestation of ([facility]); Third trimester ([facility]) 12/29/2024 9:00 AM EDT Ancillary Procedure [facility] [address] [place] [address] [place] [address] LGA (large for gestational age) fetus affecting management of mother, first trimester, fetus 3 ([facility]) 12/22/2024 Travel 12/14/2024 8:30 AM EDT Routine [facility] OB [address] [place] [address] Slim Russell, Third trimester ([facility]); 34 weeks gestation of ([facility]) 12/14/2024 Bamboo flowsheet [facility] [address] [place] [address] Slim Russell, DO 12/08/2024 Telephone [facility] [address] [place] [address] Slim Russell, DO 12/07/2024 Travel 12/01/2024 9:50 AM EDT Routine [facility] [address] [place] [address] [place] [address] Ling Graham, COLON AND RECTAL SURGEON LGA (large for gestational age) fetus affecting management of mother, first trimester, fetus 3 ([facility]) (Primary Dx); Third trimester ([facility]); 32 weeks gestation of ([facility]) 12/01/2024 9:00 AM EDT Ancillary Procedure [facility] [address] [place] [address] [place] [address] size inconsistent with dates ([facility]) 11/30/2024 Travel 11/28/2024 Travel 11/16/2024 11:20 AM EDT Routine [facility] [address] [place] [address] [place] [address] Slim Russell, Third trimester ([facility]); 30 weeks gestation of ([facility]); size inconsistent with dates ([facility]) 11/16/2024 Bamboo flowsheet [facility] OB [address] [place] [address] [place] [address] Slim Russell, 11/15/2024 Travel 11/01/2024 8:50 AM EDT Routine [facility] OB [address] [place] [address] [place] [address] Slim Russell, Size of fetus inconsistent with dates in third trimester ([facility]) (Primary Dx); Third trimester ([facility]); 28 weeks gestation of ([facility]) 11/01/2024 Bamboo flowsheet [facility] OB [address] [place] [address] [place] [address] Slim Russell, 10/30/2024 Travel from Last 3 Months Immunizations Immunization [...] often do you attend chur ch or adventism services? Never 06/01/2024 Do you belong to any clubs o r organizations such as druze groups, unions, fraternal or athletic groups, or [...] Recorded Patient Health Questionnaire-2 Score 0 06/02/2024 [facility] - Occupational Stress Questionnaire Answer Date [...] time in the past 12 m [facility], were you homeless or living in a [...] Pressure 120/80 01/12/2025 1:56 PM EDT Pulse 75 06/02/2024 10:49 AM EDT Temperature - - Respiratory Rate - - Oxygen Saturation 99% 06/02/2024 10:49 AM EDT Inhaled Oxygen Concentration - - Weight 84.6 kg (186 lb 8 oz) 01/19/2025 1:38 PM EDT Height 166.4 cm (5' 5.5 ) 06/02/2024 10:49 AM ED T Body Mass Index 30.56 06/02/2024 10:49 AM EDT Plan of Treatment Upcoming Encounters Date Type Department Care Team (Late st Contact Info) Description 01/24/2025 1:00 PM EDT Routine [facility] [address] [place] [address] Slim Russell, DO [address] [place] [address] Health Maintenance Due Date Last Done Comments Pap Smear 2014 Influenza Vaccine (Season Ended) 2025 Cervical Cancer Screening 10/13/2025 HPV/Cotest 10/13/2025 10/13/2020, 09/05, 09/21/2018 Procedures Procedure Name Priority Date/Time Associated Diagnosis Comments POCT URINALYSIS DIPSTICK Routine 01/19/2025 1:45 PM EDT 39 weeks gestation of ([facility]) US OB BPP W NON-STRESS 01/13/2025 9:30 PM EDT US OB GROWTH 01/13/2025 9:26 PM EDT POCT URINALYSIS DIPSTICK Routine 01/12/2025 2:00 PM EDT 38 weeks gestation of ([facility]) Third trimester ([facility]) POCT URINALYSIS DIPSTICK Routine 12/29/2024 9:31 AM EDT 36 weeks gestation of ([facility]) Third trimester ([facility]) CULTURE, GROUP B STREP WITH SUSCEPTIBLITY Routine 12/29/2024 9:21 AM EDT Third trimester ([facility]) US OB FOLLOW UP TRANSABDOMINAL APPROACH Routine 12/29/2024 9:17 AM EDT LGA (large for gestational age) fetus affecting management of mother, first trimester, fetus 3 ([facility]) POCT URINALYSIS DIPSTICK Routine 12/14/2024 8:35 AM EDT Third trimester ([facility]) POCT URINALYSIS DIPSTICK Routine 12/01/2024 9:29 AM EDT Third trimester ([facility]) US OB FOLLOW UP TRANSABDOMINAL APPROACH Routine 12/01/2024 9:14 AM EDT size inconsistent with dates ([facility]) POCT URINALYSIS DIPSTICK Routine 11/16/2024 11:42 AM EDT Third trimester ([facility]) 30 weeks gestation of ([facility]) POCT URINALYSIS DIPSTICK Routine 11/01/2024 9:04 AM EDT Third trimester ([facility]) Q - THINPREP(R) TIS AND HPV MRNA E6/E7 RFL HPV 16,18/45 Routine 10/13/2020 from Last 3 Months or Most Recently Relevant to Health Maintenance Results * (ABNORMAL) POCT urinalysis dipstick manually resulted (01/19/2025 1:45 PM EDT) Only the most recent of7 resultswithin the time period is included. Color, UA Yellow Clarity, UA Clear Glucose, UA Negative Negative - 2000(110) ++++ mg/dL Bilirubin, UA Negative Negative - 4(70) +++ mg/dL Ketones, UA Negative Negative - 160(16) ++++ mg/dL Spec Grav, UA 1.010 1 - 1.03 Blood, UA Positive Negative - 50 Immanuel/mcL Comment:Trace-intact pH, UA 6.5 5 - 9 Protein, UA Negative Negative - 1999(20) ++++ mg/dL Urobilinogen, UA 0.2 0.2 - 12 mg/dL Leukocytes, UA Negative Negative - 500+++ Jennyfer/mcL Nitrite, UA Negative Negative - Positive Urine 01/19/2025 1:45 PM EDT us [facility] POINT OF CARE TEST ENTER/EDIT OR DERABLES Final Result * US OB BPP W NON-STRESS (01/13/2025 9:30 PM EDT) Anatomical Region Laterality Modality Other 01/13/2025 9:30 PM EDT Narrative 01/13/2025 9:33 [place] [address] Ultrasound Report Signed Patient: GRETA PINEDA MR#: [id number] : 1995 Acct:[id number] Age/Sex: 29 / F ADM Date: 01/13/25 Loc: US Attending Dr: Brenda Jeff Ordering Physician: Brenda Jeff Date of Service: 01/13/25 Procedure(s): US OB BPP w non-stress Accession Number(s): [id number] cc: Brenda Jeff; Physician,Non-Staff M.DRaji [address] [address] Patient Name: GRETA PINEDA MRN: [id number] date: 1995 Sex: F Assigned Patient Location: [facility] Current Patient Location: Accession/Order Number: [id number] Exam Date: 01/13/2025 21:27 Report Date: 01/13/2025 [...] Bauman M.D. 01/13/2025 9:30 PM Dictation Location: [place] Electronically authenticated by: [id number] Y Date: 01/13/2025 21:30 Dictated By: Casper Bauman D.O. Signed By: 01/13/252132 DD/ 29 TD/TT: Operations Manager Assistant: Procedure Note Radiology, Radiologist, MD - 01/13/2025 [place] [address] Ultrasound Report Signed Patient: YARY PINEDA#: [id number] : 1995Acct:[id number] Age/Sex: 29 / FADM Date: 01/13/25 Loc: US Attending Dr: Brenda Jeff Ordering Physician: Brenda Jeff Date of Service: 01/13/25 Procedure(s): US OB BPP w non-stress Accession Number(s): [id number] cc: Brenda Jeff; Physician,Non-Staff M.Glendy The [place] [id number] Patient Name: GRETA PINEDA MRN: [id number] date: 1995 Sex: F Assigned Patient Location: [facility] Current Patient Location: Accession/Order Number: [id number] Exam Date: 01/13/2025 21:27 Report Date: 01/13/2025 [...] Bauman M.D. 01/13/2025 9:30 PM Dictation Location: [place] Electronically authenticated by: [id number] Y Date: 1:30 Dictated By: Casper Bauman D.O. Signed By:01/13/252132 DD/ 29 TD/TT: Operations Manager Assistant: Brenda [facility] Final Result * US OB GROWTH (01/13/2025 9:26 PM EDT) Anatomical Region Laterality Modality Other 01/13/2025 9:26 PM EDT Narrative 01/13/2025 9:29 [place] [address] Ultrasound Report Signed Patient: GRETA PINEDA MR#: [id number] : 1995 Acct:[id number] Age/Sex: 29 / F ADM Date: 01/13/25 Loc: US Attending Dr: Brenda Jeff Ordering Physician: Brenda Jeff Date of Service: 01/13/25 Procedure(s): US OB growth Accession Number(s): [id number] cc: Brenda Jeff; Physician,Non-Staff M.DRaji The [place] [address] Patient Name: GRETA PINEDA MRN: [id number] date: 1995 Sex: F Assigned Patient Location: [facility] Current Patient Location: Accession/Order Number: [id number] Exam Date: 01/13/2025 21:21 Report Date: 01/13/2025 [...] Bauman M.D. 01/13/2025 9:26 PM Dictation Location: [place] [address] Electronically authenticated by: [id number] Y Date: 01/13/2025 21:26 Dictated By: Casper Bauman D.O. Signed By: 01/13/252128 DD/ 25 TD/TT: Operations Manager Assistant: Procedure Note Radiology, Radiologist, MD - 01/13/[address] [address] Ultrasound Report Signed Patient: YARY PINEDA#: [id number] : 1995Acct:[id number] Age/Sex: 29 FADM Date: 01/13/25 Loc: US Attending Dr: Brenda Jeff Ordering Physician: Brenda Jeff Date of Service: 01/13/25 Procedure(s): US OB growth Accession Number(s): [id number] cc: Brenda Jeff; Physician,Non-Staff Radhames The [address] [address] Patient Name: GRETA PINEDA MRN: [id number] date: 1995 Sex: F Assigned Patient Location: [facility] Current Patient Location: Accession/Order Number: [id number] Exam Date: 01/13/2025 21:21 Report Date: 01/13/2025 21:26 At the request of: BRENDA JEFF Procedure: US OB growth Obstetrical Ultrasound for Fetus greater than 14 weeks HISTORY: growth heart rate is 148 bpm. The fetus is in cephalic presentation. The placenta is in a posterior position with normal appearance. Amnioticfluid index is 16.79cm. The cervix not assessed The estimated weight st5551 g. with percentile 43%. The ovaries are [...] Bauman M.D. 01/13/2025 9:26 PM Dictation Location: [place] Electronically authenticated by: [id number] Y Date: :26 Dictated By: Casper Bauman D.O. Signed By:01/13/252128 DD/ 25 TD/TT: Operations Manager Assistant: us Brenda [facility] Final Result * CULTURE, GROUP B STREP WITH SUSCEPTIBLITY (12/29/2024 9:21 AM EDT) Swab 12/29/2024 9:21 AM EDT us Brenda ZIMMER LAB BLOOD ORDERABLES Final Resul t EXTERNAL LAB * US OB follow up transabdominal approach (12/29/2024 9:17 AM EDT) Only the most recent of2 resultswithin the time period is included. Anatomical Region Laterality Modality Body Ultrasound 12/29/2024 11:2 0 PM EDT Narrative 12/29/2024 11:20 PM EDT EXAM: US OB FOLLOW UP [...] II, MD, PHD at 29-Dec-2024 11:18:48 PM [facility] Procedure Note Arvin Jimenez MD - 12/29/2024 EXAM: US OB FOLLOW UP TRANSABDOMINAL APPROACH HISTORY: Large for gestational age. COMPARISON: Ob ultrasound 12/01/2024. TECHNIQUE: Two-dimensional transabdominal grayscale ultrasound imaging ofthe pelvis was performed. FINDINGS: Gestation: Single Presentation: Cephalic Cardiac Activity: 162 beats per minute Placental Location: Anterior with no sonographic abnormalitiesidentified. Amniotic Fluid Index: 12.5 cm MEASUREMENTS: BPD: 8.9 cm EGA: 35 weeks 5 days HC: 32.4 cm EGA: 36 weeks 5 days AC: 34.9 cm EGA: 38 weeks 5 days FL: 7.5 cm EGA: 38 weeks 2 days HC/AC Ratio: 0.93 The gestational age by today's ultrasound is 37 weeks 3 days (+/- 18 daysgestation). Estimated Weight: 3374 grams, +/- 506 grams ( 7 lb 7 oz). Weight Percentile for gestational age: 91 % IMPRESSION: 1. Single, live intrauterine gestation 36 weeks, 2 days by LMP. Today'sultrasound measurements correlate with a gestational age of 37 weeks 3days. Estimated weight is 3374 grams, +/- 506 grams ( 7 lb 7 oz)which correlates to 91 %. BRIAN is 01/16/2025. 2. growth is measuring large for gestational age. Interpreted by: Electronically signed by ARVIN JIMENEZ II, MD, PHD 11:18:48 PM [facility] us Ling Graham COLON AND RECTAL SURGEON IMG OB US PROCEDURES Final Re sult * (ABNORMAL) Q - THINPREP(R) TIS AND [...] computer assisted technology. [facility] LOCKER PLANT ATTENDANT: SEE NOTE NO [facility] Comment: PCJ, SCT(ASCP) CT screening location: [facility] [place] [address]. REVIEW LOCKER PLANT ATTENDANT: SEE NOTE [facility] Comment: MLH, CT(ASCP) CT screening location: [facility] [place] [address]. COMMENT SEE NOTE [facility] [...] Detected [facility] Comment: Methodology: Associate Pastor-Mediated Amplification This assay detects E6/E7 viral messenger RNA (mRNA) from 14 high-risk HPV types (16,18,31,33,35,39,45,51,52,56,58,59,66,68). The analytical performance characteristics of this assay have been determined by [employer] The modifications have not been cleared or approved by the FDA. This assay has been validated pursuant to the CLIA regulations and is used for clinical purposes. For additional information, please refer to http://education.Starvine.Codeoscopic/faq/EFS147f2 (This link if provided for information/ educational purposes only.) 10/13/2020 us Bennie Cosme COLON AND RECTAL SURGEON [facility] Final Result [facility] from Last 3 Months or Most Recently Relevant to Health Maintenance Insurance BCBS Care Teams Technical Account Representative Relationship Specialty Start Date End Date Raegan Medina MD [address] [place] [address] PCP - General Family Medicine 06/02/24
--- OUTSIDE RECORDS SUMMARY | 2025-01-20 07:02 | XMS_ITS | Encounter Summary ---
Author Organization [facility] Address [address] [place] [address] Care Team Providers Care Wire Frame Lamp Shade Maker Name Role Phone Raegan Medina MD Primary Care Provider [phone] Mary Ann Johnson NP Unavailable [phone] Encounter Details Date Type Department Care Team (Late st Contact Info) Description 07/14/2024 Abstract [facility] OB [address] [place] [address] Slim Russell, DO [address] [facility] [address] [place], [facility] Social History Tobacco Use Types Packs/Day [...] often do you attend chur ch or taoism services? Never 06/01/2024 Do you belong to any clubs o r organizations such as christian groups, unions, fraternal or athletic groups, or [...] Recorded Patient Health Questionnaire-2 Score 0 06/02/2024 [facility] - Occupational Stress Questionnaire Answer Date [...] any time in the past 12 m [facility], were you homeless or living in a skilled nursing (including now)? No 06/01/2024 Estimated Date of [...] EDT Routine [facility] [address] [place] [address] Slim Russell, DO [address] [facility] [address] [place], [place] [id number] documented as of this encounter Visit Diagnoses Not on filedocumented in this encounter Additional Health Concerns Assessment Noted Time PHQ-9 Depression Total Score: 0 06/02/20 24 10:00 AM EDT documented as of this encounter Care Teams Wire Frame Lamp Shade Maker Relationship Specialty Start Date End Date Raegan Medina MD [address] [facility] [place] [address] PCP - General Family Medicine 06/02/24 Mary Ann Johnson NP [address] [facility] [place] [address] PCP - Anny Commercial 07/04/24 documented as of this encounter
--- OUTSIDE RECORDS SUMMARY | 2025-01-20 07:02 | XMS_ITS | Encounter Summary ---
Author Organization [facility] Address [address] [place] [address] Care Team Providers Care Concrete Bucket Loader Name Role Phone Raegan Medina MD Primary Care Provider [phone] Mary Ann Johnson NP Unavailable [phone] Encounter Details Date Type Department Care Team (Late st Contact Info) Description 06/18/2024 Abstract [facility] OB [address] [place] [address] Slim Russell, DO [address] [facility] [address] [place], [facility]11 Social History Tobacco Use Types Packs/Day [...] often do you attend chur ch or worship services? Never 06/01/2024 Do you belong to any clubs o r organizations such as anabaptism groups, unions, fraternal or athletic groups, or [...] Recorded Patient Health Questionnaire-2 Score 0 06/02/2024 [facility] - Occupational Stress Questionnaire Answer Date Recorded [...] any time in the past 12 m [facility], were you homeless or living in a [...] EDT Routine [facility] OB [address] [place] [address] Slim Russell, DO [address] [facility] [address] [facility] [address] [place], [place] [id number] documented as of this encounter Visit Diagnoses Not on filedocumented in this encounter Additional Health Concerns Assessment Noted Time PHQ-9 Depression Total Score: 0 06/02/20 24 10:00 AM EDT documented as of this encounter Care Teams Concrete Bucket Loader Relationship Specialty Start Date End Date Raegan Medina MD [address] [facility] [place] [address] PCP - General Family Medicine 06/02/24 Mary Ann Johnson NP [address] [facility] [place] [address] PCP - Anny Commercial 07/04/24 documented as of this encounter
--- OUTSIDE RECORDS SUMMARY | 2025-01-20 07:02 | XMS_ITS | Encounter Summary ---
Author Organization [facility] Address [address] [place] [address] Care Team Providers Care Virtual Assistant For Advertisers Name Role Phone Raegan Medina MD Primary Care Provider [phone] Mary Ann Johnson NP Unavailable [phone] Encounter Details Date Type Department Care Team (Late st Contact Info) Description 07/14/2024 Abstract [facility] OB [address] [place] [address] Slim Russell, DO [address] [facility] [address] [place], [facility]11 Social History Tobacco Use Types Packs/Day Years [...] often do you attend chur ch or hindu services? Never 06/01/2024 Do you belong to any clubs o r organizations such as religion groups, unions, fraternal or athletic groups, or [...] Score 0 06/02/2024 [facility] - Occupational Stress Questionnaire Answer Date [...] any time in the past 12 m [facility], were you homeless or living in a [facility] (including now)? No 06/01/2024 Estimated Date of [...] EDT Routine [facility] OB [address] [place] [address] Slim Russell, DO [address] [facility] [address] [place], [place] [address] documented as of this encounter Visit Diagnoses Not on filedocumented in this encounter Additional Health Concerns Assessment Noted Time PHQ-9 Depression Total Score: 0 06/02/20 24 10:00 AM EDT documented as of this encounter Care Teams Virtual Assistant For Advertisers Relationship Specialty Start Date End Date Raegan Medina MD [address] [facility] [place] [address] PCP - General Family Medicine 06/02/24 Mary Ann Johnson NP [address] [facility] [place] [address] PCP - Anny Commercial 07/04/24 documented as of this encounter
--- OUTSIDE RECORDS SUMMARY | 2025-01-20 07:02 | XMS_ITS | Clinical Summary ---
Author Organization [facility] Address [id number] [address] [place] [id number] Care Team Providers Care Corporate Health Consultant Name Role Phone Unavailable Primary Care Provider [...]
--- OUTSIDE RECORDS SUMMARY | 2025-01-20 07:02 | XMS_ITS | Encounter Summary ---
Author Organization [facility] Address [address] [place] [address] Care Team Providers Care Ground Worker Name Role Phone Raegan Medina MD Primary Care Provider [phone] Encounter Details Date Type Department Care Team (Late st Contact Info) Description 01/12/2025 Bamboo flowsheet [facility] [address] [facility] [place] [address] Brenda Owusu PA [address] [facility] [address] [place], [place] [address] Social History Tobacco Use Types Packs/Day Years [...] any clubs o r organizations such as scientology groups, unions, fraternal or athletic groups, or [...] Recorded Patient Health Questionnaire-2 Score 0 06/02/2024 [facility] - Occupational [...] time in the past 12 m [facility], were you homeless or living in [...] EDT Routine [facility] [address] [place] [address] Slim Russell, DO [address] [facility] [address] [place], [place] [id number] documented as of this encounter Visit Diagnoses Not on filedocumented in this encounter Additional Health Concerns Assessment Noted Time PHQ-9 Depression Total Score: 0 06/02/20 10:00 AM EDT documented as of this encounter Care Teams Ground Worker Relationship Specialty Start Date End Date Raegan Medina MD [address] [place] [address] PCP - General Family Medicine 06/02/24 documented as of this encounter
--- OUTSIDE RECORDS SUMMARY | 2025-01-20 07:02 | XMS_ITS | Encounter Summary ---
Author Organization [facility] Address [address] [place] [address] Care Team Providers Care Gaming Manager Name Role Phone Samra Aguirre DO Primary Care Provider [phone] Raegan Medina MD Primary Care Provider [phone] Mary Ann Johnson NP Unavailable [phone] Reason for Visit * Reason Comments Med Refill Encounter Details Date Type Department Care Team (Late st Contact Info) Description 07/02/2023 Refill [facility] [address] [place] [address] Samra Aguirre DO [address] [address] Social History Tobacco Use Types Packs/Day Years Used Date Smoking Tobacco: Never Assessed Comments Unknown Sex and Gender Information Value Date Recorded Sex Assigned at Not on file Legal Sex Female 7:40 PM EDT Gender Identity Not on file Sexual Orientation Not on file documented as of this encounter Miscellaneous Notes * Telephone Encounter - Samra Aguirre DO - 07/02/2023 8:35 AM EST Please ask her to schedule a wellness appt, she is also due for a pap smear. documented in this encounter Plan of Treatment Upcoming Encounters Date Type Department Care Team (Late st Contact Info) Description 01/24/2025 1:00 PM EDT Routine [facility] [address] [facility] [address] Slim Russell DO [address] [facility] [place] [address] documented as of this encounter Visit Diagnoses Not on filedocumented in this encounter Care Teams Gaming Manager Relationship Specialty Start Date End Date Samra Aguirre DO PCP - General Family Medicine 12/10/22 06/01/24 Raegan Medina MD [address] [facility] [place] [address] PCP - General Family Medicine 06/02/24 Mary Ann Johnson NP [address] [facility] [place] [address] PCP - Anny Commercial 07/04/24 documented as of this encounter
--- OUTSIDE RECORDS SUMMARY | 2025-01-20 07:02 | XMS_ITS | Encounter Summary ---
Author Organization [facility] Address [address] [place] [address] Care Team Providers Care Sales Assistant Displays Name Role Phone Raegan Medina MD Primary Care Provider [phone] Mary Ann Johnson NP Unavailable [phone] Encounter Details Date Type Department Care Team (Late st Contact Info) Description 07/19/2024 Abstract [facility] OB [address] [place] [address] Slim Russell, DO [address] [facility] [address] [place], [facility] Social History Tobacco Use Types Packs/Day [...] often do you attend chur ch or jewish services? Never 06/01/2024 Do you belong to [...] Recorded Patient Health Questionnaire-2 Score 0 06/02/2024 [facility] - Occupational Stress Questionnaire Answer Date Recorded [...] any time in the past 12 m [facility], were you homeless or living in a custodial (including now)? No 06/01/2024 Estimated Date of [...] EDT Routine [facility] [address] [place] [address] Slim Russell, DO [address] [facility] [address] [place], [place] [address] documented as of this encounter Visit Diagnoses Not on filedocumented in this encounter Additional Health Concerns Assessment Noted Time PHQ-9 Depression Total Score: 0 06/02/20 24 10:00 AM EDT documented as of this encounter Care Teams Sales Assistant Displays Relationship Specialty Start Date End Date Raegan Medina MD [address] [facility] [place] [address] PCP - General Family Medicine 06/02/24 Mary Ann Johnson NP [address] [facility] [place] [address] PCP - Anny Commercial 07/04/24 documented as of this encounter
--- OUTSIDE RECORDS SUMMARY | 2025-01-20 07:02 | XMS_ITS | Encounter Summary ---
Author Organization [facility] Address [address] [place] [address] Care Team Providers Care Customs Officer Name Role Phone Raegan Medina MD Primary Care Provider [phone] Encounter Details Date Type Department Care Team (Late st Contact Info) Description 01/19/2025 Bamboo flowsheet [facility] OB [address] [facility] [place] [address] Slim Russell, DO [address] [facility] [address] [place], [facility] Social History Tobacco Use Types Packs/Day [...] often do you attend chur ch or shinto services? Never 06/01/2024 Do you belong to any clubs o r organizations such as mormon groups, unions, fraternal or athletic groups, or [...] Recorded Patient Health Questionnaire-2 Score 0 06/02/2024 [facility] - Occupational [...] any time in the past 12 m [facility], were you homeless or living [...] EDT Routine [facility] B[facility] OB [address] [place] [address] Slim Russell DO [address] [facility] [address] [place], [place] [id number] documented as of this encounter Visit Diagnoses Not on filedocumented in this encounter Additional Health Concerns Assessment Noted Time PHQ-9 Depression Total Score: 0 06/02/20 10:00 AM EDT documented as of this encounter Care Teams Customs Officer Relationship Specialty Start Date End Date Raegan Medina MD [address] [place] [address] PCP - General Family Medicine 06/02/24 documented as of this encounter
--- OUTSIDE RECORDS SUMMARY | 2025-01-20 07:02 | XMS_ITS | Encounter Summary ---
Author Organization [facility] Address [address] [place] [address] Care Team Providers Care School Health Aide Name Role Phone Raegan Medina MD Primary Care Provider [phone] Encounter Details Date Type Department Care Team (Late st Contact Info) Description 01/13/2025 Clinisync Result Encounter [facility] External Department Unsolicited Brenda Jeff, GORAN [address] [place] [address] Dr [place], [id number] Social History Tobacco Use Types Packs/Day Years [...] often do you attend chur ch or presybeterian services? Never 06/01/2024 Do you belong to any clubs o r organizations such as mandaeism groups, unions, fraternal or athletic groups, or [...] Recorded Patient Health Questionnaire-2 Score 0 06/02/2024 [facility] - Occupational [...] any time in the past 12 m [facility], were you homeless or living in a [...] PM EDT Routine [facility] BCP OB [address] [facility] [place] [address] Slim Russell, DO [address] [facility] [place] [address] documented as of this encounter Procedures Procedure Name Priority Date/Time Associated Diagnosis Comments US OB GROWTH 01/13/2025 9:26 PM EDT documented in this encounter Results * US OB GROWTH (01/13/2025 9:26 PM EDT) Anatomical Region Laterality Modality Other 01/13/2025 9:26 PM EDT Narrative 01/13/2025 9:29 PM EDT The [address] [address] Ultrasound Report Signed Patient: GRETA PINEDA MR#: [id number] : 1995 Acct:[id number] Age/Sex: 29 / F ADM Date: 01/13/25 Loc: US Attending Dr: Brenda Jeff Ordering Physician: Brenda Jeff Date of Service: 01/13/25 Procedure(s): US OB growth Accession Number(s): [id number] cc: Brenda Jeff; Physician,Non-Staff M.DRaji The [address] [address] Patient Name: GRETA PINEDA MRN: [id number] date: 1995 Sex: F Assigned Patient Location: [facility] Current Patient Location: Accession/Order Number: [id number] Exam Date: 01/13/2025 21:21 Report Date: 01/13/2025 [...] Bauman M.D. 01/13/2025 9:26 PM Dictation Location: [place] [address] Electronically authenticated by: [id number] Y Date: 01/13/2025 21:26 Dictated By: Casper Bauman D.O. Signed By: 01/13/252128 DD/ 25 TD/TT: Inspection Clerk: Procedure Note Radiology, Radiologist, MD - 01/13/2025 [place] [address] Ultrasound Report Signed Patient: YARY PINEDA#: [id number] : 1995Acct:[id number] Age/Sex: 29 FADM Date: 01/13/25 Loc: US Attending Dr: Brenda Jeff Ordering Physician: Brenda Jeff Date of Service: 01/13/25 Procedure(s): US OB growth Accession Number(s): [id number] cc: Brenda Jeff; Physician,Non-Staff Radhames The [address] [address] Patient Name: GRETA PINEDA MRN: [id number] date: 1995 Sex: F Assigned Patient Location: [facility] Current Patient Location: Accession/Order Number: [id number] Exam Date: 01/13/2025 21:21 Report Date: 01/13/2025 21:26 At the request of: BRENDA JEFF Procedure: US OB growth Obstetrical Ultrasound for Fetus greater than 14 weeks HISTORY: growth heart rate is 148 bpm. The fetus is in cephalic presentation. The placenta is in a posterior position with normal appearance. Amnioticfluid index is 16.79cm. The cervix not assessed The estimated weight wy5301 g. with percentile 43%. The ovaries are [...] Bauman M.D. 01/13/2025 9:26 PM Dictation Location: [place] [address] Electronically authenticated by: [id number] Y Date: 1:26 Dictated By: Casper Bauman D.O. Signed By:01/13/252128 DD/ 25 TD/TT: Inspection Clerk: us Brenda [facility] Final Result documented in this encounter Visit Diagnoses Not on filedocumented in this encounter Additional Health Concerns Assessment Noted Time PHQ-9 Depression Total Score: 0 06/02/20 24 10:00 AM EDT documented as of this encounter Care Teams School Health Aide Relationship Specialty Start Date End Date Raegan Medina MD [address] [place] [address] PCP - General Family Medicine 06/02/24 documented as of this encounter
--- OUTSIDE RECORDS SUMMARY | 2025-01-20 07:02 | XMS_ITS | Encounter Summary ---
Author Organization [facility] Address [address] [place] [address] Care Team Providers Care Client Support Representative Name Role Phone Raegan Medina MD Primary Care Provider [phone] Encounter Details Date Type Department Care Team (Latest Contact Info) Description 01/18/2025 Travel Social History Tobacco Use Types Packs/Day [...] often do you attend chur ch or latter day services? Never 06/01/2024 Do you belong to any clubs o r organizations such as caodaism groups, unions, fraternal or athletic groups, or [...] Recorded Patient Health Questionnaire-2 Score 0 06/02/2024 [facility] - Occupational Stress [...] any time in the past 12 m [facility], were you homeless or living in [...] Routine [facility] BCP OB [address] [facility] [place] [address] Slim Russell, DO [address] [facility] [place] [address] documented as of this encounter Visit Diagnoses Not on filedocumented in this encounter Additional Health Concerns Assessment Noted Time PHQ-9 Depression Total Score: 0 06/02/20 10:00 AM EDT documented as of this encounter Care Teams Client Support Representative Relationship Specialty Start Date End Date Raegan Medina MD [address] [place] [address] PCP - General Family Medicine 06/02/24 documented as of this encounter
--- OUTSIDE RECORDS SUMMARY | 2025-01-20 07:03 | XMS_ITS | CCD ---
Author Organization [facility] CliniSyil Care Team Providers Care Motor Operator Name Role Phone PACO CHACON Attending Unavailable PACO CHACON Consulting Unavailable PACO CHACON Admitting Unavailable REQUEST, NONE LISTED Admitting Unavaila ble REQUEST, NONE LISTED Attending Unavaila ble REQUEST, NONE LISTED Consulting Unavaila ble Samra Aguirre DO Primary Care Provider Raegan Medina MD Primary Care Provider Alex BUTTING SAW OPERATOR, Bhumika Unavailable OUMAR RUSSELL Attending Unavailable TOMER, BRENDA Attending Unavailable YVONNE, OUMAR Attending Unavailable YVONNE, OUMAR Attending Unavailable YVONNE, OUMAR Referring Unavailable NICOLE, LING Attending Unavailable YVONNE, OUMAR Attending Unavailable NICOLE, LING Referring Unavailable TOMER, BRENDA Attending Unavailable YVONNE, OUMAR Attending Unavailable TOMER, BRENDA Attending Unavailable CANDICE MENG Attending Unavailable KAMPFER, BHUMIAK Attending Unavailable YVONNE, OUMAR Attending Unavailable TOMER, [...] [38 weeks gestation of ] 01-12-2025 Episodic Residual codes; unclassified (2 sources) Gestation period, 39 weeks; Translations: [39 weeks gestation of ] 01-19-2025 Episodic Past or Other Problems Problem Classification Problem Date Documented Da te Episodic/Chronic Mood disorders (20 sources) Mood disorders Onset: 06-02-2024 06-02-2024 Results Test Name Value Interpretation Reference Range Facility Urinalysis macro (dipstick) panel (U)on 01-19-2025 Bilirubin, UA Negative Negative - 4(70) +++ mg/dL [facility] Blood, UA Positive Negative - 50 Immanuel/mcL [facility] Comment on above: Trace-intact Clarity, UA Clear [facility] Healthca re Color, UA Yellow [facility] Healthcar e Glucose, UA Negative Negative - 1999(110) ++++ mg/dL [facility] Interpretation and review of laboratory results Abnormal [facility] Ketones, UA Negative Negative - 160(16) ++++ mg/dL [facility] Leukocytes, UA Negative Negative - 500+++ Jennyfer/mcL [facility] Nitrite, UA Negative Negative - Positive [facility] pH, UA 6.5 5 - 9 [facility] e Protein, UA Negative Negative - 1999(20) ++++ mg/dL [facility] Spec Grav, UA 1.01 1 - 1.03 [facility] Urobilinogen, UA 0.2 0.2 - 12 mg/dL [facility] US OB BPP W NON-STRESS on 01-13-2025 [place] [address] Ultrasound Report Signed Patient: GRETA PINEDA MR#: [id number] : 1995 Acct:[id number] Age/Sex: 29 / F ADM Date: 01/13/25 Loc: US Attending Dr: Brenda Jeff Ordering Physician: Brenda Jeff Date of Service: 01/13/25 Procedure(s): US OB BPP w non-stress Accession Number(s): [id number] cc: Brenda Jeff; Physician,Non-Staff M.D. [address] [address] Patient Name: GRETA PINEDA MRN: [id number] date: 1995 Sex: F Assigned Patient Location: [facility] Current Patient Location: Accession/Order Number: [id number] Exam Date: 01/13/2025 21:27 Report Date: 01/13/2025 [...] Bauman M.D. 01/13/2025 9:30 PM Dictation Location[facility] [place] Electronically authenticated by: [id number] Y Date: 01/13/2025 21:30 Dictated By: Casper Bauman D.O. Signed By: 01/13/252132 DD/ 29 TD/TT: Casing Finisher And Stuffer: [facility] Radiology, Radiologist, - 01/13/2025 [place] [address] Ultrasound Report Signed Patient: GRETA PINEDA MR#: [id number] : 1995 Acct:[id number] Age/Sex: 29 / F ADM Date: 01/13/25 Loc: US Attending Dr: Brenda Jeff Ordering Physician: Brenda Jeff Date of Service: 01/13/25 Procedure(s): US OB BPP w non-stress Accession Number(s): [id number] cc: Brenda Jeff; Physician,Non-Staff Radhames The [place] [id number] Patient Name: GRETA PINEDA MRN: [facility]:[id number] date: 1995 Sex: F Assigned Patient Location: [facility] Current Patient Location: Accession/Order Number: [id number] Exam Date: 01/13/2025 21:27 Report Date: 01/13/2025 [...] Bauman M.D. 01/13/2025 9:30 PM Dictation Location: [place] [address] Electronically authenticated by: [id number] Y Date: 01/13/2025 21:30 Dictated By: Casper Bauman D.O. Signed By: 01/13/252132 DD/ 29 TD/TT: Casing Finisher And Stuffer: [facility] Radiology Study observation (narrative) [facility] US OB BPP W NON-STRESS Ordered By: Radiologist Radiology on 01-13-2025 [facility] Send the [employer] Work Phone: US OB GROWTHon 01-13-2025 [place] [id number] Ultrasound Report Signed Patient: GRETA PINEDA MR#: [id number] : 1995 Acct:[id number] Age/Sex: 29 / F ADM Date: 01/13/25 Loc: US Attending Dr: Brenda Jeff Ordering Physician: Brenda Jeff Date of Service: 01/13/25 Procedure(s): US OB growth Accession Number(s): [id number] cc: Brenda Jeff; Physician,Non-Staff Radhames The [place] [id number] Patient Name: GRETA PINEDA MRN: [id number] date: 1995 Sex: F Assigned Patient Location: [facility] Current Patient Location: Accession/Order Number: [id number] Exam Date: 01/13/2025 21:21 Report Date: 01/13/2025 [...] Bauman M.D. 01/13/2025 9:26 PM Dictation Location: [employer] Electronically authenticated by: [id number] Y Date: 01/13/2025 21:26 Dictated By: Casper Bauman D.O. Signed By: 01/13/252128 DD/ 25 TD/TT: Casing Finisher And Stuffer: [facility] Radiology, Radiologist, - 01/13/2025 [place] [address] Ultrasound Report Signed Patient: GRETA PINEDA MR#: [id number] : 1995 Acct:[id number] Age/Sex: 29 / F ADM Date: 01/13/25 Loc: US Attending Dr: Brenda Jeff Ordering Physician: Brenda Jeff Date of Service: 01/13/25 Procedure(s): US OB growth Accession Number(s): [id number] cc: Brenda Jeff; Physician,Non-Staff Radhames The [address] [address] Patient Name: GRETA PINEDA MRN: [facility]:[id number] date: 1995 Sex: F Assigned Patient Location: [facility] Current Patient Location: Accession/Order Number: [id number] Exam Date: 01/13/2025 21:21 Report Date: 01/13/2025 [...] Bauman M.D. 01/13/2025 9:26 PM Dictation Location[facility] [place] Electronically authenticated by: [id number] Y Date: 01/13/2025 21:26 Dictated By: Casper Bauman D.O. Signed By: 01/13/252128 DD/ 25 TD/TT: Casing Finisher And Stuffer: [facility] Radiology Study observation (narrative) [facility] OB GROWTHOrdered By: Lloyd olognhung Radiology on 01-13-2025 [facility] [employer] Work Phone: Urinalysis macro (dipstick) panel (U)on 01-12-2025 Bilirubin, UA Negative Negative - 4(70) +++ mg/dL [facility] Blood, UA Positive Negative - 50 Immanuel/mcL [facility] Comment on above: trace-intact Clarity, UA Clear [facility] re Color, UA Yellow [facility] Glucose, UA Negative Negative - 1999(110) ++++ mg/dL [facility] Interpretation and review of laboratory results Abnormal [facility] Ketones, UA Negative Negative - 160(16) ++++ mg/dL [facility] Leukocytes, UA Trace Negative - 500+++ Jennyfer/mcL [facility] Nitrite, UA Negative Negative - Positive [facility] pH, UA 6 5 - 9 [facility] Protein, UA Negative Negative - 1999(20) ++++ mg/dL [facility] Spec Grav, UA 1.01 1 - 1.03 [facility] Urobilinogen, UA 0.2 0.2 - 12 mg/dL [facility] US OB FOLLOW UP [...] II, MD, PHD at 29-Dec-2024 11:18:48 PM [facility] Normal Not Available Comment on above: Order Comment: US OB SCAN FOR GROWTH Estimated Date of Delivery: 01/24/25 Gestational Age as of 12/01/2024: 32w2d Urinalysis macro (dipstick) panel (U)on 12-29-2024 Bilirubin, UA Negative Negative - 4(70) +++ mg/dL [facility] Blood, UA Negative Negative - 50 Immanuel/mcL [facility] Clarity, UA Clear [facility] re Color, UA Yellow [facility] Glucose, UA Negative Negative - 2000(110) ++++ mg/dL [facility] Interpretation and review of laboratory results Abnormal [facility] Ketones, UA Negative Negative - 160(16) ++++ mg/dL [facility] Leukocytes, UA Trace Negative - 500+++ Jennyfer/mcL [facility] Nitrite, UA Negative Negative - Positive [facility] pH, UA 7 5 - 9 [facility] Healthcar e Protein, UA Negative Negative - 1999(20) ++++ mg/dL [facility] Spec Grav, UA 1.01 1 - 1.03 [facility] Urobilinogen, UA 0.2 0.2 - 12 mg/dL [facility] Urinalysis macro (dipstick) panel (U)on 12-14-2024 Bilirubin, UA Negative Negative - 4(70) +++ mg/dL [facility] Blood, UA Negative Negative - 50 Immanuel/mcL [facility] Clarity, UA Clear [facility] re Color, UA Light Yellow [facility] Glucose, UA Negative Negative - 1999(110) ++++ mg/dL [facility] Interpretation and review of laboratory results Normal [facility] Ketones, UA Negative Negative - 160(16) ++++ mg/dL [facility] Leukocytes, UA Trace Negative - 500+++ Jennyfer/mcL [facility] Nitrite, UA Negative Negative - Positive [facility] pH, UA 7 5 - 9 [facility] Protein, UA Negative Negative - 1999(20) ++++ mg/dL [facility] Spec Grav, UA 1.015 1 - 1.03 [facility] Urobilinogen, UA 0.2 0.2 - 12 mg/dL [facility] US OB FOLLOW UP [...] II, MD, PHD at 05-Dec-2024 08:53:04 PM [facility] Normal Not Available Comment on above: Order Comment: US OB SCAN FOR GROWTH Estimated Date of Delivery: 01/24/25 Gestational Age as of 11/16/2024: 30w1d Urinalysis macro (dipstick) panel (U)on 12-01-2024 Bilirubin, UA Negative Negative - 4(70) +++ mg/dL [facility] Blood, UA Positive Negative - 50 Immanuel/mcL [facility] Comment on above: Trace-intact Clarity, UA Clear [facility] re Color, UA Yellow [facility] e Glucose, UA Negative Negative - 1999(110) ++++ mg/dL [facility] Interpretation and review of laboratory results Abnormal [facility] Ketones, UA Negative Negative - 160(16) ++++ mg/dL [facility] Leukocytes, UA Positive Negative - 500+++ Jennyfer/mcL [facility] Comment on above: Moderate Nitrite, UA Negative Negative - Positive [facility] pH, UA 6.5 5 - 9 [facility] [employer] Comment on above: ne Protein, UA Negative Negative - 1999(20) ++++ mg/dL [facility] Spec Grav, UA 1.01 1 - 1.03 [facility] Urobilinogen, UA 0.2 0.2 - 12 mg/dL [facility] Urinalysis macro (dipstick) panel (U)on 11-16-2024 Bilirubin, UA Negative Negative - 4(70) +++ mg/dL [facility] Blood, UA Negative Negative - 50 Immanuel/mcL [facility] Clarity, UA Clear [facility] re Color, UA Yellow [facility] Healthcar e Glucose, UA Negative Negative - 1999(110) ++++ mg/dL [facility] Interpretation and review of laboratory results Normal [facility] Ketones, UA Negative Negative - 160(16) ++++ mg/dL [facility] Leukocytes, UA Negative Negative - 500+++ Jennyfer/mcL [facility] Nitrite, UA Negative Negative - Positive [facility] pH, UA 6.5 5 - 9 [facility] Healthcar e Protein, UA Negative Negative - 1999(20) ++++ mg/dL [facility] Spec Grav, UA 1.025 1 - 1.03 [facility] Urobilinogen, UA 1.0 0.2 - 12 mg/dL [facility] Urinalysis macro (dipstick) panel (U)on 11-01-2024 Bilirubin, UA Negative Negative - 4(70) +++ mg/dL [facility] Blood, UA Negative Negative - 50 Immanuel/mcL [facility] Clarity, UA Clear [facility] Healthca re Color, UA Yellow [facility] Healthcar e Glucose, UA Negative Negative - 1999(110) ++++ mg/dL [facility] Interpretation and review of laboratory results Normal [facility] Ketones, UA Negative Negative - 160(16) ++++ mg/dL [facility] Leukocytes, UA Negative Negative - 500+++ Jennyfer/mcL [facility] Nitrite, UA Negative Negative - Positive [facility] pH, UA 6.5 5 - 9 [facility] Healthcar e Protein, UA Negative Negative - 1999(20) ++++ mg/dL [facility] Spec Grav, UA 1.01 1 - 1.03 [facility] Urobilinogen, UA 0.2 0.2 - 12 mg/dL [facility] US OB LIMITED 1+ [...] II, MD, PHD at 19-Oct-2024 12:32:31 AM [facility] Normal Not Available Comment on above: Order Comment: US OB INCOMPLETE ANATOMY Estimated Date of Delivery: 01/24/25 Gestational Age as of 10/04/2024: 24w0d ALL CBC WITH AUTO DIFFon BASOPHILS ABSOLUTE AUTO 0 [facility] Basophils/100 WBC (Bld) 0.3 % 0.2 - 2.0 % [facility] Eosinophils/100 WBC (Bld) 1.3 % 0.9 - 7.0 % [facility] Erythrocyte distribution width (RBC) [Ratio] 11.9 % 11.0 - 15.0 % [facility] Hematocrit (Bld) [Volume fraction] 35.1 % Low 36.0 - 48.0 % [facility] Hemoglobin (Bld) [Mass/Vol] 11.5 g/dL Low 12.0 - 16.0 g/dL [facility] IMMATURE GRANULOCYTES ABS AUTO 0.02 [facility] Immature granulocytes/100 WBC (Bld) 0.2 % 0.0 - 0.5 % [facility] Interpretation and review of laboratory results Abnormal [facility] LYMPHOCYTES ABSOLUTE AUTO 1.6 [facility] Lymphocytes/100 WBC (Bld) 17.7 % Low 20.5 - 60.0 % [facility] MCH (RBC) [Entitic mass] 31.6 pg 26.7 - 34.0 pg [facility] MCHC (RBC) [Mass/Vol] 32.8 g/dL 29.9 - 35.2 g/dL [facility] MCV (RBC) [Entitic vol] 96.4 fL 81.0 - 99.0 fL [facility] MONOCYTES ABSOLUTE AUTO 0.4 [facility] Monocytes/100 WBC (Bld) 4.7 % 1.7 - 12.0 % [facility] NEUTROPHILS ABSOLUTE AUTO 7 High [facility] Neutrophils/100 WBC (Bld) 75.8 % High 43.0 - 75.0 % [facility] Platelet mean volume (Bld) [Entitic vol] 8.8 fL Low 9.5 - 13.5 fL [facility] are TB EO # 0.1 [facility] TB PLT 300 [facility] TB RBC 3.64 Low [facility] TB WBC 9.2 [facility] Healthcar e [facility] Healthcar e Urinalysis macro (dipstick) panel (U)on 10-04-2024 Bilirubin, UA Negative Negative - 4(70) +++ mg/dL [facility] Blood, UA Negative Negative - 50 Immanuel/mcL [facility] Clarity, UA Clear [facility] re Color, UA Yellow [facility] e Glucose, UA Negative Negative - 1999(110) ++++ mg/dL [facility] Interpretation and review of laboratory results Normal [facility] Ketones, UA Negative Negative - 160(16) ++++ mg/dL [facility] Leukocytes, UA Negative Negative - 500+++ Jennyfer/mcL [facility] Nitrite, UA Negative Negative - Positive [facility] pH, UA 7 5 - 9 [facility] Protein, UA Negative Negative - 1999(20) ++++ mg/dL [facility] Spec Grav, UA 1.01 1 - 1.03 [facility] Urobilinogen, UA 0.2 0.2 - 12 mg/dL [facility] AFP, SERUM, OPEN SPINA BIFID Aon 09-08-2024 AFP MOM 1.39 . [facility] AFP VALUE 74.7 ng/mL . [facility] COMMENT: Comment . [facility] e Comment on above: Gwendolyn Tarango , Ph.D., [facility] Director References: Available Upon Request. Multiples Of Median Cutoffs For AFP Elevations Stevens 2.5 Black 2.8 IDD 2.0 Twins 4.5 Abbreviation Definitions IDD - Insulin Dep Diabetes OSBR - Open Spina Bifida Risk For further inquiries contact [employer] at [phone]. This test was developed and its performance characteristics determined by [employer]. It has not been cleared or approved by the Food and Drug Administration. Performed at: [facility] [address] [facility], [place], [place] [id number] Burner Hand: Micah Mancia [facility], Phone: [phone] GEST. AGE ON COLLECTION DATE 20.0 . weeks [facility] GESTAT. AGE BASED ON LMP . [facility] Comment on above: Recalculations are n ot recommended when gestational dating by LMP and ultrasound are within 10 days. INSULIN DEP DIABETES No . [facility] INTERPRETATION Comment . [facility] Comment on above: Interpretation: Scre en [...] Customer Services to discuss available options. The [employer] recommends amniocentesis be offered to women age 35 and older. [age] [facility] MULTIPLE GESTATION No . [facility] H ealthcare OSBR RISK 1 IN [phone] . [facility] Ariadna brewer RACE . [facility] [employer] RESULTS Report . [facility] [employer] TEST RESULTS: Negative . [facility] WEIGHT 159 . lbs [facility] [employer] N [id number] N LMP [id number] 0 16 N 1 Y 159 N N N N N White/ [facility] [employer] US OB 14+ WEEKS ANATOMY SCAN [...] report is generated using voice recognition reporting (NEXGRID). On occasion [employer] erroneously drops words from the report or [...] UA Negative Negative - 4(70) +++ mg/dL [facility] Blood, UA Negative Negative - 50 Immanuel/mcL [facility] Clarity, UA Clear [facility] re Color, UA Colorless [facility] e Glucose, UA Negative Negative - 1999(110) ++++ mg/dL [facility] Interpretation and review of laboratory results Normal [facility] Ketones, UA Negative Negative - 160(16) ++++ mg/dL [facility] Leukocytes, UA Negative Negative - 500+++ Jennyfer/mcL [facility] Nitrite, UA Negative Negative - Positive [facility] pH, UA 7 5 - 9 [facility] e Protein, UA Negative Negative - 1999(20) ++++ mg/dL [facility] Spec Grav, UA 1.01 1 - 1.03 [facility] Urobilinogen, UA 0.2 0.2 - 12 mg/dL [facility] RECURRENT VAGINITIS (HTRX)on 08-11-2024 ATOPOBIUM VAGINAE 0 [facility] ATOPOBIUM VAGINAE Not detected [facility] BVAB 2,3 (BACTERIAL VAGINOSIS ASSOCIATED BACTERIA 2, 3); MOBILUNCUS SPP 0 [facility] BVAB 2,3 (BACTERIAL VAGINOSIS ASSOCIATED BACTERIA 2, 3); MOBILUNCUS SPP Not detected [facility] MALOU ALBICANS, PARAPSILOSIS, TROPICALIS 0 [facility] MALOU ALBICANS, PARAPSILOSIS, TROPICALIS Not detected [facility] MALOU GLABRATA 0 [facility] MALOU GLABRATA Not detected [facility] ealthcare MALOU KRUSEI 0 [facility] Healt hcare MALOU KRUSEI Not detected [facility] CHLAMYDIA TRACHOMATIS 0 [facility] CHLAMYDIA TRACHOMATIS Not detected [facility] GARDNERELLA VAGINALIS 0 [facility] GARDNERELLA VAGINALIS Not detected [facility] MEGASPHAERA (TYPES 1, 2) 0 [facility] MEGASPHAERA (TYPES 1, 2) Not detected [facility] MYCOPLASMA GENITALIUM 0 [facility] MYCOPLASMA GENITALIUM Not detected [facility] NEISSERIA GONORRHOEAE 0 [facility] NEISSERIA GONORRHOEAE Not detected [facility] TRICHOMONAS VAGINALIS 0 [facility] TRICHOMONAS VAGINALIS Not detected [facility] Urinalysis macro (dipstick) panel (U)on 08-09-2024 Bilirubin, UA Negative Negative - 4(70) +++ mg/dL [facility] Blood, UA Negative Negative - 50 Immanuel/mcL [facility] Clarity, UA Clear [facility] re Color, UA Yellow [facility] e Glucose, UA Negative Negative - 1999(110) ++++ mg/dL [facility] Interpretation and review of laboratory results Normal [facility] Ketones, UA Negative Negative - 160(16) ++++ mg/dL [facility] Leukocytes, UA Negative Negative - 500+++ Jennyfer/mcL [facility] Nitrite, UA Negative Negative - Positive [facility] pH, UA 7 5 - 9 [facility] Protein, UA Negative Negative - 1999(20) ++++ mg/dL [facility] Spec Grav, UA 1.01 1 - 1.03 [facility] Urobilinogen, UA 0.2 0.2 - 12 mg/dL [facility] ALL CBC WITH AUTO DIFFon BASOPHILS ABSOLUTE AUTO 0.1 [facility] Basophils/100 WBC (Bld) 0.6 % 0.2 - 2.0 % [facility] Eosinophils/100 WBC (Bld) 0.6 % Low 0.9 - 7.0 % [facility] Erythrocyte distribution width (RBC) [Ratio] 11.5 % 11.0 - 15.0 % [facility] Hematocrit (Bld) [Volume fraction] 39.1 % 36.0 - 48.0 % [facility] Healthcar e Hemoglobin (Bld) [Mass/Vol] 13 g/dL 12.0 - 16.0 g/dL [facility] IMMATURE GRANULOCYTES ABS AUTO 0.02 [facility] Immature granulocytes/100 WBC (Bld) 0.2 % 0.0 - 0.5 % [facility] Interpretation and review of laboratory results Abnormal [facility] LYMPHOCYTES ABSOLUTE AUTO 2 [facility] Lymphocytes/100 WBC (Bld) 22.3 % 20.5 - 60.0 % [facility] MCH (RBC) [Entitic mass] 31.5 pg 26.7 - 34.0 pg [facility] MCHC (RBC) [Mass/Vol] 33.2 g/dL 29.9 - 35.2 g/dL [facility] MCV (RBC) [Entitic vol] 94.7 fL 81.0 - 99.0 fL [facility] MONOCYTES ABSOLUTE AUTO 0.5 [facility] Monocytes/100 WBC (Bld) 5.6 % 1.7 - 12.0 % [facility] NEUTROPHILS ABSOLUTE AUTO 6.3 [facility] Neutrophils/100 WBC (Bld) 70.7 % 43.0 - 75.0 % [facility] Platelet mean volume (Bld) [Entitic vol] 9.3 fL Low 9.5 - 13.5 fL [facility] # 0.1 [facility] Healthcar e TB PLT 268 [facility] RBC 4.13 Low [facility] e TB WBC 9 [facility] Healthcar e CLINISYNC [facility] Healthcar e Urinalysis macro (dipstick) panel (U)on 07-08-2024 Bilirubin, UA Negative Negative - 4(70) +++ mg/dL [facility] Blood, UA Negative Negative - 50 Immanuel/mcL [facility] Clarity, UA Clear [facility] Color, UA Yellow [facility] e Glucose, UA Negative Negative - 2000(110) ++++ mg/dL [facility] Interpretation and review of laboratory results Normal [facility] Ketones, UA Negative Negative - 160(16) ++++ mg/dL [facility] Leukocytes, UA Negative Negative - 500+++ Jennyfer/mcL [facility] Nitrite, UA Negative Negative - Positive [facility] pH, UA 6.5 5 - 9 [facility] Healthcar e Protein, UA Negative Negative - 1999(20) ++++ mg/dL [facility] Spec Grav, UA 1.02 1 - 1.03 [facility] Urobilinogen, UA 1.0 0.2 - 12 mg/dL [facility] HCG ( test) Ql (U)o n 06-17-2024 Interpretation and review of laboratory results Abnormal [facility] Preg Test, Ur Positive Negative [facility] Urinalysis macro (dipstick) panel (U)on 06-17-2024 Bilirubin, UA Negative Negative - 4(70) +++ mg/dL [facility] Blood, UA Negative Negative - 50 Immanuel/mcL [facility] Clarity, UA Clear [facility] re Color, UA Yellow [facility] Glucose, UA Negative Negative - 1999(110) ++++ mg/dL [facility] Interpretation and review of laboratory results Normal [facility] Ketones, UA Negative Negative - 160(16) ++++ mg/dL [facility] Leukocytes, UA Negative Negative - 500+++ Jennyfer/mcL [facility] Nitrite, UA Negative Negative - Positive [facility] pH, UA 5.5 5 - 9 [facility] Healthcar e Protein, UA Negative Negative - 1999(20) ++++ mg/dL [facility] Spec Grav, UA 1.02 1 - 1.03 [facility] Urobilinogen, UA 1.0 0.2 - 12 mg/dL [facility] Vital Signs Date Time Vital Sign Value Performing Clinician Jluiann cooper 01-19-2025 13:38-0400 Body mass index (BMI) [Ratio] 30.56 kg/m2 [employer] Work Phone: [facility] 01-19-2025 13:38-0400 Body weight 84.6 kg [employer] Work Phone: [facility] 01-12-2025 13:56-0400 Body mass index (BMI) [Ratio] 30.61 kg/m2 Brenda Grandfalls PA Work Phone: [facility] 01-12-2025 13:56-0400 Body weight 84.73 kg Brenda Grandfalls PA Work Phone: [facility] 01-12-2025 13:56-0400 Diastolic blood pressure 80 mm[Hg] Brenda Grandfalls PA Work Phone: [facility] 01-12-2025 13:56-0400 Systolic blood pressure 120 mm[Hg] Brenda Grandfalls PA Work Phone: [facility] 01-05-2025 13:27-0400 Body mass index (BMI) [Ratio] 30.61 kg/m2 Oumar Yvonne DO Work Phone: [facility] 01-05-2025 13:27-0400 Body weight 84.73 kg Oumar Yvonne DO Work Phone: [facility] 01-05-2025 13:27-0400 Diastolic blood pressure 72 mm[Hg] Oumar Yvonne DO Work Phone: [facility] 01-05-2025 13:27-0400 Systolic blood pressure 110 mm[Hg] Oumar Yvonne DO Work Phone: [facility] 12-29-2024 09:25-0400 Body mass index (BMI) [Ratio] 29.99 kg/m2 Brenda Tomer PA Work Phone: [facility] 12-29-2024 09:25-0400 Body weight 83.01 kg Brenda Tomer PA Work Phone: [facility] 12-29-2024 09:25-0400 Diastolic blood pressure 70 mm[Hg] Brenda Grandfalls PA Work Phone: [facility] 12-29-2024 09:25-0400 Systolic blood pressure 120 mm[Hg] Brenda Tomer PA Work Phone: [facility] 12-14-2024 08:35-0400 Body mass index (BMI) [Ratio] 29.66 kg/m2 Oumar Yvonne DO Work Phone: [facility] 12-14-2024 08:35-0400 Body weight 82.1 kg Oumar Yvonne DO Work Phone: [facility] 12-14-2024 08:35-0400 Diastolic blood pressure 68 mm[Hg] Oumar Yvonne DO Work Phone: [facility] 12-14-2024 08:35-0400 Systolic blood pressure 110 mm[Hg] Oumar Yvonne DO Work Phone: [facility] 12-01-2024 10:07-0400 Body mass index (BMI) [Ratio] 29.14 kg/m2 Ling Graham BUTTING SAW OPERATOR Work Phone: [facility] 12-01-2024 10:07-0400 Body weight 80.65 kg Ling Graham BUTTING SAW OPERATOR Work Phone: [facility] 12-01-2024 10:07-0400 Diastolic blood pressure 72 mm[Hg] Ling Graham BUTTING SAW OPERATOR Work Phone: [facility] 12-01-2024 10:07-0400 Systolic blood pressure 120 mm[Hg] Ling Graham BUTTING SAW OPERATOR Work Phone: [facility] 11-16-2024 11:39-0400 Body mass index (BMI) [Ratio] 28.65 kg/m2 Oumar Yvonne DO Work Phone: [facility] 11-16-2024 11:39-0400 Body weight 79.29 kg Oumar Yvonne DO Work Phone: [facility] 11-16-2024 11:39-0400 Diastolic blood pressure 74 mm[Hg] Oumar Yvonne DO Work Phone: [facility] 11-16-2024 11:39-0400 Systolic blood pressure 122 mm[Hg] Oumar Yvonne DO Work Phone: [facility] 11-01-2024 08:58-0400 Body mass index (BMI) [Ratio] 28.25 kg/m2 Oumar Yvonne DO Work Phone: [facility] 11-01-2024 08:58-0400 Body weight 78.2 kg Oumar Yvonne DO Work Phone: [facility] 11-01-2024 08:58-0400 Diastolic blood pressure 60 mm[Hg] Oumar Yvonne DO Work Phone: [facility] 11-01-2024 08:58-0400 Systolic blood pressure 120 mm[Hg] Oumar Yvonne DO Work Phone: [facility] 10-04-2024 08:30-0500 Body mass index (BMI) [Ratio] 27.92 kg/m2 Brenda Jeff PA Work Phone: [facility] 10-04-2024 08:30-0500 Body weight 77.29 kg Brenda Jeff PA Work Phone: [facility] 10-04-2024 08:30-0500 Diastolic blood pressure 64 mm[Hg] Brenda Tomer PA Work Phone: [facility] 10-04-2024 08:30-0500 Systolic blood pressure 110 mm[Hg] Brenda Jeff PA Work Phone: [facility] 09-06-2024 10:48-0500 Body mass index (BMI) [Ratio] 25.86 kg/m2 Oumar Yvonne DO Work Phone: [facility] 09-06-2024 10:48-0500 Body weight 71.58 kg Oumar Yvonne DO Work Phone: [facility] 09-06-2024 10:48-0500 Diastolic blood pressure 60 mm[Hg] Oumar Yvonne DO Work Phone: [facility] 09-06-2024 10:48-0500 Systolic blood pressure 116 mm[Hg] Oumar Yvonne DO Work Phone: [facility] 08-09-2024 10:44-0500 Body mass index (BMI) [Ratio] 26.06 kg/m2 Brenda Jeff PA Work Phone: [facility] 08-09-2024 10:44-0500 Body weight 72.12 kg Brenda ZIMMER Work Phone: [facility] 08-09-2024 10:44-0500 Diastolic blood pressure 68 mm[Hg] Brenda Jeff PA Work Phone: [facility] 08-09-2024 10:44-0500 Systolic blood pressure 110 mm[Hg] Brenda Tomer PA Work Phone: [facility] 07-08-2024 10:50-0500 Body mass index (BMI) [Ratio] 25.73 kg/m2 Oumar Yvonne DO Work Phone: [facility] 07-08-2024 10:50-0500 Body weight 71.22 kg Oumar Yvonne DO Work Phone: [facility] 07-08-2024 10:50-0500 Diastolic blood pressure 70 mm[Hg] Oumar Yvonne DO Work Phone: [facility] 07-08-2024 10:50-0500 Systolic blood pressure 110 mm[Hg] Oumar Yvonne DO Work Phone: [facility] 06-17-2024 14:25-0500 Body mass index (BMI) [Ratio] 24.88 kg/m2 Nom Nurse [facility] 06-17-2024 14:25-0500 Body weight 68.86 kg [facility] Nurse [facility] 06-02-2024 10:49-0400 Body height 166.4 cm Bhumika Johnson BUTTING SAW OPERATOR Work Phone: [facility] 06-02-2024 10:49-0400 Body mass index (BMI) [Ratio] 24.88 kg/m2 Bhumika Johnson BUTTING SAW OPERATOR Work Phone: [facility] 06-02-2024 10:49-0400 Body weight 68.86 kg Bhumika Johnson BUTTING SAW OPERATOR Work Phone: [facility] 06-02-2024 10:49-0400 Diastolic blood pressure 60 mm[Hg] Bhumika Johnson BUTTING SAW OPERATOR Work Phone: [facility] 06-02-2024 10:49-0400 Heart rate 75 /min Bhumika Johnson BUTTING SAW OPERATOR Work Phone: [facility] Healthcare 06-02-2024 10:49-0400 SaO2% (BldA) [Mass fraction] 99 % Bhumika Johnson BUTTING SAW OPERATOR Work Phone: [facility] 06-02-2024 10:49-0400 Systolic blood pressure 120 mm[Hg] Bhumika Johnson BUTTING SAW OPERATOR Work Phone: [facility] Healthcare Encounters Encounter Date Encounter Type Care Provider Facility Start: 01-19-2025 End: 01-19-2025 Bamboo flowsheet Oumar Yvonne DO Work Phone: [facility] Start: 01-19-2025 End: 01-19-2025 Bamboo flowsheet Oumar Yvonne DO Work Phone: [facility] Start: 01-19-2025 End: 01-19-2025 flow sheet Oumar Yvonne DO Work Phone: [facility] Comment on above: Third trimester preg kirk ([facility]); 39 weeks gestation of ([facility]) Start: 01-13-2025 End: 01-13-2025 Clinisync Result Encounter Brenda ZIMMER Work Phone: [facility] External Department Unsolicited Start: 01-13-2025 End: 01-13-2025 Clinisync Result Encounter Brenda ZIMMER Work Phone: [facility] External Department Unsolicited Start: 01-12-2025 End: 01-12-2025 Bamboo flowsheet Brenda ZIMMER Work Phone: [facility] Start: 01-12-2025 End: 01-12-2025 Bamboo flowsheet Brenda ZIMMER Work Phone: [facility] Start: 01-12-2025 End: 01-12-2025 flow sheet Brenda ZIMMER Work Phone: [facility] Comment on above: Excessive grow [...] Start: 12-29-2024 End: 12-29-2024 flow sheet Brenda Jeff PA Work Phone: [...] Start: 08-09-2024 End: 08-09-2024 flow sheet Brenda Grandfalls PA Work Phone: [facility] Comment [...] 06-02-2024 End: 06-02-2024 Bamboo flowsheet Bhumika Johnson BUTTING SAW OPERATOR Work Phone: [facility] Start: 06-02-2024 End: 06-02-2024 Bamboo flowsheet Bhumika Johnson NP Work Phone: [facility] Start: 06-02-2024 End: 06-02-2024 Office outpatient visit 15 minutes Bhumika Johnson NP Work Phone: [facility] Comment on above: Panic disorder (CMS/ HCC) (Primary Dx); Moderate episode of recurrent major depressive disorder (CMS/HCC) Start: 06-02-2024 End: 06-02-2024 ambulatory BHUMIKA JOHNSON Not Available Start: 02-12-2024 End: 02-12-2024 ambulatory CANDICE MNEG Not Available Start: 11-29-2020 End: 11-30-2020 ambulatory PACO INES Facility:[facility] Start: 11-08-2020 End: 11-09-2020 ambulatory NONE LISTED REQUEST Facility: Procedures Date Procedure Procedure Detail Performing Clinician Start: 01-19-2025 Urnls dip stick/tabl et rgnt non-auto w/o micrscp Oumar Yvonne DO Work Phone: Start: 01-13-2025 US OB BPP W NON-STRESS Brenda ZIMMER Work [...] et rgnt non-auto w/o micrscp Ling Graham BUTTING SAW OPERATOR Work Phone: Start: 11-16-2024 Urnls dip stick/tabl [...] Screening for malign ant neoplasm of cervix [facility] Healthcare Start: 04-04-2025 Influenza vaccination Influenz a Vaccine (Season Ended) [facility] Healthcare Start: 01-24-2025 End: 01-24-2025 Patient encounter procedure 01/24/2025 1:00 PM EDT Routine [facility] [address] [facility] [place] [address] Oumar Russell, DO [address] [place] [address] [facility] Start: 01-19-2025 End: 01-19-2025 Patient encounter procedure [facility] Comment on above: Arrived Start: 01-12-2025 End: 07-14-2025 US biophysical profile [...] AM EDT Routine [facility] [address] [facility] [place] [id number] Brenda Jeff PA [address] [place] [address] [facility] Start: 12-29-2024 End: 12-29-2024 Professional / ancillary services management 12/29/2024 9:00 AM EDT Ancillary Procedure [facility] [address] [place] [address] [facility] Start: 12-14-2024 End: 12-14-2024 Patient encounter procedure [facility] Comment on above: Arrived Start: 12-01-2024 End: 12-01-2024 Patient encounter procedure 12/01/2024 9:50 AM EDT Routine [facility] [address] [place] [phone] Brenda Jeff PA [address] [place] [address] [facility] Start: 12-01-2024 End: 12-01-2024 Professional / ancillary services management 12/01/2024 9:00 AM EDT Ancillary Procedure [facility] [address] [place] [address] [facility] Start: 11-16-2024 End: [...] EDT Ancillary Procedure [facility] [address] [place] [place] [address] [facility] Start: 10-04-2024 End: 10-04-2025 CBC panel - Blood by Automated count CBC Lab Routine Diabetes mellitus screening Expected: 10/04/2024 (Approximate), Expires: 10/04/2025 [facility] Comment on above: Expected: 10/04/2024 (Approximate), Expires: 10/04/2025 Start: 10-04-2024 End: 10-04-2025 Measurement of glucose 1 hour after glucose challenge for glucose tolerance test Glucose tolerance, 1 hour Lab Routine Diabetes mellitus screening Expected: 10/04/2024 (Approximate), Expires: 10/04/2025 [facility] Comment on above: Expected: 10/04/2024 (Approximate), Expires: 10/04/2025 Start: 10-04-2024 End: 10-04-2025 US for US OB limited 1+ fetuses Imaging Routine Encounter for follow-up ultrasound of anatomy Expected: 10/04/2024, Expires: 10/04/2025 [facility] Work Phone: Comment on above: Expected: 10/04/2024 , Expires: 10/04/2025 Start: 10-04-2024 End: 10-04-2024 Patient encounter procedure [facility] Comment on above: Arrived Start: 09-06-2024 End: 09-06-2025 CBC panel - Blood by Automated count CBC Lab Routine Diabetes mellitus screening Expected: 09/06/2024 (Approximate), Expires: 09/06/2025 [facility] Work Phone: Comment on above: Expected: 09/06/2024 (Approximate), Expires: 09/06/2025 Start: 09-06-2024 End: 09-06-2025 Measurement of glucose 1 hour after glucose challenge for glucose tolerance test Glucose tolerance, 1 hour Lab Routine Diabetes mellitus screening Expected: 09/06/2024 (Approximate), Expires: 09/06/2025 [facility] Comment on above: Expected: 09/06/2024 (Approximate), Expires: 09/06/2025 Start: 09-06-2024 End: 09-06-2024 Patient encounter procedure 09/06/2024 10:50 AM EST Routine [facility] [address] [place] [phone] Oumar Russell, DO [address] [place] [address] [facility] Start: 09-06-2024 End: 09-06-2024 Professional / ancillary services management 09/06/2024 9:30 AM EST Ancillary Procedure [facility] [address] [place] [phone] [facility] Start: 08-09-2024 End: 09-09-2024 [...] ambulatory 06/17/2024 2:00 PM EST Initial [facility] [address] [place] [place] [phone] [facility] Start: 06-17-2024 End: 06-17-2025 [...] first trimester Expected: 06/17/2024 (Approximate), Expires: 06/17/2025 [facility] Healthcare Comment on above: Expected: 06/17/2024 (Approximate), Expires: 06/17/2025 Start: 06-17-2024 End: 06-17-2025 US Pelvis transvaginal US OB transvaginal Imaging Routine Missed menses Expected: 06/17/2024 (Approximate), Expires: 06/17/2025 [facility] Healthcare Comment on above: Expected: 06/17/2024 (Approximate), Expires: 06/17/2025 Start: 06-17-2024 End: 06-17-2024 Professional / ancillary services management 06/17/2024 1:30 PM EST Ancillary Procedure [facility] [address] [place] [place] [phone] [facility] Start: 06-02-2024 End: 06-02-2024 Patient encounter procedure 06/02/2024 11:00 AM EDT Office Visit [facility] [address] [place] [address] Bhumika Johnson NP [address] [place], [place] [id number] Arrived [facility] Comment on above: Arrived Start: 04-04-2024 Influenza vaccination Influenza Vacc ine (#1) [facility] Start: 2014 Screening for malign ant neoplasm of cervix Pap Smear [facility] Bacteria identified in Urine by Culture Urine culture Microbiology Routine Missed menses Ordered: 06/17/2024 [facility] Comment on above: Ordered: 06/17/2024 CBC W Auto Different ial panel - Blood CBC and differential Lab Routine Missed menses , unspecified gestational age Ordered: 06/17/2024 [facility] Comment on above: Ordered: 06/17/2024 CHLAMYDIA TRACHOMATI S (GENITO/STI) CHLAMYDIA TRACHOMATIS (GENITO/STI) Lab Routine Exposure to STD Ordered: 08/09/2024 [facility] Comment on above: Ordered: 08/09/2024 Hemoglobin A1c/Hemoglobin.total in Blood Hemoglobin A1c Lab Routine Missed menses , unspecified gestational age Ordered: 06/17/2024 [facility] Comment on above: Ordered: 06/17/2024 Hepatitis B virus surface Ag [Presence] in Serum or Plasma by Immunoassay Hepatitis B surface antigen Lab Routine Missed menses , unspecified gestational age Ordered: 06/17/2024 [facility] Comment on above: Ordered: 06/17/2024 Hepatitis C virus Ab [Presence] in Serum or Plasma by Immunoassay Hepatitis C antibody Lab Routine Missed menses , unspecified gestational age Ordered: 06/17/2024 [facility] Comment on above: Ordered: 06/17/2024 HIV-1/HIV-2 antigen/antibody combination immunoassay HIV-1 and HIV-2 antibodies Lab Routine Missed menses , unspecified gestational age Ordered: 06/17/2024 [facility] Comment on above: Ordered: 06/17/2024 Neisseria gonorrhoea e DNA [Presence] in Unspecified specimen by SEVERO with probe detection Neisseria gonorrhea DNA probe, direct Lab Routine Exposure to STD Ordered: 08/09/2024 [facility] Comment on above: Ordered: 08/09/2024 Reagin Ab [Presence] in Serum by RPR RPR Lab Routine Missed menses , unspecified gestational age Ordered: 06/17/2024 [facility] Comment on above: Ordered: 06/17/2024 Rubella antibody, IgG Rubella an tibody, IgG Lab Routine Missed menses , unspecified gestational age Ordered: 06/17/2024 [facility] Comment on above: Ordered: 06/17/2024 SURESWAB(R) ADVANCED VAGINITIS PLUS, TMA SURESWAB(R) ADVANCED VAGINITIS PLUS, TMA Pathology and Cytology Routine Exposure to STD Ordered: 08/09/2024 [facility] Healthcare Work Phone: Comment on above: Ordered: 08/09/2024 Immunizations Immunization Date Immunization Notes Care Provider aDmon dumont 02-24-2012 tetanus toxoid, redu srinath diphtheria toxoid, and acellular pertussis vaccine, adsorbed Bhumika Johnson BUTTING SAW OPERATOR Work Phone: [facility] Healthcare Payers Date Payer Category Payer [facility] 1.2.8 [id number] 2022 Unknown [id number] 1993 Unknown [id number] 2.16.8 [id number] 1993 Unknown [id number] 2.16.8 [id number] 1993 Unknown [id number] 2.16.84 0.1.737662.3.579.2.1258 1993 Unknown [id number] 2.16.84 0.1.438630.3.579.2.1258 1993 Unknown [id number] 2.16.84 0.1.633172.3.579.2.1258 1993 Unknown [id number] 2.16.84 0.1.706882.3.579.2.1258 1993 Unknown [id number] 2.16.84 0.1.196642.3.579.2.1258 1993 Unknown [id number] 2.16.84 0.1.302452.3.579.2.1258 1993 Unknown [id number] 2.16.84 0.1.780240.3.579.2.1258 1993 Unknown [id number] 2.16.84 0.1.170120.3.579.2.9 1993 Unknown [id number] 2.16.84 0.1.071134.3.579.2.1258 1993 Unknown [id number] 2.16.84 0.1.622968.3.579.2.1258 1993 Unknown [id number] 2.16.84 0.1.768446.3.579.2.1258 1993 Unknown [id number] 2.16.84 0.1.154412.3.579.2.1258 1993 Unknown [id number] 2.16.84 0.1.507376.3.579.2.1258 1993 Unknown [id number] 2.16.84 0.1.765234.3.579.2.1258 1993 Unknown [id number] 2.16.84 0.1.590164.3.579.2.1258 1993 Unknown [id number] 2.16.84 0.1.524970.3.579.2.1259 1959 Self-pay Unknown [id number] 2.16.84 0.1.253131.3.579.2.593 Unknown [id number] 2.16.84 0.1.695787.3.579.2.593 Social History Date Type Detail Facility Start: 02-12-2024 Tobacco smoking status WIIS Never sm oked tobacco [facility] Start: [...] to any clubs or organizations such as gnosticist groups, unions, fraternal or athletic groups, or [...] [facility] Start: 05-03-2024 [facility] Clinical Notes 06-02-2024 to 01-19-2025 Ling Graham NP - 01/19/2025 1:40 PM GORAN Miller - 01/12/2025 1:50 PM Iveth Dietrich LPN - 01/05/2025 1:20 PM GORAN Miller - 12/29/2024 9:20 AM GORAN Miller - 10/04/2024 8:30 AM EST Note Date & Type Note Facility 01-19-2025 History of Presen t illness Narrative Reason [...] nursing note reviewed. Exam conducted with a dinkey engine operator present. Vitals: Estimated body mass index is 30.56 kg/m as calculated from the following: Height as of 06/02/24: 5' 5.5 . Weight as of this encounter: 186 lb 8 oz. BP: Patient's last menstrual period was 04/19/2024. ASSESSMENT & PLAN ICD-10-CM 1. Third trimester ([facility]) Z34.93 2. 39 weeks gestation of ([facility]) Z3A.39 POCT urinalysis dipstick manually resulted [...] Oumar Russell DO documented in this encounter [facility] 01-12-2025 History of Presen t illness Narrative [...] of: GORAN Pedroza documented in this encounter [facility] 01-05-2025 History of Presen t illness Narrative [...] nursing note reviewed. Exam conducted with a dinkey engine operator present. Vitals: Estimated body mass index is [...] Oumar Russell DO documented in this encounter [facility] 12-29-2024 History of Presen t illness Narrative [...] of: GORAN Pedroza documented in this encounter [facility] 12-14-2024 History of Presen t illness Narrative [...] nursing note reviewed. Exam conducted with a dinkey engine operator present. Vitals: Estimated body mass index is [...] Oumar Russell DO documented in this encounter [facility] 12-01-2024 History of Presen t illness Narrative [...] Moderate episode of recurrent major depressive disorder ([facility]) 06/02/2024 Panic disorder ([facility]) 06/02/2024 Resolved Ambulatory Problems Diagnosis Date Noted No Resolved Ambulatory Problems Past Medical History: Diagnosis Date Anxiety Depression ([facility]) HISTORY PAST MEDICAL HISTORY SOCIAL HISTORY Past Medical History: Diagnosis Date Anxiety Depression ([facility]) Social History Tobacco Use Smoking [...] nursing note reviewed. Exam conducted with a dinkey engine operator present. Vitals: Estimated body mass index is [...] Ling Graham NP documented in this encounter [facility] 11-16-2024 History of Presen t illness Narrative [...] nursing note reviewed. Exam conducted with a dinkey engine operator present. Vitals: Estimated body mass index is [...] Oumar Russell DO documented in this encounter [facility] 11-01-2024 History of Presen t illness Narrative [...] nursing note reviewed. Exam conducted with a dinkey engine operator present. Vitals: Estimated body mass index is 28.25 kg/m as calculated from the following: Height as of 24: 5' 5.5 . Weight as of this [...] Oumar Russell DO documented in this encounter [facility] 10-04-2024 History of Presen t illness Narrative [...] of: GORAN Pedroza documented in this encounter [facility] 09-06-2024 History of Presen t illness Narrative [...] nursing note reviewed. Exam conducted with a dinkey engine operator present. Vitals: Estimated body mass index is [...] Oumar Russell DO documented in this encounter [facility] 08-09-2024 History of Presen t illness Narrative [...] nursing note reviewed. Exam conducted with a dinkey engine operator present. Vitals: Estimated body mass index is [...] of: GORAN Pedroza documented in this encounter [facility] 07-08-2024 History of Presen t illness Narrative [...] nursing note reviewed. Exam conducted with a dinkey engine operator present. Vitals: Estimated body mass index is [...] away from [facility]. Patient has been consulted regarding any further do's and don'ts of . Patient voiced understanding and all questions and concerns were answered. Orders Placed This Encounter Procedures POCT urinalysis dipstick manually resulted Follow Up: Patient is to return in 4 weeks for routine OB appointment. Documented by Rosa Nguyen LPN on behalf of: Oumar Russell DO documented in this encounter [facility] 06-17-2024 History of Presen t illness Narrative [...] Date Noted Allergic rhinitis 06/02/2024 Exercise-induced asthma ([facility]) 06/02/2024 Moderate episode of recurrent major depressive disorder ([facility]) 06/02/2024 Panic disorder ([facility]) 06/02/2024 Resolved Ambulatory Problems Diagnosis Date Noted No Resolved Ambulatory Problems Past Medical History: Diagnosis Date Anxiety Depression ([facility]) No family history on file. Social History [...] providers found * documented in this encounter [facility] 06-02-2024 History of Presen t illness Narrative [...] OBGYN as scheduled documented in this encounter [facility] Healthcare Evaluation note Diagnosis Panic disorder (CMS/HCC)- [...] [facility] Diagnosis Third trimester (HHS-HCC) state, incidental 39 weeks gestation of (HHS-HCC) documented in this encounter [facility] Summary Purpose Family History No Family History Records FoundNo Family History Records FoundNo Family History Records Found Advance Directives No Advanced Directives Records FoundNo Advanced Directives Records FoundNo Advanced Directives Records Found Additional Source Comments INFORMATION SOURCE (unrecogn ized section and content) DATE CREATED AUTHOR 02/27/2019 [facility] DATE CREATED AUTHOR AUTHOR'S ORGANIZ ATION 11/28/2020 [facility] pital DATE CREATED AUTHOR AUTHOR'S ORGANIZ ATION 01/15/2025 [facility] Care Teams (unrecognized sec tion and content) Motor Operator Relationship Specialty Start Date End Date Samra Aguirre DO [address] [place] [address] PCP - General Family Medicine 12/10/22 Motor Operator Relationship Specialty Start Date End Date Raegan Medina MD [address] [place] [address] PCP - General Family Medicine 06/02/24 Motor Operator Relationship Specialty Start Date End Date Raegan Medina MD [address] [place] [address] PCP - General Family Medicine 06/02/24 Motor Operator Relationship Specialty Start Date End Date Raegan Medina MD [address] [place] [address] PCP - General Family Medicine 06/02/24 Motor Operator Relationship Specialty Start Date End Date Raegan Medina MD [address] [place] [address] PCP - General Family Medicine 06/02/24 Motor Operator Relationship Specialty Start Date End Date Raegan Medina MD [address] [place] [address] PCP - General Family Medicine 06/02/24 Motor Operator Relationship Specialty Start Date End Date Raegan Medina MD [address] [place] [address] PCP - General Family Medicine 06/02/24 Motor Operator Relationship Specialty Start Date End Date Raegan Medina MD [address] [place] [address] PCP - General Family Medicine 06/02/24 Bhumika Johnson NP [address] [place] [address] PCP - Rebecca Commercial 07/04/24 Motor Operator Relationship Specialty Start Date End Date Raegan Medina MD [address] [place] [address] PCP - General Family Medicine 06/02/24 Bhumika Johnson NP [address] [place] [address] PCP - Rebecca Commercial 07/04/24 Motor Operator Relationship Specialty Start Date End Date Raegan Medina MD [address] [place] [address] PCP - General Family Medicine 06/02/24 Bhumika Johnson NP [address] [place] [address] PCP - Rebecca Commercial 07/04/24 Motor Operator Relationship Specialty Start Date End Date Raegan Medina MD [address] [place] [address] PCP - General Family Medicine 06/02/24 Bhumika Johnson NP [address] [place] [address] PCP - Rebecca Commercial 07/04/24 Motor Operator Relationship Specialty Start Date End Date Raegan Medina MD [address] [place] [address] PCP - General Family Medicine 06/02/24 Bhumika Johnson NP [address] [place] [address] PCP - Rebecca Commercial 07/04/24 Motor Operator Relationship Specialty Start Date End Date Raegan Medina MD [address] [place] [address] PCP - General Family Medicine 06/02/24 Bhumika Johnson NP [address] [place] [address] PCP - Rebecca Commercial 07/04/24 Motor Operator Relationship Specialty Start Date End Date Raegan Medina MD [address] [place] [address] PCP - General Family Medicine 06/02/24 Motor Operator Relationship Specialty Start Date End Date Raegan Medina MD [address] [place] [address] PCP - General Family Medicine 06/02/24 Motor Operator Relationship Specialty Start Date End Date Raegan Medina MD [address] [place] [address] PCP - General [facility] Medicine 06/02/24 Motor Operator Relationship Specialty Start Date End Date Raegan Medina MD [address] [place] [address] PCP - General Family Medicine 06/02/24 Reason [...] BE BASED ON THE PRIMARY CLINICAL RECORDS. No [employer] provides no warranty or guarantee of the accuracy or completeness of information in this document.
[2025-01-20 07:29] VITALS: BP 120/73; PULSE 83
== END 2025-01-20 08:05 | disposition home or self-care (01) ==
LOC: US 06:59 → FBC 07:01
PROVIDERS: Visit Provider Physician Assistant
DX: O36.63X0 Maternal care for excessive fetal growth, third trimester, not applicable or unspecified (principal); Z3A.39 39 weeks gestation of pregnancy
CPT/HCPCS: 76818

== ENCOUNTER 2025-01-24 11:21 | Outpatient (OUT) | payer BC, SELFPAY ==
--- OUTSIDE RECORDS SUMMARY | 2025-01-12 13:50 | XMS_ITS | Encounter Summary ---
Author Organization [facility] Address [address] [place] [address] Care Team Providers Care Director Of Regional Sales Name Role Phone Raegan Medina MD Primary Care Provider [phone] Reason for Visit * Reason Comments Routine Visit Encounter Details Date Type Department Care Team (Late st Contact Info) Description 01/12/2025 1:50 PM EDT Routine [facility] [address] [place] [address] Brenda Owusu PA [address] [place], [facility] Excessive growth affecting management of in third trimester, single or unspecified fetus (HHS-HCC) (Primary Dx); 38 weeks gestation of ([facility]-H[facility]); Third trimester ([facility]-HCC) Social History Tobacco Use Types Packs/Day Years [...] any clubs o r organizations such as faith groups, unions, fraternal or athletic groups, or [...] Recorded Patient Health Questionnaire-2 Score 0 06/02/2024 [facility] Occupat ional Health - Occupational Stress [...] in the past 12 m [facility], were you homeless or living in a residential (including now)? No 06/01/2024 Estimated Date of [...] Sign Reading Time Taken Comments Blood Pressure 120/80 01/12/2025 1:56 PM EDT Pulse - - Temperature - - Respiratory Rate - - Oxygen Saturation - - Inhaled Oxygen Concentration - - Weight 84.7 kg (186 lb 12.8 oz) 01/12/2025 1:56 PM EDT Height - - Body Mass Index 30.61 06/02/2024 10:49 AM EDT documented in this encounter Progress Notes * GORAN Pedroza - 01/12/2025 1:50 PM EDT Reason for Appointment: Patient ID: Greta [...] reviewed. Vitals: Estimated body mass index is 30.61 kg/m?? as calculated from the following: Height as of 06/02/24: 5' 5.5 . Weight as of this encounter: 186 lb 12.8 oz. BP: 120/80 Patient's last menstrual period was 04/19/2024. ASSESSMENT & PLAN ICD-10-CM 1. 38 weeks gestation of Z3A.38 POCT urinalysis dipstick manually resulted 2. Third trimester Z34.93 POCT urinalysis dipstick manually resulted Return OB: Patient presents today for a routine obstetrics appointment. Patient is currently 38w2d . Patient states she is doing well but has complaints of being tired due to current . Patient has verbalizes frequent movement. labor precautions was discussed/given and patient was instructed to perform kick counts three times a day. We will order repeat growth US and NST with Bpp. Patient growth at 36 weeks showed 91% pt fefused cervical check today. Pt instructed to call for nst and bpp Orders Placed This Encounter Procedures POCT urinalysis dipstick manually resulted Follow Up: Patient is to return to office in 1 week for routine OB appointment. Documented by GORAN Pedroza on behalf of: GORAN Pedroza documented in this encounter Plan of Treatment Upcoming Encounters Date Type Department Care Team (Late st Contact Info) Description 01/24/2025 1:00 PM EDT Routine [facility] [address] [place] [id number] Slim Russell DO [address] [place] [address] Scheduled Orders Name Type Priority Associated Diagnoses Orde r Schedule US OB follow up transabdominal approach Imaging Routine Excessive growth affecting management of in third trimester, single or unspecified fetus (HHS-HCC) Expected: 01/12/2025, Expires: 05/14/2025 US biophysical profile w non stress test Imaging Routine Excessive growth affecting management of in third trimester, single or unspecified fetus (HHS-HCC) Expected: 01/12/2025 (Approximate), Expires: 07/14/2025 documented as of this encounter Procedures Procedure Name Priority Date/Time Associated Diagnosis Comments POCT URINALYSIS DIPSTICK Routine 01/12/2025 2:00 PM EDT 38 weeks gestation of (HHS-HCC) Third trimester ([facility]-HCC) documented in this encounter Results * (ABNORMAL) POCT urinalysis dipstick manually resulted (01/12/2025 2:00 PM EDT) Color, UA Yellow Clarity, UA Clear Glucose, UA Negative Negative - 2000(110) ++++ mg/dL Bilirubin, UA Negative Negative - 4(70) +++ mg/dL Ketones, UA Negative Negative - 160(16) ++++ mg/dL Spec Grav, UA 1.010 1 - 1.03 Blood, UA Positive Negative - 50 Immanuel/mcL Comment:trace-intact pH, UA 6.0 5 - 9 Protein, UA Negative Negative - 2000(20) ++++ mg/dL Urobilinogen, UA 0.2 0.2 - 12 mg/dL Leukocytes, UA Trace Negative - 500+++ Jennyfer/mcL Nitrite, UA Negative Negative - Positive Urine 01/12/2025 2:00 PM EDT Brenda ZIMMER POINT OF CARE TEST ENTER/EDIT OR DERABLES Final Result documented in this encounter Visit Diagnoses Diagnosis Excessive growth affecting management of in third trimester, single or unspecified fetus (HHS-HCC)- Primary 38 weeks gestation of (HHS-HCC) Third trimester ([facility]-HCC) state, incidental documented in this encounter Additional Health Concerns Assessment Noted Time PHQ-9 Depression Total Score: 0 06/02/20 10:00 AM EDT documented as of this encounter Care Teams Director Of Regional Sales Relationship Specialty Start Date End Date Raegan Medina MD [address] [place] [address] PCP - General Family Medicine 06/02/24 documented as of this encounter
--- OUTSIDE RECORDS SUMMARY | 2025-01-19 13:40 | XMS_ITS | Encounter Summary ---
Author Organization [facility] Address [address] [place] [address] Care Team Providers Care Lpn Cma Name Role Phone Raegan Medina MD Primary Care Provider [phone] Reason for Visit * Reason Comments Routine Visit Encounter Details Date Type Department Care Team (Late st Contact Info) Description 01/19/2025 1:40 PM EDT Routine [facility] OB [address] [place] [address] Slim Russell, DO [address] [place], [facility] Third trimester ([facility]); 39 weeks gestation of ([facility]) Social History Tobacco Use Types Packs/Day Years [...] week 06/01/2024 How often do you attend [facility] or caodaism services? Never 06/01/2024 Do you belong to any clubs o r organizations such as sikh groups, unions, fraternal or athletic groups, or [...] Recorded Patient Health Questionnaire-2 Score 0 06/02/2024 [facility] of Occupat ional [facility] - Occupational Stress Questionnaire Answer Date [...] any time in the past 12 m [facility], were you homeless or living in a [...] Sign Reading Time Taken Comments Blood Pressure - - Pulse - - Temperature - - Respiratory [...] nursing note reviewed. Exam conducted with a straightener and aligner present. Vitals: Estimated body mass index is 30.56 kg/m?? as calculated from the following: Height as of 06/02/24: 5' 5.5 . Weight as of this encounter: 186 lb 8 oz. BP: Patient's last menstrual period was 04/19/2024. ASSESSMENT & PLAN ICD-10-CM 1. Third trimester ([facility]) Z34.93 2. 39 weeks gestation of ([facility]) Z3A.39 POCT urinalysis dipstick manually resulted Return [...] PM EDT Routine [facility] B[facility] OB [address] [place] [address] Slim Russell DO [address] [place] [address] documented as of this encounter Procedures Procedure Name Priority Date/Time Associated Diagnosis Comments POCT URINALYSIS DIPSTICK Routine 01/19/2025 1:45 PM EDT 39 weeks gestation of ([facility]) documented in this encounter Results * (ABNORMAL) [...] this encounter Visit Diagnoses Diagnosis Third trimester ([facility]) state, incidental 39 weeks gestation of ([facility]) documented in this encounter Additional Health Concerns Assessment Noted Time PHQ-9 Depression Total Score: 0 06/02/20 10:00 AM EDT documented as of this encounter Care Teams Lpn Cma Relationship Specialty Start Date End Date Raegan Medina MD [address] [place] [address] PCP - General Family Medicine 06/02/24 documented as of this encounter
--- OUTSIDE RECORDS SUMMARY | 2025-01-24 11:23 | XMS_ITS | Clinical Summary ---
Author Organization [facility] Address [address] [place] [address] Care Team Providers Care Pharmaceutical Specialty Representative Name Role Phone Raegan Medina MD Primary Care Provider [phone] Allergies No known active allergies Medications busPIRone [...] Encounters Date Type Department Care Team Description 01/21/2025 Travel 01/20/2025 Clinisync Result Encounter [facility] External Department Unsolicited Brenda Jeff PA 01/19/2025 1:40 PM EDT Routine [facility] [address] [place] [address] Yvonne, Slim, DO Third trimester ([facility]); 39 weeks gestation of ([facility]) 01/19/2025 Bamboo flowsheet [facility] [address] [place] [address] Slim Russell, DO 01/18/2025 Travel 01/13/2025 Clinisync Result Encounter [facility] External Department Unsolicited Brenda Jeff PA 01/13/2025 Clinisync Result Encounter [facility] External Department Unsolicited Brenda Jeff PA 01/12/2025 1:50 PM EDT Routine [facility] OB [address] [place] [address] Brenda Jeff PA Excessive growth affecting management of in third trimester, single or unspecified fetus ([facility]) (Primary Dx); 38 weeks gestation of ([facility]); Third trimester ([facility]) 01/12/2025 Bamboo flowsheet [facility] OB [address] [place] [address] Brenda Jeff PA 01/06/2025 Travel 01/05/2025 1:20 PM EDT Routine [facility] OB [address] [place] [address] Slim Russell, DO Third trimester ([facility]); 37 weeks gestation of ([facility]) 01/05/2025 Bamboo flowsheet [facility] [address] [place] [address] [place] [address] Slim Russell, DO 12/30/2024 Travel 12/29/2024 9:20 AM EDT Routine [facility] OB [address] [place] [address] Brenda Jeff PA 36 weeks gestation of ([facility]); Third trimester ([facility]) 12/29/2024 9:00 AM EDT Ancillary Procedure [facility] [address] [place] [address] LGA (large for gestational age) fetus affecting management of mother, first trimester, fetus 3 ([facility]) 12/22/2024 Travel 12/14/2024 8:30 AM EDT Routine NOM[facility] [address] [place] [address] Slim Russell, DO Third trimester ([facility]); 34 weeks gestation of ([facility]) 12/14/2024 Bamboo flowsheet [facility]OM[facility] [address] [place] [address] Slim Russell, DO 12/08/2024 Telephone [address] [address] [place] [address] Slim Russell, DO 12/07/2024 Travel 12/01/2024 9:50 AM EDT [facility]ine [facility] [address] [place] [address] [place] [address] Ling Graham, SANDHYA LGA (large for gestational age) fetus affecting management of mother, first trimester, fetus 3 ([facility]) (Primary Dx); Third trimester ([facility]); 32 weeks gestation of ([facility]) 12/01/2024 9:00 AM EDT Ancillary Procedure [facility] [address] [place] [address] size inconsistent with dates ([facility]) 11/30/2024 Travel 11/28/2024 Travel 11/16/2024 11:20 AM EDT [facility]ine [facility] [address] [place] [address] [place] [address] Slim Russell, DO Third trimester ([facility]); 30 weeks gestation of ([facility]); size inconsistent with dates ([facility]) 11/16/2024 Bamboo flowsheet NOM[facility] [address] [place] [address] Slim Russell, DO 11/15/2024 Travel 11/01/2024 8:50 AM EDT [facility]ine [facility] [address] [place] [address] [place] [address] Slim Russell, Size of fetus inconsistent with dates in third trimester ([facility]) (Primary Dx); Third trimester ([facility]); 28 weeks gestation of ([facility]) 11/01/2024 Bamboo flowsheet [facility] [address] [place] [address] Slim Russell, 10/30/2024 Travel from Last 3 [...] How often do you attend chur or cheondoism services? Never 06/01/2024 Do you belong to any clubs o r organizations such as jain groups, unions, fraternal or athletic groups, or [...] Recorded Patient Health Questionnaire-2 Score 0 06/02/2024 [facility] of Occupat ional Health - Occupational Stress [...] any time in the past 12 [facility], were you homeless or living in [...] PM EDT Routine [facility] [address] [place] [address] YvonneSlim gray, DO [address] [place] [address] Health Maintenance Due Date Last Done Comments Pap Smear 2014 Influenza Vaccine (Season Ended) 2025 Cervical Cancer Screening 10/13/2025 HPV/Cotest 10/13/2025 10/13/2020, 09/05, 09/21/2018 Procedures Procedure Name Priority Date/Time Associated Diagnosis Comments OB BPP W NON-STRESS 01/20/2025 8:01 AM EDT POCT URINALYSIS DIPSTICK Routine 01/19/2025 1:45 PM EDT 39 weeks gestation of ([facility]) US OB BPP W NON-STRESS 01/13/2025 9:30 PM EDT US OB GROWTH 01/13/2025 9:26 PM EDT POCT URINALYSIS DIPSTICK Routine 01/12/2025 2:00 PM EDT 38 weeks gestation of ([facility]) Third trimester ([facility]) POCT URINALYSIS DIPSTICK Routine 12/29/2024 9:31 AM EDT 36 weeks gestation of ([facility]) Third trimester ([facility]) CULTURE, GROUP B STREP WITH SUSCEPTIBLITY Routine 12/29/2024 9:21 AM EDT Third trimester ([facility]) US OB FOLLOW UP TRANSABDOMINAL APPROACH Routine 12/29/2024 9:17 AM EDT LGA (large for gestational age) fetus affecting management of mother, first trimester, fetus 3 ([facility]) POCT URINALYSIS DIPSTICK Routine 12/14/2024 8:35 AM EDT Third trimester ([facility]) POCT URINALYSIS DIPSTICK Routine 12/01/2024 9:29 AM EDT Third trimester ([facility]) US OB FOLLOW UP TRANSABDOMINAL APPROACH Routine 12/01/2024 9:14 AM EDT size inconsistent with dates ([facility]) POCT URINALYSIS DIPSTICK Routine 11/16/2024 11:42 AM EDT Third trimester ([facility]) 30 weeks gestation of ([facility]) POCT URINALYSIS DIPSTICK Routine 11/01/2024 9:04 AM EDT Third trimester ([facility]) Q - THINPREP(R) TIS AND HPV MRNA E6/E7 RFL HPV 16,18/45 Routine 10/13/2020 from Last 3 Months or Most Recently Relevant to Health Maintenance Results * US OB BPP W NON-STRESS (01/20/2025 8:01 AM EDT) Only the most recent of2 resultswithin the time period is included. Anatomical Region Laterality Modality Other 01/20/2025 8:01 AM EDT Narrative 01/20/2025 8:03 AM EDT [address] [address] Ultrasound Report Signed Patient: GRETA PINEDA MR#: [id number] : 1995 Acct:[id number] Age/Sex: 29 / F ADM Date: 01/20/25 Loc: [facility] 250-[address]: Brenda Jeff Ordering Physician: Brenda Jeff Date of Service: 01/20/25 Procedure(s): US OB BPP w non-stress Accession Number(s): [id number] cc: Brenda Jeff; Physician,Non-Staff M.DRaji [address] [address] Patient Name: GRETA PINEDA MRN: [id number] date: 1995 Sex: F Assigned Patient Location: [facility] Current Patient Location: [facility] Accession/Order Number: [id number] Exam Date: 01/20/2025 07:59 Report Date: 01/20/2025 08:01 At the request of: BRENDA JEFF Procedure: US OB BPP w non-stress BIOPHYSICAL PROFILE: CLINICAL INFORMATION: EXCESSIVE GROWTH O36.63X0 COMPARISON: 01/13/2025 There is a single live intrauterine gestation in cephalic presentation. The reported gestational age is 39 weeks 3 days. The heart rate measures 150 beats per minute. FINDINGS: TONE: 1 or more episodes of activity extension and flexion of extremity or opening and closing of the hand [Y] 2/2 GROSS BODY MOVEMENTS: 3 or more discrete body or limb movements [Y] 2/2 BREATHING MOVEMENTS: 1 or more episodes of breathing lasting at least 30 seconds [Y] 2/2 YUE: A single deepest vertical pocket of amniotic fluid greater than 2 cm [Y] 2/2 YUE: 11.0 cm . This is in normal range. Total score: 8/8 US/US OB BPP w non-stress IMPRESSION: NORMAL BIOPHYSICAL PROFILE. Impression dictated by: Ronda Aggarwal M.D. 01/20/2025 8:01 AM Dictation Location: [place] [address] Electronically authenticated by: [id number] Y Date: 01/20/2025 08:01 Dictated By: Ronda Aggarwal M.D. Signed By: 01/20/25 0803 DD/ 08 TD/TT: Construction Code Administrator: Procedure Note Radiology, Radiologist, MD - 01/20/2025 [place] [address] Ultrasound Report Signed Patient: GRETA PINEDA LMR#: [id number] : 1995Acct:[id number] Age/Sex: 29 / FADM Date: 01/20/25 Loc: [facility] 250-[address]: Brenda Jeff Ordering Physician: Brenda Jeff Date of Service: 01/20/25 Procedure(s): US OB BPP w non-stress Accession Number(s): [id number] cc: Brenda Jeff; Physician,Non-Staff Radhames The [place] [address] Patient Name: GRETA PINEDA MRN: [facility]:[id number] date: 1995 Sex: F Assigned Patient Location: [facility] Current Patient Location: [facility] Accession/Order Number: [id number] Exam Date: 01/20/2025 07:59 Report Date: 01/20/2025 08:01 At the request of: BRENDA JEFF Procedure: US OB BPP w non-stress BIOPHYSICAL PROFILE: CLINICAL INFORMATION: EXCESSIVE GROWTH O36.63X0 COMPARISON: 01/13/2025 There is a single live intrauterine gestation in cephalic presentation.The reported gestational age is 39 weeks 3 days. The heart ratemeasures 150 beats per minute. FINDINGS: TONE: 1 or more episodes of activity extension and flexion of extremity or opening and closing of the hand [Y] 2/2 GROSS BODY MOVEMENTS: 3 or more discrete body or limb movements [Y] 2/2 BREATHING MOVEMENTS: 1 or more episodes of breathing lastingat least 30 seconds [Y] 2/2 YUE: A single deepest vertical pocket of amniotic fluid greater than 2 cm [Y] 2/2 YUE: 11.0 cm . This is in normal range. Total score: 8/8 US/US OB BPP w non-stress IMPRESSION: NORMAL BIOPHYSICAL PROFILE. Impression dictated by: Ronda Aggarwal M.D. 01/20/2025 8:01 AM Dictation Location: [place] [address] Electronically authenticated by: [id number] Y Date: 508:01 Dictated By: Ronda Aggarwal M.D. Signed By:01/20/25 0803 DD/ 0 TD/TT: Construction Code Administrator: Brenda [facility] Final Result * (ABNORMAL) POCT urinalysis dipstick manually resulted [...] Positive Urine 01/19/2025 1:45 PM EDT us Slim Russell DO POINT OF CARE TEST ENTER/EDIT OR DERABLES Final Result * US OB GROWTH (01/13/2025 9:26 PM EDT) Anatomical Region Laterality Modality Other 01/13/2025 9:26 PM EDT Narrative 01/13/2025 9:29 PM EDT [address] [address] Ultrasound Report Signed Patient: GRETA PINEDA MR#: [id number] : 1995 Acct:[id number] Age/Sex: 29 / F ADM Date: 01/13/25 Loc: US Attending Dr: Brenda Jeff Ordering Physician: Brenda Jeff Date of Service: 01/13/25 Procedure(s): US OB growth Accession Number(s): [id number] cc: Brenda Jeff; Physician,Non-Staff Radhames The [address] [address] Patient Name: GRETA PINEDA MRN: [facility]:[id number] date: 1995 Sex: F Assigned Patient Location: [facility] Current Patient Location: Accession/Order Number: [id number] Exam Date: 01/13/2025 21:21 Report Date: 01/13/2025 [...] Bauman M.D. 01/13/2025 9:26 PM Dictation Location: [place] [address] Electronically authenticated by: [id number] Y Date: 01/13/2025 21:26 Dictated By: Casper Bauman D.O. Signed By: 01/13/252128 DD/ 25 TD/TT: Construction Code Administrator: Procedure Note Radiology, Radiologist, - 01/13/[address] [address] Ultrasound Report Signed Patient: YARY PINEDA#: [id number] : 1995Acct:[id number] Age/Sex: 29 / FADM Date: 01/13/25 Loc: US Attending Dr: Brenda Jeff Ordering Physician: Brenda Jeff Date of Service: 01/13/25 Procedure(s): US OB growth Accession Number(s): [id number] cc: Brenda Jeff; Physician,Non-Staff M.[place]y [place] [id number] Patient Name: GRETA PINEDA MRN: [id number] date: 1995 Sex: F Assigned Patient Location: [facility] Current Patient Location: Accession/Order Number: [id number] Exam Date: 01/13/2025 21:21 Report Date: 01/13/2025 21:26 At the request of: BRENDA JEFF Procedure: US OB growth Obstetrical Ultrasound for Fetus greater than 14 weeks HISTORY: growth heart rate is 148 bpm. The fetus is in cephalic presentation. The placenta is in a posterior position with normal appearance. Amnioticfluid index is 16.79cm. The cervix not assessed The estimated weight ge2585 g. with percentile 43%. The ovaries are [...] Bauman M.D. 01/13/2025 9:26 PM Dictation Location: [facility] Electronically authenticated by: [id number] Y Date: 1:26 Dictated By: Casper Bauman D.O. Signed By:01/13/252128 DD/ 25 TD/TT: Construction Code Administrator: us Brenda [facility] Final Result [...] II, MD, PHD at 29-Dec-2024 11:18:48 PM [facility] Procedure Note Arvin Jimenez MD - [...] signed by ARVIN JIMENEZ II, MD, PHD [id number] 11:18:48 PM [facility] us Ling Graham NP IMG OB US PROCEDURES Final Re sult [...] SULT: Negative for intraepithelial lesion or malignancy. [facility] COMMENT: This Pap test has been evaluated with computer assisted technology. [facility] WOOD SASH AND FRAME CARPENTER: SEE NOTE NO [facility] Comment: PCJ, SCT(ASCP) CT screening location: [place] [address]. REVIEW WOOD SASH AND FRAME CARPENTER: SEE NOTE [facility] Comment: MLH, CT(ASCP) CT screening location: [place] [address]. COMMENT SEE NOTE [facility] [...] information. HPV MRNA E6/E7 Detected(A) Not Detected [facility] Comment: Methodology: Rv Detailer-Mediated Amplification This assay detects E6/E7 viral messenger RNA (mRNA) from 14 high-risk HPV types (16,18,31,33,35,39,45,51,52,56,58,59,66,68). The analytical performance characteristics of this assay have been determined by [employer]. The modifications have not been cleared or approved by the FDA. This assay has been validated pursuant to the CLIA regulations and is used for clinical purposes. For additional information, please refer to http://education.GetAFive.Selenokhod/faq/RVZ305i6 (This link if provided for information/ educational purposes only.) 10/13/2020 us Bennie Cosme NP [facility] Final Result [facility] EXTERNAL [facility] from Last 3 Months or Most Recently Relevant to Health Maintenance Insurance BCBS Care Teams Pharmaceutical Specialty Representative Relationship Specialty Start Date End Date Raegan Medina MD [address] [place] [address] PCP - General Family Medicine 06/02/24
--- OUTSIDE RECORDS SUMMARY | 2025-01-24 11:23 | XMS_ITS | Encounter Summary ---
Author Organization [facility] Address [address] [place] [address] Care Team Providers Care Soybean Specialties Cook Name Role Phone Raegan Medina MD Primary Care Provider [phone] Mary Ann Johnson NP Unavailable [phone] Encounter Details Date Type Department Care Team (Late st Contact Info) Description 07/19/2024 Abstract [facility] OB [address] [place] [address] Slim Russell, DO [address] [facility] [address] [place], [facility]11 Social History Tobacco Use Types [...] often do you attend chur ch or baptist services? Never 06/01/2024 Do you belong to any clubs o r organizations such as yazidism groups, unions, fraternal or athletic groups, or [...] Recorded Patient Health Questionnaire-2 Score 0 06/02/2024 [facility] - Occupational Stress Questionnaire Answer [...] any time in the past 12 m [facility], were you homeless or living in a halfway (including now)? No 06/01/2024 Estimated Date of [...] EDT Routine [facility] OB [address] [place] [address] Slim Russell, DO [address] [facility] [address] [place], [place] [id number] documented as of this encounter Visit Diagnoses Not on filedocumented in this encounter Additional Health Concerns Assessment Noted Time PHQ-9 Depression Total Score: 0 06/02/20 24 10:00 AM EDT documented as of this encounter Care Teams Soybean Specialties Cook Relationship Specialty Start Date End Date Raegan Medina MD [address] [facility] [place] [address] PCP - General Family Medicine 06/02/24 Mary Ann Johnson NP [address] [facility] [place] [address] PCP - Anny Commercial 07/04/24 documented as of this encounter
--- OUTSIDE RECORDS SUMMARY | 2025-01-24 11:23 | XMS_ITS | Patient Health Record ---
Author Organization [facility] Address [address] [place], [place] [id number] Care Team Providers Care Retail Marketing Manager Name Role Phone Stanley Martellmarisa Unavailable [phone] Allergies No Known Allergies Reason For Referral [...] Location Date Provider Diagnosis Dental Main [address] [place], [place] [id number] 09/10/2024 An Angel Dental caries into dentine [...] Provider Name:An Angel , 02/14/2025 09:15:00 AM, [address] [place] [address], [id number], Insurance Providers Payer Name Payer Address Payer Phone Subscriber Number Group Number Insured Name Patient Relationship to Insured Coverage Start Date Coverage End Date D[address] [place], [place] [id number] Greta Pineda Self - patient is the insured 4
--- OUTSIDE RECORDS SUMMARY | 2025-01-24 11:23 | XMS_ITS | Encounter Summary ---
Author Organization [facility] Address [address] [place] [address] Care Team Providers Care Director Of Marketing Communications Name Role Phone Raegan Medina MD Primary Care Provider [phone] Mary Ann Johnson NP Unavailable Encounter Details Date Type Department Care Team (Late st Contact Info) Description 06/18/2024 Abstract [facility] OB [address] [place] [address] Slim Russell, DO [address] [facility] [address] [place], [facility]11 Social History Tobacco Use Types Packs/Day Years [...] often do you attend chur ch or restoration services? Never 06/01/2024 Do you belong to any clubs o r organizations such as moravian groups, unions, fraternal or athletic groups, or [...] Score 0 06/02/2024 [facility] - Occupational Stress Questionnaire Answer Date [...] any time in the past 12 m [facility], were you homeless or living [...] EDT Routine [facility] BCP OB [address] [place] [address] Slim Russell, DO [address] [facility] [address] [place], [place] [id number] documented as of this encounter Visit Diagnoses Not on filedocumented in this encounter Additional Health Concerns Assessment Noted Time PHQ-9 Depression Total Score: 0 06/02/20 24 10:00 AM EDT documented as of this encounter Care Teams Director Of Marketing Communications Relationship Specialty Start Date End Date Raegan Medina MD [address] [facility] [place] [address] PCP - General Family Medicine 06/02/24 Mary Ann Johnson NP [address] [facility] [address] PCP - Anny Commercial 07/04/24 documented as of this encounter
--- OUTSIDE RECORDS SUMMARY | 2025-01-24 11:23 | XMS_ITS | Encounter Summary ---
Author Organization [facility] Address [address] [place] [address] Care Team Providers Care Sportspersons Name Role Phone Raegan Medina MD Primary Care Provider [phone] Encounter Details Date Type Department Care Team [...] often do you attend chur ch or voodoo services? Never 06/01/2024 Do you belong to [...] Recorded Patient Health Questionnaire-2 Score 0 06/02/2024 [facility] - Occupational [...] any time in the past [address] [facility], were you homeless or living in [...] PM EDT Routine [facility] BCP OB [address] [place] [address] Slim Russell, DO [address] [facility] [place] [address] documented as of this encounter Visit Diagnoses Not on filedocumented in this encounter Additional Health Concerns Assessment Noted Time PHQ-9 Depression Total Score: 0 06/02/20 10:00 AM EDT documented as of this encounter Care Teams Sportspersons Relationship Specialty Start Date End Date Raegan Medina MD [address] [place] [address] PCP - General Family Medicine 06/02/24 documented as of this encounter
--- OUTSIDE RECORDS SUMMARY | 2025-01-24 11:23 | XMS_ITS | Encounter Summary ---
Author Organization [facility] Address [address] [place] [address] Care Team Providers Care Inorganic Chemistry Teacher Name Role Phone Raegan Medina MD Primary Care Provider [phone] Mary Ann Johnson NP Unavailable [phone] Encounter Details Date Type Department Care Team (Late st Contact Info) Description 06/18/2024 Clinisync Result Encounter [facility] External Department Unsolicited Oumar Russell, DO [address] [facility] [place] [address] Social History Tobacco Use Types Packs/Day Years [...] often do you attend chur ch or amish services? Never 06/01/2024 Do you belong to any clubs o r organizations such as jainism groups, unions, fraternal or athletic groups, or [...] Recorded Patient Health Questionnaire-2 Score 0 06/02/2024 [facility] - Occupational Stress [...] any time in the past 12 m [facility], were you homeless or living in a [...] Description 01/24/2025 1:00 PM EDT Routine [facility] OB [address] [facility] [place] [address] Oumar Russell DO [address] [facility] [address] [place], [place] [id number] documented as of this encounter Procedures Procedure Name Priority Date/Time Associated Diagnosis Comments US OB TRANSVAGINAL 06/18/2024 4: 19 AM EST documented in this encounter Results * US OB TRANSVAGINAL (06/18/2024 4:19 AM EST) Anatomical Region Laterality Modality Other 06/18/2024 4:19 AM EST Narrative 06/18/2024 4:21 AM EST The [place] [id number] Ultrasound Report Signed Patient: Greta Pineda MR#: [id number] : 1995 Acct:[id number] Age/Sex: 28 / F ADM Date: 06/17/24 Loc: [facility] Attending Dr: Oumar Russell D.O. Ordering Physician: Oumar Russell D.O. Date of Service: 06/17/24 Procedure(s): US OB transvaginal Accession Number(s): [id number] cc: Oumar Russell D.O.; Samra Aguirre D.O. The [address] [address] Patient Name: GRETA PINEDA MRN: [id number] date: 1995 Sex: F Assigned Patient Location: [facility] Current Patient Location: Accession/Order Number: [id number] Exam Date: 06/17/2024 13:27 Report Date: 06/18/2024 [...] Signed By: 06/18/24 0421 DD/ 0419 TD/TT: Infection Control Coordinator: Procedure Note Radiology, Radiologist, MD - 06/18/2024 [place] [address] Ultrasound Report Signed Patient: Mary Pineda#: [id number] : 1995Acct:[id number] Age/Sex: 28 / FADM Date: 06/17/24 Loc: [facility] Attending Dr: Oumar Russell D.O. Ordering Physician: Oumar Russell D.O. Date of Service: 06/17/24 Procedure(s): US OB transvaginal Accession Number(s): [id number] cc: Oumar Russell D.O.; Samra Aguirre D.O. [place] [id number] Patient Name: GRETA PINEDA MRN: [id number] date: 1995 Sex: F Assigned Patient Location: [facility] Current Patient Location: Accession/Order Number: [id number] Exam Date: 06/17/2024 13:27 Report Date: 06/18/2024 [...] M.D. Signed By:06/18/24 0421 DD/ 0419 TD/TT: Infection Control Coordinator: us Oumar Russell DO [facility] Final Result documented in this encounter Visit Diagnoses Not on filedocumented in this encounter Additional Health Concerns Assessment Noted Time PHQ-9 Depression Total Score: 0 06/02/20 24 10:00 AM EDT documented as of this encounter Care Teams Inorganic Chemistry Teacher Relationship Specialty Start Date End Date Raegan Medina MD [address] [place] [address] PCP - General Family Medicine 06/02/24 Mary Ann Johnson NP [address] [place] [address] PCP - [place] Commercial 07/04/24 documented as of this encounter
--- OUTSIDE RECORDS SUMMARY | 2025-01-24 11:23 | XMS_ITS | Encounter Summary ---
Author Organization [facility] Address [address] [place] [address] Care Team Providers Care Cloth Trimmer Hand Name Role Phone Raegan Medina MD Primary Care Provider [phone] Mary Ann Johnson NP Unavailable [phone] Encounter Details Date Type Department Care Team (Late st Contact Info) Description 07/14/2024 Abstract [facility] OB [address] [place] [address] Slim Russell, DO [address] [facility] [address] [place], [facility]11 Social History Tobacco Use Types [...] often do you attend chur ch or buddhist services? Never 06/01/2024 Do you [...] Recorded Patient Health Questionnaire-2 Score 0 06/02/2024 [facility] - Occupational Stress Questionnaire Answer [...] any time in the past 12 m [facility], were you homeless or living in a group home (including now)? No 06/01/2024 Estimated Date [...] EDT Routine [facility] BCP OB [address] [place] [address] Slim Russell, DO [address] [facility] [address] [place], [place] [address] documented as of this encounter Visit Diagnoses Not on filedocumented in this encounter Additional Health Concerns Assessment Noted Time PHQ-9 Depression Total Score: 0 06/02/20 24 10:00 AM EDT documented as of this encounter Care Teams Cloth Trimmer Hand Relationship Specialty Start Date End Date Raegan Medina MD [address] [facility] [place] [address] PCP - General Family Medicine 06/02/24 Mary Ann Johnson NP [address] [facility] [place] [address] PCP - Anny Commercial 07/04/24 documented as of this encounter
--- OUTSIDE RECORDS SUMMARY | 2025-01-24 11:23 | XMS_ITS | Clinical Summary ---
Author Organization [facility] Address [id number] [address] [id number] Care Team Providers Care Assistant Manager Airside Operations Name Role Phone Unavailable Primary Care Provider [...]
--- OUTSIDE RECORDS SUMMARY | 2025-01-24 11:23 | XMS_ITS | Encounter Summary ---
Author Organization [facility] Address [address] [place] [address] Care Team Providers Care Teletypesetter Operator Name Role Phone Raegan Medina MD Primary Care Provider [phone] Encounter Details Date Type Department Care Team (Late st Contact Info) Description 01/19/2025 Bamboo flowsheet [facility] OB [address] [facility] [place] [address] Slim Russell, DO [address] [facility] [address] [place], [facility]11 Social History Tobacco Use Types Packs/Day [...] often do you attend chur ch or zoroastrianism services? Never 06/01/2024 Do you belong to any clubs o r organizations such as taoist groups, unions, fraternal or athletic groups, or [...] Patient Health Questionnaire-2 Score 0 06/02/2024 [facility] - Occupational [...] any time in the past 12 m [facility], were you homeless or living [...] EDT Routine [facility] BCP OB [address] [place] [address] Slim Russell DO [address] [facility] [address] [place], [place] [address] documented as of this encounter Visit Diagnoses Not on filedocumented in this encounter Additional Health Concerns Assessment Noted Time PHQ-9 Depression Total Score: 0 06/02/20 10:00 AM EDT documented as of this encounter Care Teams Teletypesetter Operator Relationship Specialty Start Date End Date Raegan Medina MD [address] [place] [address] PCP - General Family Medicine 06/02/24 documented as of this encounter
--- OUTSIDE RECORDS SUMMARY | 2025-01-24 11:23 | XMS_ITS | Encounter Summary ---
Author Organization [facility] Address [address] [place] [address] Care Team Providers Care Matcher Operator Name Role Phone Raegan Medina MD Primary Care Provider [phone] Encounter Details Date Type Department Care Team (Late st Contact Info) Description 01/20/2025 Clinisync Result Encounter [facility] External Department Unsolicited Brenda Jeff, GORAN [address] [place] [address] Dr [place], [facility]11 Social History Tobacco Use Types Packs/Day [...] often do you attend chur ch or yarsani services? Never 06/01/2024 Do you belong to any clubs o r organizations such as anglican groups, unions, fraternal or athletic groups, or [...] Health Questionnaire-2 Score 0 06/02/2024 [facility] Occupat ional Health - Occupational [...] any time in the past 12 m [facility], were you homeless or living in a half-way (including now)? No 06/01/2024 Estimated Date of [...] OB [address] [facility] [place] [address] Slim Russell, DO [address] [place] [address] Dr [place], [place] [address] documented as of this encounter Procedures Procedure Name Priority Date/Time Associated Diagnosis Comments US OB BPP W NON-STRESS 01/20/2025 8:01 AM EDT documented in this encounter Results * US OB BPP W NON-STRESS (01/20/2025 8:01 AM EDT) Anatomical Region Laterality Modality Other 01/20/2025 8:01 AM EDT Narrative 01/20/2025 8:03 AM EDT The [place] [address] Ultrasound Report Signed Patient: GRETA PINEDA MR#: [id number] : 1995 Acct:[id number] Age/Sex: 29 / F ADM Date: 01/20/25 Loc: [facility] 250-[address]: Brenda Jeff Ordering Physician: Brenda Jeff Date of Service: 01/20/25 Procedure(s): US OB BPP w non-stress Accession Number(s): [id number] cc: Brenda Jeff; Physician,Non-Staff M.D. The [address] [address] Patient Name: GRETA PINEDA MRN: [id number] date: 1995 Sex: F Assigned Patient Location: [facility] Current Patient Location: [facility] Accession/Order Number: [id number] Exam Date: 01/20/2025 07:59 Report Date: 01/20/2025 [...] Aggarwal M.D. 01/20/2025 8:01 AM Dictation Location: [place] [address] Electronically authenticated by: [id number] Y Date: 01/20/2025 08:01 Dictated By: Ronda Aggarwal M.D. Signed By: 01/20/25 0803 DD/ 0801 TD/TT: Admitting Office Escort: Procedure Note Radiology, Radiologist, - 01/20/2025 [place] [address] Ultrasound Report Signed Patient: GRETA PINEDA LMR#: [id number] : 1995Acct:[id number] Age/Sex: 29 / FADM Date: 01/20/25 Loc: [facility] 250-[address]: Brenda Jeff Ordering Physician: Brenda Jeff Date of Service: 01/20/25 Procedure(s): US OB BPP w non-stress Accession Number(s): [id number] cc: Brenda Jeff; Physician,Non-Staff Radhames The [place] [address] Patient Name: GRETA PINEDA MRN: [id number] date: 1995 Sex: F Assigned Patient Location: [facility] Current Patient Location: [facility] Accession/Order Number: [id number] Exam Date: 01/20/2025 07:59 Report Date: 01/20/2025 [...] Aggarwal M.D. 01/20/2025 8:01 AM Dictation Location: [place] [address] Electronically authenticated by: [id number] Y Date: 508:01 Dictated By: Ronda Aggarwal M.D. Signed By:01/20/25802 DD/ 0 TD/TT: Admitting Office Escort: Brenda ZIMMER [facility] Final Result documented in this encounter Visit Diagnoses Not on filedocumented in this encounter Additional Health Concerns Assessment Noted Time PHQ-9 Depression Total Score: 0 06/02/20 24 10:00 AM EDT documented as of this encounter Care Teams Matcher Operator Relationship Specialty Start Date End Date Raegan Medina MD [address] [place] [address] PCP - General Family Medicine 06/02/24 documented as of this encounter
--- OUTSIDE RECORDS SUMMARY | 2025-01-24 11:23 | XMS_ITS | Encounter Summary ---
Author Organization [facility] Address [address] [place] [address] Care Team Providers Care Parachute Cushion Installer Name Role Phone Raegan Medina MD Primary Care Provider Mary Ann Johnson NP Unavailable Encounter Details Date Type Department Care Team (Late st Contact Info) Description 07/14/2024 Abstract [facility] OB [address] [place] [address] Slim Russell, DO [address] [facility] [address] [place], [facility]11 Social History Tobacco Use Types Packs/Day Years [...] any clubs o r organizations such as samaritan groups, unions, fraternal or athletic groups, or [...] Score 0 06/02/2024 [facility] - Occupational Stress [...] in the past 12 m [facility], were you homeless or living [...] EDT Routine [facility] BCP OB [address] [place] [address] Slim Russell, DO [address] [facility] [address] [place], [place] [address] documented as of this encounter Visit Diagnoses Not on filedocumented in this encounter Additional Health Concerns Assessment Noted Time PHQ-9 Depression Total Score: 0 06/02/20 24 10:00 AM EDT documented as of this encounter Care Teams Parachute Cushion Installer Relationship Specialty Start Date End Date Raegan Medina MD [address] [facility] [place] [address] PCP - General Family Medicine 06/02/24 Mary Ann Johnson NP [address] [facility] [place] [address] PCP - Anny Commercial 07/04/24 documented as of this encounter
--- OUTSIDE RECORDS SUMMARY | 2025-01-24 11:23 | XMS_ITS | Encounter Summary ---
Author Organization [facility] Address [address] [place] [address] Care Team Providers Care Wax Specialist Name Role Phone Raegan Medina MD Primary Care Provider [phone] Encounter Details Date Type Department Care Team (Late st Contact Info) Description 01/13/2025 Clinisync Result Encounter [facility] External Department Unsolicited Brenda Jeff, GORAN [address] [place] [address] Dr [place], [facility]11 Social History Tobacco Use Types Packs/Day [...] Recorded Patient Health Questionnaire-2 Score 0 06/02/2024 [facility] of Occupat ional Health - [...] PM EDT Routine [facility] BCP OB [address] [facility] [place] [address] Slim Russell, DO [address] [facility] [place] [address] documented as of this encounter Procedures Procedure Name Priority Date/Time Associated Diagnosis Comments US OB GROWTH 01/13/2025 9:26 PM EDT documented in this encounter Results * US OB GROWTH (01/13/2025 9:26 PM EDT) Anatomical Region Laterality Modality Other 01/13/2025 9:26 PM EDT Narrative 01/13/2025 9:29 PM EDT The [address] [address] Ultrasound Report Signed Patient: GRETA PINEDA MR#: [id number] : 1995 Acct:[id number] Age/Sex: 29 / F ADM Date: 01/13/25 Loc: US Attending Dr: Brenda Jeff Ordering Physician: Brenda Jeff Date of Service: 01/13/25 Procedure(s): US OB growth Accession Number(s): [id number] cc: Brenda Jeff; Physician,Non-Staff M.DRaji The [address] [address] Patient Name: GRETA PINEDA MRN: [id number] date: 1995 Sex: F Assigned Patient Location: [facility] Current Patient Location: Accession/Order Number: [id number] Exam Date: 01/13/2025 21:21 Report Date: 01/13/2025 [...] Bauman M.D. 01/13/2025 9:26 PM Dictation Location: [place] [address] Electronically authenticated by: [id number] Y Date: 01/13/2025 21:26 Dictated By: Casper Bauman D.O. Signed By: 01/13/252128 DD/ 25 TD/TT: Component Lab Tech: Procedure Note Radiology, Radiologist, MD - 01/13/2025 [place] [address] Ultrasound Report Signed Patient: YARY PINEDA#: [id number] : 1995Acct:[id number] Age/Sex: 29 FADM Date: 01/13/25 Loc: US Attending Dr: Brenda Jeff Ordering Physician: Brenda Jeff Date of Service: 01/13/25 Procedure(s): US OB growth Accession Number(s): [id number] cc: Brenda Jeff; Physician,Non-Staff Radhames The [address] [address] Patient Name: GRETA PINEDA MRN: [id number] date: 1995 Sex: F Assigned Patient Location: [facility] Current Patient Location: Accession/Order Number: [id number] Exam Date: 01/13/2025 21:21 Report Date: 01/13/2025 21:26 At the request of: BRENDA JEFF Procedure: US OB growth Obstetrical Ultrasound for Fetus greater than 14 weeks HISTORY: growth heart rate is 148 bpm. The fetus is in cephalic presentation. The placenta is in a posterior position with normal appearance. Amnioticfluid index is 16.79cm. The cervix not assessed The estimated weight xi0242 g. with percentile 43%. The ovaries are [...] Bauman M.D. 01/13/2025 9:26 PM Dictation Location: [place] [address] Electronically authenticated by: [id number] Y Date: 1:26 Dictated By: Casper Bauman D.O. Signed By:01/13/252128 DD/ 25 TD/TT: Component Lab Tech: us Brenda ZIMMER [facility] Final Result documented in this encounter Visit Diagnoses Not on filedocumented in this encounter Additional Health Concerns Assessment Noted Time PHQ-9 Depression Total Score: 0 06/02/20 24 10:00 AM EDT documented as of this encounter Care Teams Wax Specialist Relationship Specialty Start Date End Date Raegan Medina MD [address] [place] [address] PCP - General Family Medicine 06/02/24 documented as of this encounter
--- OUTSIDE RECORDS SUMMARY | 2025-01-24 11:23 | XMS_ITS | Encounter Summary ---
Author Organization [facility] Address [address] [place] [address] Care Team Providers Care Marine Structural Welder Name Role Phone Raegan Medina MD Primary Care Provider [phone] Encounter Details Date Type Department Care Team (Late st Contact Info) Description 01/12/2025 Bamboo flowsheet [facility] OB [address] [place] [address] Brenda Owusu PA [address] [facility] [address] [place], [place] [address] Social History Tobacco Use Types Packs/Day Years [...] often do you attend chur ch or religion services? Never 06/01/2024 Do you belong to any clubs o r organizations such as restorationist groups, unions, fraternal or athletic groups, or [...] Recorded Patient Health Questionnaire-2 Score 0 06/02/2024 [facility] Occupat ional Health - [...] any time in the past 12 m [facility], were you homeless or living [...] EDT Routine [facility] OB [address] [place] [address] Slim Russell, DO [address] [facility] [address] [place], [place] [id number] documented as of this encounter Visit Diagnoses Not on filedocumented in this encounter Additional Health Concerns Assessment Noted Time PHQ-9 Depression Total Score: 0 06/02/20 10:00 AM EDT documented as of this encounter Care Teams Marine Structural Welder Relationship Specialty Start Date End Date Raegan Medina MD [address] [place] [address] PCP - General Family Medicine 06/02/24 documented as of this encounter
--- OUTSIDE RECORDS SUMMARY | 2025-01-24 11:23 | XMS_ITS | Clinical Summary ---
Author Organization [facility] Address [address] [place] [address] Phone Care Team Providers Care Trust Mail Clerk Name Role Phone Unavailable Primary Care Provider [...]
--- OUTSIDE RECORDS SUMMARY | 2025-01-24 11:23 | XMS_ITS | Encounter Summary ---
Author Organization [facility] Address [address] [place] [address] Care Team Providers Care Career Manager Name Role Phone Raegan Medina MD Primary Care Provider Encounter Details Date Type Department Care Team (Latest Contact Info) Description 01/21/2025 Travel Social History Tobacco Use Types Packs/Day [...] any clubs o r organizations such as confucianist groups, unions, fraternal or athletic groups, or [...] time in the past 12 m [facility], were you homeless or living in [...] PM EDT Routine [facility] OB [address] [place] [id number] Slim Russell, DO [address] [facility] [address] [place] [address] documented as of this encounter Visit Diagnoses Not on filedocumented in this encounter Additional Health Concerns Assessment Noted Time PHQ-9 Depression Total Score: 0 06/02/20 10:00 AM EDT documented as of this encounter Care Teams Career Manager Relationship Specialty Start Date End Date Raegan Medina MD [address] [place] [address] PCP - General Family Medicine 06/02/24 documented as of this encounter
--- OUTSIDE RECORDS SUMMARY | 2025-01-24 11:23 | XMS_ITS | Encounter Summary ---
Author Organization [facility] Address [address] [place] [address] Care Team Providers Care Water Pumping Station Engineer Name Role Phone Raegan Medina MD Primary Care Provider [phone] Mary Ann Johnson NP Unavailable [phone] Encounter Details Date Type Department Care Team (Late st Contact Info) Description 06/18/2024 Abstract [facility] OB [address] [place] [address] Slim Russell, DO [address] [facility] [address] [place], [facility] Social History Tobacco Use Types Packs/Day [...] often do you attend chur ch or mormonism services? Never 06/01/2024 Do you belong to [...] Recorded Patient Health Questionnaire-2 Score 0 06/02/2024 [facility] - Occupational Stress Questionnaire Answer Date [...] any time in the past 12 m [facility], were you homeless or living in a fdc (including now)? No 06/01/2024 Estimated Date of [...] EDT Routine [facility] OB [address] [place] [address] Slim Russell, DO [address] [facility] [address] [place], [place] [id number] documented as of this encounter Visit Diagnoses Not on filedocumented in this encounter Additional Health Concerns Assessment Noted Time PHQ-9 Depression Total Score: 0 06/02/20 24 10:00 AM EDT documented as of this encounter Care Teams Water Pumping Station Engineer Relationship Specialty Start Date End Date Raegan Medina MD [address] [facility] [place] [address] PCP - General Family Medicine 06/02/24 Mary Ann Johnson NP [address] [facility] [place] [address] PCP - Anny Commercial 07/04/24 documented as of this encounter
--- OUTSIDE RECORDS SUMMARY | 2025-01-24 11:23 | XMS_ITS | Encounter Summary ---
Author Organization [facility] Address [address] [place] [address] Care Team Providers Care Chip Bin Conveyor Tender Name Role Phone Raegan Medina MD Primary Care Provider [phone] Encounter Details Date Type Department Care Team (Late st Contact Info) Description 01/13/2025 Clinisync Result Encounter [facility] External Department Unsolicited Brenda Jeff, GORAN [address] [place] [address] Dr [place], [facility]11 Social History Tobacco Use Types [...] often do you attend chur ch or taoist services? Never 06/01/2024 Do you belong to any clubs o r organizations such as nondenominational groups, unions, fraternal or athletic groups, or [...] Questionnaire-2 Score 0 06/02/2024 [facility] of Occupat ional Health - Occupational Stress [...] any time in the past 12 m [facility], were you homeless or living in a care home (including now)? No 06/01/2024 Estimated Date [...] PM EDT Routine [facility] BCP OB [address] [facility] [address] Slim Russell, DO [address] [place] [address] [place] [address] documented as of this encounter Procedures Procedure Name Priority Date/Time Associated Diagnosis Comments US OB BPP W NON-STRESS 01/13/2025 9:30 PM EDT documented in this encounter Results * US OB BPP W NON-STRESS (01/13/2025 9:30 PM EDT) Anatomical Region Laterality Modality Other 01/13/2025 9:30 PM EDT Narrative 01/13/2025 9:33 PM EDT The [address] [address] Ultrasound Report Signed Patient: GRETA PINEDA MR#: [id number] : 1995 Acct:[id number] Age/Sex: 29 / F ADM Date: 01/13/25 Loc: US Attending Dr: Brenda Jeff Ordering Physician: Brenda Jeff Date of Service: 01/13/25 Procedure(s): US OB BPP w non-stress Accession Number(s): [id number] cc: Brenda Jeff; Physician,Non-Staff M.D. The [address] [address] Patient Name: GRETA PINEDA MRN: [id number] date: 1995 Sex: F Assigned Patient Location: [facility] Current Patient Location: Accession/Order Number: [id number] Exam Date: 01/13/2025 21:27 Report Date: 01/13/2025 [...] Bauman M.D. 01/13/2025 9:30 PM Dictation Location: [place] [address] Electronically authenticated by: [id number] Y Date: 01/13/2025 21:30 Dictated By: Casper Bauman D.O. Signed By: 01/13/252132 DD/ 29 TD/TT: Student Affairs Dean: Procedure Note Radiology, Radiologist, MD - 01/13/[address] [address] Ultrasound Report Signed Patient: YARY PINEDA#: [id number] : 1995Acct:[id number] Age/Sex: 29 / FADM Date: 01/13/25 Loc: US Attending Dr: Brenda Jeff Ordering Physician: Brenda Jeff Date of Service: 01/13/25 Procedure(s): US OB BPP w non-stress Accession Number(s): [id number] cc: Brenda Jeff; Physician,Non-Staff Radhames The [address] [address] Patient Name: GRETA PINEDA MRN: [id number] date: 1995 Sex: F Assigned Patient Location: [facility] Current Patient Location: Accession/Order Number: [id number] Exam Date: 01/13/2025 21:27 Report Date: 01/13/2025 [...] Bauman M.D. 01/13/2025 9:30 PM Dictation Location: [place] Electronically authenticated by: [id number] Y Date: 1:30 Dictated By: Casper Bauman D.O. Signed By:01/13/252132 DD/ 29 TD/TT: Student Affairs Dean: us Brenda [facility] Final Result documented in this encounter Visit Diagnoses Not on filedocumented in this encounter Additional Health Concerns Assessment Noted Time PHQ-9 Depression Total Score: 0 06/02/20 24 10:00 AM EDT documented as of this encounter Care Teams Chip Bin Conveyor Tender Relationship Specialty Start Date End Date Raegan Medina MD [address] [place] [address] PCP - General Family Medicine 06/02/24 documented as of this encounter
[2025-01-24 11:29] VITALS: BP 121/78; PULSE 74
== END 2025-01-24 12:14 | disposition home or self-care (01) ==
LOC: FBCO 11:21 → FBC 11:26
PROVIDERS: Visit Provider Obstetrics & Gynecology
DX: O36.63X0 Maternal care for excessive fetal growth, third trimester, not applicable or unspecified (principal); Z3A.40 40 weeks gestation of pregnancy
CPT/HCPCS: 59025

== ENCOUNTER 2025-01-24 19:05 | Inpatient (IN) | payer BC, SELFPAY ==
[2025-01-24] VITALS (15 sets, daily range): BP systolic 117–140; BP diastolic 67–88; PULSE 63–80
[2025-01-24 19:49] LABS: Bilirubin Urine NEGATIVE (NEGATIVE); Blood Urine TRACE-I (NEGATIVE); Clarity Urine CLEAR (CLEAR); Color Urine LT. YELLOW (YELLOW); Glucose Urine UA NEGATIVE (NEGATIVE); Ketones Urine NEGATIVE (NEGATIVE); Leukocyte Esterase Urine NEGATIVE (NEGATIVE); Nitrite Urine NEGATIVE (NEGATIVE); Protein Urine NEGATIVE (NEG/TRACE); Urobilinogen Urine 0.2 EU/dL (0.2-1.0)
[2025-01-24 19:56] LABS: Urine Microscopic Indicated YES
[2025-01-24 20:00] LABS: Bacteria Urine TRACE #/HPF (NONE SEEN); Cast Seen? NONE SEEN #/LPF (NONE SEEN); Crystals Seen? None Seen #/HPF (None Seen); Mucus Urine NONE SEEN (NONE SEEN); RBC Urine NONE SEEN #/HPF (0-2); Squamous Epithelial Cell Urine FEW #/LPF (NONE/RARE); Urine Culture Indicated NO; WBC Urine 0-2 #/HPF (NONE SEEN)
[2025-01-24 20:13] LABS: Amphetamine Screen Urine NEGATIVE (NEGATIVE); Barbiturates Screen Urine NEGATIVE (NEGATIVE); Benzodiazepines Screen Urine NEGATIVE (NEGATIVE); Cannabinoid Screen Urine NEGATIVE (NEGATIVE); Cocaine Screen Urine NEGATIVE (NEGATIVE); Methadone Screen Urine NEGATIVE (NEGATIVE); Methamphetamines Screen Urine NEGATIVE (NEGATIVE); Opiate Screen Urine NEGATIVE (NEGATIVE); Oxycodone Screen Urine NEGATIVE (NEGATIVE); Phencyclidine Screen Urine NEGATIVE (NEGATIVE); Tricyclic Antidepressant Urine NEGATIVE (NEGATIVE)
[2025-01-24 20:14] LABS: Buprenorphine Screen Urine NEGATIVE (NEGATIVE)
[2025-01-24] MEDS: ONDANSETRON PF 4 MG/2 ML VIAL IV (21:10)
[2025-01-24 21:23] LABS: Hematocrit 35.5 % (36.0-48.0); Hemoglobin 12.3 g/dL (12.0-16.0); Mean Corpuscular HGB Conc 34.6 g/dL (29.9-35.2); Mean Corpuscular Hemoglobin 31.7 pg (26.7-34.0); Mean Corpuscular Volume 91.5 fL (81.0-99.0); Mean Platelet Volume 9.3 fL (9.5-13.5); Platelet Count 327 10^3/uL (150-450); Red Blood Count 3.88 10^6/uL (4.20-5.40); Red Cell Distribution Width 12.7 % (11.0-15.0); White Blood Count 14.9 10^3/uL (4.0-11.0)
[2025-01-24] MEDS: 0.9 % SODIUM CHLORIDE 1,000 ML 1000 ML IV (21:36)
[2025-01-24] MEDS: NALBUPHINE HCL 10 MG/ML AMPULE IV (21:36)
[2025-01-24] MEDS: ROPIVACAINE HCL/PF 400 MG/200 ML PREMIX 10 MG EPIDURAL (22:30)
[2025-01-24] MEDS: 0.9 % SODIUM CHLORIDE 1,000 ML 125 ML IV (22:37)
[2025-01-24] MEDS: OXYTOCIN/0.9 % SODIUM CHLORIDE 10 UNITS/500 ML PLAST..BAG 6 UNIT IV (23:12)
[2025-01-25] VITALS (26 sets, daily range): BP systolic 108–154; BP diastolic 54–75; PULSE 61–88; TEMP 36.7
[2025-01-25] MEDS: ONDANSETRON PF 4 MG/2 ML VIAL IV (05:46)
[2025-01-25] MEDS: OXYTOCIN/0.9 % SODIUM CHLORIDE 20 UNITS/1,000 ML PLAST..BAG 125 UNIT IV (07:45)
--- NOTE | 2025-01-25 07:56 | PM.OBPRCVD ---
Procedure Intrapartal events: None Delivery augmentation: rupture of membranes Delivery monitor: external FHT and external uterine Route of delivery: Episiotomy Description: midline L&D Laceration Description: perineal - 2nd degree Delivery repair: Vicryl Estimated blood loss (mL): 250 Anesthesia type: Epidural Disposition: floor Delivery date: 01/25/25 Gender: female presentation: vertex Placental delivery description: Spontaneous cord description: 3 Vessels and Nuchal Cord
[2025-01-25] MEDS: IBUPROFEN 600 MG TABLET PO ×3 (09:05→23:18)
[2025-01-25] MEDS: ACETAMINOPHEN 325 MG TABLET 650 MG PO ×2 (12:06→19:55)
[2025-01-25] MEDS: BENZOCAINE/MENTHOL 85 GRAM SPRAY BOTTLE 1 APPLIC TOPICAL (14:00)
[2025-01-25] MEDS: GLYCERIN/WITCH HAZEL PADS 1 PAD TOPICAL (14:00)
[2025-01-25] MEDS: SERTRALINE HCL 50 MG TABLET 25 MG PO (22:03)
[2025-01-26 06:58] LABS: Basophils Absolute Auto 0.1 10^3/uL (0.0-0.1); Basophils Percent Auto 0.5 % (0.2-2.0); Eosinophils Absolute Auto 0.3 10^3/uL (0.0-0.7); Eosinophils Percent Auto 2.6 % (0.9-7.0); Hematocrit 27.1 % (36.0-48.0); Immature Granulocytes Abs Auto 0.07 10^3/uL (0.00-0.03); Immature Granulocytes Pct Auto 0.5 % (0.0-0.5); Lymphocytes Absolute Auto 1.7 10^3/uL (1.2-3.8); Lymphocytes Percent Auto 13.1 % (20.5-60.0); Mean Corpuscular HGB Conc 33.2 g/dL (29.9-35.2); Mean Corpuscular Hemoglobin 30.9 pg (26.7-34.0); Mean Corpuscular Volume 93.1 fL (81.0-99.0); Monocytes Absolute Auto 0.9 10^3/uL (0.3-0.8); Monocytes Percent Auto 7.3 % (1.7-12.0); Neutrophils Absolute Auto 9.8 10^3/uL (1.4-6.5); Platelet Count 215 10^3/uL (150-450); Red Blood Count 2.91 10^6/uL (4.20-5.40); Red Cell Distribution Width 13.1 % (11.0-15.0); White Blood Count 12.9 10^3/uL (4.0-11.0)
--- NOTE | 2025-01-26 08:00 | P.OBPN_ITS ---
OB - PN: Subj Subjective Patient comments: no complaints and pain well controlled Mitchell status: doing well Exam Constitutional Vital Signs, click to edit/add: Last Vital Signs Temp 98.0 F 01/25/25 23:13 Pulse 82 01/25/25 23:13 Resp 16 01/25/25 23:13 BP 118/72 01/25/25 23:13 O2 Del Method Room Air 01/25/25 23:14 Documenting provider has reviewed patient's vital signs: yes Common normals: no apparent distress Respiratory Common normals: clear to auscultation bilaterally Cardio Common normals: regular rate and regular rhythm GI Common normals: Normal to inspection, nondistended, normoactive bowel sounds present Extremity Common normals: no clubbing, cyanosis or edema and no calf tenderness Results Labs Labs: Short CBC 01/26/25 Range/Units 06:37 WBC 12.9 H (4.0-11.0) 10^3/uL Hgb 9.0 L (12.0-16.0) g/dL Hct 27.1 L (36.0-48.0) % Plt Count 215 (150-450) 10^3/uL Urinary Catheter Management Urinary Catheter Management Urethral: Cath placed during this visit: yes Urethral indwelling: No Insertion date: 01/24/25 Insertion time: 22:54 OB - PN: A/P Plan - Vaginal Delivery day: 1 Plan: routine care Time Spent with Patient Time: Total time spent is greater than 50% in coordination of care (as documented) at patient's floor/unit and/or counseling patient: Total time spent with greater than 50% in coordination of care (as documented) at patient's floor/unit and/or counseling patient: less than 15 minutes
[2025-01-26 08:30] VITALS: BP 132/82; PULSE 72; TEMP 36.8
[2025-01-26] MEDS: IBUPROFEN 600 MG TABLET PO ×3 (09:15→22:04)
[2025-01-26] MEDS: DOCUSATE SODIUM 100 MG CAPSULE PO ×2 (09:16→22:05)
[2025-01-26] MEDS: SERTRALINE HCL 50 MG TABLET 25 MG PO (22:05)
[2025-01-26] MEDS: BUSPIRONE HCL 10 MG TABLET 5 MG PO (22:05)
[2025-01-27] MEDS: ACETAMINOPHEN 325 MG TABLET 650 MG PO ×2 (00:21→08:15)
[2025-01-27 00:32] VITALS: BP 120/71; PULSE 67; TEMP 36.7
[2025-01-27] MEDS: GLYCERIN/WITCH HAZEL PADS 1 PAD TOPICAL (01:52)
[2025-01-27] MEDS: IBUPROFEN 600 MG TABLET PO ×2 (05:36→11:48)
[2025-01-27 08:13] VITALS: BP 118/78; PULSE 72
[2025-01-27] MEDS: DOCUSATE SODIUM 100 MG CAPSULE PO (08:16)
[2025-01-27 08:18] VITALS: TEMP 36.6
--- NOTE | 2025-01-27 11:05 | P.DS_ITS ---
DS: Providers Provider Date of admission: 01/24/25 19:49 Primary care physician: Non-Staff PhysicianMD Admitting clinician: Slim Russell Attending physician on admission: Slim Russell Attending physician on discharge: Tayo Evans Discharging clinician: Tayo Evans Anticipated date of discharge: 01/27/25 DS: Diagnosis Discharge Diagnosis (1) Term delivered: Plan Patient is postponing #2 doing well. Patient for discharge to home today. OB - DS: Summary Hospital Course Hospital Course: Uneventful hospital course. Time spent discussing smoking cessation with patient: 3 to 10 minutes Peripartum Data - Vaginal Delivery Episiotomy Description: left mediolateral Complications complications: none Infant Delivery method: spontaneous vaginal delivery Gender: female Discharge plan: home Status at Discharge Cognitive/behavioral status at discharge: Good Functional status at discharge: independent ambulation Overall status at discharge: patient is back to baseline Time Spent with Patient Time attestation: Total time spent providing and/or coordinating discharge services: Time spent: less than 30 minutes Specific discharge activities: Routine care. Exam Constitutional Vital Signs, click to edit/add: Last Vital Signs Temp 97.8 F 01/27/25 08:18 Pulse 72 01/27/25 08:13 Resp 16 01/27/25 08:18 BP 118/78 01/27/25 08:13 O2 Del Method Room Air 01/27/25 08:15 Documenting provider has reviewed patient's vital signs: yes Common normals: no apparent distress, average body habitus, oriented x3, no limitations, healthy appearing, alert and well nourished General appearance: cooperative, comfortable, well kempt and well developed Orientation/consciousness: Yes awake, Yes oriented to person, Yes oriented to place and Yes oriented to time Chest Common normals: inspection of breasts normal GI Common normals: Normal to inspection, nondistended, normoactive bowel sounds present, soft to palpation and non-tender Palpation: soft and firm (Fundus firm and 1 fingerbreadth below umbilicus.) Back & Pelvis Pelvis: other (Mild lochia rubra is present.) Extremity Common normals: normal to inspection, no calf tenderness and no pedal edema Discharge Plan Discharge Disposition: Home, Self-Care Condition: Good Assessment: Patient is day #2 doing well. Patient is for discharge to home today. Health Concerns: None Plan of Treatment: Routine care. Discharge Medications: New Dermoplast (with menthol) 20-0.5 % Aerosol 1 spray topical Q2H PRN (Reason: Pain) 30 Days Qty: 1 0RF buspirone 10 mg Tablet 5 mg PO QHS 30 Days Qty: 15 0RF ibuprofen 600 mg Tablet 600 mg PO Q6H PRN (Reason: Moderate Pain) 30 Days Qty: 120 0RF sertraline 50 mg Tablet 25 mg PO QHS 30 Days Qty: 15 0RF simethicone [Gas Relief 80 (simethicone)] 80 mg Tablet,Chewable 80 mg PO QID PRN (Reason: Abdominal Distention) 30 Days Qty: 90 0RF A.E.R. Witch Betzy 12.5-50 % Pads, Medicated 1 pad topical Q2H PRN (Reason: Pain) 30 Days Qty: 90 0RF Discontinued buspirone 5 mg tablet 5 mg PO .qhs sertraline 25 mg tablet 25 mg PO .qhs Print Language: Luxembourger Forms: Vaginal Delivery - Discharge, Portal Instructions
[2025-01-27] MEDS: ADACEL DIPH,PERTUSS(ACELL),TET VAC/PF 0.5 ML ADULT SYRINGE IM (11:48)
== END 2025-01-27 12:40 | disposition home or self-care (01) | DRG 807 ==
PROVIDERS: Admitting Provider Obstetrics & Gynecology; Visit Provider Obstetrics & Gynecology
DX: O69.81X0 Labor and delivery complicated by cord around neck, without compression, not applicable or unspecified (principal); Z37.0 Single live birth; O70.1 Second degree perineal laceration during delivery; Z3A.40 40 weeks gestation of pregnancy; O36.63X0 Maternal care for excessive fetal growth, third trimester, not applicable or unspecified
CPT/HCPCS: 36415; 51702; 59025; 59050; 59410; 80307; 81001; 85025; 85027; 86850; 86900; 86901; 90715; J2300; J2405; J2795

== ENCOUNTER 2025-01-29 09:30 | Outpatient (OUT) | payer BC, SELFPAY ==
--- OUTSIDE RECORDS SUMMARY | 2025-01-19 13:40 | XMS_ITS | Encounter Summary ---
Author Organization [facility] Address [address] [place] [address] Care Team Providers Care Nursing Information Systems Coordinator Name Role Phone Raegan Medina MD Primary Care Provider [phone] Reason for Visit * Reason Comments Routine Visit Encounter Details Date Type Department Care Team (Late st Contact Info) Description 01/19/2025 1:40 PM EDT Routine [facility] [address] [place] [address] Slim Russell, DO [address] [place], [facility] Third trimester ([facility]); 39 weeks gestation of ([facility]) Social History Tobacco Use Types Packs/Day Years [...] week 06/01/2024 How often do you attend [facility] or caodaism services? Never 06/01/2024 Do you belong to any clubs o r organizations such as congregation groups, unions, fraternal or athletic groups, or [...] Recorded Patient Health Questionnaire-2 Score 0 06/02/2024 [facility] of Occupat ional [facility] - Occupational Stress Questionnaire Answer Date Recorded [...] any time in the past 12 m [facility], were you homeless or living in a long term (including now)? No 06/01/2024 Estimated Date of [...] Sign Reading Time Taken Comments Blood Pressure 140/72 01/19/2025 1:38 PM EDT Pulse - - Temperature - - Respiratory Rate - - Oxygen Saturation - - Inhaled Oxygen Concentration - - Weight 84.6 kg (186 lb 8 oz) 01/19/2025 1:38 PM EDT Height - - Body Mass Index 30.56 06/02/2024 10:49 AM EDT documented in this encounter Progress Notes * Ling Graham NP - 01/19/2025 1:40 PM EDT Reason for Appointment: Patient ID: [...] Date Noted Allergic rhinitis 06/02/2024 Exercise-induced asthma (HCC) 06/02/2024 Moderate episode of recurrent major depressive disorder (HCC) 06/02/2024 Panic disorder 06/02/2024 Resolved Ambulatory Problems Diagnosis Date Noted No Resolved Ambulatory Problems Past Medical History: Diagnosis Date Anxiety Depression HISTORY PAST MEDICAL HISTORY SOCIAL HISTORY Past Medical History: Diagnosis Date Anxiety Depression Social History Tobacco Use Smoking status: Never [...] nursing note reviewed. Exam conducted with a insulation technician present. Vitals: Estimated body mass index is 30.56 kg/m?? as calculated from the following: Height as of 06/02/24: 5' 5.5 . Weight as of this encounter: 186 lb 8 oz. BP: Patient's last menstrual period was 04/19/2024. ASSESSMENT & PLAN ICD-10-CM 1. Third trimester ([facility]) Z34.93 2. 39 weeks gestation of ([facility]) Z3A.39 POCT urinalysis dipstick manually resulted Return OB: Patient presents today for a routine obstetrics appointment. Patient is currently 39w2d . Patient states she is doing well but has complaints of being tired due to current . Patient has verbalizes frequent movement. labor precautions was discussed/given and patient was instructed to perform kick counts three times a day. Orders Placed This Encounter Procedures POCT urinalysis dipstick manually resulted Follow Up: Patient is to return to office in 1 week for routine OB appointment. Return to office Friday for reevaluation Documented by Ling Graham NP on behalf of: Slim Russell DO documented in this encounter Plan of Treatment Not on file documented as of this encounter Procedures Procedure Name Priority Date/Time Associated Diagnosis Comments POCT URINALYSIS DIPSTICK Routine 01/19/2025 1:45 PM EDT 39 weeks gestation of ([facility]) documented in this encounter Results * (ABNORMAL) POCT urinalysis dipstick manually resulted (01/19/2025 1:45 PM EDT) Color, UA Yellow Clarity, UA Clear Glucose, UA Negative Negative - 2000(110) ++++ mg/dL Bilirubin, UA Negative Negative - 4(70) +++ mg/dL Ketones, UA Negative Negative - 160(16) ++++ mg/dL Spec Grav, UA 1.010 1 - 1.03 Blood, UA Positive Negative - 50 Immanuel/mcL Comment:Trace-intact pH, UA 6.5 5 - 9 Protein, UA Negative Negative - 2000(20) ++++ mg/dL Urobilinogen, UA 0.2 0.2 - 12 mg/dL Leukocytes, UA Negative Negative - 500+++ Jennyfer/mcL Nitrite, UA Negative Negative - Positive Urine 01/19/2025 1:45 PM EDT Slim Russell DO POINT OF CARE TEST ENTER/EDIT OR DERABLES Final Result documented in this encounter Visit Diagnoses Diagnosis Third trimester ([facility]) state, incidental 39 weeks gestation of ([facility]) documented in this encounter Additional Health Concerns Assessment Noted Time PHQ-9 Depression Total Score: 0 06/02/20 24 10:00 AM EDT documented as of this encounter Care Teams Nursing Information Systems Coordinator Relationship Specialty Start Date End Date Raegan Medina MD [address] [place] [address] PCP - General Family Medicine 06/02/24 documented as of this encounter
--- OUTSIDE RECORDS SUMMARY | 2025-01-24 13:00 | XMS_ITS | Encounter Summary ---
Author Organization [facility] Address [address] [place] [address] Care Team Providers Care Wireless Engineer Name Role Phone Raegan Medina MD Primary Care Provider [phone] Reason for Visit * Reason Comments Routine Visit Encounter Details Date Type Department Care Team (Late st Contact Info) Description 01/24/2025 1:00 PM EDT Routine [facility] OB [address] [place] [address] Slim Russell, DO [address] [facility] [address] [place], [facility] Third trimester ([facility]); 40 weeks gestation of ([facility]) Social History Tobacco Use Types Packs/Day Years [...] week 06/01/2024 How often do you attend [facility] or taoist services? Never 06/01/2024 Do you belong to any clubs o r organizations such as shinto groups, unions, fraternal or athletic groups, or [...] 0 06/02/2024 [facility] of Occupat ional [facility] - Occupational Stress Questionnaire Answer Date [...] Sign Reading Time Taken Comments Blood Pressure 136/70 01/24/2025 1:11 PM EDT Pulse - - Temperature - - Respiratory Rate - - Oxygen Saturation - - Inhaled Oxygen Concentration - - Weight 84.3 kg (185 lb 12 oz) 01/24/2025 1:03 PM EDT Height - - Body Mass Index 30.44 06/02/2024 10:49 AM EDT documented in this encounter Progress Notes * Ling Graham NP - 01/24/2025 1:00 PM EDT Reason for Appointment: Patient ID: [...] nursing note reviewed. Exam conducted with a bullet lubricating machine operator present. Vitals: Estimated body mass index is 30.44 kg/m?? as calculated from the following: Height as of 06/02/24: 5' 5.5 . Weight as of this encounter: 185 lb 12 oz. BP: 136/70 Patient's last menstrual period was 04/19/2024. ASSESSMENT & PLAN ICD-10-CM 1. Third trimester ([facility]) Z34.93 POCT urinalysis dipstick manually resulted 2. 40 weeks gestation of ([facility]) Z3A.40 Return OB: Patient presents today for a routine obstetrics appointment. Patient is currently 40w0d . Patient states she is doing well [...] Associated Diagnosis Comments POCT URINALYSIS DIPSTICK Routine 01/24/2025 1:14 PM EDT Third trimester ([facility]) documented in this encounter Results * (ABNORMAL) POCT urinalysis dipstick manually resulted (01/24/2025 1:14 PM EDT) Color, UA Yellow Clarity, UA Clear Glucose, UA Negative Negative - 2000(110) ++++ mg/dL Bilirubin, UA Negative Negative - 4(70) +++ mg/dL Ketones, UA Negative Negative - 160(16) ++++ mg/dL Spec Grav, UA 1.015 1 - 1.03 Blood, UA Positive Negative - 50 Immanuel/mcL Comment:Trace-intact pH, UA 7.0 5 - 9 Protein, UA Negative Negative - 2000(20) ++++ mg/dL Urobilinogen, UA 0.2 0.2 - 12 mg/dL Leukocytes, UA Negative Negative - 500+++ Jennyfer/mcL Nitrite, UA Negative Negative - Positive Urine 01/24/2025 1:14 PM EDT Slim Russell DO POINT OF CARE TEST ENTER/EDIT OR DERABLES Final Result documented in this encounter Visit Diagnoses Diagnosis Third trimester ([facility]) state, incidental 40 weeks gestation of ([facility]) documented in this encounter Additional Health Concerns Assessment Noted Time PHQ-9 Depression Total Score: 0 06/02/20 24 10:00 AM EDT documented as of this encounter Care Teams Wireless Engineer Relationship Specialty Start Date End Date Raegan Medina MD [address] [place] [address] PCP - General Family Medicine 06/02/24 documented as of this encounter
[2025-01-29 10:00] VITALS: BP 126/85; PULSE 83; TEMP 36.7
--- OUTSIDE RECORDS SUMMARY | 2025-01-29 11:19 | XMS_ITS | Encounter Summary ---
Author Organization [facility] Address [address] [place] [address] Care Team Providers Care Boat Outboard Engine Mechanic Name Role Phone Raegan Medina MD Primary Care Provider [phone] Encounter Details Date Type Department Care Team (Late st Contact Info) Description 01/19/2025 Bamboo flowsheet [facility] OB [address] [facility] [place] [address] Slim Russell, DO [address] [facility] [address] [place], [facility]11 Social History Tobacco Use Types [...] any clubs o r organizations such as yarsanism groups, unions, fraternal or athletic groups, or [...] time in the past 12 m [facility], were you homeless or living [...] as of this encounter Plan of Treatment Not on file documented as of this encounter Visit Diagnoses Not on filedocumented in this encounter Additional Health Concerns Assessment Noted Time PHQ-9 Depression Total Score: 0 06/02/20 24 10:00 AM EDT documented as of this encounter Care Teams Boat Outboard Engine Mechanic Relationship Specialty Start Date End Date Raegan Medina MD [address] [place] [address] PCP - General Family Medicine 06/02/24 documented as of this encounter
--- OUTSIDE RECORDS SUMMARY | 2025-01-29 11:19 | XMS_ITS | Encounter Summary ---
Author Organization [facility] Address [address] [place] [address] Care Team Providers Care Drawbridge Operator Name Role Phone Raegan Medina MD Primary Care Provider [phone] Encounter Details Date Type Department Care Team [...] any clubs o r organizations such as yarsani groups, unions, fraternal or athletic groups, or [...] Recorded Patient Health Questionnaire-2 Score 0 06/02/2024 [facility] of Occupat ional Health - Occupational Stress [...] documented as of this encounter Care Teams Drawbridge Operator Relationship Specialty Start Date End Date Raegan Medina MD [address] [place] [address] PCP - General Family Medicine 06/02/24 documented as of this encounter
--- OUTSIDE RECORDS SUMMARY | 2025-01-29 11:19 | XMS_ITS | Encounter Summary ---
Author Organization [facility] Address [address] [place] [address] Care Team Providers Care Host Coordinator Name Role Phone Raegan Medina MD Primary Care Provider [phone] Mary Ann Johnson NP Unavailable Encounter Details Date Type Department Care Team (Late st Contact Info) Description 06/18/2024 Clinisync Result Encounter [facility] External Department Unsolicited Oumar Russell, DO [address] [facility] [place] [address] Social History Tobacco Use Types Packs/Day Years [...] often do you attend chur ch or spiritism services? Never 06/01/2024 Do you belong to any clubs o r organizations such as mandaen groups, unions, fraternal or athletic groups, or [...] Recorded Patient Health Questionnaire-2 Score 0 06/02/2024 [facility] - [...] [facility] the [facility], were you homeless or living in a [...] EST Narrative 06/18/2024 4:21 [place] [address] Ultrasound Report Signed Patient: Greta Pineda MR#: [id number] : 1995 Acct:[id number] Age/Sex: 28 / F ADM Date: 06/17/24 Loc: [facility] Attending Dr: Oumar Russell D.O. Ordering Physician: Oumar Russell D.O. Date of Service: 06/17/24 Procedure(s): US OB transvaginal Accession Number(s): [id number] cc: Oumar Russell D.O.; Samra Aguirre D.O. The [place] [id number] Patient Name: GRETA PINEDA MRN: [id number] date: 1995 Sex: F Assigned Patient Location: [facility] Current Patient Location: Accession/Order Number: [id number] Exam Date: 06/17/2024 13:27 Report Date: 06/18/2024 [...] Signed By: 06/18/24 0421 DD/ 0419 TD/TT: Audit Reviewer: Procedure Note Radiology, Radiologist, MD - 06/18/2024 [place] [address] Ultrasound Report Signed Patient: Mary Pineda#: [id number] : 1995Acct:[id number] Age/Sex: 28 / FADM Date: 06/17/24 Loc: [facility] Attending Dr: Oumar Russell D.O. Ordering Physician: Oumar Russell D.O. Date of Service: 06/17/24 Procedure(s): US OB transvaginal Accession Number(s): [id number] cc: Oumar Russell D.O.; Samra Aguirre D.O. The [place] [id number] Patient Name: GRETA PINEDA MRN: [id number] date: 1995 Sex: F Assigned Patient Location: [facility] Current Patient Location: Accession/Order Number: [id number] Exam Date: 06/17/2024 13:27 Report Date: 06/18/2024 [...] M.D. Signed By:06/18/24 0421 DD/ 0419 TD/TT: Audit Reviewer: us Oumar Russell DO [facility] Final Result documented in this encounter Visit Diagnoses Not on filedocumented in this encounter Additional Health Concerns Assessment Noted Time PHQ-9 Depression Total Score: 0 06/02/20 24 10:00 AM EDT documented as of this encounter Care Teams Host Coordinator Relationship Specialty Start Date End Date Raegan Medina MD [address] [facility] [place] [address] PCP - General Family Medicine 06/02/24 Mary Ann Johnson NP [address] [place] [address] PCP - Anny Rodgers 07/04/24 documented as of this encounter
--- OUTSIDE RECORDS SUMMARY | 2025-01-29 11:19 | XMS_ITS | Encounter Summary ---
Author Organization [facility] Address [address] [place] [address] Care Team Providers Care Ship Engines Operating Engineer Name Role Phone Raegan Medina MD Primary Care Provider [phone] Encounter Details Date Type Department Care Team (Late st Contact Info) Description 01/20/2025 Clinisync Result Encounter [facility] External Department Unsolicited Brenda Jeff, GORAN [address] [place] [address] Dr Oshea, [facility] Social History Tobacco Use Types Packs/Day [...] often do you attend chur ch or yazidism services? Never 06/01/2024 Do you belong to [...] Recorded Patient Health Questionnaire-2 Score 0 06/02/2024 [facility] - Occupational [...] [facility] the [facility] [address] [facility] [facility] or living in a [...] AM EDT Narrative 01/20/2025 8:03 [place] [address] Ultrasound Report Signed Patient: GRETA PINEDA MR#: [id number] : 1995 Acct:[id number] Age/Sex: 29 / F ADM Date: 01/20/25 [facility]: Brenda Jeff Ordering Physician: Brenda Jeff Date of Service: 01/20/25 Procedure(s): US OB BPP w non-stress Accession Number(s): [id number] cc: Brenda Jeff; Physician,Non-Staff M.D. [facility] [place] [id number] Patient Name: GRETA PINEDA MRN: [id number] date: 1995 Sex: F [facility] Accession/Order Number: [id number] Exam Date: 01/20/2025 07:59 Report Date: 01/20/2025 [...] Aggarwal M.D. 01/20/2025 8:01 AM Dictation Location: [place] [address] Electronically authenticated by: [id number] Y Date: 01/20/2025 08:01 Dictated By: Ronda Aggarwal M.D. Signed By: 01/20/25 0803 DD/ 0801 TD/TT: Lift Truck Mechanic: Procedure Note Radiology, Radiologist, - 01/20/2025 [place] [address] Ultrasound Report Signed Patient: GRETA PINEDA LMR#: [id number] : 1995Acct:[id number] Age/Sex: 29 / FADM Date: 01/20/25 [facility]: rBenda Jeff Ordering Physician: Brenda Jeff Date of Service: 01/20/25 Procedure(s): US OB BPP w non-stress Accession Number(s): [id number] cc: Brenda Jeff; Physician,Non-Staff Radhames The [address] [address] Patient Name: GRETA PINEDA MRN: [id number] date: 1995 Sex: F [facility] Accession/Order Number: [id number] Exam Date: 01/20/2025 07:59 Report Date: 01/20/2025 [...] Aggarwal M.D. 01/20/2025 8:01 AM Dictation Location: [place] [address] Electronically authenticated by: [id number] Y Date: 508:01 Dictated By: Ronda Aggarwal M.D. Signed By:01/20/25 0803 DD/ 08 TD/TT: Lift Truck Mechanic: Brenda ZIMMER [facility] Final Result documented in this encounter Visit Diagnoses Not on filedocumented in this encounter Additional Health Concerns Assessment Noted Time PHQ-9 Depression Total Score: 0 06/02/20 24 10:00 AM EDT documented as of this encounter Care Teams Ship Engines Operating Engineer Relationship Specialty Start Date End Date Raegan Medina MD [address] [place] [address] PCP - General Family Medicine 06/02/24 documented as of this encounter
--- OUTSIDE RECORDS SUMMARY | 2025-01-29 11:19 | XMS_ITS | Clinical Summary ---
Author Organization [facility] Address [address] [place] [address] Care Team Providers Care Kitchen Operator Name Role Phone Raegan Medina MD Primary Care Provider [phone] Allergies No known active allergies Medications busPIRone [...] Encounters Date Type Department Care Team Description 01/26/2025 Clinisync Result Encounter N[facility] External Department Unsolicited Slim Russell DO 01/24/2025 1:00 PM EDT Routine [facility] [address] [facility] [place] [address] Slim Russell DO Third trimester ([facility]-H[facility]); 40 weeks gestation of ([facility]) 01/24/2025 Clinisync Result Encounter NOMS External Department Unsolicited Slim Russell, DO 01/24/2025 Abstract [facility] [address] [place] [address] Rosa Nguyen LPN 01/24/2025 Bamboo flowsheet [facility]OM[facility] [address] [place] [address] Slim Russell, DO 01/21/2025 Travel 01/20/2025 Clinisync Result Encounter NOMS External Department Unsolicited Brenda Jeff PA 01/19/2025 1:40 PM EDT Routine [facility]OM[facility] [address] [place] [address] Slim Russell, DO Third trimester ([facility]); 39 weeks gestation of ([facility]) 01/19/2025 Bamboo flowsheet [facility]OM[facility] [address] [place] [address] Slim Russell, DO 01/18/2025 Travel 01/13/2025 Clinisync Result Encounter NOMS External Department Unsolicited Brenda Jeff PA 01/13/2025 Clinisync Result Encounter NOMS External Department Unsolicited Brenda Jeff PA 01/12/2025 1:50 PM EDT Routine NOM[facility] [address] [place] [address] Brenda Jeff PA Excessive growth affecting management of in third trimester, single or unspecified fetus ([facility]) (Primary Dx); 38 weeks gestation of ([facility]); Third trimester ([facility]) 01/12/2025 Bamboo flowsheet [facility]OM[facility] [address] [place] [address] Brenda Jeff PA 01/06/2025 Travel 01/05/2025 1:20 PM EDT Routine [facility] [address] [place] [address] Slim Russell, Third trimester ([facility]); 37 weeks gestation of ([facility]) 01/05/2025 Bamboo flowsheet [facility]OM[facility] [address] [place] [address] Slim Russell, DO 12/30/2024 Travel 12/29/2024 9:20 AM EDT Routine [facility] [address] [place] [address] Brenda Jeff PA 36 weeks gestation of ([facility]); Third trimester ([facility]) 12/29/2024 9:00 AM EDT Ancillary Procedure [facility] [address] [place] [address] LGA (large for gestational age) fetus affecting management of mother, first trimester, fetus 3 ([facility]) 12/22/2024 Travel 12/14/2024 8:30 AM EDT Routine [facility] [address] [place] [address] Slim Russell, Third trimester ([facility]); 34 weeks gestation of ([facility]) 12/14/2024 Bamboo flowsheet [facility]OM[facility] [address] [place] [address] Slim Russlel, DO 12/08/[address] [facility] [address] [place] [address] Slim Russell, DO 12/07/2024 Travel 12/01/2024 9:50 AM EDT Routine [facility] [address] [place] [address] Ling Graham, WINDOW ASSEMBLER LGA (large for gestational age) fetus affecting management of mother, first trimester, fetus 3 ([facility]) (Primary Dx); Third trimester ([facility]); 32 weeks gestation of ([facility]) 12/01/2024 9:00 AM EDT Ancillary Procedure [facility] OB [address] [facility] [place] [address] size inconsistent with dates ([facility]) 11/30/2024 Travel 11/28/2024 Travel 11/16/2024 11:20 AM EDT Routine [facility] OB [address] [facility] [address] Slim Russell, Third trimester ([facility]); 30 weeks gestation of ([facility]); size inconsistent with dates ([facility]) 11/16/2024 Bamboo flowsheet [facility] OB [address] [place] [address] [place] [address] Slim Russell, 11/15/2024 Travel 11/01/2024 8:50 AM EDT Routine [facility] OB [address] [place] [address] [place] [address] Slim Russell, Size of fetus inconsistent with dates in third trimester ([facility]) (Primary Dx); Third trimester ([facility]); 28 weeks gestation of ([facility]) 11/01/2024 Bamboo flowsheet [facility] OB [address] [facility] [place] [address] Slim Russell, 10/30/2024 Travel from Last 3 [...] family, friends, or neighbors? Once a week 10/29/20 24 How often do you get togethe r with friends or relatives? Once a week 06/01/2024 How often do you attend chur ch or yazdanism services? Never 06/01/2024 Do you belong to any clubs o r organizations such as advent groups, unions, fraternal or athletic groups, or [...] Recorded Patient Health Questionnaire-2 Score 0 06/02/2024 [facility] - [...] were you homeless or living in a penitentiary (including now)? No 06/01/2024 Estimated Date of [...] Pressure 136/70 01/24/2025 1:11 PM EDT Pulse 75 06/02/2024 10:49 AM EDT Temperature - - Respiratory Rate - - Oxygen Saturation 99% 06/02/2024 10:49 AM EDT Inhaled Oxygen Concentration - - Weight 84.3 kg (185 lb 12 oz) 01/24/2025 1:03 PM EDT Height 166.4 cm (5' 5.5 ) 06/02/2024 10:49 AM ED T Body Mass Index 30.44 06/02/2024 10:49 AM EDT Plan of Treatment Health Maintenance Due Date Last Done Comments Pap Smear 2014 Influenza Vaccine (Season Ended) 2025 Cervical Cancer Screening 10/13/2025 HPV/Cotest 10/13/2025 10/13/2020, 09/05, 09/21/2018 Procedures Procedure Name Priority Date/Time Associated Diagnosis Comments ALL CBC WITH AUTO DIFF Routine 6:37 AM EDT [facility] CBC WITH PLATELET NO DIFFERENTIAL Routine 01/24/2025 8:09 PM EDT TBH DRUG SCREEN RAPID (URINE) Routine 01/24/2025 7:15 PM EDT TBH URINE MICROSCOPIC ONLY Routine 01/24/2025 7:15 PM EDT TBH UA (CLEAN/CATCH) COMMUNITY SPORTS COORDINATOR/MICRO IF IND. Routine 01/24/2025 7:15 PM EDT POCT URINALYSIS DIPSTICK Routine 01/24/2025 1:14 PM EDT Third trimester ([facility]) US OB BPP W NON-STRESS 01/20/2025 8:01 AM EDT POCT URINALYSIS DIPSTICK Routine 01/19/2025 1:45 PM EDT 39 weeks gestation of ([facility]) US OB BPP W NON-STRESS 01/13/2025 9:30 PM EDT US OB GROWTH 01/13/2025 9:26 PM EDT POCT URINALYSIS DIPSTICK Routine 01/12/2025 2:00 PM EDT 38 weeks gestation of ([facility]) Third trimester ([facility]) POCT URINALYSIS DIPSTICK Routine 12/29/2024 9:31 AM EDT 36 weeks gestation of ([facility]) Third trimester ([facility]) CULTURE, GROUP B STREP WITH SUSCEPTIBLITY Routine 12/29/2024 9:21 AM EDT Third trimester ([facility]) US OB FOLLOW UP TRANSABDOMINAL APPROACH Routine 12/29/2024 9:17 AM EDT LGA (large for gestational age) fetus affecting management of mother, first trimester, fetus 3 ([facility]) POCT URINALYSIS DIPSTICK Routine 12/14/2024 8:35 AM EDT Third trimester ([facility]) POCT URINALYSIS DIPSTICK Routine 12/01/2024 9:29 AM EDT Third trimester ([facility]) US OB FOLLOW UP TRANSABDOMINAL APPROACH Routine 12/01/2024 9:14 AM EDT size inconsistent with dates ([facility]) POCT URINALYSIS DIPSTICK Routine 11/16/2024 11:42 AM EDT Third trimester ([facility]) 30 weeks gestation of ([facility]) POCT URINALYSIS DIPSTICK Routine 11/01/2024 9:04 AM EDT Third trimester ([facility]) Q - THINPREP(R) TIS AND HPV MRNA E6/E7 RFL HPV 16,18/45 Routine 10/13/2020 from Last 3 Months or Most Recently Relevant to Health Maintenance Results * (ABNORMAL) ALL CBC WITH AUTO DIFF (01/26/2025 6:37 AM EDT) TBH WBC 12.9(H) 4.0 - 11.0 10 3/uL TBH TBH RBC 2.91(L) 4.20 - 5.40 10 6/uL TBH TBH HGB 9.0(L) 12.0 - 16.0 g/dL TBH TBH HCT 27.1(L) 36.0 - 48.0 % TBH TBH MCV 93.1 81.0 - 99.0 fL TBH TBH MCH 30.9 26.7 - 34.0 pg TBH TBH MCHC 33.2 29.9 - 35.2 g/dL TBH TBH RDW 13.1 11.0 - 15.0 % TBH TBH PLT 215 150 - 450 10 3/uL TBH TBH MPV 9.0(L) 9.5 - 13.5 fL TBH NEUTROPHILS PERCENT AUTO 76.0(H) 43.0 - 75.0 % TBH LYMPHOCYTES PERCENT AUTO 13.1(L) 20.5 - 60.0 % TBH MONOCYTES PERCENT AUTO 7.3 1.7 - 12.0 % TBH TBH EO % 2.6 0.9 - 7.0 % TBH BASOPHILS PERCENT AUTO 0.5 0.2 - 2.0 % TBH IMMATURE GRANULOCYTES PCT AUTO 0.5 0.0 - 0.5 % TBH NEUTROPHILS ABSOLUTE AUTO 9.8(H) 1.4 - 6.5 10 3/uL TBH LYMPHOCYTES ABSOLUTE AUTO 1.7 1.2 - 3.8 10 3/uL TBH MONOCYTES ABSOLUTE AUTO 0.9(H) 0.3 - 0.8 10 3/uL TBH TBH EO # 0.3 0.0 - 0.7 10 3/uL TBH BASOPHILS ABSOLUTE AUTO 0.1 0.0 - 0.1 10 3/uL TBH IMMATURE GRANULOCYTES ABS AUTO 0.07(H) 0.00 - 0.03 10 3/uL TBH 01/26/2025 6:37 AM EDT 01/26/2025 6:50 AM EDT Narrative CLINISYNC - 01/26/2025 7:03 AM EDT Slim Yvonne DO CLINISYNC Final Result [facility] * (ABNORMAL) [facility] CBC WITH PLATELET NO DIFFERENTIAL (01/24/2025 8:09 PM EDT) Pathologist [facility] TB WBC 14.9(H) 4.0 - 11.0 10 3/uL TBH TBH RBC 3.88(L) 4.20 - 5.40 10 6/uL TBH TBH HGB 12.3 12.0 - 16.0 g/dL TBH TBH HCT 35.5(L) 36.0 - 48.0 % TBH TBH MCV 91.5 81.0 - 99.0 fL TBH TBH MCH 31.7 26.7 - 34.0 pg TBH TBH MCHC 34.6 29.9 - 35.2 g/dL TBH TBH RDW 12.7 11.0 - 15.0 % TBH TBH PLT 327 150 - 450 10 3/uL TBH TBH MPV 9.3(L) 9.5 - 13.5 fL TBH 01/24/2025 8:09 PM EDT 01/24/2025 9:21 PM EDT Narrative CLINISYNC - 01/24/2025 9:31 PM EDT Slim Yvonne DO CLINISYNC Final Result Performing Organization Address [facility] Co de Phone Number CLINISYNC TBH * (ABNORMAL) TBH URINE MICROSCOPIC ONLY (01/24/2025 7:15 PM EDT) TBH WBC 0-2(A) NONE SEEN #/HPF TBH TBH RBC NONE SEEN 0 - 2 #/HPF TBH BACTERIA URINE TRACE(A) NONE SEEN #/HPF TBH MUCUS URINE NONE SEEN NONE SEEN TBH SQUAMOUS EPITHELIAL CELL URINE FEW(A) NONE/RARE #/LPF TBH CRYSTALS SEEN? None Seen None Seen #/HPF TBH CAST SEEN? NONE SEEN NONE SEEN #/LPF TBH URINE CULTURE INDICATED NO TBH 01/24/2025 7:15 PM EDT 01/24/2025 7:47 PM EDT Narrative CLINISYNC - 01/24/2025 8:00 PM EDT Slim Yvonne CLINISYNC Final Result Performing Organization Address [facility] de Phone Number RONALD TB * TBH UA (CLEAN/CATCH) COMMUNITY SPORTS COORDINATOR/MICRO IF IND. (01/24/2025 7:15 PM EDT) COLOR URINE LT. YELLOW YELLOW TBH CLARITY URINE CLEAR CLEAR TBH SPECIFIC GRAVITY URINE 1.010 1.005 - 1.025 TBH PH URINE 6.0 5.0 - 9.0 TBH PROTEIN URINE NEGATIVE NEG/TRACE mg/dL TBH GLUCOSE URINE UA NEGATIVE NEGATIVE mg/dL TBH BILIRUBIN URINE NEGATIVE NEGATIVE TBH KETONES URINE NEGATIVE NEGATIVE mg/dL TBH BLOOD URINE TRACE-I NEGATIVE TBH NITRITE URINE NEGATIVE NEGATIVE TBH UROBILINOGEN URINE 0.2 0.2 - 1.0 EU/dL TBH LEUKOCYTE ESTERASE URINE NEGATIVE NEGATIVE TBH URINE MICROSCOPIC INDICATED YES TBH 01/24/2025 7:15 PM EDT 01/24/2025 7:47 PM EDT Narrative CLINISYNC - 01/24/2025 8:00 PM EDT [facility] [place] CLINIS[facility]NC Final Result Performing Organization Address [facility] Co de Phone Number [facility] * TBH DRUG SCREEN RAPID (URINE) (01/24/2025 7:15 PM EDT) CANNABINOID SCREEN URINE NEGATIVE NEGATIVE TBH PHENCYCLIDINE SCREEN URINE NEGATIVE NEGATIVE TBH COCAINE SCREEN URINE NEGATIVE NEGATIVE TBH METHAMPHETAMINES SCREEN URINE NEGATIVE NEGATIVE TBH OPIATE SCREEN URINE NEGATIVE NEGATIVE TBH AMPHETAMINE SCREEN URINE NEGATIVE NEGATIVE TBH BENZODIAZEPINES SCREEN URINE NEGATIVE NEGATIVE TBH TRICYCLIC ANTIDEPRESSANT URINE NEGATIVE NEGATIVE TBH METHADONE SCREEN URINE NEGATIVE NEGATIVE TBH BARBITURATES SCREEN URINE NEGATIVE NEGATIVE TBH OXYCODONE SCREEN URINE NEGATIVE NEGATIVE TBH BUPRENORPHINE SCREEN URINE NEGATIVE NEGATIVE TBH Comment: DRUG CLASS TEST SYSTEM CUT-OFF CONCENTRATIONS ARE FOLLOWS: AMP (Amphetamine): 500 ng/mL BAR (Barbiturates): 200 ng/mL BZO (Benzodiazepines): 150 ng/mL BUP (Buprenorphine): 10 ng/mL DOMINGO (Cocaine): 150 ng/mL mAMP (Methamphetamine): 500 ng/mL MTD (Methadone): 200 ng/mL OPI (Opiates): 100 ng/mL OXY (Oxycodone): 100 ng/mL PCP (Phencyclidine): 25 ng/mL THC (Cannabinoids): 50 ng/mL TCA (Trycyclic Antidepressants): 300 ng/mL 01/24/2025 7:15 PM EDT 01/24/2025 7:57 PM EDT Narrative CLINISYNC - 01/24/2025 8:14 PM EDT Slim Alo DO CLINISYNC Final Result Performing Organization Address [facility]/ZIP Co de Phone Number [facility] * (ABNORMAL) POCT urinalysis dipstick manually resulted (01/24/2025 1:14 PM EDT) Only the most recent of8 resultswithin the time period is included. Color, [...] - Positive Urine 01/24/2025 1:14 PM EDT [facility] DO POINT OF CARE TEST ENTER/EDIT OR DERABLES Final Result * US OB BPP W NON-STRESS (01/20/2025 8:01 AM EDT) Only the most recent of2 resultswithin the time period is included. Anatomical Region Laterality Modality Other 01/20/2025 8:01 AM EDT Narrative 01/20/2025 8:03 AM EDT [address] [address] Ultrasound Report Signed Patient: GRETA PINEDA MR#: [id number] : 1995 Acct:[id number] Age/Sex: 29 / F ADM Date: 01/20/25 Loc: [place] [address]- Attending Dr: Brenda Jeff Ordering Physician: Brenda Jeff Date of Service: 01/20/25 Procedure(s): US OB BPP w non-stress Accession Number(s): [id number] cc: Brenda Jeff; Physician,Non-Staff M.DRaji The [address] [address] Patient Name: GRETA PINEDA MRN: [id number] date: 1995 Sex: F Assigned Patient Location: [facility] Current Patient Location: [facility] Accession/Order Number: [id number] Exam Date: 01/20/2025 07:59 Report Date: 01/20/2025 [...] IMPRESSION: NORMAL BIOPHYSICAL PROFILE. Impression dictated by: Rodna Aggarwal M.D. 01/20/2025 8:01 AM Dictation Location: [place] [address] Electronically authenticated by: [id number] Y Date: 01/20/2025 08:01 Dictated By: Ronda Aggarwal M.D. Signed By: 01/20/25802 DD/ 08 TD/TT: Hand Binder Stripper: Procedure Note Radiology, Radiologist, MD - 01/20/2025 [place] [address] Ultrasound Report Signed Patient: GRETA PINEDA LMR#: [id number] : 1995Acct:[id number] Age/Sex: 29 / FADM Date: 01/20/25 Loc: [facility] 250-[address]: Brenda Jeff Ordering Physician: Brenda Jeff Date of Service: 01/20/25 Procedure(s): US OB BPP w non-stress Accession Number(s): [id number] cc: Brenda Jeff; Physician,Non-Staff M.Glendy The [address] [address] Patient Name: GRETA CARRILLON: TBH:[id number] date: 1995 Sex: F Assigned Patient Location: [facility] Current Patient Location: [facility] Accession/Order Number: [id number] Exam Date: 01/20/2025 07:59 Report Date: 01/20/2025 [...] Aggarwal M.D. 01/20/2025 8:01 AM Dictation Location: [place] [address] Electronically authenticated by: [id number] Y Date: 508:01 Dictated By: Ronda Aggarwal M.D. Signed By:01/20/25 0803 DD/ 0801 TD/TT: Hand Binder Stripper: us Brenda ZIMMER [facility] IMAGING Final Result * US OB GROWTH (01/13/2025 9:26 PM EDT) Anatomical Region Laterality Modality Other 01/13/2025 9:26 PM EDT Narrative 01/13/2025 9:29 [place] [address] Ultrasound Report Signed Patient: GRETA PINEDA MR#: [id number] : 1995 Acct:[id number] Age/Sex: 29 / F ADM Date: 01/13/25 Loc: US Attending Dr: Brenda Jeff Ordering Physician: Brenda Jeff Date of Service: 01/13/25 Procedure(s): US OB growth Accession Number(s): [id number] cc: Brenda Jeff; Physician,Non-Staff M.DRaji [place] [id number] Patient Name: GRETA PINEDA MRN: [facility]:[id number] date: 1995 Sex: F Assigned Patient Location: [facility] Current Patient Location: Accession/Order Number: [id number] Exam Date: 01/13/2025 21:21 Report Date: 01/13/2025 [...] Bauman M.D. 01/13/2025 9:26 PM Dictation Location: [place] [address] Electronically authenticated by: [id number] Y Date: 01/13/2025 21:26 Dictated By: Casper Bauman D.O. Signed By: 01/13/252128 DD/ 25 TD/TT: Hand Binder Stripper: Procedure Note Radiology, Radiologist, - 06/12/[address] [address] Ultrasound Report Signed Patient: YARY PINEDA#: [id number] : 1995Acct:[id number] Age/Sex: 29 / FADM Date: 01/13/25 Loc: US Attending Dr: Brenda Jeff Ordering Physician: Brenda Jeff Date of Service: 01/13/25 Procedure(s): US OB growth Accession Number(s): [id number] cc: Brenda Jeff; Physician,Non-Staff M.DRaji The [place] [id number] Patient Name: GRETA PINEDA MRN: [id number] date: 1995 Sex: F Assigned Patient Location: [facility] Current Patient Location: Accession/Order Number: [id number] Exam Date: 01/13/2025 21:21 Report Date: 01/13/2025 21:26 At the request of: BRENDA JEFF Procedure: US OB growth Obstetrical Ultrasound for Fetus greater than 14 weeks HISTORY: growth heart rate is 148 bpm. The fetus is in cephalic presentation. The placenta is in a posterior position with normal appearance. Amnioticfluid index is 16.79cm. The cervix not assessed The estimated weight mh4825 g. with percentile 43%. The ovaries are [...] Bauman M.D. 01/13/2025 9:26 PM Dictation Location: [place] Electronically authenticated by: [id number] Y Date: 1:26 Dictated By: Casper Bauman D.O. Signed By:01/13/252128 DD/ 25 TD/TT: Hand Binder Stripper: us Brenda [facility] Final Result [...] II, MD, PHD at 29-Dec-2024 11:18:48 PM [facility] Procedure Note Arvin Jimenez MD - [...] signed by ARVIN JIMENEZ II, MD, PHD [id number] 11:18:48 PM [facility] us Ling Graham NP IMG OB [...] computer assisted technology. [facility] BAND SEWER: SEE NOTE NO [facility] Comment: PCJ, SCT(ASCP) CT screening location: [facility] [place] [address]. REVIEW BAND SEWER: SEE NOTE [facility] Comment: MLH, CT(ASCP) CT screening location: [place] [address]. COMMENT SEE NOTE [facility] [...] Detected [facility] Comment: Methodology: Photo Mask Inspector-Mediated Amplification This assay detects E6/E7 viral messenger RNA (mRNA) from 14 high-risk HPV types (16,18,31,33,35,39,45,51,52,56,58,59,66,68). The analytical performance characteristics of this assay have been determined by [facility]. The modifications have not been cleared or approved by the FDA. This assay has been validated pursuant to the CLIA regulations and is used for clinical purposes. For additional information, please refer to http://education.FanFound.D square nv/faq/ANA390f6 (This link if provided for information/ educational purposes only.) 10/13/2020 us Bennie Cosme NP [facility] Final Result [facility] from Last 3 Months or Most Recently Relevant to Health Maintenance Insurance [employer] Care Teams Kitchen Operator Relationship Specialty Start Date End Date Raegan Medina MD [address] [place] [address] PCP - General Family Medicine 06/02/24
--- OUTSIDE RECORDS SUMMARY | 2025-01-29 11:19 | XMS_ITS | Encounter Summary ---
Author Organization [facility] Address [address] [place] [address] Care Team Providers Care Survey Workers Supervisor Name Role Phone Raegan Medina MD Primary Care Provider [phone] Mary Ann Johnson NP Unavailable [phone] Encounter Details Date Type Department Care Team (Late st Contact Info) Description 06/18/2024 Abstract [facility] OB [address] [place] [address] Slim Russell, DO [address] [facility] [address] Francisco Ledesma, [facility] Social History Tobacco Use Types Packs/Day [...] often do you attend chur ch or holiness services? Never 06/01/2024 Do you belong to any clubs o r organizations such as buddhism groups, unions, fraternal or athletic groups, or [...] Recorded Patient Health Questionnaire-2 Score 0 06/02/2024 [facility] - Occupational Stress Questionnaire Answer Date [...] any time in the past 12 m [facility], were you homeless or [...] documented as of this encounter Care Teams Survey Workers Supervisor Relationship Specialty Start Date End Date Raegan Medina MD [address] [place] [address] PCP - General Family Medicine 06/02/24 Mary Ann Johnson NP [address] [facility] [place] [address] PCP - Anny Rodgers 07/04/24 documented as of this encounter
--- OUTSIDE RECORDS SUMMARY | 2025-01-29 11:19 | XMS_ITS | Encounter Summary ---
Author Organization [facility] Address [address] [place] [address] Care Team Providers Care Kitchen And Counter Worker Name Role Phone Raegan Medina MD Primary Care Provider [phone] Encounter Details Date Type Department Care Team (Late st Contact Info) Description 01/24/2025 Bamboo flowsheet [facility] OB [address] [place] [address] Slim Russell, DO [address] [facility] [address] Francisco Ledesma, [facility] Social History Tobacco Use [...] often do you attend chur ch or restorationist services? Never 06/01/2024 Do you belong to any clubs o r organizations such as presybeterian groups, unions, fraternal or athletic groups, or [...] Recorded Patient Health Questionnaire-2 Score 0 06/02/2024 [facility] ional [facility] [...] any time in the past 12 m [facility], were you homeless or living in [...] documented as of this encounter Care Teams Kitchen And Counter Worker Relationship Specialty Start Date End Date Raegan Medina MD [address] [place] [address] PCP - General Family Medicine 06/02/24 documented as of this encounter
--- OUTSIDE RECORDS SUMMARY | 2025-01-29 11:19 | XMS_ITS | Encounter Summary ---
Author Organization [facility] Address [address] [place] [address] Care Team Providers Care Caustics Loader Name Role Phone Raegan Medina MD Primary Care Provider [phone] Encounter Details Date Type Department Care Team [...] often do you attend chur ch or sikhism services? Never 06/01/2024 Do you belong to [...] Recorded Patient Health Questionnaire-2 Score 0 06/02/2024 [facility] ional [facility] - Occupational [...] Delivery Comme nts Yes 01/24/2025 Date entered rdaha or to episode creation Sex and Gender [...] documented as of this encounter Care Teams Caustics Loader Relationship Specialty Start Date End Date Raegan Medina MD [address] [place] [address] PCP - General Family Medicine 06/02/24 documented as of this encounter
--- OUTSIDE RECORDS SUMMARY | 2025-01-29 11:19 | XMS_ITS | Encounter Summary ---
Author Organization [facility] Address [address] [place] [address] Care Team Providers Care Jewelry Salesperson Name Role Phone Raegan Medina MD Primary Care Provider [phone] Encounter Details Date Type Department Care Team (Late st Contact Info) Description 01/24/2025 Clinisync Result Encounter [facility] External Department Unsolicited Slim Russell, DO [address] [place] [address] Social History Tobacco Use Types Packs/Day Years [...] often do you attend chur ch or jew services? Never 06/01/2024 Do you belong to [...] Recorded Patient Health Questionnaire-2 Score 0 06/02/2024 [facility] - [...] Procedure Name Priority Date/Time Associated Diagnosis Comments [facility] CBC WITH PLATELET NO DIFFERENTIAL Routine 01/24/2025 8:09 PM EDT [facility] URINE MICROSCOPIC ONLY Routine 01/24/2025 7:15 PM EDT [facility] UA (CLEAN/CATCH) CONCRETE BOOM PUMP OPERATOR/MICRO IF IND. Routine 01/24/2025 7:15 PM EDT [facility] DRUG SCREEN RAPID (URINE) Routine 01/24/2025 7:15 PM EDT documented in this encounter Results * (ABNORMAL) [facility] CBC WITH PLATELET NO DIFFERENTIAL (01/24/2025 8:09 PM EDT) TB WBC 14.9(H) 4.0 - 11.0 10 3/uL [facility] TB RBC 3.88(L) 4.20 - 5.40 10 6/uL [facility] TB HGB 12.3 12.0 - 16.0 g/dL TB TBH HCT 35.5(L) 36.0 - 48.0 % TB TB MCV 91.5 81.0 - 99.0 fL TB TB MCH 31.7 26.7 - 34.0 pg TBH TBH MCHC 34.6 29.9 - 35.2 g/dL TB TB RDW 12.7 11.0 - 15.0 % TB [facility] PLT 327 150 - 450 10 3/uL TB TB MPV 9.3(L) 9.5 - 13.5 fL TB 01/24/2025 8:09 PM EDT 01/24/2025 9:21 PM EDT Narrative [facility] - 01/24/2025 9:31 PM EDT [facility] Yvonne DO CLINISYNC Final Result [facility] TB * TB DRUG SCREEN RAPID (URINE) (01/24/2025 7:15 PM [...] EDT Slim Alo DO [facility] * (ABNORMAL) TB URINE MICROSCOPIC ONLY (01/24/2025 7:15 PM EDT) TB WBC 0-2(A) NONE SEEN #/HPF TBH TBH [...] Narrative CLINISYNC - 01/24/2025 8:00 PM EDT us Slim Yvonne DO CLINISYNC Final Result Performing Organization Address City/[facility] Co de Phone Number CL[facility]YNC TB[facility] * [facility]H UA (CLEAN/CATCH) CONCRETE BOOM PUMP OPERATOR/MICRO IF IND. (01/24/2025 7:15 PM EDT) COLOR [...] Narrative CLINISYNC - 01/24/2025 8:00 PM EDT us Slim Yvonne DO CLINISYNC Final Result Performing Organization Address City/[facility] Co de Phone Number [facility]H documented in this encounter Visit Diagnoses Not on filedocumented in this encounter Additional Health Concerns Assessment Noted Time PHQ-9 Depression Total Score: 0 06/02/20 24 10:00 AM EDT documented as of this encounter Care Teams Jewelry Salesperson Relationship Specialty Start Date End Date Raegan Medina MD [address] [place] [address] PCP - General Family Medicine 06/02/24 documented as of this encounter
--- OUTSIDE RECORDS SUMMARY | 2025-01-29 11:19 | XMS_ITS | Clinical Summary ---
[facility] Address [facility] [id number] [address] [id number] Care Team Providers Care Oxygen Therapist Name Role Phone Unavailable Primary Care Provider [...]
--- OUTSIDE RECORDS SUMMARY | 2025-01-29 11:19 | XMS_ITS | Encounter Summary ---
Author Organization [facility] Address [address] [place] [address] Care Team Providers Care Travel Attendants Name Role Phone Raegan Medina MD Primary Care Provider [phone] Encounter Details Date Type Department Care Team (Late st Contact Info) Description 01/26/2025 Clinisync Result Encounter [facility] External Department Unsolicited Slim Russell, DO [address] [place] [address] Social History Tobacco Use Types [...] often do you attend chur ch or latter-day services? Never 06/01/2024 Do you belong to [...] Recorded Patient Health Questionnaire-2 Score 0 06/02/2024 [facility] Occupat ional Health - Occupational [...] any time in the past 12 m [facility], were you homeless or living in a senior living (including now)? No 06/01/2024 Estimated Date of [...] Comments ALL CBC WITH AUTO DIFF Routine 01/26/2025 6:37 AM EDT documented in this encounter Results * (ABNORMAL) ALL CBC WITH AUTO [...] Narrative CLINISYNC - 01/26/2025 7:03 AM EDT us Slim Yvonne DO CLINISYNC Final Result Performing Organization Address City/State/[facility] Co de Phone Number [facility] documented in this encounter Visit Diagnoses Not on filedocumented in this encounter Additional Health Concerns Assessment Noted Time PHQ-9 Depression Total Score: 0 06/02/20 10:00 AM EDT documented as of this encounter Care Teams Travel Attendants Relationship Specialty Start Date End Date Raegan Medina MD [address] [place] [address] PCP - General Family Medicine 06/02/24 documented as of this encounter
--- OUTSIDE RECORDS SUMMARY | 2025-01-29 11:19 | XMS_ITS | Clinical Summary ---
Author Organization [facility] Address [address] [place] [address] Phone Care Team Providers Care Mechanical Tech Name Role Phone Unavailable Primary Care Provider [...]
--- OUTSIDE RECORDS SUMMARY | 2025-01-29 11:19 | XMS_ITS | Encounter Summary ---
Author Organization [facility] Address [address] [place] [address] Care Team Providers Care Power Shovel Engineer Name Role Phone Raegan Medina MD Primary Care Provider [phone] Encounter Details Date Type Department Care Team (Late st Contact Info) Description 01/24/2025 Abstract [facility] [address] [place] [address] Rosa Nguyen LPN Social History Tobacco Use Types Packs/Day Years [...] often do you attend chur ch or denominational services? Never 06/01/2024 Do you belong to any clubs o r organizations such as rastafarian groups, unions, fraternal or athletic groups, or [...] 0 06/02/2024 [facility] of Occupat ional Health - Occupational Stress [...] time in the past 12 m [facility], were you homeless or living in [...] documented as of this encounter Care Teams Power Shovel Engineer Relationship Specialty Start Date End Date Raegan Medina MD [address] [place] [address] PCP - General Family Medicine 06/02/24 documented as of this encounter
--- OUTSIDE RECORDS SUMMARY | 2025-01-29 11:19 | XMS_ITS | Encounter Summary ---
Author Organization [facility] Address [address] [place] [address] Care Team Providers Care Door Machine Operator Name Role Phone Samra Aguirre DO Primary Care Provider [phone] Raegan Medina MD Primary Care Provider [phone] Mary Ann Johnson NP Unavailable [phone] Reason for Visit * Reason Comments Med Refill Encounter Details Date Type Department Care Team (Late st Contact Info) Description 07/02/2023 Refill [facility] [address] [place] [address] Samra Aguirre DO [address] [address] Social History Tobacco Use Types [...] on filedocumented in this encounter Care Teams Door Machine Operator Relationship Specialty Start Date End Date Timothy, Samra SerenaDO PCP - General Family Medicine 12/10/22 06/01/24 Raegan Medina MD [address], [place] [id number] PCP - General Family Medicine 06/02/24 Mary Ann Johnson NP [address], [place] [id number] PCP - Anny Rodgers 07/04/24 documented as of this encounter
--- OUTSIDE RECORDS SUMMARY | 2025-01-29 11:19 | XMS_ITS | Encounter Summary ---
Author Organization [facility] Address [address] [place] [address] Care Team Providers Care Salesforce Business Analyst Name Role Phone Raegan Medina MD Primary Care Provider [phone] Mary Ann Johnson NP Unavailable [phone] Encounter Details Date Type Department Care Team (Late st Contact Info) Description 07/19/2024 Abstract [facility] [address] [place] [address] Slim Russell, DO [address] [place], [id number] Social History Tobacco Use Types Packs/Day Years [...] often do you attend chur ch or rastafarian services? Never 06/01/2024 Do you belong to any clubs o r organizations such as yazidi groups, unions, fraternal or athletic groups, or [...] Recorded Patient Health Questionnaire-2 Score 0 06/02/2024 [facility] - Occupational Stress Questionnaire Answer Date [...] time in the past 12 m [facility], were you homeless or living in [...] documented as of this encounter Care Teams Salesforce Business Analyst Relationship Specialty Start Date End Date Raegan Medina MD [address] [place] [address] PCP - General Family Medicine 06/02/24 Mary Ann Johnson NP [address] [facility] [address] PCP - Anny Rodgers 07/04/24 documented as of this encounter
--- OUTSIDE RECORDS SUMMARY | 2025-01-29 11:19 | XMS_ITS ---
Author Organization [facility] Address [address] [place] [address] Care Team Providers Care Bacon Skinner Name Role Phone Raegan Medina MD Primary Care Provider [phone] Inpatient Discharge Transitional Care Management (TCM) Status:Enrolled (Active) Start date:01/27/2025 Enrollment date:01/28/2025 Enrollment reason:Identified using hospital discharge data Overview Patient discharged from [facility] on 01/27. Please contact for hospital NALLELY and schedule follow-up appointment within 7-14 days. Case Team Name Relationship Phone Brenda Joe LPN(Responsible Staff) Licensed [facility] Nurse [phone] Continued Care and Services Coordination
--- OUTSIDE RECORDS SUMMARY | 2025-01-29 11:19 | XMS_ITS | Encounter Summary ---
Author Organization [facility] Address [address] [place] [address] Care Team Providers Care Liberal Arts Teacher Name Role Phone Raegan Medina MD Primary Care Provider [phone] Mary Ann Johnson NP Unavailable [phone] Encounter Details Date Type Department Care Team (Late st Contact Info) Description 07/14/2024 Abstract [facility] OB [address] [place] [address] Slim Russell, DO [address] [place], [facility] Social History Tobacco Use Types [...] any clubs o r organizations such as episcopalian groups, unions, fraternal or athletic groups, or [...] 0 06/02/2024 [facility] - Occupational Stress Questionnaire Answer [...] time in the past [address] [facility], were you homeless or living [...] documented as of this encounter Care Teams Liberal Arts Teacher Relationship Specialty Start Date End Date Raegan Medina MD [address] [place] [address] PCP - General Family Medicine 06/02/24 Mary Ann Johnson NP [address] [facility] [place] [address] PCP - Anny Rodgers 07/04/24 documented as of this encounter
--- OUTSIDE RECORDS SUMMARY | 2025-01-29 11:19 | XMS_ITS | Encounter Summary ---
Author Organization [facility] Address [address] [place] [address] Care Team Providers Care Electronic Systems Technician Name Role Phone Raegan Medina MD Primary Care Provider [phone] Mary Ann Johnson NP Unavailable [phone] Encounter Details Date Type Department Care Team (Late st Contact Info) Description 06/18/2024 Abstract [facility] [address] [place] [address] Slim Russell, DO [address] [place], [facility] Social History Tobacco Use Types Packs/Day [...] often do you attend chur ch or cheondoism services? Never 06/01/2024 Do you belong to any clubs o r organizations such as tenriism groups, unions, fraternal or athletic groups, or [...] Recorded Patient Health Questionnaire-2 Score 0 06/02/2024 [facility] - Occupational Stress Questionnaire Answer [...] any time in the past 12 m [facility], were you homeless or living [...] documented as of this encounter Care Teams Electronic Systems Technician Relationship Specialty Start Date End Date Raegan Medina MD [address] [place] [address] PCP - General Family Medicine 06/02/24 Mary Ann Johnson NP [address] [facility] [place] [address] PCP - Anny Rodgers 07/04/24 documented as of this encounter
--- OUTSIDE RECORDS SUMMARY | 2025-01-29 11:19 | XMS_ITS | Patient Health Record ---
Author Organization [facility] Address [address] [place], [place] [id number] Care Team Providers Care Hotel Or Motel Cleaning Supervisor Name Role Phone Stanley Martellmarisa Unavailable [phone] Allergies No Known Allergies Reason For Referral [...] Location Date Provider Diagnosis Dental Main [address] [place], [place] [id number] 09/10/2024 [facility] Dental caries into dentine [...] Provider Name:An Angel , 02/14/2025 09:15:00 AM, [address] [place] [address], [id number], Insurance Providers Payer Name Payer Address Payer Phone Subscriber Number Group Number Insured Name Patient Relationship to Insured Coverage Start Date Coverage End Date [address] [place], [place] [id number] Greta Pineda Self - patient is the insured 4
--- OUTSIDE RECORDS SUMMARY | 2025-01-29 11:19 | XMS_ITS | Encounter Summary ---
Author Organization [facility] Address [address] [place] [address] Care Team Providers Care Retail Business Analyst Name Role Phone Raegan Medina MD Primary Care Provider [phone] Mary Ann Johnson NP Unavailable [phone] Encounter Details Date Type Department Care Team (Late st Contact Info) Description 07/14/2024 Abstract [facility] [address] [place] [address] Slim Russell, DO [address] [place]ma, [facility] [...] any clubs o r organizations such as orthodox groups, unions, fraternal or athletic groups, or [...] 06/02/2024 [facility] - Occupational Stress Questionnaire Answer [...] any time in the past 12 m [facility], were you homeless or living [...] documented as of this encounter Care Teams Retail Business Analyst Relationship Specialty Start Date End Date Raegan Medina MD [address] [place] [address] PCP - General Family Medicine 06/02/24 Mary Ann Johnson NP [address] [facility] [place] [address] PCP - Anny Rodgers 07/04/24 documented as of this encounter
--- OUTSIDE RECORDS SUMMARY | 2025-01-29 11:20 | XMS_ITS | CCD ---
Author Organization [facility] CliniSyfl Care Team Providers Care Bariatric Coordinator Name Role Phone PACO CHACON Attending Unavailable PACO CHACON Consulting Unavailable PACO CHACON Admitting Unavailable REQUEST, NONE LISTED Admitting Unavaila ble REQUEST, NONE LISTED Attending Unavaila ble REQUEST, NONE LISTED Consulting Unavaila ble Samra Aguirre DO Primary Care Provider Raegan Medina MD Primary Care Provider Alex DECISION SUPPORT MANAGER, Bhumika Unavailable OUMAR RUSSELL Attending Unavailable TOMER, BRENDA Attending Unavailable YVONNE, OUMAR Attending Unavailable YVONNE, OUMAR Attending Unavailable YVONNE, OUMAR Referring Unavailable GLADYS, LING Attending Unavailable YVONNE, OUMAR Attending Unavailable GLADYS, LING Referring Unavailable TOMER, BRENDA Attending Unavailable YVONNE, OUMAR Attending Unavailable TOMER, BRENDA Attending Unavailable YVONNE, OUMAR Attending Unavailable YVONNE, OUMAR Attending Unavailable CANDICE MENG Attending Unavailable ALEX, BHUMIKA Attending Unavailable YVONNE, OUMAR Attending Unavailable [...] [39 weeks gestation of ] 01-19-2025 Episodic Residual codes; unclassified (2 sources) Gestation period, 40 weeks; Translations: [40 weeks gestation of ] 01-24-2025 Episodic Past or Other Problems Problem Classification Problem Date Documented Da te Episodic/Chronic Mood disorders (20 sources) Mood disorders Onset: 06-02-2024 06-02-2024 Results Test Name Value Interpretation Reference Range Facility ALL CBC WITH AUTO DIFFon BASOPHILS ABSOLUTE AUTO 0.1 [facility] Basophils/100 WBC (Bld) 0.5 % 0.2 - 2.0 % [facility] Eosinophils/100 WBC (Bld) 2.6 % 0.9 - 7.0 % [facility] Erythrocyte distribution width (RBC) [Ratio] 13.1 % 11.0 - 15.0 % [facility] Hematocrit (Bld) [Volume fraction] 27.1 % Low 36.0 - 48.0 % [facility] Hemoglobin (Bld) [Mass/Vol] 9 g/dL Low 12.0 - 16.0 g/dL [facility] IMMATURE GRANULOCYTES ABS AUTO 0.07 High [facility] Immature granulocytes/100 WBC (Bld) 0.5 % 0.0 - 0.5 % [facility] Interpretation and review of laboratory results Abnormal [facility] LYMPHOCYTES ABSOLUTE AUTO 1.7 [facility] Lymphocytes/100 WBC (Bld) 13.1 % Low 20.5 - 60.0 % [facility] MCH (RBC) [Entitic mass] 30.9 pg 26.7 - 34.0 pg [facility] MCHC (RBC) [Mass/Vol] 33.2 g/dL 29.9 - 35.2 g/dL [facility] MCV (RBC) [Entitic vol] 93.1 fL 81.0 - 99.0 fL [facility] MONOCYTES ABSOLUTE AUTO 0.9 High [facility] Monocytes/100 WBC (Bld) 7.3 % 1.7 - 12.0 % [facility] NEUTROPHILS ABSOLUTE AUTO 9.8 High [facility] Neutrophils/100 WBC (Bld) 76 % High 43.0 - 75.0 % [facility] Platelet mean volume (Bld) [Entitic vol] 9 fL Low 9.5 - 13.5 fL [facility] EO # 0.3 [facility] PLT 215 [facility] RBC 2.91 Low [facility] WBC 12.9 High [facility] UA (CLEAN/CATCH) COLLECTIONS CLERK/REINALDO RO IF IND.on 01-24-2025 BILIRUBIN URINE Negative NEGATIVE [facility] BLOOD URINE TRACE-I NEGATIVE [facility] Clarity (U) CLEAR CLEAR [facility] Color (U) LT. YELLOW [facility]LLOW [facility] GLUCOSE URINE UA Negative NEGATIVE mg/dL [facility] Ketones Ql (U) Negative NEGATIVE mg/dL [facility] Leukocyte esterase Test strip Ql (U) Negative NEGATIVE [facility] NITRITE URINE Negative NEGATIVE [facility] Health care pH (U) 6.0 [pH] 5.0 - 9.0 [facility] PROTEIN URINE Negative NEG/TRACE mg/dL [facility] SPECIFIC GRAVITY URINE 1.010 1.005 - 1.025 [facility] URINE MICROSCOPIC INDICATED YES [facility] UROBILINOGEN URINE 0.2 EU/dL 0.2 - 1.0 EU/dL [facility] Urinalysis macro (dipstick) panel (U)on 01-24-2025 Bilirubin, UA Negative Negative - 4(70) +++ mg/dL [facility] Blood, UA Positive Negative - 50 Immanuel/mcL [facility] Comment on above: Trace-intact Clarity, UA Clear [facility] re Color, UA Yellow [facility] Glucose, UA Negative Negative - 1999(110) ++++ mg/dL [facility] Interpretation and review of laboratory results Abnormal [facility] Ketones, UA Negative Negative - 160(16) ++++ mg/dL [facility] Leukocytes, UA Negative Negative - 500+++ Jennyfer/mcL [facility] Nitrite, UA Negative Negative - Positive [facility] pH, UA 7 5 - 9 [facility] Protein, UA Negative Negative - 1999(20) ++++ mg/dL [facility] Spec Grav, UA 1.015 1 - 1.03 [facility] Urobilinogen, UA 0.2 0.2 - 12 mg/dL [facility] US OB BPP W NON-STRESS on 01-20-[address] [facility] [address] [place] [address] Ultrasound Report Signed Patient: GRETA PINEDA MR#: [id number] : 1995 Acct:[id number] Age/Sex: 29 / F ADM Date: 01/20/25 Loc: [facility] 250-[address]: Brenda Jeff Ordering Physician: Brenda Jeff Date of Service: 01/20/25 Procedure(s): US OB BPP w non-stress Accession Number(s): [id number] cc: Brenda Jeff; Physician,Non-Staff [place] [address] Patient Name: GRETA PINEDA MRN: [facility]:[id number] date: 1995 Sex: F Assigned Patient Location: [facility] Current Patient Location: [facility] Accession/Order Number: [id number] Exam Date: 01/20/2025 07:59 Report Date: 01/20/2025 [...] Aggarwal M.D. 01/20/2025 8:01 AM Dictation Location: [place] [address] Electronically authenticated by: [id number] Y Date: 01/20/2025 08:01 Dictated By: Ronda Aggarwal M.D. Signed By: 01/20/25 0803 DD/ 08 TD/TT: Tear Down Man: [facility] Radiology, Radiologist, - 01/20/[address] [address] Ultrasound Report Signed Patient: GRETA PINEDA MR#: [id number] : 1995 Acct:[id number] Age/Sex: 29 / F ADM Date: 01/20/25 Loc: [facility] 250- Attending Dr: Brenda Jeff Ordering Physician: Brenda Jeff Date of Service: 01/20/25 Procedure(s): US OB BPP w non-stress Accession Number(s): [id number] cc: Brenda Jeff; Physician,Non-Staff Radhames The [place] [id number] Patient Name: GRETA PINEDA MRN: [id number] date: 1995 Sex: F Assigned Patient Location: [facility] Current Patient Location: [facility] Accession/Order Number: [id number] Exam Date: 01/20/2025 07:59 Report Date: 01/20/2025 [...] Aggarwal M.D. 01/20/2025 8:01 AM Dictation Location: [place] [address] Electronically authenticated by: [id number] Y Date: 01/20/2025 08:01 Dictated By: Ronda Aggarwal M.D. Signed By: 01/20/25802 DD/ 0 TD/TT: Tear Down Man: [facility] Radiology Study observation (narrative) [facility] US OB BPP W NON-STRESS Ordered By: Radiologist Radiology on 01-20-2025 [facility] Work Phone: Urinalysis macro (dipstick) panel (U)on 01-19-2025 Bilirubin, UA Negative Negative - 4(70) +++ mg/dL [facility] Blood, UA Positive Negative - 50 Immanuel/mcL [facility] Comment on above: Trace-intact Clarity, UA Clear [facility] re Color, UA Yellow [facility] e Glucose, UA Negative Negative - 1999(110) ++++ mg/dL [facility] Interpretation and review of laboratory results Abnormal [facility] Ketones, UA Negative Negative - 160(16) ++++ mg/dL [facility] Leukocytes, UA Negative Negative - 500+++ Jennyfer/mcL [facility] Nitrite, UA Negative Negative - Positive [facility] pH, UA 6.5 5 - 9 [facility] Protein, UA Negative Negative - 1999(20) ++++ mg/dL [facility] Spec Grav, UA 1.01 1 - 1.03 [facility] Urobilinogen, UA 0.2 0.2 - 12 mg/dL [facility] US OB BPP W NON-STRESS on 01-13-2025 [place] [address] Ultrasound Report Signed Patient: GRETA PINEDA MR#: [id number] : 1995 Acct:[id number] Age/Sex: 29 / F ADM Date: 01/13/25 Loc: US Attending Dr: Brenda Jeff Ordering Physician: Brenda Jeff Date of Service: 01/13/25 Procedure(s): US OB BPP w non-stress Accession Number(s): [id number] cc: Brenda Jeff; Physician,Non-Staff Radhames The [address] [address] Patient Name: GRETA PINEDA MRN: [id number] date: 1995 Sex: F Assigned Patient Location: [facility] Current Patient Location: Accession/Order Number: [id number] Exam Date: 01/13/2025 21:27 Report Date: 01/13/2025 [...] Bauman M.D. 01/13/2025 9:30 PM Dictation Location: [place] [address] Electronically authenticated by: [id number] Y Date: 01/13/2025 21:30 Dictated By: Casper Bauman D.O. Signed By: 01/13/252132 DD/ 29 TD/TT: Tear Down Man: [facility] Radiology, Radiologist, MD - 01/13/[address] [address] Ultrasound Report Signed Patient: GRETA PINEDA MR#: [id number] : 1995 Acct:[id number] Age/Sex: 29 / F ADM Date: 01/13/25 Loc: US Attending Dr: Brenda Jeff Ordering Physician: Brenda Jeff Date of Service: 01/13/25 Procedure(s): US OB BPP w non-stress Accession Number(s): [id number] cc: Brenda Jeff; Physician,Non-Staff Radhames The [address] [address] Patient Name: GRETA PINEDA MRN: [facility]:[id number] date: 1995 Sex: F Assigned Patient Location: [facility] Current Patient Location: Accession/Order Number: [id number] Exam Date: 01/13/2025 21:27 Report Date: 01/13/2025 [...] Bauman M.D. 01/13/2025 9:30 PM Dictation Location: [employer] Electronically authenticated by: [id number] Y Date: 01/13/2025 21:30 Dictated By: Casper Bauman D.O. Signed By: 01/13/252132 DD/ 29 TD/TT: Tear Down Man: [facility] Radiology Study observation (narrative) [facility] US OB BPP W NON-STRESS Ordered By: Radiologist Radiology on 01-13-2025 [facility] [employer] Work Phone: US OB GROWTHon 01-13-2025 [place] [id number] Ultrasound Report Signed Patient: GRETA PINEDA MR#: [id number] : 1995 Acct:[id number] Age/Sex: 29 / F ADM Date: 01/13/25 Loc: US Attending Dr: Brenda Jeff Ordering Physician: Brenda Jeff Date of Service: 01/13/25 Procedure(s): US OB growth Accession Number(s): [id number] cc: Brenda Jeff; Physician,Non-Staff M.Glendy The [address] [address] Patient Name: GRETA PINEDA MRN: [id number] date: 1995 Sex: F Assigned Patient Location: [facility] Current Patient Location: Accession/Order Number: [id number] Exam Date: 01/13/2025 21:21 Report Date: 01/13/2025 [...] Bauman M.D. 01/13/2025 9:26 PM Dictation Location: [employer] Electronically authenticated by: [id number] Y Date: 01/13/2025 21:26 Dictated By: Casper Bauman D.O. Signed By: 01/13/252128 DD/ 25 TD/TT: Tear Down Man: [facility] Radiology, Radiologist, - 01/13/2025 [place] [address] Ultrasound Report Signed Patient: GRETA PINEDA MR#: [id number] : 1995 Acct:[id number] Age/Sex: 29 / F ADM Date: 01/13/25 Loc: US Attending Dr: Brenda Jeff Ordering Physician: Brenda Jeff Date of Service: 01/13/25 Procedure(s): US OB growth Accession Number(s): [id number] cc: Brenda Jeff; Physician,Non-Staff MIsabella The [address] [address] Patient Name: GRETA PINEDA MRN: [facility]:[id number] date: 1995 Sex: F Assigned Patient Location: [facility] Current Patient Location: Accession/Order Number: [id number] Exam Date: 01/13/2025 21:21 Report Date: 01/13/2025 [...] Bauman M.D. 01/13/2025 9:26 PM Dictation Location: [place] [address] Electronically authenticated by: [id number] Y Date: 01/13/2025 21:26 Dictated By: Casper Bauman D.O. Signed By: 01/13/252128 DD/ 25 TD/TT: Tear Down Man: [facility] Radiology Study observation (narrative) [facility] OB GROWTHOrdered By: Lloyd ologist Radiology on 01-13-2025 [facility] Work Phone: Urinalysis macro (dipstick) panel (U)on 01-12-2025 Bilirubin, UA Negative Negative - 4(70) +++ mg/dL [facility] Blood, UA Positive Negative - 50 Immanuel/mcL [facility] Comment on above: trace-intact Clarity, UA Clear [facility] re Color, UA Yellow [facility] e Glucose, UA Negative Negative - 2000(110) ++++ mg/dL [facility] Interpretation and review of laboratory results Abnormal [facility] Ketones, UA Negative Negative - 160(16) ++++ mg/dL [facility] Leukocytes, UA Trace Negative - 500+++ Jennyefr/mcL [facility] Nitrite, UA Negative Negative - Positive [facility] pH, UA 6 5 - 9 [facility] Protein, UA Negative Negative - 1999(20) ++++ mg/dL [facility] Spec Grav, UA 1.01 1 - 1.03 [facility] Urobilinogen, UA 0.2 0.2 - 12 mg/dL [facility] US OB FOLLOW UP [...] II, MD, PHD at 29-Dec-2024 11:18:48 PM [facility] Normal Not Available Comment on above: Order Comment: US OB SCAN FOR GROWTH Estimated Date of Delivery: 01/24/25 Gestational Age as of 12/01/2024: 32w2d Urinalysis macro (dipstick) panel (U)on 12-29-2024 Bilirubin, UA Negative Negative - 4(70) +++ mg/dL [facility] Blood, UA Negative Negative - 50 Immanuel/mcL [facility] Healthcare Clarity, UA Clear [facility] re Color, UA Yellow [facility] Glucose, UA Negative Negative - 1999(110) ++++ mg/dL [facility] Interpretation and review of laboratory results Abnormal [facility] Ketones, UA Negative Negative - 160(16) ++++ mg/dL [facility] Leukocytes, UA Trace Negative - 500+++ Jennyfer/mcL [facility] Nitrite, UA Negative Negative - Positive [facility] pH, UA 7 5 - 9 [facility] Protein, UA Negative Negative - 1999(20) ++++ mg/dL [facility] Spec Grav, UA 1.01 1 - 1.03 [facility] Urob[facility], UA 0.2 0.2 - 12 mg/dL [facility] Urinalysis macro (dipstick) panel (U)on 12-14-2024 Bilirubin, UA Negative Negative - 4(70) +++ mg/dL [facility] Blood, UA Negative Negative - 50 Immanuel/mcL [facility] Clarity, UA Clear [facility] Color, UA Light Yellow [facility] Glucose, UA Negative Negative - 1999(110) ++++ mg/dL [facility] Interpretation and review of laboratory results Normal [facility] Ketones, UA Negative Negative - 160(16) ++++ mg/dL [facility] Leukocytes, UA Trace Negative - 500+++ Jennyfer/mcL [facility] Nitrite, UA Negative Negative - Positive [facility] pH, UA 7 5 - 9 [facility] Protein, UA Negative Negative - 1999(20) ++++ mg/dL [facility] Spec Grav, UA 1.015 1 - 1.03 [facility] Urobilinogen, UA 0.2 0.2 - 12 mg/dL [facility] US OB FOLLOW UP [...] II, MD, PHD at 05-Dec-2024 08:53:04 PM [facility] Normal Not Available Comment on above: Order Comment: US OB SCAN FOR GROWTH Estimated Date of Delivery: 01/24/25 Gestational Age as of 11/16/2024: 30w1d Urinalysis macro (dipstick) panel (U)on 12-01-2024 Bilirubin, UA Negative Negative - 4(70) +++ mg/dL [facility] Blood, UA Positive Negative - 50 Immanuel/mcL [facility] Comment on above: Trace-intact Clarity, UA Clear [facility] re Color, UA Yellow [facility] Glucose, UA Negative Negative - 1999(110) ++++ mg/dL [facility] Interpretation and review of laboratory results Abnormal [facility] Ketones, UA Negative Negative - 160(16) ++++ mg/dL [facility] Leukocytes, UA Positive Negative - 500+++ Jennyfer/mcL [facility] Comment on above: Moderate Nitrite, UA Negative Negative - Positive [facility] pH, UA 6.5 5 - 9 [facility] Comment on above: ne Protein, UA Negative Negative - 1999(20) ++++ mg/dL [facility] Spec Grav, UA 1.01 1 - 1.03 [facility] Urobilinogen, UA 0.2 0.2 - 12 mg/dL [facility] Urinalysis macro (dipstick) panel (U)on 11-16-2024 Bilirubin, UA Negative Negative - 4(70) +++ mg/dL [facility] Blood, UA Negative Negative - 50 Immanuel/mcL [facility] Clarity, UA Clear [facility] Color, UA Yellow [facility] Glucose, UA Negative Negative - 1999(110) ++++ mg/dL [facility] Interpretation and review of laboratory results Normal [facility] Ketones, UA Negative Negative - 160(16) ++++ mg/dL [facility] Leukocytes, UA Negative Negative - 500+++ Jennyfer/mcL [facility] Nitrite, UA Negative Negative - Positive [facility] pH, UA 6.5 5 - 9 [facility] Protein, UA Negative Negative - 1999(20) ++++ mg/dL [facility] Spec Grav, UA 1.025 1 - 1.03 [facility] Health care Urobilinogen, UA 1.0 0.2 - 12 mg/dL [facility] Urinalysis macro (dipstick) panel (U)on 11-01-2024 Bilirubin, UA Negative Negative - 4(70) +++ mg/dL [facility] Blood, UA Negative Negative - 50 Immanuel/mcL [facility] Clarity, UA Clear [facility] Color, UA Yellow [facility] Glucose, UA Negative Negative - 1999(110) ++++ mg/dL [facility] Interpretation and review of laboratory results Normal [facility] Ketones, UA Negative Negative - 160(16) ++++ mg/dL [facility] Leukocytes, UA Negative Negative - 500+++ Jennyfer/mcL [facility] Nitrite, UA Negative Negative - Positive [facility] pH, UA 6.5 5 - 9 [facility] Protein, UA Negative Negative - 1999(20) ++++ mg/dL [facility] Spec Grav, UA 1.01 1 - 1.03 [facility] Urobilinogen, UA 0.2 0.2 - 12 mg/dL [facility] US OB LIMITED 1+ FETUSESon [...] II, MD, PHD at 19-Oct-2024 12:32:31 AM [facility] Normal Not Available Comment on above: Order Comment: US OB INCOMPLETE ANATOMY Estimated Date of Delivery: 01/24/25 Gestational Age as of 10/04/2024: 24w0d ALL CBC WITH AUTO DIFFon BASOPHILS ABSOLUTE AUTO 0 [facility] Basophils/100 WBC (Bld) 0.3 % 0.2 - 2.0 % [facility] Eosinophils/100 WBC (Bld) 1.3 % 0.9 - 7.0 % [facility] Erythrocyte distribution width (RBC) [Ratio] 11.9 % 11.0 - 15.0 % [facility] Hematocrit (Bld) [Volume fraction] 35.1 % Low 36.0 - 48.0 % [facility] Hem[facility] (Bld) [Mass/Vol] 11.5 g/dL Low 12.0 - 16.0 g/dL [facility] IMMATURE GRANULOCYTES ABS AUTO 0.02 [facility] Immature granulocytes/100 WBC (Bld) 0.2 % 0.0 - 0.5 % [facility] Interpretation and review of laboratory results Abnormal [facility] LYMPHOCYTES ABSOLUTE AUTO 1.6 [facility] Lymphocytes/100 WBC (Bld) 17.7 % Low 20.5 - 60.0 % [facility] MCH (RBC) [Entitic mass] 31.6 pg 26.7 - 34.0 pg [facility] MCHC (RBC) [Mass/Vol] 32.8 g/dL 29.9 - 35.2 g/dL [facility] MCV (RBC) [Entitic vol] 96.4 fL 81.0 - 99.0 fL [facility] MONOCYTES ABSOLUTE AUTO 0.4 [facility] Monocytes/100 WBC (Bld) 4.7 % 1.7 - 12.0 % [facility] NEUTROPHILS ABSOLUTE AUTO 7 High [facility] Neutrophils/100 WBC (Bld) 75.8 % High 43.0 - 75.0 % [facility] Platelet mean volume (Bld) [Entitic vol] 8.8 fL Low 9.5 - 13.5 fL [facility]O # 0.1 [facility] TB PLT 300 [facility] RBC 3.64 Low [facility] TB WBC 9.2 [facility] Urinalysis macro (dipstick) panel (U)on 10-04-2024 Bilirubin, UA Negative Negative - 4(70) +++ mg/dL [facility] Blood, UA Negative Negative - 50 Immanuel/mcL [facility] Clarity, UA Clear [facility] re Color, UA Yellow [facility] Glucose, UA Negative Negative - 1999(110) ++++ mg/dL [facility] Interpretation and review of laboratory results Normal [facility] Ketones, UA Negative Negative - 160(16) ++++ mg/dL [facility] Leukocytes, UA Negative Negative - 500+++ Jennyfer/mcL [facility] Nitrite, UA Negative Negative - Positive [facility] pH, UA 7 5 - 9 [facility] Protein, UA Negative Negative - 1999(20) ++++ mg/dL [facility] Spec Grav, UA 1.01 1 - 1.03 [facility] Urobilinogen, UA 0.2 0.2 - 12 mg/dL [facility] AFP, SERUM, OPEN SPINA BIFID Aon 09-08-2024 AFP MOM 1.39 . [facility] AFP VALUE 74.7 ng/mL . [facility] COMMENT: Comment . [facility] Comment on above: Gwendolyn Tarango , Ph.D., [facility] Director References: Available Upon Request. Multiples Of Median Cutoffs For AFP Elevations Stevens 2.5 Black 2.8 IDD 2.0 Twins 4.5 Abbreviation Definitions IDD - Insulin Dep Diabetes OSBR - Open Spina Bifida Risk For further inquiries contact [facility] at [phone]. This test was developed and its performance characteristics determined by [employer]. It has not been cleared or approved by the Food and Drug Administration. Performed at: [facility] [address], [place] [id number] Ship Superintendent: Micah Mancia [facility], Phone: [phone] GEST. AGE ON COLLECTION DATE 20.0 . weeks [facility] GESTAT. AGE BASED ON LMP . [facility] Comment on above: Recalculations are n ot recommended when gestational dating by LMP and ultrasound are within 10 days. INSULIN DEP DIABETES No . [facility] INTERPRETATION Comment . [facility] Comment on above: Interpretation: Scre en Negative [...] Customer Services to discuss available options. The [place] [employer] recommends amniocentesis be offered to women age 35 and older. [age] [facility] MULTIPLE GESTATION No . [facility] H [facility]althcare OSBR RISK 1 [place] 3704 . [facility] . [facility] Contin[employer] Education Records & Resources e RESULTS Report . [facility] [employer] TEST RESULTS: Negative . [facility] WEIGHT 159 . lbs [facility] [employer] Records [employer] Resources e N [id number] N LMP [id number] [phone] N 1 Y 159 N N N N N White/ [facility] [employer] US OB 14+ WEEKS ANATOMY SCAN [...] report is generated using voice recognition reporting ([employer]). On occasion [employer] erroneously drops words from the report or [...] UA Negative Negative - 4(70) +++ mg/dL [facility] Blood, UA Negative Negative - 50 Immanuel/mcL [facility] Clarity, UA Clear [facility] re Color, UA Colorless [facility] Glucose, UA Negative Negative - 2000(110) ++++ mg/dL [facility] Interpretation and review of laboratory results Normal [facility] Ketones, UA Negative Negative - 160(16) ++++ mg/dL [facility] Leukocytes, UA Negative Negative - 500+++ Jennyfer/mcL [facility] Nitrite, UA Negative Negative - Positive [facility] pH, UA 7 5 - 9 [facility] Protein, UA Negative Negative - 1999(20) ++++ mg/dL [facility] Spec Grav, UA 1.01 1 - 1.03 [facility] Urobilinogen, UA 0.2 0.2 - 12 mg/dL [facility] RECURRENT VAGINITIS (HTRX)on 08-11-2024 ATOPOBIUM VAGINAE 0 [facility] ATOPOBIUM VAGINAE Not detected [facility] BVAB 2,3 (BACTERIAL VAGINOSIS ASSOCIATED BACTERIA 2, 3); MOBILUNCUS SPP 0 [facility] BVAB 2,3 (BACTERIAL VAGINOSIS ASSOCIATED BACTERIA 2, 3); MOBILUNCUS SPP Not detected [facility] MALOU ALBICANS, PARAPSILOSIS, TROPICALIS 0 [facility] MALOU ALBICANS, PARAPSILOSIS, TROPICALIS Not detected [facility] MALOU GLABRATA 0 [facility] MALOU GLABRATA Not detected [facility] ealthcare MALOU KRUSEI 0 [facility] Not detected [facility] CHLAMYDIA TRACHOMATIS 0 [facility] CHLAMYDIA TRACHOMATIS Not detected [facility] GARDNERELLA VAGINALIS 0 [facility] GARDNERELLA VAGINALIS Not detected [facility] MEGASPHAERA (TYPES 1, 2) 0 [facility] MEGASPHAERA (TYPES 1, 2) Not detected [facility] MYCOPLASMA GENITALIUM 0 [facility] MYCOPLASMA GENITALIUM Not detected [facility] NEISSERIA GONORRHOEAE 0 [facility] NEISSERIA GONORRHOEAE Not detected [facility] TRICHOMONAS VAGINALIS 0 [facility] TRICHOMONAS VAGINALIS Not detected [facility] Urinalysis macro (dipstick) panel (U)on 08-09-2024 Bilirubin, UA Negative Negative - 4(70) +++ mg/dL [facility] Blood, UA Negative Negative - 50 Immanuel/mcL [facility] Clarity, UA Clear [facility] re Color, UA Yellow [facility] Glucose, UA Negative Negative - 1999(110) ++++ mg/dL [facility] Interpretation and review of laboratory results Normal [facility] Ketones, UA Negative Negative - 160(16) ++++ mg/dL [facility] Leukocytes, UA Negative Negative - 500+++ Jennyfer/mcL [facility] Nitrite, UA Negative Negative - Positive [facility] pH, UA 7 5 - 9 [facility] e Protein, UA Negative Negative - 1999(20) ++++ mg/dL [facility] Spec Grav, UA 1.01 1 - 1.03 [facility] Urobilinogen, UA 0.2 0.2 - 12 mg/dL [facility] ALL CBC WITH AUTO DIFFon BASOPHILS ABSOLUTE AUTO 0.1 [facility] Basophils/100 WBC (Bld) 0.6 % 0.2 - 2.0 % [facility] Eosinophils/100 WBC (Bld) 0.6 % Low 0.9 - 7.0 % [facility] Erythrocyte distribution width (RBC) [Ratio] 11.5 % 11.0 - 15.0 % [facility] Hematocrit (Bld) [Volume fraction] 39.1 % 36.0 - 48.0 % [facility] Hemoglobin (Bld) [Mass/Vol] 13 g/dL 12.0 - 16.0 g/dL [facility] IMMATURE GRANULOCYTES ABS AUTO 0.02 [facility] Immature granulocytes/100 WBC (Bld) 0.2 % 0.0 - 0.5 % [facility] Interpretation and review of laboratory results Abnormal [facility] LYMPHOCYTES ABSOLUTE AUTO 2 [facility] Lymphocytes/100 WBC (Bld) 22.3 % 20.5 - 60.0 % [facility] MCH (RBC) [Entitic mass] 31.5 pg 26.7 - 34.0 pg [facility] MCHC (RBC) [Mass/Vol] 33.2 g/dL 29.9 - 35.2 g/dL [facility] MCV (RBC) [Entitic vol] 94.7 fL 81.0 - 99.0 fL [facility] MONOCYTES ABSOLUTE AUTO 0.5 [facility] Monocytes/100 WBC (Bld) 5.6 % 1.7 - 12.0 % [facility] NEUTROPHILS ABSOLUTE AUTO 6.3 [facility] Neutrophils/100 WBC (Bld) 70.7 % 43.0 - 75.0 % [facility] Platelet mean volume (Bld) [Entitic vol] 9.3 fL Low 9.5 - 13.5 fL [facility].1 [facility] PLT 268 [facility] TB RBC 4.13 Low [facility] TB WBC 9 [facility] Urinalysis macro (dipstick) panel (U)on 07-08-2024 Bilirubin, UA Negative Negative - 4(70) +++ mg/dL [facility] Blood, UA Negative Negative - 50 Immanuel/mcL [facility] Healthcare Clarity, UA Clear [facility] Color, UA Yellow [facility] Glucose, UA Negative Negative - 1999(110) ++++ mg/dL [facility] Interpretation and review of laboratory results Normal [facility] Ketones, UA Negative Negative - 160(16) ++++ mg/dL [facility] Leukocytes, UA Negative Negative - 500+++ Jennyfer/mcL [facility] Nitrite, UA Negative Negative - Positive [facility] pH, UA 6.5 5 - 9 [facility] Protein, UA Negative Negative - 1999(20) ++++ mg/dL [facility] Spec Grav, UA 1.02 1 - 1.03 [facility] Urobilinogen, UA 1.0 0.2 - 12 mg/dL [facility] HCG ( test) Ql (U)o n 06-17-2024 Interpretation and review of laboratory results Abnormal [facility] Preg Test, Ur Positive Negative [facility] Urinalysis macro (dipstick) panel (U)on 06-17-2024 Bilirubin, UA Negative Negative - 4(70) +++ mg/dL [facility] Blood, UA Negative Negative - 50 Immanuel/mcL [facility] Healthcare Clarity, UA Clear [facility] re Color, UA Yellow [facility] Glucose, UA Negative Negative - 1999(110) ++++ mg/dL [facility] Interpretation and review of laboratory results Normal [facility] Ketones, UA Negative Negative - 160(16) ++++ mg/dL [facility] Leukocytes, UA Negative Negative - 500+++ Jennyfer/mcL [facility] Nitrite, UA Negative Negative - Positive [facility] pH, UA 5.5 5 - 9 [facility] Protein, UA Negative Negative - 1999(20) ++++ mg/dL [facility] Spec Grav, UA 1.02 1 - 1.03 [facility] Urobilinogen, UA 1.0 0.2 - 12 mg/dL [facility] Vital Signs Date Time Vital Sign Value Performing Clinician Faci lit 01-24-2025 13:11-0400 Diastolic blood pressure 70 mm[Hg] Oumar Yvonne DO Work Phone: [facility] 01-24-2025 13:11-0400 Systolic blood pressure 136 mm[Hg] Oumar Yvonne DO Work Phone: [facility] 01-24-2025 13:03-0400 Body mass index (BMI) [Ratio] 30.44 kg/m2 Oumar Yvonne DO Work Phone: [facility] 01-24-2025 13:03-0400 Body weight 84.26 kg Oumar Yvonne DO Work Phone: [facility] 01-19-2025 13:38-0400 Body mass index (BMI) [Ratio] 30.56 kg/m2 Oumar Yvonne DO Work Phone: [facility] 01-19-2025 13:38-0400 Body weight 84.6 kg Oumar Yvonne DO Work Phone: [facility] 01-12-2025 13:56-0400 Body mass index (BMI) [Ratio] 30.61 kg/m2 Brenda ZIMMER Work Phone: [facility] 01-12-2025 13:56-0400 Body weight 84.73 kg Bernda ZIMMER Work Phone: [facility] 01-12-2025 13:56-0400 Diastolic blood pressure 80 mm[Hg] Brenda Jeff PA Work Phone: [facility] 01-12-2025 13:56-0400 Systolic blood pressure 120 mm[Hg] Brenda Jeff PA Work Phone: [facility] 01-05-2025 13:27-0400 Body mass index (BMI) [Ratio] 30.61 kg/m2 Oumar Yvonne DO Work Phone: [facility] 01-05-2025 13:27-0400 Body weight 84.73 kg Oumar Yvonne DO Work Phone: [facility] 01-05-2025 13:27-0400 Diastolic blood pressure 72 mm[Hg] Oumar Yvonne DO Work Phone: [facility] 01-05-2025 13:27-0400 Systolic blood pressure 110 mm[Hg] Oumar Yvonne DO Work Phone: [facility] 12-29-2024 09:25-0400 Body mass index (BMI) [Ratio] 29.99 kg/m2 Brenda Jeff PA Work Phone: [facility] 12-29-2024 09:25-0400 Body weight 83.01 kg Brenda Tomer PA Work Phone: [facility] 12-29-2024 09:25-0400 Diastolic blood pressure 70 mm[Hg] Brenda Jeff PA Work Phone: [facility] 12-29-2024 09:25-0400 Systolic blood pressure 120 mm[Hg] Brenda Jeff PA Work Phone: [facility] 12-14-2024 08:35-0400 Body mass index (BMI) [Ratio] 29.66 kg/m2 Oumar Yvonne DO Work Phone: [facility] 12-14-2024 08:35-0400 Body weight 82.1 kg Oumar Yvonne DO Work Phone: [facility] 12-14-2024 08:35-0400 Diastolic blood pressure 68 mm[Hg] Oumar Yvonne DO Work Phone: [facility] 12-14-2024 08:35-0400 Systolic blood pressure 110 mm[Hg] Oumar Yvonne DO Work Phone: [facility] 12-01-2024 10:07-0400 Body mass index (BMI) [Ratio] 29.14 kg/m2 Ling Graham DECISION SUPPORT MANAGER Work Phone: [facility] 12-01-2024 10:07-0400 Body weight 80.65 kg Ling Graham NP Work Phone: [facility] 12-01-2024 10:07-0400 Diastolic blood pressure 72 mm[Hg] Ling Gladys DECISION SUPPORT MANAGER Work Phone: [facility] 12-01-2024 10:07-0400 Systolic blood pressure 120 mm[Hg] Ling Lagoserly DECISION SUPPORT MANAGER Work Phone: [facility] 11-16-2024 11:39-0400 Body mass index (BMI) [Ratio] 28.65 kg/m2 Oumar Yvonne DO Work Phone: [facility] 11-16-2024 11:39-0400 Body weight 79.29 kg Oumar Yvonne DO Work Phone: [facility] 11-16-2024 11:39-0400 Diastolic blood pressure 74 mm[Hg] Oumar Yvonne DO Work Phone: [facility] 11-16-2024 11:39-0400 Systolic blood pressure 122 mm[Hg] Oumar Yvonne DO Work Phone: [facility] 11-01-2024 08:58-0400 Body mass index (BMI) [Ratio] 28.25 kg/m2 Oumar Yvonne DO Work Phone: [facility] 11-01-2024 08:58-0400 Body weight 78.2 kg Oumar Yvonne DO Work Phone: [facility] 11-01-2024 08:58-0400 Diastolic blood pressure 60 mm[Hg] Oumar Yvonne DO Work Phone: [facility] 11-01-2024 08:58-0400 Systolic blood pressure 120 mm[Hg] Oumar Yvonne DO Work Phone: [facility] 10-04-2024 08:30-0500 Body mass index (BMI) [Ratio] 27.92 kg/m2 Brenda ZIMMER Work Phone: [facility] 10-04-2024 08:30-0500 Body weight 77.29 kg Brenda ZIMMER Work Phone: [facility] 10-04-2024 08:30-0500 Diastolic blood pressure 64 mm[Hg] Brenda Gautier PA Work Phone: [facility] 10-04-2024 08:30-0500 Systolic blood pressure 110 mm[Hg] Brenda Tomer PA Work Phone: [facility] 09-06-2024 10:48-0500 Body mass index (BMI) [Ratio] 25.86 kg/m2 Oumar Yvonne DO Work Phone: [facility] 09-06-2024 10:48-0500 Body weight 71.58 kg Oumar Yvonne DO Work Phone: [facility] 09-06-2024 10:48-0500 Diastolic blood pressure 60 mm[Hg] Oumar Yvonne DO Work Phone: [facility] 09-06-2024 10:48-0500 Systolic blood pressure 116 mm[Hg] Oumar Yvonne DO Work Phone: [facility] 08-09-2024 10:44-0500 Body mass index (BMI) [Ratio] 26.06 kg/m2 Brenda Jeff PA Work Phone: [facility] 08-09-2024 10:44-0500 Body weight 72.12 kg Brenda Tomer PA Work Phone: [facility] 08-09-2024 10:44-0500 Diastolic blood pressure 68 mm[Hg] Brenda Tomer PA Work Phone: [facility] 08-09-2024 10:44-0500 Systolic blood pressure 110 mm[Hg] Brenda Tomer PA Work Phone: [facility] 07-08-2024 10:50-0500 Body mass index (BMI) [Ratio] 25.73 kg/m2 Oumar Yvonne DO Work Phone: [facility] 07-08-2024 10:50-0500 Body weight 71.22 kg Oumar Yvonne DO Work Phone: [facility] 07-08-2024 10:50-0500 Diastolic blood pressure 70 mm[Hg] Oumar Yvonne DO Work Phone: [facility] 07-08-2024 10:50-0500 Systolic blood pressure 110 mm[Hg] Oumar Yvonne DO Work Phone: [facility] 06-17-2024 14:25-0500 Body mass index (BMI) [Ratio] 24.88 kg/m2 [facility] 06-17-2024 14:25-0500 Body weight 68.86 kg [facility] Nurse [facility] 06-02-2024 10:49-0400 Body height 166.4 cm Bhumika Johnson DECISION SUPPORT MANAGER Work Phone: [facility] 06-02-2024 10:49-0400 Body mass index (BMI) [Ratio] 24.88 kg/m2 Bhumika Johnson DECISION SUPPORT MANAGER Work Phone: [facility] 06-02-2024 10:49-0400 Body weight 68.86 kg Bhumika Johnson DECISION SUPPORT MANAGER Work Phone: [facility] 06-02-2024 10:49-0400 Diastolic blood pressure 60 mm[Hg] Bhumika Johnson DECISION SUPPORT MANAGER Work Phone: [facility] 06-02-2024 10:49-0400 Heart rate 75 /min Bhumika Johnson DECISION SUPPORT MANAGER Work Phone: [facility] 06-02-2024 10:49-0400 SaO2% (BldA) [Mass fraction] 99 % Bhumika Johnson DECISION SUPPORT MANAGER Work Phone: [facility] 06-02-2024 10:49-0400 Systolic blood pressure 120 mm[Hg] Bhumika Johnson DECISION SUPPORT MANAGER Work Phone: [facility] Healthcare Encounters Encounter Date Encounter Type Care Provider Facility Start: 01-26-2025 End: 01-26-2025 Clinisync Result Encounter Oumar Yvonne DO Work Phone: [facility] External Department Unsolicited Start: 01-26-2025 End: 01-26-2025 Clinisync Result Encounter Oumar Yvonne DO Work Phone: [facility] External Department Unsolicited Start: 01-24-2025 End: 01-24-2025 Bamboo flowsheet Oumar Yvonne DO Work Phone: [facility] Start: 01-24-2025 End: 01-24-2025 Bamboo flowsheet Oumar Yvonne DO Work Phone: [facility] Start: 01-24-2025 End: 01-24-2025 Clinisync Result Encounter Oumar Yvonne DO Work Phone: [facility] Unsolicited Start: 01-24-2025 End: 01-24-2025 flow sheet Oumar Yvonne DO Work Phone: [facility] Comment on above: Third trimester preg kirk ([facility]); 40 weeks gestation of ([facility]) Start: 01-24-2025 End: 01-24-2025 ambulatory OUMAR YVONNE Not Available Start: 01-20-2025 End: 01-20-2025 Clinisync Result Encounter Brenda ZIMMER Work Phone: [facility] Unsolicited Start: 01-20-2025 End: 01-20-2025 Clinisync Result Encounter Brenda ZIMMER Work Phone: [facility] Unsolicited Start: 01-19-2025 End: 01-19-2025 Bamboo flowsheet Oumar Yvonne DO Work Phone: [facility] Start: 01-19-2025 End: 01-19-2025 Bamboo flowsheet Oumar Yvonne DO Work Phone: [facility] Start: 01-19-2025 End: 01-19-2025 flow sheet Oumar Yvonne DO Work Phone: [facility] Comment on above: Third trimester preg kirk ([facility]); 39 weeks gestation of ([facility]) Start: 01-19-2025 End: 01-19-2025 ambulatory OUMAR YVONNE Not Available Start: 01-13-2025 End: 01-13-2025 Clinisync Result Encounter Brenda ZIMMER Work Phone: [facility] Unsolicited Start: 01-13-2025 End: 01-13-2025 Clinisync Result Encounter Brenda ZIMMER Work Phone: [facility] External Department Unsolicited Start: 01-12-2025 End: 01-12-2025 [...] Start: 12-01-2024 End: 12-01-2024 flow sheet Ling Gladys DECISION SUPPORT MANAGER Work Phone: [facility] Comment on [...] of anatomy Start: 10-04-2024 End: 10-04-2024 ambulatory BREDNA JEFF Not Available Start: 09-06-2024 End: 09-08-2024 [...] Start: 06-02-2024 End: 06-02-2024 Bamboo flowsheet Bhumika Dorseyjose DECISION SUPPORT MANAGER Work Phone: [facility] Start: 06-02-2024 End: 06-02-2024 Bamboo flowsheet Bhumika Alex DECISION SUPPORT MANAGER Work Phone: [facility] Start: 06-02-2024 End: 06-02-2024 Office outpatient visit 15 minutes Bhumika Johnson DECISION SUPPORT MANAGER Work Phone: [facility] Comment on above: Panic disorder (CMS/ HCC) (Primary Dx); Moderate episode of recurrent major depressive disorder (CMS/HCC) Start: 06-02-2024 End: 06-02-2024 ambulatory BHUMIKA ALEX Not Available Start: 02-12-2024 End: 02-12-2024 ambulatory CANDICE MENG Not Available Start: 11-29-2020 End: 11-30-2020 ambulatory PACO CHACON Facility: Start: 11-08-2020 End: 11-09-2020 ambulatory NONE LISTED REQUEST Facility: Procedures Date Procedure Procedure Detail Performing Clinician Start: 01-26-2025 ALL CBC WITH AUTO DIFF Oumar Yvonne DO Work Phone: Start: 01-24-2025 [facility] UA (CLEAN/CATCH) COLLECTIONS CLERK/MICRO IF IND. Oumar Yvonne DO Work Phone: Start: 01-24-2025 Urnls dip stick/tabl et rgnt non-auto w/o micrscp Oumar Yvonne DO Work Phone: Start: 01-20-2025 OB BPP W NON-STRESS Brenda ZIMMER Work Phone: Start: 01-19-2025 Urnls dip stick/tabl et rgnt [...] stick/tabl et rgnt non-auto w/o micrscp Brenda Jeff PA Work Phone: Start: 07-08-2024 ALL CBC WITH [...] Screening for malign ant neoplasm of cervix [facility] Start: 04-04-2025 Influenza vaccination Influenz a Vaccine (Season Ended) [facility] Start: 01-24-2025 End: 01-24-2025 Patient encounter procedure [facility] Comment on above: Arrived Start: 01-19-2025 End: 01-19-2025 Patient encounter procedure [facility] Comment on above: Arrived Start: 01-12-2025 End: 07-14-2025 US biophysical profile w non stress test US biophysical profile w non stress test Imaging Routine Excessive growth affecting management of in third trimester, single or unspecified fetus Expected: 01/12/2025 (Approximate), Expires: 07/14/2025 [facility] Comment on above: Expected: 01/12/2025 (Approximate), Expires: 07/14/2025 Start: 01-12-2025 End: 05-14-2025 US for US OB follow up transabdominal approach Imaging Routine Excessive growth affecting management of in third trimester, single or unspecified fetus Expected: 01/12/2025, Expires: 05/14/2025 [facility] Work Phone: Comment on above: Expected: 01/12/2025 [...] Routine [facility] [address] [place] [id number] Brenda Jeff, PA [address] [place] [address] [facility] Start: 12-29-2024 End: 12-29-2024 Professional / ancillary services management 12/29/2024 9:00 AM EDT Ancillary Procedure [facility] [address] [place] [phone] [facility] Start: 12-14-2024 End: 12-14-2024 Patient encounter procedure [facility] Comment on above: Arrived Start: 12-01-2024 End: 12-01-2024 Patient encounter procedure 12/01/2024 9:50 AM EDT Routine [facility] [address] [place] [phone] Brenda Jeff PA [address] [place] [address] [facility] Start: 12-01-2024 End: 12-01-2024 Professional / ancillary services management 12/01/2024 9:00 AM EDT Ancillary Procedure [facility] [address] [place] [address] [facility] Start: 11-16-2024 End: [...] EDT Ancillary Procedure [facility] [address] [address] [facility] Start: 10-04-2024 End: 10-04-2025 CBC panel - Blood by Automated count CBC Lab Routine Diabetes mellitus screening Expected: 10/04/2024 (Approximate), Expires: 10/04/2025 [facility] Healthcare Comment on above: Expected: 10/04/2024 (Approximate), Expires: 10/04/2025 Start: 10-04-2024 End: 10-04-2025 Measurement of glucose 1 hour after glucose challenge for glucose tolerance test Glucose tolerance, 1 hour Lab Routine Diabetes mellitus screening Expected: 10/04/2024 (Approximate), Expires: 10/04/2025 [facility] Healthcare Comment on above: Expected: 10/04/2024 (Approximate), Expires: 10/04/2025 Start: 10-04-2024 End: 10-04-2025 US for US OB limited 1+ fetuses Imaging Routine Encounter for follow-up ultrasound of anatomy Expected: 10/04/2024, Expires: 10/04/2025 [facility] Work Phone: Comment on above: [...] mellitus screening Expected: 09/06/2024 (Approximate), Expires: 09/06/2025 [facility] Comment on above: Expected: 09/06/2024 (Approximate), Expires: 09/06/2025 Start: 09-06-2024 End: 09-06-2024 Patient encounter procedure 09/06/2024 10:50 AM EST Routine [facility] [address] [place] [phone] Oumar Russell DO [address] [place] [address] [facility] Start: 09-06-2024 End: 09-06-2024 Professional / ancillary services management 09/06/2024 9:30 AM EST Ancillary Procedure [facility] [address] [facility] [place] [place] [phone] [facility] Start: 08-09-2024 End: 09-09-2024 [...] PM EST Initial [facility] [address] [facility] [address] [place] [address] [facility] Start: 06-17-2024 End: 06-17-2025 [...] Missed menses Expected: 06/17/2024 (Approximate), Expires: 06/17/2025 [facility] Comment on above: Expected: 06/17/2024 (Approximate), Expires: 06/17/2025 Start: 06-17-2024 End: 06-17-2024 Professional / ancillary services management 06/17/2024 1:30 PM EST Ancillary Procedure [facility] [address] [address] [facility] Start: 06-02-2024 End: 06-02-2024 Patient encounter procedure 06/02/2024 11:00 AM EDT [facility] [address] [place] [phone] Bhumika Johnson NP [address] [place], [place] [id number] Arrived [facility] Comment on above: Arrived Start: 04-04-2024 Influenza vaccination Influenza Vacc ine (#1) [facility] Start: 2014 Screening for malign ant neoplasm of cervix Pap Smear [facility] Bacteria identified in Urine by Culture Urine culture Microbiology Routine Missed menses Ordered: 06/17/2024 [facility] Comment on above: Ordered: 06/17/2024 CBC W Auto Different ial panel - Blood CBC and differential Lab Routine Missed menses , unspecified gestational age Ordered: 06/17/2024 [facility] Comment on above: Ordered: 06/17/2024 CHLAMYDIA TRACHOMATI S (GENITO/STI) CHLAMYDIA TRACHOMATIS (GENITO/STI) Lab Routine Exposure to STD Ordered: 08/09/2024 [facility] Comment on above: Ordered: 08/09/2024 Hemoglobin A1c/Hemoglobin.total in Blood Hemoglobin A1c Lab Routine Missed menses , unspecified gestational age Ordered: 06/17/2024 [facility] Comment on above: Ordered: 06/17/2024 Hepatitis B virus surface Ag [Presence] in Serum or Plasma by Immunoassay Hepatitis B surface antigen Lab Routine Missed menses , unspecified gestational age Ordered: 06/17/2024 [facility] Comment on above: Ordered: 06/17/2024 Hepatitis C virus Ab [Presence] in Serum or Plasma by Immunoassay Hepatitis C antibody Lab Routine Missed menses , unspecified gestational age Ordered: 06/17/2024 [facility] Comment on above: Ordered: 06/17/2024 HIV-1/HIV-2 antigen/antibody combination immunoassay HIV-1 and HIV-2 antibodies Lab Routine Missed menses , unspecified gestational age Ordered: 06/17/2024 [facility] Comment on above: Ordered: 06/17/2024 Neisseria gonorrhoea e DNA [Presence] in Unspecified specimen by SEVERO with probe detection Neisseria gonorrhea DNA probe, direct Lab Routine Exposure to STD Ordered: 08/09/2024 [facility] Comment on above: Ordered: 08/09/2024 Reagin Ab [Presence] in Serum by RPR RPR Lab Routine Missed menses , unspecified gestational age Ordered: 06/17/2024 [facility] Comment on above: Ordered: 06/17/2024 Rubella antibody, IgG Rubella an tibody, IgG Lab Routine Missed menses , unspecified gestational age Ordered: 06/17/2024 [facility] Comment on above: Ordered: 06/17/2024 SURESWAB(R) ADVANCED VAGINITIS PLUS, TMA SURESWAB(R) ADVANCED VAGINITIS PLUS, TMA Pathology and Cytology Routine Exposure to STD Ordered: 08/09/2024 [facility] Work Phone: Comment on above: Ordered: 08/09/2024 Immunizations Immunization Date Immunization Notes Care Provider Damon dumont 02-24-2012 tetanus toxoid, redu srinath diphtheria toxoid, and acellular pertussis vaccine, adsorbed Bhumika Johnson NP Work Phone: [facility] Payers Date Payer Category Payer [employer] 1.2.8 [id number] 2022 Unknown [id number] 1993 Unknown [id number] 2.16.8 [id number] 1993 Unknown [id number] 2.16.8 [id number] 1993 Unknown [id number] 2.16.8 [id number] 1993 Unknown [id number] 2.16.8 [id number] 1993 Unknown [id number] 2.16.84 [id number] 1993 Unknown [id number] 2.16.84 [id number] 1993 Unknown [id number] 2.16.84 [id number] 1993 Unknown [id number] 2.16.84 [id number] 1993 Unknown [id number] 2.16.84 [id number] 1993 Unknown [id number] 2.16.84 0.1.610473.3.579.2.1258 1995 Unknown [id number] 2.16.84 0.1.715052.3.579.2.1258 1993 Unknown [id number] 2.16.84 0.1.760872.3.579.2.1258 1993 Unknown [id number] 2.16.84 0.1.941274.3.579.2.1258 1993 Unknown [id number] 2.16.84 0.1.533724.3.579.2.1258 1993 Unknown [id number] 2.16.84 0.1.645327.3.579.2.1258 1993 Unknown [id number] 2.16.84 0.1.832857.3.579.2.1258 1993 Unknown [id number] 2.16.84 0.1.233459.3.579.2.1258 1993 Unknown [id number] 2.16.84 0.1.981365.3.579.2.1259 1993 Unknown [id number] 2.16.84 0.1.033520.3.579.2.1259 1993 Unknown [id number] 2.16.84 0.1.807481.3.579.2.1259 1959 Self-pay Unknown [id number] 2.16.84 0.1.321373.3.579.2.593 Unknown [id number] 2.16.84 0.1.804177.3.579.2.593 Social History Date Type Detail Facility Start: [...] to any clubs or organizations such as presybeterian groups, unions, fraternal [...] End: 01-12-2025 Alcoholic beverage intake Ex-drinker (finding) [facility] Healthil re Start: 06-02-2024 Alcohol Comment caffeine intak e: 200mg daily [facility] Healthcare Start: 05-03-2024 [facility] Clinical Notes 06-02-2024 to 01-24-2025 Ling Graham NP - 01/24/2025 1:00 PM EDTeena Graham NP - 01/19/2025 1:40 PM GORAN Miller - 01/12/2025 1:50 PM EDMauricio Dietrich LPN - 01/05/2025 1:20 PM EDT Note Date & Type Note Facility 01-24-2025 History of Presen t illness Narrative Reason [...] nursing note reviewed. Exam conducted with a manager of allied health services present. Vitals: Estimated body mass index is 30.44 kg/m as calculated from the following: Height as of 06/02/24: 5' 5.5 . Weight as of this encounter: 185 lb 12 oz. BP: 136/70 Patient's last menstrual period was 04/19/2024. ASSESSMENT & PLAN ICD-10-CM 1. Third trimester ([facility]) Z34.93 POCT urinalysis dipstick manually resulted 2. 40 weeks gestation of ([facility]) Z3A.40 Return OB: Patient presents [...] Oumar Russell DO documented in this encounter [facility] 01-19-2025 History of Presen t illness Narrative [...] nursing note reviewed. Exam conducted with a manager of allied health services present. Vitals: Estimated body mass index is 30.56 kg/m as calculated from the following: Height as of 06/02/24: 5' 5.5 . Weight as of this encounter: 186 lb 8 oz. BP: Patient's last menstrual period was 04/19/2024. ASSESSMENT & PLAN ICD-10-CM 1. Third trimester ([facility]) Z34.93 2. 39 weeks gestation of ([facility]) Z3A.39 POCT urinalysis dipstick manually resulted [...] Oumar Russell DO documented in this encounter [facility] 01-12-2025 History of Presen t illness Narrative [...] of: GORAN Pedroza documented in this encounter [facility] 01-05-2025 History of Presen t illness [...] nursing note reviewed. Exam conducted with a manager of allied health services present. Vitals: Estimated body mass index is [...] Oumar Russell DO documented in this encounter [facility] 12-29-2024 History of Presen t illness [...] Moderate episode of recurrent major depressive disorder ([facility]) 06/02/2024 Panic disorder ([facility]) 06/02/2024 Resolved Ambulatory Problems Diagnosis Date Noted No Resolved Ambulatory Problems Past Medical History: Diagnosis Date Anxiety Depression ([facility]) HISTORY PAST MEDICAL HISTORY SOCIAL HISTORY Past Medical History: Diagnosis Date Anxiety Depression ([facility]) Social History Tobacco Use Smoking [...] of: GORAN Pedroza documented in this encounter [facility] 12-14-2024 History of Presen t illness [...] nursing note reviewed. Exam conducted with a manager of allied health services present. Vitals: Estimated body mass index is [...] Oumar Russell DO documented in this encounter [facility] 12-01-2024 History of Presen t illness [...] nursing note reviewed. Exam conducted with a manager of allied health services present. Vitals: Estimated body mass index is [...] Ling Graham NP documented in this encounter [facility] 11-16-2024 History of Presen t illness [...] nursing note reviewed. Exam conducted with a manager of allied health services present. Vitals: Estimated body mass index is [...] Oumar Russell DO documented in this encounter [facility] 11-01-2024 History of Presen t illness [...] nursing note reviewed. Exam conducted with a manager of allied health services present. Vitals: Estimated body mass index is [...] Oumar Russell DO documented in this encounter [facility] 10-04-2024 History of Presen t illness [...] Moderate episode of recurrent major depressive disorder ([facility]) 06/02/2024 Panic disorder ([facility]) 06/02/2024 Resolved Ambulatory Problems Diagnosis Date Noted No Resolved Ambulatory Problems Past Medical History: Diagnosis Date Anxiety Depression (CMS/HCC) HISTORY PAST MEDICAL HISTORY SOCIAL HISTORY Past Medical History: Diagnosis Date Anxiety Depression ([facility]/HCC) Social History Tobacco Use Smoking status: [...] of: GORAN Pedroza documented in this encounter [facility] 09-06-2024 History of Presen t illness [...] nursing note reviewed. Exam conducted with a manager of allied health services present. Vitals: Estimated body mass index is [...] Oumar Russell DO documented in this encounter [facility] 08-09-2024 History of Presen t illness [...] Date Noted Allergic rhinitis 06/02/2024 Exercise-induced asthma ([facility]/HCC) 06/02/2024 Moderate episode of recurrent major depressive disorder ([facility]) 06/02/2024 Panic disorder ([facility]/H[facility]) 06/02/2024 Resolved Ambulatory Problems Diagnosis Date Noted No Resolved Ambulatory Problems Past Medical History: Diagnosis Date Anxiety Depression ([facility]) HISTORY PAST MEDICAL HISTORY SOCIAL HISTORY Past Medical History: Diagnosis Date Anxiety Depression ([facility]) Social History Tobacco Use Smoking [...] nursing note reviewed. Exam conducted with a manager of allied health services present. Vitals: Estimated body mass index is [...] of: GORAN Pedroza documented in this encounter [facility] 07-08-2024 History of Presen t illness [...] Past Medical History: Diagnosis Date Anxiety Depression ([facility]) Social History Tobacco Use Smoking [...] nursing note reviewed. Exam conducted with a manager of allied health services present. Vitals: Estimated body mass index is [...] Oumar Russell DO documented in this encounter [facility] 06-17-2024 History of Presen t illness [...] providers found * documented in this encounter [facility] 06-02-2024 History of Presen t illness [...] OBGYN as scheduled documented in this encounter [facility] Healthcare Evaluation note Diagnosis Panic disorder (CMS/HCC)- [...] of (HHS-HCC) documented [facility] encounter [facility] Diagnosis Third trimester (HHS-HCC) state, incidental 40 weeks gestation of (HHS-HCC) documented in this encounter [facility] Summary Purpose Family History No Family History Records FoundNo Family History Records FoundNo Family History Records Found Advance Directives No Advanced Directives Records FoundNo Advanced Directives Records FoundNo Advanced Directives Records Found Additional Source Comments INFORMATION SOURCE (unrecogn ized section and content) DATE CREATED AUTHOR 02/27/2019 [employer] DATE CREATED AUTHOR AUTHOR'S ORGANIZ ATION 11/28/2020 [facility] DATE CREATED AUTHOR AUTHOR'S ORGANIZ ATION 01/25/2025 [facility] Care Teams (unrecognized sec tion and content) Bariatric Coordinator Relationship Specialty Start Date End Date Samra Aguirre DO [address] [place] [address] PCP - General Family Medicine 12/10/22 Bariatric Coordinator Relationship Specialty Start Date End Date Raegan Medina MD [address] [place] [address] PCP - General Family Medicine 06/02/24 Bariatric Coordinator Relationship Specialty Start Date End Date Raegan Medina MD [address] [place] [address] PCP - General Family Medicine 06/02/24 Bariatric Coordinator Relationship Specialty Start Date End Date Raegan Medina MD [address] [place] [address] PCP - General Family Medicine 06/02/24 Bariatric Coordinator Relationship Specialty Start Date End Date Raegan Medina MD [address] [place] [address] PCP - General Family Medicine 06/02/24 Bariatric Coordinator Relationship Specialty Start Date End Date Raegan Medina MD [address] [place] [address] PCP - General Family Medicine 06/02/24 Bariatric Coordinator Relationship Specialty Start Date End Date Raegan Medina MD [address] [place] [address] PCP - General Family Medicine 06/02/24 Bariatric Coordinator Relationship Specialty Start Date End Date Raegan Medina MD [address] [place] [address] PCP - General Family Medicine 06/02/24 Bhumika Johnson NP [address] [place] [address] PCP - [employer] 07/04/24 Bariatric Coordinator Relationship Specialty Start Date End Date Raegan Medina MD [address] [place] [address] PCP - General Family Medicine 06/02/24 Bhumika Johnson NP [address] [place] [address] PCP - [employer] 07/04/24 Bariatric Coordinator Relationship Specialty Start Date End Date Raegan Medina MD [address] [place] [address] PCP - General Family Medicine 06/02/24 Bhumika Johnson NP [address] [place] [address] PCP - [employer] 07/04/24 Bariatric Coordinator Relationship Specialty Start Date End Date Raegan Medina MD [address] [place] [address] PCP - General Family Medicine 06/02/24 Bhumika Johnson NP [address] [place] [address] PCP - [employer] 07/04/24 Bariatric Coordinator Relationship Specialty Start Date End Date Raegan Medina MD [address] [place] [address] PCP - General Family Medicine 06/02/24 Bhumika Johnson NP [address] [place] [address] PCP - [employer] 07/04/24 Bariatric Coordinator Relationship Specialty Start Date End Date Raegan Medina MD [address] [place] [address] PCP - General Family Medicine 06/02/24 Bhumika Johnson NP [address] [place] [address] PCP - [facility] 07/04/24 Bariatric Coordinator Relationship Specialty Start Date End Date Raegan Medina MD [address] [place] [address] PCP - General Family Medicine 06/02/24 Bariatric Coordinator Relationship Specialty Start Date End Date Raegan Medina MD [address] [place] [address] PCP - General Family Medicine 06/02/24 Bariatric Coordinator Relationship Specialty Start Date End Date Raegan Medina MD [address] [place] [place] [address] PCP - General Family Medicine 06/02/24 Bariatric Coordinator Relationship Specialty Start Date End Date Raegan Medina MD [address] [facility] [place] [address] PCP - General Family Medicine 06/02/24 Reason [...] BE BASED ON THE PRIMARY CLINICAL RECORDS. [employer] [facility]. provides no warranty or guarantee of the accuracy or completeness of information in this document.
== END 2025-01-29 09:31 | disposition home or self-care (01) ==
PROVIDERS: Visit Provider Obstetrics & Gynecology
DX: Z39.1 Encounter for care and examination of lactating mother (principal)

== ENCOUNTER 2025-02-02 08:32 | Outpatient (OUT) | payer BC, SELFPAY ==
--- OUTSIDE RECORDS SUMMARY | 2025-01-19 13:40 | XMS_ITS | Encounter Summary ---
Author Organization [facility] Address [address] [place] [address] Care Team Providers Care Suppository Molding Machine Operator Name Role Phone Raegan Medina MD Primary Care Provider Reason for Visit * Reason Comments Routine Visit Encounter Details Date Type Department Care Team (Late st Contact Info) Description 01/19/2025 1:40 PM EDT Routine [facility] OB [address] [address] Slim Russell, DO [address] [place], [facility] Third trimester ([facility]); 39 weeks gestation of ([facility]) Social History Tobacco Use Types Packs/Day [...] week 06/01/2024 How often do you attend [facility] or baptism services? Never 06/01/2024 Do you belong to any clubs o r organizations such as taoism groups, unions, fraternal [...] Recorded Patient Health Questionnaire-2 Score 0 06/02/2024 [facility] of Occupat ional [facility] - Occupational Stress Questionnaire Answer Date Recorded [...] any time in the past 12 m [facility], were you homeless or [...] nursing note reviewed. Exam conducted with a business and services instructor present. Vitals: Estimated body mass index is 30.56 kg/m?? as calculated from the following: Height as of 06/02/24: 5' 5.5 . Weight as of this encounter: 186 lb 8 oz. BP: Patient's last menstrual period was 04/19/2024. ASSESSMENT & PLAN ICD-10-CM 1. Third trimester ([facility]) Z34.93 2. 39 weeks gestation of ([facility]) Z3A.39 POCT urinalysis dipstick manually resulted [...] 1:45 PM EDT 39 weeks gestation of ([facility]) documented in this encounter Results * (ABNORMAL) [...] - Positive Urine 01/19/2025 1:45 PM EDT Silm Russell DO POINT OF CARE TEST ENTER/EDIT OR DERABLES Final Result documented in this encounter Visit Diagnoses Diagnosis Third trimester ([facility]) state, incidental 39 weeks gestation of ([facility]) documented in this encounter Additional Health Concerns Assessment Noted Time PHQ-9 Depression Total Score: 0 06/02/20 24 10:00 AM EDT documented as of this encounter Care Teams Suppository Molding Machine Operator Relationship Specialty Start Date End Date Raegan Medina MD [address] [place] [address] PCP - General Family Medicine 06/02/24 documented as of this encounter
--- OUTSIDE RECORDS SUMMARY | 2025-01-24 13:00 | XMS_ITS | Encounter Summary ---
Author Organization [facility] Address [address] [place] [address] Care Team Providers Care Tax Senior Associate Name Role Phone Raegan Medina MD Primary Care Provider [phone] Reason for Visit * Reason Comments Routine Visit Encounter Details Date Type Department Care Team (Late st Contact Info) Description 01/24/2025 1:00 PM EDT Routine [facility] OB [address] [place] [address] Slim Russell, DO [address] [facility] [address] [place], [facility]11 Third trimester ([facility]); 40 weeks gestation of ([facility]) Social History Tobacco Use Types Packs/Day [...] week 06/01/2024 How often do you attend [facility] or lutheran services? Never 06/01/2024 Do you belong to any clubs o r organizations such as worship groups, unions, fraternal or athletic groups, or [...] Recorded Patient Health Questionnaire-2 Score 0 06/02/2024 [facility] of Occupat ional [facility] - Occupational Stress Questionnaire Answer [...] any time in the past 12 m [facility], were you homeless or living in a long-term (including now)? No 06/01/2024 Estimated Date of [...] nursing note reviewed. Exam conducted with a joinery factory worker present. Vitals: Estimated body mass index is 30.44 kg/m?? as calculated from the following: Height as of 06/02/24: 5' 5.5 . Weight as of this encounter: 185 lb 12 oz. BP: 136/70 Patient's last menstrual period was 04/19/2024. ASSESSMENT & PLAN ICD-10-CM 1. Third trimester ([facility]) Z34.93 POCT urinalysis dipstick manually resulted 2. 40 weeks gestation of ([facility]) Z3A.40 Return OB: Patient presents today for [...] this encounter Visit Diagnoses Diagnosis Third trimester ([facility]) state, incidental 40 weeks gestation of ([facility]) documented in this encounter Additional Health Concerns Assessment Noted Time PHQ-9 Depression Total Score: 0 06/02/20 24 10:00 AM EDT documented as of this encounter Care Teams Tax Senior Associate Relationship Specialty Start Date End Date Raegan Medina MD [address] [place] [address] PCP - General Family Medicine 06/02/24 documented as of this encounter
--- OUTSIDE RECORDS SUMMARY | 2025-02-02 08:35 | XMS_ITS | Encounter Summary ---
Author Organization [facility] Address [address] [place] [address] Care Team Providers Care Contact Worker Name Role Phone Raegan Medina MD Primary Care Provider [phone] Mary Ann Johnson NP Unavailable [phone] Encounter Details Date Type Department Care Team (Late st Contact Info) Description 06/18/2024 Clinisync Result Encounter [facility] External Department Unsolicited Oumar Russell, DO [address] [place] [address] Social History Tobacco Use Types Packs/Day Years [...] EST Narrative 06/18/2024 4:21 [place] [address] Ultrasound Report Signed Patient: Greta Pineda MR#: [id number] : 1995 Acct:[id number] Age/Sex: 28 / F ADM Date: 06/17/24 Loc: [facility] Attending Dr: Oumar Russell D.O. Ordering Physician: Oumar Russell D.O. Date of Service: 06/17/24 Procedure(s): US OB transvaginal Accession Number(s): [id number] cc: Oumar Russell D.O.; Samra Aguirre D.O. The [place] [id number] Patient Name: GRETA PINEDA MRN: [id number] date: 1995 Sex: F Assigned Patient Location: [facility] Current Patient Location: Accession/Order Number: [id number] Exam Date: 06/17/2024 13:27 Report Date: 06/18/2024 [...] Signed By: 06/18/24 0421 DD/ 0419 TD/TT: Polymerization Engineer: Procedure Note Radiology, Radiologist, MD - 06/18/2024 [place] [address] Ultrasound Report Signed Patient: Mary Pineda#: [id number] : 1995Acct:[id number] Age/Sex: 28 / FADM Date: 06/17/24 Loc: [facility] Attending Dr: Oumar Russell D.O. Ordering Physician: Oumar Russell D.O. Date of Service: 06/17/24 Procedure(s): US OB transvaginal Accession Number(s): [id number] cc: Oumar Russell D.O.; Samra Aguirre D.O. The [place] [id number] Patient Name: GRETA PINEDA MRN: [id number] date: 1995 Sex: F Assigned Patient Location: [facility] Current Patient Location: Accession/Order Number: [id number] Exam Date: 06/17/2024 13:27 Report Date: 06/18/2024 [...] M.D. Signed By:06/18/24 0421 DD/ 0419 TD/TT: Polymerization Engineer: us Oumar Russell DO [facility] Final Result documented in this encounter Visit Diagnoses Not on filedocumented in this encounter Additional Health Concerns Assessment Noted Time PHQ-9 Depression Total Score: 0 06/02/20 24 10:00 AM EDT documented as of this encounter Care Teams Contact Worker Relationship Specialty Start Date End Date Raegan Medina MD [address] [facility] [place] [address] PCP - General Family Medicine 06/02/24 Mary Ann Johnson NP [address] [place] [address] PCP - Anny Rodgers 07/04/24 documented as of this encounter
--- OUTSIDE RECORDS SUMMARY | 2025-02-02 08:35 | XMS_ITS | Encounter Summary ---
Author Organization [facility] Address [address] [place] [address] Care Team Providers Care Reverberatory Furnace Operator Name Role Phone Raegan Medina MD Primary Care Provider [phone] Mary Ann Johnson NP Unavailable [phone] Encounter Details Date Type Department Care Team (Late st Contact Info) Description 06/18/2024 Abstract [facility] OB [address] [place] [address] Slim Russell, DO [address] [facility] [address] [facility] [address] Francisco Ledesma, [facility] Social History Tobacco Use Types Packs/Day [...] often do you attend chur ch or roman catholic services? Never 06/01/2024 Do you belong to any clubs o r organizations such as baptist groups, unions, fraternal or athletic groups, or [...] Recorded Patient Health Questionnaire-2 Score 0 06/02/2024 [facility] - Occupational Stress Questionnaire Answer Date [...] any time in the past 12 m [facility], were you homeless or living in [...] documented as of this encounter Care Teams Reverberatory Furnace Operator Relationship Specialty Start Date End Date Raegan Medina MD [address] [place] [address] PCP - General Family Medicine 06/02/24 Mary Ann Johnson NP [address] [facility] [place] [address] PCP - Anny Rodgers 07/04/24 documented as of this encounter
--- OUTSIDE RECORDS SUMMARY | 2025-02-02 08:35 | XMS_ITS | Encounter Summary ---
Author Organization [facility] Address [address] [place] [address] Care Team Providers Care Reference Archivist Name Role Phone Raegan Medina MD Primary Care Provider Encounter Details Date Type Department Care Team (Late st Contact Info) Description 01/24/2025 Bamboo flowsheet [facility] OB [address] [place] [address] Slim Russell, DO [address] [facility] [address] Francisco Ledesma, [facility]11 Social History Tobacco Use Types [...] Recorded Patient Health Questionnaire-2 Score 0 06/02/2024 [facility]at ional Health - [...] any time in the past 12 m [facility], were you homeless or living in a longterm (including now)? No 06/01/2024 Estimated Date of [...] documented as of this encounter Care Teams Reference Archivist Relationship Specialty Start Date End Date Raegan Medina MD [address] [place] [address] PCP - General Family Medicine 06/02/24 documented as of this encounter
--- OUTSIDE RECORDS SUMMARY | 2025-02-02 08:35 | XMS_ITS | Clinical Summary ---
Author Organization [facility] s [facility] Address [id number] [address] [place] [address] Care Team Providers Care Radio Equipment Repairer Name Role Phone Unavailable Primary Care Provider [...]
--- OUTSIDE RECORDS SUMMARY | 2025-02-02 08:35 | XMS_ITS | Encounter Summary ---
Author Organization [facility] Address [address] [place] [address] Care Team Providers Care Java Software Engineer Name Role Phone Raegan Medina MD Primary Care Provider [phone] Encounter Details Date Type Department Care Team (Late st Contact Info) Description 01/20/2025 Clinisync Result Encounter [facility] External Department Unsolicited Brenda Jeff, GORAN [address] [place] [address] Dr Oshea, [facility] Social History Tobacco Use Types Packs/Day Years [...] Recorded Patient Health Questionnaire-2 Score 0 06/02/2024 [facility] - [...] any [facility] in the [facility], were you homeless or living in a [...] AM EDT Narrative 01/20/2025 8:03 [place] [address] Ultrasound Report Signed Patient: GRETA PINEDA MR#: [id number] : 1995 Acct:[id number] Age/Sex: 29 / F ADM Date: 01/20/25 Loc: [facility] 250-[address]: Brenda Jeff Ordering Physician: Brenda Jeff Date of Service: 01/20/25 Procedure(s): US OB BPP w non-stress Accession Number(s): [id number] cc: Brenda Jeff; Physician,Non-Staff M.D. The [place] [id number] Patient Name: GRETA PINEDA MRN: [id number] date: 1995 Sex: F Assigned Patient Location: [facility] Current Patient Location: [facility] Accession/Order Number: [id number] Exam Date: 01/20/2025 07:59 Report Date: 01/20/2025 [...] Aggarwal M.D. 01/20/2025 8:01 AM Dictation Location: [place] [address] Electronically authenticated by: [id number] Y Date: 01/20/2025 08:01 Dictated By: Ronda Aggarwal M.D. Signed By: 01/20/25 0803 DD/ 0801 TD/TT: Plasticator: Procedure Note Radiology, Radiologist, - 01/20/2025 [place] [address] Ultrasound Report Signed Patient: GRETA PINEDA LMR#: [id number] : 1995Acct:[id number] Age/Sex: 29 / FADM Date: 01/20/25 Loc: [facility] 250-[address]: Brenda Jeff Ordering Physician: Brenda Jeff Date of Service: 01/20/25 Procedure(s): US OB BPP w non-stress Accession Number(s): [id number] cc: Brenda Jeff; Physician,Non-Staff Radhames The [address] [address] Patient Name: GRETA PINEDA MRN: [id number] date: 1995 Sex: F Assigned Patient Location: [facility] Current Patient Location: [facility] Accession/Order Number: [id number] Exam Date: 01/20/2025 07:59 Report Date: 01/20/2025 [...] Aggarwal M.D. 01/20/2025 8:01 AM Dictation Location: [place] [address] Electronically authenticated by: [id number] Y Date: 508:01 Dictated By: Ronda Aggarwal M.D. Signed By:01/20/25 0803 DD/ 08 TD/TT: Plasticator: Brenda ZIMMER [facility] Final Result documented in this encounter Visit Diagnoses Not on filedocumented in this encounter Additional Health Concerns Assessment Noted Time PHQ-9 Depression Total Score: 0 06/02/20 24 10:00 AM EDT documented as of this encounter Care Teams Java Software Engineer Relationship Specialty Start Date End Date Raegan Medina MD [address] [place] [address] PCP - General Family Medicine 06/02/24 documented as of this encounter
--- OUTSIDE RECORDS SUMMARY | 2025-02-02 08:35 | XMS_ITS | Encounter Summary ---
Author Organization [facility] Address [address] [place] [address] Care Team Providers Care Robotic Welder Name Role Phone Raegan Medina MD Primary Care Provider Encounter Details Date Type Department Care Team (Late st Contact Info) Description 01/26/2025 Clinisync Result Encounter [facility] External Department Unsolicited Slim Russell, DO [address] [place] [address] Social History Tobacco Use Types [...] often do you attend chur ch or church services? Never 06/01/2024 Do you belong to [...] Recorded Patient Health Questionnaire-2 Score 0 06/02/2024 [facility] ional Health - [...] any time in the past 12 m [facility], were you homeless or living in a [...] DO [facility] Final Result Performing Organization Address City/State/[facility] Co de Phone Number [facility] documented in this encounter Visit Diagnoses Not on filedocumented in this encounter Additional Health Concerns Assessment Noted Time PHQ-9 Depression Total Score: 0 06/02/20 10:00 AM EDT documented as of this encounter Care Teams Robotic Welder Relationship Specialty Start Date End Date Raegan Medina MD [address] [place] [address] PCP - General Family Medicine 06/02/24 documented as of this encounter
--- OUTSIDE RECORDS SUMMARY | 2025-02-02 08:35 | XMS_ITS | Encounter Summary ---
Author Organization [facility] Address [address] [place] [address] Care Team Providers Care Hobbing Press Operator Name Role Phone Raegan Medina MD Primary Care Provider [phone] Encounter Details Date Type Department Care Team [...] any clubs o r organizations such as latter-day groups, unions, fraternal or athletic groups, or [...] in the past 12 m [facility], were you homeless or living in [...] documented as of this encounter Care Teams Hobbing Press Operator Relationship Specialty Start Date End Date Raegan Medina MD [address] [place] [address] PCP - General Family Medicine 06/02/24 documented as of this encounter
--- OUTSIDE RECORDS SUMMARY | 2025-02-02 08:35 | XMS_ITS | Clinical Summary ---
Author Organization [facility] Address [address] [place] [address] Phone Care Team Providers Care [employer] Portal Consultant Name Role Phone Unavailable Primary Care [...]
--- OUTSIDE RECORDS SUMMARY | 2025-02-02 08:35 | XMS_ITS | Encounter Summary ---
Author Organization [facility] Address [address] [place] [address] Care Team Providers Care Product Management Consultant Name Role Phone Raegan Medina MD Primary Care Provider [phone] Encounter Details Date Type Department Care Team (Late st Contact Info) Description 01/19/2025 Bamboo flowsheet [facility] OB [address] [place] [address] Slim Russell, DO [address] Francisco Ledesma, [facility]11 Social History Tobacco Use Types [...] often do you attend chur ch or yarsanism services? Never 06/01/2024 Do you belong to [...] Patient Health Questionnaire-2 Score 0 06/02/2024 [facility] of Occupat ional Health - [...] any time in the past 12 m [facility], were you homeless or living in a [...] documented as of this encounter Care Teams Product Management Consultant Relationship Specialty Start Date End Date Raegan Medina MD [address] [place] [address] PCP - General Family Medicine 06/02/24 documented as of this encounter
--- OUTSIDE RECORDS SUMMARY | 2025-02-02 08:35 | XMS_ITS ---
Author Organization [facility] Healthcare Address [address] [place] [address] Care Team Providers Care Hide Examiner Name Role Phone Raegan Medina MD Primary Care Provider [phone] Inpatient Discharge Transitional Care Management (TCM) Status:Closed (Closed) Start date:01/27/2025 Enrollment date:01/28/2025 Enrollment reason:Identified using hospital discharge data End date:01/31/2025 Close reason:Not eligible Overview Patient discharged from [facility] on 01/27. Please contact for hospital NALLELY and schedule follow-up appointment within 7-14 days. Continued Care and Services Coordination
--- OUTSIDE RECORDS SUMMARY | 2025-02-02 08:35 | XMS_ITS | Encounter Summary ---
Author Organization [facility] Address [address] [place] [address] Care Team Providers Care Library Services Coordinator Name Role Phone Raegan Medina MD Primary Care Provider [phone] Encounter Details Date Type Department Care Team (Late st Contact Info) Description 01/31/2025 Patient Outreach [facility] POPULATION [address]T [address] [place] [address] Brenda Joe, COLBY [address] [place] [address] Social History Tobacco Use Types Packs/Day Years [...] often do you attend chur ch or anabaptist services? Never 06/01/2024 Do you belong to [...] Date Recorded Patient Health Questionnaire-2 Score 0 01/31/2025 [facility] of Occupat ional Health - Occupational [...] any time in the past 12 m [facility], were you homeless or living in a detention (including now)? No 06/01/2024 Estimated Date of Delivery Comme nts Yes 01/24/2025 Date entered radha or to episode creation Sex and Gender Information Value Date Recorded Sex Assigned at Not on file Legal Sex Female 7:40 PM EDT Gender Identity Not on file Sexual Orientation Not on file documented as of this encounter Functional Status * Over the past 2 weeks, how often have you been bothered by any of the following problems? Question Answer Date of Assessment Author Little interest or pleasure in doing things Not at all 01/31/2025 10:33 AM EDT Brenda Joe LP N Feeling down, depressed, or hopeless Not at all 01/31/2025 10:33 AM EDT Brenda Joe LP N Patient Health Questionnaire -2 Score 0 01/31/2025 10:33 AM EDT Brenda Joe LP N documented as of this encounter Progress Notes * Brenda Joe LPN - 01/31/2025 9:49 AM EDT Flowsheet Row Patient Outreach from 01/31/2025 in [facility] with Brenda Joe LPN Hospital Information ED, Hospital or Custodial Facility Discharge? Hospital Patient has been contacted within two business days of discharge Yes Diagnosis Discharge Date 01/27/25 Discharged To: Home Setting Discharge Hospital [facility] Engagement Call Start Time 0945 Admission Date 01/24/25 Medications Discharge medications reviewed and reconciled from hospital? Yes Is the patient having any side effects they believe may be caused by any medication additions or changes? No Does the patient have all medications ordered at discharge? Yes Nursing Interventions No intervention needed Is the patient taking all medications as directed (includes completed medication regime)? Yes Nursing Interventions Nurse provided patient education Appointments Does the patient have a primary care provider? Yes Does the patient have any upcoming specialty appointments? Yes Nursing Interventions Advised patient to keep appointment Self Management Patient Teaching Does the patient have access to their discharge instructions? Yes Nursing Interventions Reviewed instructions with patient What is the patient's perception of their health status since discharge? Improving Is the patient/caregiver able to teach back the hierarchy of who to call/visit for symptoms/problems? PCP, Specialist, Home Health nurse, Urgent Care, ED, 911 Yes Wrap Up Call End Time 0955 NALLELY Complete. Call to pt. Pt reports pain is controlled with Ibuprofen 600MG PRN. Bleeding is lightand denies clots. Bowels are regular with Colace. Pt denies any depression or difficulty coping at this time. Pt currently and baby sees web services professional 02/01/2025. Pt has crib, car seat, venkat pers and wipes. PPV encouraged. Pt denies any questions, concerns or needs today. documented in this encounter Plan of Treatment Not on file documented as of this encounter Visit Diagnoses Diagnosis (spontaneous vaginal delivery) ([facility] Primary Normal delivery documented in this encounter Additional Health Concerns Assessment Noted Time PHQ-9 Depression Total Score: 0 06/02/20 24 10:00 AM EDT documented as of this encounter Care Teams Library Services Coordinator Relationship Specialty Start Date End Date Raegan Medina MD [address] [place] [address] PCP - General Family Medicine 06/02/24 documented as of this encounter
--- OUTSIDE RECORDS SUMMARY | 2025-02-02 08:35 | XMS_ITS | Encounter Summary ---
Author Organization [facility] Address [address] [place] [address] Care Team Providers Care President Practicing Urologist Name Role Phone Raegan Medina MD Primary Care Provider [phone] Encounter Details Date Type Department Care Team (Late st Contact Info) Description 01/24/2025 Abstract [facility] OB [address] [place] [address] Rosa Nguyen LPN Social History Tobacco [...] often do you attend chur ch or orthodox services? Never 06/01/2024 Do you belong to [...] 0 06/02/2024 [facility] Occupat ional Health [...] documented as of this encounter Care Teams President Practicing Urologist Relationship Specialty Start Date End Date Raegan Medina MD [address] [place] [address] PCP - General Family Medicine 06/02/24 documented as of this encounter
--- OUTSIDE RECORDS SUMMARY | 2025-02-02 08:35 | XMS_ITS | Clinical Summary ---
Author Organization [facility] Address [address] [place] [address] Care Team Providers Care Station Engineer Chief Name Role Phone Raegan Medina MD Primary Care Provider [phone] Allergies No known active allergies Medications busPIRone [...] Encounters Date Type Department Care Team Description 01/31/2025 Patient Outreach [facility] [address] [place] [address] Brenda Joe LPN 01/26/2025 Clinisync Result Encounter NOMS External Department Unsolicited Slim Russell DO 01/24/2025 1:00 PM EDT Routine [facility] BCP OB [address] [place] [address] Slim Russell, Third trimester ([facility]); 40 weeks gestation of ([facility]) 01/24/2025 Clinisync Result Encounter NOMS External Department Unsolicited Slim Russell, 01/24/2025 Abstract [facility]OM[facility] [address] [place] [address] Rosa Nguyen LPN 01/24/2025 Bamboo flowsheet [facility] OB [address] [place] [address] [place] [address] Slim Russell, DO 01/21/2025 Travel 01/20/2025 Clinisync Result Encounter [facility]OMS External Department Unsolicited Brenda Jeff PA 01/19/2025 1:40 PM EDT Routine NOM[facility] [address] [place] [address] Slim Russell, Third trimester ([facility]); 39 weeks gestation of ([facility]) 01/19/2025 Bamboo flowsheet NOM[facility] [address] [place] [address] Slim Russell, DO 01/18/2025 Travel 01/13/2025 Clinisync Result Encounter NOMS External Department Unsolicited Brenda Jeff PA 01/13/2025 Clinisync Result Encounter NOMS External Department Unsolicited Brenda Jeff PA 01/12/2025 1:50 PM EDT Routine [facility] OB [address] [place] [address] [place] [address] Brenda Jeff PA Excessive growth affecting management of in third trimester, single or unspecified fetus ([facility]) (Primary Dx); 38 weeks gestation of ([facility]); Third trimester ([facility]) 01/12/2025 Bamboo flowsheet [facility] OB [address] [place] [address] [place] [address] Brenda Jeff PA 01/06/2025 Travel 01/05/2025 1:20 PM EDT Routine [facility] BCP OB [address] [place] [address] Slim Russell, DO Third trimester ([facility]); 37 weeks gestation of ([facility]) 01/05/2025 Bamboo flowsheet [facility] BCP OB [address] [place] [address] Slim Russell, DO 12/30/2024 Travel 12/29/2024 9:20 AM EDT Routine [facility] BCP OB [address] [place] [address] Brenda Jeff PA 36 weeks gestation of ([facility]); Third trimester ([facility]) 12/29/2024 9:00 AM EDT Ancillary Procedure [facility] BCP OB [address] [place] [address] LGA (large for gestational age) fetus affecting management of mother, first trimester, fetus 3 ([facility]) 12/22/2024 Travel 12/14/2024 8:30 AM EDT Routine [facility] BCP OB [address] [place] [address] Slim Russell, DO Third trimester ([facility]); 34 weeks gestation of ([facility]) 12/14/2024 Bamboo flowsheet [facility] BCP OB [address] [place] [address] Slim Russell, 12/08/2024 Telephone [facility] BCP OB [address] [place] [address] Slim Russell, DO 12/07/2024 Travel 12/01/2024 9:50 AM EDT Routine [facility] BCP OB [address] [place] [address] Ling Graham, GENERAL MANAGER ROAD [employer]ODUCTION LGA (large for gestational age) fetus affecting management of mother, first trimester, fetus 3 ([facility]) (Primary Dx); Third trimester ([facility]); 32 weeks gestation of ([facility]) 12/01/2024 9:00 AM EDT Ancillary Procedure NOM[facility] [address] [place] [address] size inconsistent with dates ([facility]) 11/30/2024 Travel 11/28/2024 Travel 11/16/2024 11:20 AM EDT Routine NOM[facility] [address] [place] [address] Slim Russell DO Third trimester ([facility]); 30 weeks gestation of ([facility]); size inconsistent with dates ([facility]) 11/16/2024 Bamboo flowsheet [facility]OM[facility] [address] [place] [address] Slim Russell DO 11/15/2024 Travel from Last 3 Months Immunizations Immunization [...] Recorded Patient Health Questionnaire-2 Score 0 01/31/2025 [facility] of Occupat ional Health [...] any time in the past 12 m [facility], were you homeless or [...] RAPID (URINE) Routine 01/24/2025 7:15 PM EDT TB URINE MICROSCOPIC ONLY Routine 01/24/2025 7:15 PM EDT TBH UA (CLEAN/CATCH) GROUTMAN/MICRO IF IND. Routine 01/24/2025 7:15 PM EDT POCT URINALYSIS DIPSTICK Routine 01/24/2025 1:14 PM EDT Third trimester ([facility]) US OB BPP W NON-STRESS 01/20/2025 8:01 AM EDT POCT URINALYSIS DIPSTICK Routine 01/19/2025 1:45 PM EDT 39 weeks gestation of ([facility]) US OB BPP W NON-STRESS 01/13/2025 9:30 PM EDT US OB GROWTH 01/13/2025 9:26 PM EDT POCT URINALYSIS DIPSTICK Routine 01/12/2025 2:00 PM EDT 38 weeks gestation of ([facility]) Third trimester ([facility]) POCT URINALYSIS DIPSTICK Routine 12/29/2024 9:31 AM EDT 36 weeks gestation of ([facility]) Third trimester ([facility]) CULTURE, GROUP B STREP WITH SUSCEPTIBLITY Routine 12/29/2024 9:21 AM EDT Third trimester ([facility]) US OB FOLLOW UP TRANSABDOMINAL APPROACH Routine 12/29/2024 9:17 AM EDT LGA (large for gestational age) fetus affecting management of mother, first trimester, fetus 3 ([facility]) POCT URINALYSIS DIPSTICK Routine 12/14/2024 8:35 AM EDT Third trimester ([facility]) POCT URINALYSIS DIPSTICK Routine 12/01/2024 9:29 AM EDT Third trimester ([facility]) US OB FOLLOW UP TRANSABDOMINAL APPROACH Routine 12/01/2024 9:14 AM EDT size inconsistent with dates ([facility]) POCT URINALYSIS DIPSTICK Routine 11/16/2024 11:42 AM EDT Third trimester ([facility]) 30 weeks gestation of ([facility]) Q - THINPREP(R) TIS AND HPV MRNA [...] EDT Slim Yvonne DO CLINISYNC Final Result CLINISYNC TB * (ABNORMAL) [facility] CBC WITH PLATELET NO DIFFERENTIAL (01/24/2025 8:09 [...] EDT Slim Yvonne DO CLINISYNC Final Result [facility] TB * (ABNORMAL) [facility]H URINE MICROSCOPIC ONLY (01/24/2025 [...] DO CLINISYNC Final Result Performing Organization Address [facility] Co de Phone Number CLINISYNC TBH * TBH UA (CLEAN/CATCH) GROUTMAN/MICRO IF IND. (01/24/2025 7:15 PM EDT) COLOR [...] DO CLINISYNC Final Result Performing Organization Address [facility]/ZIP Co de Phone Number CLINISYNC TBH * TBH DRUG SCREEN RAPID (URINE) (01/24/2025 [...] EDT Slim Alo DO CLINISYNC Final Result [facility] * (ABNORMAL) POCT urinalysis dipstick manually resulted (01/24/2025 1:14 PM EDT) Only the most recent of7 resultswithin the time period is included. Color, UA Yellow Clarity, UA Clear Glucose, UA Negative Negative - 1999(110) ++++ mg/dL Bilirubin, UA Negative Negative - [...] Urine 01/24/2025 1:14 PM EDT Slim Russell POINT OF CARE TEST ENTER/EDIT OR DERABLES Final Result * US OB BPP W NON-STRESS (01/20/2025 8:01 AM EDT) Only the most recent of2 resultswithin the time period is included. Anatomical Region Laterality Modality Other 01/20/2025 8:01 AM EDT Narrative 01/20/2025 8:03 [place] [address] Ultrasound Report Signed Patient: GRETA PINEDA MR#: [id number] : 1995 Acct:[id number] Age/Sex: 29 / F ADM Date: 01/20/25 Loc: [facility] 250-[address]: Brenda Jeff Ordering Physician: Brenda Jeff Date of Service: 01/20/25 Procedure(s): US OB BPP w non-stress Accession Number(s): [id number] cc: Brenda Jeff; Physician,Non-Staff M.D. [address] [address] Patient Name: GRETA PINEDA MRN: [id number] date: 1995 Sex: F Assigned Patient Location: [facility] Current Patient Location: [facility] Accession/Order Number: [id number] Exam Date: 01/20/2025 07:59 Report Date: 01/20/2025 [...] Aggarwal M.D. 01/20/2025 8:01 AM Dictation Location: [place] [address] Electronically authenticated by: [id number] Y Date: 01/20/2025 08:01 Dictated By: Ronda Aggarwal M.D. Signed By: 01/20/25802 DD/ 0 TD/TT: Research Librarian: Procedure Note Radiology, Radiologist, MD - 01/20/2025 [place] [address] Ultrasound Report Signed Patient: GRETA PINEDA LMR#: [id number] : 1995Acct:[id number] Age/Sex: 29 / FADM Date: 01/20/25 Loc: [facility] 250-[address]: Brenda Jeff Ordering Physician: Brenda Jeff Date of Service: 01/20/25 Procedure(s): US OB BPP w non-stress Accession Number(s): [id number] cc: Brenda Jeff; Physician,Non-Staff MIsabella The [place] [id number] Patient Name: GRETA PINEDA MRN: [id number] date: 1995 Sex: F Assigned Patient Location: [facility] Current Patient Location: [facility] Accession/Order Number: [id number] Exam Date: 01/20/2025 07:59 Report Date: 01/20/2025 [...] Aggarwal M.D. 01/20/2025 8:01 AM Dictation Location: [place] [address] Electronically authenticated by: [id number] Y Date: 508:01 Dictated By: Ronda Aggarwal M.D. Signed By:01/20/25 0803 DD/ 08 TD/TT: Research Librarian: us Brenda [facility] Final Result * US OB GROWTH (01/13/2025 9:26 PM EDT) Anatomical Region Laterality Modality Other 01/13/2025 9:26 PM EDT Narrative 01/13/2025 9:29 [place] [address] Ultrasound Report Signed Patient: GRETA PINEDA MR#: [id number] : 1995 Acct:[id number] Age/Sex: 29 / F ADM Date: 01/13/25 Loc: US Attending Dr: Brenda Jeff Ordering Physician: Brenda Jeff Date of Service: 01/13/25 Procedure(s): US OB growth Accession Number(s): [id number] cc: Brenda Jeff; Physician,Non-Staff Radhames The [address] [address] Patient Name: GRETA PINEDA MRN: [id number] date: 1995 Sex: F Assigned Patient Location: [facility] Current Patient Location: Accession/Order Number: [id number] Exam Date: 01/13/2025 21:21 Report Date: 01/13/2025 [...] Bauman M.D. 01/13/2025 9:26 PM Dictation Location: [place] [address] Electronically authenticated by: [id number] Y Date: 01/13/2025 21:26 Dictated By: Casper Bauman D.O. Signed By: 01/13/252128 DD/ 25 TD/TT: Research Librarian: Procedure Note Radiology, Radiologist, - 01/13/2025 [place] [address] Ultrasound Report Signed Patient: YARY PINEDA#: [id number] : 1995Acct:[id number] Age/Sex: 29 FADM Date: 01/13/25 Loc: US Attending Dr: Brenda Jeff Ordering Physician: Brenda Jeff Date of Service: 01/13/25 Procedure(s): US OB growth Accession Number(s): [id number] cc: Brenda Jeff; Physician,Non-Staff Radhames [place] [id number] Patient Name: GRETA PINEDA MRN: [id number] date: 1995 Sex: F Assigned Patient Location: [facility] Current Patient Location: Accession/Order Number: [id number] Exam Date: 01/13/2025 21:21 Report Date: 01/13/2025 21:26 At the request of: [place] JE[place] Procedure: US OB growth Obstetrical Ultrasound for Fetus greater than 14 weeks HISTORY: growth heart rate is 148 bpm. The fetus is in cephalic presentation. The placenta is in a posterior position with normal appearance. Amnioticfluid index is 16.79cm. The cervix not assessed The estimated weight yu4794 g. with percentile 43%. The ovaries are [...] Bauman M.D. 01/13/2025 9:26 PM Dictation Location: [place] [address] Electronically authenticated by: [id number] Y Date: 1:26 Dictated By: Casper Bauman D.O. Signed By:01/13/252128 DD/ 25 TD/TT: Research Librarian: us Brenda [facility] Final Result * CULTURE, GROUP B STREP WITH SUSCEPTIBLITY (12/29/2024 9:21 AM EDT) Swab 12/29/2024 9:21 AM EDT us Brenda ZIMMRE LAB BLOOD ORDERABLES Final Resul t EXTERNAL [...] age. Interpreted by: Electronically signed by ARVIN GAMBINO II, MD, PHD at 29-Dec-2024 11:18:48 PM [facility] Procedure Note Arvin Gambino MD - 12/29/2024 EXAM: US OB FOLLOW [...] age. Interpreted by: Electronically signed by ARVIN GAMBINO II, MD, PHD [id number] 11:18:48 PM [facility] us Ling Graham NP IMG OB [...] computer assisted technology. [facility] LEGACY EXTERNAL LAB ASSISTANT ACCOUNTING MANAGER: SEE NOTE NO [place] LEGACY EXTERNAL LAB Comment: PCJ, MILKA(ASCP) CT screening location: [facility], [address] [place] [address], [place] [address]. REVIEW ASSISTANT ACCOUNTING MANAGER: SEE NOTE [facility] LEGAC Y EXTERNAL LAB Comment: ML, CT(ASCP) CT screening location: [facility] [address], [place] [address]. COMMENT SEE NOTE CHAKA [facility] EXTERNAL LAB Comment: EXPLANATORY NOTE: The Pap [...] information. HPV MRNA E6/E7 Detected(A) Not Detected [facility] Comment: Methodology: Signalman-Mediated Amplification This assay detects E6/E7 viral messenger RNA (mRNA) from 14 high-risk HPV types (16,18,31,33,35,39,45,51,52,56,58,59,66,68). The analytical performance characteristics of this assay have been determined by [employer]. The modifications have not been cleared or approved by the FDA. This assay has been validated pursuant to the CLIA regulations and is used for clinical purposes. For additional information, please refer to http://education.Immedia.[employer]/faq/ZRO603s8 (This link if provided for information/ educational purposes only.) 10/13/2020 Bennie Cosme NP [facility] Final Result Performing Organization Address City/State/[facility] Co de Phone Number [facility] from Last 3 Months or Most Recently Relevant to Health Maintenance Insurance BCBS Care Teams Station Engineer Chief Relationship Specialty Start Date End Date Raegan Medina MD [address] [place] [address] PCP - General Family Medicine 06/02/24
--- OUTSIDE RECORDS SUMMARY | 2025-02-02 08:35 | XMS_ITS | Patient Health Record ---
Author Organization [facility] Address [address] [place], [place] [address] Care Team Providers Care Shook Splicer Name Role Phone Stanley Martellmarisa Unavailable [phone] Allergies No Known Allergies Reason For Referral [...] Location Date Provider Diagnosis Dental Main [address] [place], [place] [id number] 09/10/2024 An Angel Dental caries into dentine [...] Provider Name:An Angel , 02/14/2025 09:15:00 AM, [address] [place] [address], [id number], Insurance Providers Payer Name Payer Address Payer Phone Subscriber Number Group Number Insured Name Patient Relationship to Insured Coverage Start Date Coverage End Date [employer]ian [address] [place], [place] [id number] Greta Pineda Self - patient is the insured 4
--- OUTSIDE RECORDS SUMMARY | 2025-02-02 08:35 | XMS_ITS | Encounter Summary ---
Author Organization [facility] Address [address] [place] [address] Care Team Providers Care Emergency Medcl Emt Name Role Phone Raegan Medina MD Primary Care Provider Encounter Details Date Type Department Care Team (Late st Contact Info) Description 01/24/2025 Clinisync Result Encounter [facility] External Department Unsolicited Slim Russell, DO [address] [facility] [place] [address] Social History Tobacco Use Types [...] Procedure Name Priority Date/Time Associated Diagnosis Comments [facility] CBC WITH PLATELET NO DIFFERENTIAL Routine 01/24/2025 8:09 PM EDT [facility] URINE MICROSCOPIC ONLY Routine 01/24/2025 7:15 PM EDT [facility] UA (CLEAN/CATCH) TELEPHONE SURVEYOR/MICRO IF IND. Routine 01/24/2025 7:15 PM EDT [facility] DRUG SCREEN RAPID (URINE) Routine 01/24/2025 7:15 PM EDT documented in this encounter Results * (ABNORMAL) [facility] CBC WITH PLATELET NO DIFFERENTIAL (01/24/2025 8:09 [...] Narrative CLINISYNC - 01/24/2025 9:31 PM EDT [facility] Yvonne DO CLINISYNC Final Result CLINISYNC TB [...] EDT Slim Alo DO [facility] Final [facility] * (ABNORMAL) TB URINE MICROSCOPIC ONLY [...] DO CLINISYNC Final Result Performing Organization Address City/[facility] Co de Phone Number CLIN[facility]NC TBH * TBH UA (CLEAN/CATCH) TELEPHONE SURVEYOR/MICRO IF IND. (01/24/2025 7:15 PM EDT) COLOR [...] DO CLINISYNC Final Result Performing Organization Address City/[facility] Co de Phone Number [facility] documented in this encounter Visit Diagnoses Not on filedocumented in this encounter Additional Health Concerns Assessment Noted Time PHQ-9 Depression Total Score: 0 06/02/20 24 10:00 AM EDT documented as of this encounter Care Teams Emergency Medcl Emt Relationship Specialty Start Date End Date Raegan Medina MD [address] [place] [address] PCP - General Family Medicine 06/02/24 documented as of this encounter
--- OUTSIDE RECORDS SUMMARY | 2025-02-02 08:35 | XMS_ITS | Encounter Summary ---
Author Organization [facility] Address [address] [place] [address] Care Team Providers Care Private Equity Analyst Name Role Phone Raegan Medina MD Primary Care Provider [phone] Mary Ann Johnson NP Unavailable [phone] Encounter Details Date Type Department Care Team (Late st Contact Info) Description 06/18/2024 Abstract [facility] OB [address] [place] [address] Slim Russell, DO [address] [facility] [address] Francisco Ledesma, [facility] [...] any clubs o r organizations such as hoahaoism groups, unions, fraternal or athletic groups, or [...] [facility] - Occupational Stress Questionnaire Answer Date [...] documented as of this encounter Care Teams Private Equity Analyst Relationship Specialty Start Date End Date Raegan Medina MD [address] [place] [address] PCP - General Family Medicine 06/02/24 Mary Ann Johnson NP [address] [facility] [place] [address] PCP - Anny Rodgers 07/04/24 documented as of this encounter
--- OUTSIDE RECORDS SUMMARY | 2025-02-02 08:35 | XMS_ITS | Encounter Summary ---
Author Organization [facility] Address [address] [place] [address] Care Team Providers Care Assisted Living Nursing Director Name Role Phone Samra Aguirre DO Primary Care Provider [phone] Raegan Medina MD Primary Care Provider [phone] Mary Ann Johnson NP Unavailable [phone] Reason for Visit * Reason Comments Med Refill Encounter Details Date Type Department Care Team (Late st Contact Info) Description 07/02/2023 Refill [facility] [address] [place] [address] Samra Aguirre DO [address] [address] Social History Tobacco Use Types [...] on filedocumented in this encounter Care Teams Assisted Living Nursing Director Relationship Specialty Start Date End Date Timothy, Samra SerenaDO PCP - General Family Medicine 12/10/22 06/01/24 Raegan Medina MD [address] [place], [place] [id number] PCP - General Family Medicine 06/02/24 Mary Ann Johnson NP [address] [place], [place] [id number] PCP - Anny Rodgers 07/04/24 documented as of this encounter
--- OUTSIDE RECORDS SUMMARY | 2025-02-02 08:36 | XMS_ITS | Encounter Summary ---
Author Organization [facility] Address [address] [place] [address] Care Team Providers Care Supervisor Cloth Winding Name Role Phone Raegan Medina MD Primary Care Provider [phone] Mary Ann Johnson NP Unavailable [phone] Encounter Details Date Type Department Care Team (Late st Contact Info) Description 07/19/2024 Abstract [facility] [address] [place] [address] Slim Russell, DO [address] [facility] [address] [facility] [address] Francisco Ledesma, [facility] Social History Tobacco Use Types Packs/Day [...] often do you attend chur ch or hoahaoism services? Never 06/01/2024 Do you belong to [...] 0 06/02/2024 [facility] - Occupational Stress Questionnaire Answer [...] documented as of this encounter Care Teams Supervisor Cloth Winding Relationship Specialty Start Date End Date Raegan Medina MD [address] [place] [address] PCP - General Family Medicine 06/02/24 Mary Ann Johnson NP [address] [facility] [place] [address] PCP - Anny Rodgers 07/04/24 documented as of this encounter
--- OUTSIDE RECORDS SUMMARY | 2025-02-02 08:36 | XMS_ITS | Encounter Summary ---
Author Organization [facility] Address [address] [place] [address] Care Team Providers Care Hub Lead Name Role Phone Raegan Medina MD Primary Care Provider [phone] Mary Ann Johnson NP Unavailable [phone] Encounter Details Date Type Department Care Team (Late st Contact Info) Description 07/14/2024 Abstract [facility] OB [address] [place] [address] Slim Russell, DO [address] [facility] [address] Francisco Ledesma, [facility] Social History Tobacco Use Types Packs/Day [...] often do you attend chur ch or scientologist services? Never 06/01/2024 Do you belong to [...] 0 06/02/2024 [facility] - Occupational Stress Questionnaire Answer [...] any time in the past 12 m [facility], were you homeless or living in [...] documented as of this encounter Care Teams Hub Lead Relationship Specialty Start Date End Date Raegan Medina MD [address] [place] [address] PCP - General Family Medicine 06/02/24 Mary Ann Johnson NP [address] [facility] [place] [address] PCP - Anny Rodgers 07/04/24 documented as of this encounter
--- OUTSIDE RECORDS SUMMARY | 2025-02-02 08:36 | XMS_ITS | Encounter Summary ---
Author Organization [facility] Address [address] [place] [address] Care Team Providers Care Dimension Warehouse Supervisor Name Role Phone Raegan Medina MD Primary Care Provider [phone] Mary Ann Johnson NP Unavailable [phone] Encounter Details Date Type Department Care Team (Late st Contact Info) Description 07/14/2024 Abstract [facility] [address] [place] [address] Slim Russell, DO [address] [facility] [address] Francisco Ledesma, [facility]11 Social History Tobacco Use Types Packs/Day [...] often do you attend chur ch or moravian services? Never 06/01/2024 Do you belong to any clubs o r organizations such as evangelical groups, unions, fraternal [...] Recorded Patient Health Questionnaire-2 Score 0 06/02/2024 [facility] - Occupational Stress Questionnaire Answer Date [...] documented as of this encounter Care Teams Dimension Warehouse Supervisor Relationship Specialty Start Date End Date Raegan Medina MD [address] [place] [address] PCP - General Family Medicine 06/02/24 Mary Ann Johnson NP [address] [facility] [place] [address] PCP - Anny Rodgers 07/04/24 documented as of this encounter
== END 2025-02-02 10:30 | disposition home or self-care (01) ==
LOC: FBCO 08:33
PROVIDERS: Visit Provider Obstetrics & Gynecology
DX: Z39.1 Encounter for care and examination of lactating mother (principal)
CPT/HCPCS: G0463

== ENCOUNTER 2025-02-09 08:28 | Outpatient (OUT) | payer BC, SELFPAY | END 2025-02-09 11:31 | disposition home or self-care (01) | PROVIDERS: Visit Provider Obstetrics & Gynecology | DX: Z39.1 Encounter for care and examination of lactating mother (principal) | CPT/HCPCS: G0463 ==

== ENCOUNTER 2025-02-16 08:41 | Outpatient (OUT) | payer BC, SELFPAY ==
--- NOTE | 2025-02-16 09:43 | PC.NURSE ---
Greta, Anthony and 3+4 week old Don arrive for support. Ali very tearful this AM. States have not been able to take shield away from baby, tired and overwhelmed with all that comes with new baby. Support offered. States shield stresses her out, just want to stop using it . Discussed reasons why not able to remove it from feeds. Mom states I hate to upset her, she cries, she won't eat , I am worried about her weight , numerous idea of same. Father states for last 3 days baby has been fussy, hard to settle after feeds. 0% of the time infant only nursing 1 breast. Encouraged to wake baby for 2nd breast to finish the feed. Baby has been sleeping longer at night, 6-7 hours, then wakes very hungry and difficult to feed. Parents swaddle baby for sleep. discussed waking baby for feed after 4-5 hours and parents states we just need to sleep too . Discussed decisions in parenthood that cascade into other areas. Verbalize that extra feeding would probably help the situation and having baby nurse both breasts consistently would also help. Discussed ways to not use the shield, Greta states will continue to try as she really does not want the shield anymore. Discussed involvement of tongue tie and impact on feeding and possibly very difficult for baby to nurse effectively at this time without the shield. Father states has been given stretches for baby's mouth for tongue by chiropractor. Waiting on evaluation by a pediatric dentist as parents feel is last resort . Support offered. weight obtained, 8-10 today, BW was 8-0 . Parents pleased with gain. Options reviewed, mom tearful, but states I really am ok, just difficult transition, harder than I thought it would be S.O. very supportive and gentle with Ali. Greta denies depression, anxiety. No thoughts of self harm or harm to others. Will return 02/22/2025 for support. Leaves ambulatory.
== END 2025-02-16 08:42 | disposition home or self-care (01) ==
LOC: FBCO 08:43
PROVIDERS: Visit Provider Obstetrics & Gynecology
DX: Z39.1 Encounter for care and examination of lactating mother (principal)

== ENCOUNTER 2025-02-22 08:07 | Outpatient (OUT) | payer BC, SELFPAY ==
--- OUTSIDE RECORDS SUMMARY | 2025-02-22 08:20 | XMS_ITS | CCD ---
Author Organization [facility] CliniSymd Care Team Providers Care Learning Disabilities Teacher Name Role Phone PACO CHACON Attending Unavailable PACO CHACON Consulting Unavailable PACO CHACON Admitting Unavailable REQUEST, NONE LISTED Admitting Unavaila ble REQUEST, NONE LISTED Attending Unavaila ble REQUEST, NONE LISTED Consulting Unavaila ble Samra Aguirre DO Primary Care Provider [phone] Raegan Medina MD Primary Care Provider Alex POWER NUT RUNNER OPERATOR, Bhumika Unavailable OUMAR RUSSELL Attending Unavailable [...] 9 g/dL Low 12.0 - 16.0 g/dL [facility] IMMATURE GRANULOCYTES ABS AUTO 0.[address] [facility] Immature granulocytes/100 WBC (Bld) 0.5 % 0.0 - 0.5 % [facility] Interpretation and review of laboratory results Abnormal [facility] Healthcare LYMPHOCYTES ABSOLUTE AUTO 1.7 [facility] Lymphocytes/100 WBC (Bld) 13.1 % Low 20.5 - 60.0 % [facility] MCH (RBC) [Entitic mass] 30.9 pg 26.7 - 34.[address] [facility] MCHC (RBC) [Mass/Vol] 33.2 g/dL 29.9 - 35.2 g/dL [facility] MCV (RBC) [Entitic vol] 93.1 fL 81.0 - 99.0 fL [facility] Healthcare MONOCYTES ABSOLUTE AUTO 0.9 High [facility] Monocytes/100 WBC (Bld) 7.3 % 1.7 - 12.0 % [facility] NEUTROPHILS ABSOLUTE AUTO 9.8 High [facility] Neutrophils/100 WBC (Bld) 76 % High 43.0 - 75.0 % [facility] Platelet mean volume (Bld) [Entitic vol] 9 fL Low 9.5 - 13.5 fL [facility] EO # 0.3 [facility] PLT 215 [facility] RBC 2.91 Low [facility] WBC 12.9 High [facility] UA (CLEAN/CATCH) HARVESTING MANAGER/REINALDO RO IF IND.on 01-24-2025 BILIRUBIN URINE Negative NEGATIVE [facility] BLOOD URINE TRACE-I NEGATIVE [facility] re Clarity (U) CLEAR CLEAR [facility] Color (U) LT. YELLOW YELLOW [facility] GLUCOSE URINE UA Negative NEGATIVE mg/dL [facility] Ketones Ql (U) Negative NEGATIVE mg/dL [facility] H ealthcare Leukocyte esterase Test strip Ql (U) Negative NEGATIVE [facility] NITRITE URINE Negative NEGATIVE [facility] Health care pH (U) 6.0 [pH] 5.0 - 9.0 [facility] PROTEIN URINE Negative NEG/TRACE mg/dL [facility] SPECIFIC GRAVITY URINE 1.010 1.005 - 1.025 [facility] URINE MICROSCOPIC INDICATED YES [facility] UROBILINOGEN URINE 0.2 EU/dL 0.2 - 1.0 EU/dL [facility] Healthcar e Urinalysis macro (dipstick) panel (U)on 01-24-2025 Bilirubin, UA Negative Negative - 4(70) +++ mg/dL [facility] Blood, UA Positive Negative - 50 Immanuel/mcL [facility] Comment on above: Trace-intact Clarity, UA Clear [facility] Healthca re Color, UA Yellow [facility] Healthcar e Glucose, UA Negative Negative - 1999(110) ++++ mg/dL [facility] Interpretation and review of laboratory results Abnormal [facility] Ketones, UA Negative Negative - 160(16) ++++ mg/dL [facility] Leukocytes, UA Negative Negative - 500+++ Jennyfer/mcL [facility] Nitrite, UA Negative Negative - Positive [facility] pH, UA 7 5 - 9 [facility] Healthcar e Protein, UA Negative Negative - 1999(20) ++++ mg/dL [facility] Spec Grav, UA 1.015 1 - 1.03 [facility] Urobilinogen, UA 0.2 0.2 - 12 mg/dL [facility] US OB BPP W NON-STRESS on 01-20-2025 [facility] [address] [place] [address] Ultrasound Report Signed Patient: GRETA PINEDA MR#: [id number] : 1995 Acct:[id number] Age/Sex: 29 / F ADM Date: 01/20/25 Loc: [facility] 250-[address]: Brenda Jeff Ordering Physician: Brenda Jeff Date of Service: 01/20/25 Procedure(s): US OB BPP w non-stress Accession Number(s): [id number] cc: Brenda Jeff; Physician,Non-Staff [place] [address] Patient Name: GRETA PINEDA MRN: [facility]:[id number] date: 1995 Sex: F Assigned Patient Location: [facility] Current Patient Location: [facility] Accession/Order Number: [id number] Exam Date: 01/20/2025 07:59 Report Date: 01/20/2025 [...] Aggarwal M.D. 01/20/2025 8:01 AM Dictation Location: [place] [address] Electronically authenticated by: [id number] Y Date: 01/20/2025 08:01 Dictated By: Ronda Aggarwal M.D. Signed By: 01/20/25 0803 DD/ 08 TD/TT: Wire Spiral Binder: [facility] Radiology, Radiologist, - 01/20/[address] [address] Ultrasound Report Signed Patient: GRETA PINEDA MR#: [id number] : 1995 Acct:[id number] Age/Sex: 29 / F ADM Date: 01/20/25 Loc: [facility] 250- Attending Dr: Brenda Jeff Ordering Physician: Brenda Jeff Date of Service: 01/20/25 Procedure(s): US OB BPP w non-stress Accession Number(s): [id number] cc: Brenda Jeff; Physician,Non-Staff Radhames The [place] [id number] Patient Name: GRETA PINEDA MRN: [id number] date: 1995 Sex: F Assigned Patient Location: [facility] Current Patient Location: [facility] Accession/Order Number: [id number] Exam Date: 01/20/2025 07:59 Report Date: 01/20/2025 [...] Aggarwal M.D. 01/20/2025 8:01 AM Dictation Location: [place] [address] Electronically authenticated by: [id number] Y Date: 01/20/2025 08:01 Dictated By: Ronda Aggarwal M.D. Signed By: 01/20/25802 DD/ 0 TD/TT: Wire Spiral Binder: [facility] Radiology Study observation (narrative) [facility] US OB BPP W NON-STRESS Ordered By: Radiologist Radiology on 01-20-2025 [facility] Healthcar e Work Phone: Urinalysis macro (dipstick) panel (U)on 01-19-2025 Bilirubin, UA Negative Negative - 4(70) +++ mg/dL [facility] Blood, UA Positive Negative - 50 Immanuel/mcL [facility] Comment on above: Trace-intact Clarity, UA Clear [facility] re Color, UA Yellow [facility] e Glucose, UA Negative Negative - 1999(110) ++++ mg/dL [facility] Interpretation and review of laboratory results Abnormal [facility] Ketones, UA Negative Negative - 160(16) ++++ mg/dL [facility] Leukocytes, UA Negative Negative - 500+++ Jennyfer/mcL [facility] Nitrite, UA Negative Negative - Positive [facility] pH, UA 6.5 5 - 9 [facility] Protein, UA Negative Negative - 1999(20) ++++ mg/dL [facility] Spec Grav, UA 1.01 1 - 1.03 [facility] Urobilinogen, UA 0.2 0.2 - 12 mg/dL [facility] US OB BPP W NON-STRESS on 01-13-2025 [place] [address] Ultrasound Report Signed Patient: GRETA PINEDA MR#: [id number] : 1995 Acct:[id number] Age/Sex: 29 / F ADM Date: 01/13/25 Loc: US Attending Dr: Brenda Jeff Ordering Physician: Brenda Jeff Date of Service: 01/13/25 Procedure(s): US OB BPP w non-stress Accession Number(s): [id number] cc: Brenda Jeff; Physician,Non-Staff Radhames The [address] [address] Patient Name: GRETA PINEDA MRN: [id number] date: 1995 Sex: F Assigned Patient Location: [facility] Current Patient Location: Accession/Order Number: [id number] Exam Date: 01/13/2025 21:27 Report Date: 01/13/2025 [...] Bauman M.D. 01/13/2025 9:30 PM Dictation Location: [place] [address] Electronically authenticated by: [id number] Y Date: 01/13/2025 21:30 Dictated By: Casper Bauman D.O. Signed By: 01/13/252132 DD/ 29 TD/TT: Wire Spiral Binder: [facility] Radiology, Radiologist, MD - 01/13/[address] [address] Ultrasound Report Signed Patient: GRETA PINEDA MR#: [id number] : 1995 Acct:[id number] Age/Sex: 29 / F ADM Date: 01/13/25 Loc: US Attending Dr: Brenda Jeff Ordering Physician: Brenda Jeff Date of Service: 01/13/25 Procedure(s): US OB BPP w non-stress Accession Number(s): [id number] cc: Brenda Jeff; Physician,Non-Staff Radhames The [address] [address] Patient Name: GRETA PINEDA MRN: [facility]:[id number] date: 1995 Sex: F Assigned Patient Location: [facility] Current Patient Location: Accession/Order Number: [id number] Exam Date: 01/13/2025 21:27 Report Date: 01/13/2025 [...] Bauman M.D. 01/13/2025 9:30 PM Dictation Location: [facility] Electronically authenticated by: [id number] Y Date: 01/13/2025 21:30 Dictated By: Casper Bauman D.O. Signed By: 01/13/252132 DD/ 29 TD/TT: Wire Spiral Binder: [facility] Radiology Study observation (narrative) [facility] US OB BPP W NON-STRESS Ordered By: Radiologist Radiology on 01-13-2025 [facility] Work Phone: US OB GROWTHon 01-13-2025 [place] [id number] Ultrasound Report Signed Patient: GRETA PINEDA MR#: [id number] : 1995 Acct:[id number] Age/Sex: 29 / F ADM Date: 01/13/25 Loc: US Attending Dr: Brenda Jeff Ordering Physician: Brenda Jeff Date of Service: 01/13/25 Procedure(s): US OB growth Accession Number(s): [id number] cc: Brenda Jeff; Physician,Non-Staff M.Glendy The [address] [address] Patient Name: GRETA PINEDA MRN: [id number] date: 1995 Sex: F Assigned Patient Location: [facility] Current Patient Location: Accession/Order Number: [id number] Exam Date: 01/13/2025 21:21 Report Date: 01/13/2025 [...] Bauman M.D. 01/13/2025 9:26 PM Dictation Location: [facility] Electronically authenticated by: [id number] Y Date: 01/13/2025 21:26 Dictated By: Casper Bauman D.O. Signed By: 01/13/252128 DD/ 25 TD/TT: Wire Spiral Binder: [facility] Radiology, Radiologist, - 01/13/2025 [place] [address] Ultrasound Report Signed Patient: GRETA PINEDA MR#: [id number] : 1995 Acct:[id number] Age/Sex: 29 / F ADM Date: 01/13/25 Loc: US Attending Dr: Brenda Jeff Ordering Physician: Brenda Jeff Date of Service: 01/13/25 Procedure(s): US OB growth Accession Number(s): [id number] cc: Brenda Jeff; Physician,Non-Staff MIsabella The [address] [address] Patient Name: GRETA PINEDA MRN: [facility]:[id number] date: 1995 Sex: F Assigned Patient Location: [facility] Current Patient Location: Accession/Order Number: [id number] Exam Date: 01/13/2025 21:21 Report Date: 01/13/2025 [...] Bauman M.D. 01/13/2025 9:26 PM Dictation Location: [place] [address] Electronically authenticated by: [id number] Y Date: 01/13/2025 21:26 Dictated By: Casper Bauman D.O. Signed By: 01/13/252128 DD/ 25 TD/TT: Wire Spiral Binder: [facility] Radiology Study observation (narrative) [facility] OB GROWTHOrdered By: Lloyd ologist Radiology on 01-13-2025 [facility] e Work Phone: Urinalysis macro (dipstick) panel (U)on 01-12-2025 Bilirubin, UA Negative Negative - 4(70) +++ mg/dL [facility] Blood, UA Positive Negative - 50 Immanuel/mcL [facility] Comment on above: trace-intact Clarity, UA Clear [facility] re Color, UA Yellow [facility] e Glucose, UA Negative Negative - 2000(110) ++++ mg/dL [facility] Interpretation and review of laboratory results Abnormal [facility] Ketones, UA Negative Negative - 160(16) ++++ mg/dL [facility] Leukocytes, UA Trace Negative - 500+++ Jennyfer/mcL [facility] Nitrite, UA Negative Negative - Positive [facility] pH, UA 6 5 - 9 [facility] Health[facility] e Protein, UA Negative Negative - 1999(20) ++++ mg/dL [facility] Spec Grav, UA 1.01 1 - 1.03 [facility] Urobilinogen, UA 0.2 0.2 - 12 mg/dL [facility] US OB FOLLOW UP TRANSABDOMIN [...] II, MD, PHD at 29-Dec-2024 11:18:48 PM [facility] Normal Not Available Comment on above: Order Comment: US OB SCAN FOR GROWTH Estimated Date of Delivery: 01/24/25 Gestational Age as of 12/01/2024: 32w2d Urinalysis macro (dipstick) panel (U)on 12-29-2024 Bilirubin, UA Negative Negative - 4(70) +++ mg/dL [facility] Blood, UA Negative Negative - 50 Immanuel/mcL [facility] Healthcare Clarity, UA Clear [facility] re Color, UA Yellow [facility] e Glucose, UA Negative Negative - 1999(110) ++++ mg/dL [facility] Interpretation and review of laboratory results Abnormal [facility] Ketones, UA Negative Negative - 160(16) ++++ mg/dL [facility] Leukocytes, UA Trace Negative - 500+++ Jennyfer/mcL [facility] Healthcare Nitrite, UA Negative Negative - Positive [facility] pH, UA 7 5 - 9 [facility] e Protein, UA Negative Negative - 1999(20) ++++ mg/dL [facility] Spec Grav, UA 1.01 1 - 1.03 [facility] Urobilinogen, UA 0.2 0.2 - 12 mg/dL [facility] Urinalysis macro (dipstick) panel (U)on 12-14-2024 Bilirubin, UA Negative Negative - 4(70) +++ mg/dL [facility] Blood, UA Negative Negative - 50 Immanuel/mcL [facility] Healthcare Clarity, UA Clear [facility] re Color, UA Light Yellow [facility] are Glucose, UA Negative Negative - 1999(110) ++++ mg/dL [facility] Interpretation and review of laboratory results Normal [facility] Ketones, UA Negative Negative - 160(16) ++++ mg/dL [facility] Leukocytes, UA Trace Negative - 500+++ Jennyfer/mcL [facility] Nitrite, UA Negative Negative - Positive [facility] pH, UA 7 5 - 9 [facility] Health[facility] e Protein, UA Negative Negative - 1999(20) ++++ mg/dL [facility] Spec Grav, UA 1.015 1 - 1.03 [facility] Urobilinogen, UA 0.2 0.2 - 12 mg/dL [facility] US OB FOLLOW UP TRANSABDOMIN [...] II, MD, PHD at 05-Dec-2024 08:53:04 PM [facility] Normal Not Available Comment on above: Order Comment: US OB SCAN FOR GROWTH Estimated Date of Delivery: 01/24/25 Gestational Age as of 11/16/2024: 30w1d Urinalysis macro (dipstick) panel (U)on 12-01-2024 Bilirubin, UA Negative Negative - 4(70) +++ mg/dL [facility] Blood, UA Positive Negative - 50 Immanuel/mcL [facility] Comment on above: Trace-intact Clarity, UA Clear [facility] re Color, UA Yellow [facility] Glucose, UA Negative Negative - 1999(110) ++++ mg/dL [facility] Interpretation and review of laboratory results Abnormal [facility] Ketones, UA Negative Negative - 160(16) ++++ mg/dL [facility] Leukocytes, UA Positive Negative - 500+++ Jennyfer/mcL [facility] Comment on above: Moderate Nitrite, UA Negative Negative - Positive [facility] pH, UA 6.5 5 - 9 [facility] e Comment on above: ne Protein, UA Negative Negative - 1999(20) ++++ mg/dL [facility] Spec Grav, UA 1.01 1 - 1.03 [facility] Urobilinogen, UA 0.2 0.2 - 12 mg/dL [facility] Urinalysis macro (dipstick) panel (U)on 11-16-2024 Bilirubin, UA Negative Negative - 4(70) +++ mg/dL [facility] Healthcare Blood, UA Negative Negative - 50 Immanuel/mcL [facility] Healthcare Clarity, UA Clear [facility] Color, UA Yellow [facility] Glucose, UA Negative Negative - 1999(110) ++++ mg/dL [facility] Interpretation and review of laboratory results Normal [facility] Healthcare Ketones, UA Negative Negative - 160(16) ++++ mg/dL [facility] Healthcare Leukocytes, UA Negative Negative - 500+++ Jennyfer/mcL [facility] Healthcare Nitrite, UA Negative Negative - Positive [facility] Healthcare pH, UA 6.5 5 - 9 [facility] e Protein, UA Negative Negative - 1999(20) ++++ mg/dL [facility] Spec Grav, UA 1.025 1 - 1.03 [facility] Health care Urobilinogen, UA 1.0 0.2 - 12 mg/dL [facility] Urinalysis macro (dipstick) panel (U)on 11-01-2024 Bilirubin, UA Negative Negative - 4(70) +++ mg/dL [facility] Blood, UA Negative Negative - 50 Immanuel/mcL [facility] Healthcare Clarity, UA Clear [facility] Color, UA Yellow [facility] Glucose, UA Negative Negative - 1999(110) ++++ mg/dL [facility] Interpretation and review of laboratory results Normal [facility] Ketones, UA Negative Negative - 160(16) ++++ mg/dL [facility] Healthcare Leukocytes, UA Negative Negative - 500+++ Jennyfer/mcL [facility] Healthcare Nitrite, UA Negative Negative - Positive [facility] Healthcare pH, UA 6.5 5 - 9 [facility] Protein, UA Negative Negative - 1999(20) ++++ mg/dL [facility] Spec Grav, UA 1.01 1 - 1.03 [facility] Urobilinogen, UA 0.2 0.2 - 12 mg/dL [facility] US OB [...] II, MD, PHD at 19-Oct-2024 12:32:31 AM [facility] Normal Not Available Comment on above: Order Comment: US OB INCOMPLETE ANATOMY Estimated Date of Delivery: 01/24/25 Gestational Age as of 10/04/2024: 24w0d ALL CBC WITH AUTO DIFFon BASOPHILS ABSOLUTE AUTO 0 [facility] Basophils/100 WBC (Bld) 0.3 % 0.2 - 2.0 % [facility] Eosinophils/100 WBC (Bld) 1.3 % 0.9 - 7.0 % [facility] Erythrocyte distribution width (RBC) [Ratio] 11.9 % 11.0 - 15.0 % [facility] Hematocrit (Bld) [Volume fraction] 35.1 % Low 36.0 - 48.0 % [facility] Hemoglobin (Bld) [Mass/Vol] 11.5 g/dL Low 12.0 - 16.0 g/dL [facility] IMMATURE GRANULOCYTES ABS AUTO 0.02 [facility] Immature granulocytes/100 WBC (Bld) 0.2 % 0.0 - 0.5 % [facility] Interpretation and review of laboratory results Abnormal [facility] LYMPHOCYTES ABSOLUTE AUTO 1.6 [facility] Lymphocytes/100 WBC (Bld) 17.7 % Low 20.5 - 60.0 % [facility] MCH (RBC) [Entitic mass] 31.6 pg 26.7 - 34.[address] [facility] MCHC (RBC) [Mass/Vol] 32.8 g/dL 29.9 - 35.2 g/dL [facility] MCV (RBC) [Entitic vol] 96.4 fL 81.0 - 99.[address] [facility] MONOCYTES ABSOLUTE AUTO 0.4 [facility] Monocytes/100 WBC (Bld) 4.7 % 1.7 - 12.0 % [facility] NEUTROPHILS ABSOLUTE AUTO [address] [facility] Neutrophils/100 WBC (Bld) 75.8 % High 43.0 - 75.0 % [facility] Platelet mean volume (Bld) [Entitic vol] 8.8 fL Low 9.5 - 13.5 fL [facility] EO # 0.1 [facility] TB PLT 300 [facility] RBC 3.64 Low [facility] TB WBC 9.2 [facility] Healthcar e [facility] e Urinalysis macro (dipstick) panel (U)on 10-04-2024 Bilirubin, UA Negative Negative - 4(70) +++ mg/dL [facility] Blood, UA Negative Negative - 50 Immanuel/mcL [facility] Clarity, UA Clear [facility] re Color, UA Yellow [facility] e Glucose, UA Negative Negative - 1999(110) ++++ mg/dL [facility] Interpretation and review of laboratory results Normal [facility] Ketones, UA Negative Negative - 160(16) ++++ mg/dL [facility] Leukocytes, UA Negative Negative - 500+++ Jennyfer/mcL [facility] Nitrite, UA Negative Negative - Positive [facility] pH, UA 7 5 - 9 [facility] e Protein, UA Negative Negative - 1999(20) ++++ mg/dL [facility] Spec Grav, UA 1.01 1 - 1.03 [facility] Urobilinogen, UA 0.2 0.2 - 12 mg/dL [facility] AFP, SERUM, OPEN SPINA BIFID Aon 09-08-2024 AFP MOM 1.39 . [facility] Health[facility] e AFP VALUE 74.7 ng/mL . [facility] Health[facility] e COMMENT: Comment . [facility] Comment on above: Gwendolyn Tarango , Ph.D., [facility] Director References: Available Upon Request. Multiples Of Median Cutoffs For AFP Elevations Stevens 2.5 Black 2.8 IDD 2.0 Twins 4.5 Abbreviation Definitions IDD - Insulin Dep Diabetes OSBR - Open Spina Bifida Risk For further inquiries contact [facility] at [phone]. This test was developed and its performance characteristics determined by [employer]. It has not been cleared or approved by the Food and Drug Administration. Performed at: [facility] [address] [place], [place] [id number] Rare/Endangered Species Specialist: Micah Mancia [facility], Phone: [phone] GEST. AGE ON COLLECTION DATE 18.[address] [facility] GESTAT. AGE BASED ON LMP . [facility] Comment on above: Recalculations are n ot recommended when gestational dating by LMP and ultrasound are within 10 days. INSULIN DEP DIABETES No . [facility] INTERPRETATION Comment . [facility] hcare Comment on above: Interpretation: Scre en [...] Customer Services to discuss available options. The [employer] recommends amniocentesis be offered to women age 35 and older. MATERNAL [age] BRIAN 29.[address] [facility] MULTIPLE GESTATION No . [facility] H [facility]althcare OSBR RISK 1 [place] 3704 . [facility] RACE . [facility] [employer] RESULTS Report . [facility] [employer] TEST RESULTS: Negative . [facility] WEIGHT 159 . lbs [facility] [employer] e N [id number] N LMP [id number] N 1 Y 159 N N N N N White/ [facility] [employer] US OB 14+ WEEKS ANATOMY SCAN [...] report is generated using voice recognition reporting ([employer] [facility] [place]). On occasion [employer] erroneously drops words from the report or [...] UA Negative Negative - 4(70) +++ mg/dL [facility] Blood, UA Negative Negative - 50 Immanuel/mcL [facility] Clarity, UA Clear [facility] Healthca re Color, UA Colorless [facility] e Glucose, UA Negative Negative - 2000(110) ++++ mg/dL [facility] Interpretation and review of laboratory results Normal [facility] Ketones, UA Negative Negative - 160(16) ++++ mg/dL [facility] Leukocytes, UA Negative Negative - 500+++ Jennyfer/mcL [facility] Nitrite, UA Negative Negative - Positive [facility] pH, UA 7 5 - 9 [facility] Protein, UA Negative Negative - 1999(20) ++++ mg/dL [facility] Spec Grav, UA 1.01 1 - 1.03 [facility] Urobilinogen, UA 0.2 0.2 - 12 mg/dL [facility] RECURRENT VAGINITIS (HTRX)on 08-11-2024 ATOPOBIUM VAGINAE [address] [facility] ATOPOBIUM VAGINAE Not detected [facility] BVAB 2,3 (BACTERIAL VAGINOSIS ASSOCIATED BACTERIA 2, 3); MOBILUNCUS SPP [address] [facility] [facility] BVAB 2,3 (BACTERIAL VAGINOSIS ASSOCIATED BACTERIA 2, 3); MOBILUNCUS SPP Not detected [facility] MALOU ALBICANS, PARAPSILOSIS, TROPICALIS 0 [facility] MALOU ALBICANS, PARAPSILOSIS, TROPICALIS Not detected [facility] MALOU GLABRATA 0 [facility] MALOU GLABRATA Not detected [facility] ealthcare MALOU KRUSEI [facility] MAL[facility] KRUSEI Not detected [facility] lthcare CHLAMYDIA TRACHOMATIS 0 [facility] CHLAMYDIA TRACHOMATIS Not detected [facility] GARDNERELLA VAGINALIS 0 [facility] GARDNERELLA VAGINALIS Not detected [facility] MEGASPHAERA (TYPES 1, 2) 0 [facility] MEGASPHAERA (TYPES 1, 2) Not detected [facility] MYCOPLASMA GENITALIUM 0 [facility] MYCOPLASMA GENITALIUM Not detected [facility] NEISSERIA GONORRHOEAE 0 [facility] NEISSERIA GONORRHOEAE Not detected [facility] TRICHOMONAS VAGINALIS 0 [facility] TRICHOMONAS VAGINALIS Not detected [facility] Urinalysis macro (dipstick) panel (U)on 08-09-2024 Bilirubin, UA Negative Negative - 4(70) +++ mg/dL [facility] Blood, UA Negative Negative - 50 Immanuel/mcL [facility] Clarity, UA Clear [facility] re Color, UA Yellow [facility] Glucose, UA Negative Negative - 1999(110) ++++ mg/dL [facility] Interpretation and review of laboratory results Normal [facility] Ketones, UA Negative Negative - 160(16) ++++ mg/dL [facility] Leukocytes, UA Negative Negative - 500+++ Jennyfer/mcL [facility] Nitrite, UA Negative Negative - Positive [facility] pH, UA 7 5 - 9 [facility] e Protein, UA Negative Negative - 1999(20) ++++ mg/dL [facility] Spec Grav, UA 1.01 1 - 1.03 [facility] Urobilinogen, UA 0.2 0.2 - 12 mg/dL [facility] ALL CBC WITH AUTO DIFFon BASOPHILS ABSOLUTE AUTO 0.1 [facility] Basophils/100 WBC (Bld) 0.6 % 0.2 - 2.0 % [facility] Eosinophils/100 WBC (Bld) 0.6 % Low 0.9 - 7.0 % [facility] Erythrocyte distribution width (RBC) [Ratio] 11.5 % 11.0 - 15.0 % [facility] Hematocrit (Bld) [Volume fraction] 39.1 % 36.0 - 48.0 % [facility] e Hemoglobin (Bld) [Mass/Vol] 13 g/dL 12.0 - 16.0 g/dL [facility] IMMATURE GRANULOCYTES ABS AUTO 0.02 [facility] Immature granulocytes/100 WBC (Bld) 0.2 % 0.0 - 0.5 % [facility] Interpretation and review of laboratory results Abnormal [facility] LYMPHOCYTES ABSOLUTE AUTO 2 [facility] Lymphocytes/100 WBC (Bld) 22.3 % 20.5 - 60.0 % [facility] MCH (RBC) [Entitic mass] 31.5 pg 26.7 - 34.[address] [facility] MCHC (RBC) [Mass/Vol] 33.2 g/dL 29.9 - 35.2 g/dL [facility] MCV (RBC) [Entitic vol] 94.7 fL 81.0 - 99.[address] [facility] MONOCYTES ABSOLUTE AUTO 0.5 [facility] Monocytes/100 WBC (Bld) 5.6 % 1.7 - 12.0 % [facility] NEUTROPHILS ABSOLUTE AUTO 6.3 [facility] Neutrophils/100 WBC (Bld) 70.7 % 43.0 - 75.0 % [facility] Platelet mean volume (Bld) [Entitic vol] 9.3 fL Low 9.5 - 13.5 fL [facility] EO # 0.1 [facility] PLT 268 [facility] TB RBC 4.13 Low [facility] TB WBC 9 [facility] Urinalysis macro (dipstick) panel (U)on 07-08-2024 Bilirubin, UA Negative Negative - 4(70) +++ mg/dL [facility] Blood, UA Negative Negative - 50 Immanuel/mcL [facility] Healthcare Clarity, UA Clear [facility] re Color, UA Yellow [facility] Healthcar e Glucose, UA Negative Negative - 1999(110) ++++ mg/dL [facility] Interpretation and review of laboratory results Normal [facility] Ketones, UA Negative Negative - 160(16) ++++ mg/dL [facility] Leukocytes, UA Negative Negative - 500+++ Jennyfer/mcL [facility] Nitrite, UA Negative Negative - Positive [facility] pH, UA 6.5 5 - 9 [facility] Healthcar e Protein, UA Negative Negative - 1999(20) ++++ mg/dL [facility] Spec Grav, UA 1.02 1 - 1.03 [facility] Urobilinogen, UA 1.0 0.2 - 12 mg/dL [facility] HCG ( test) Ql (U)o n 06-17-2024 Interpretation and review of laboratory results Abnormal [facility] Preg Test, Ur Positive Negative [facility] Urinalysis macro (dipstick) panel (U)on 06-17-2024 Bilirubin, UA Negative Negative - 4(70) +++ mg/dL [facility] Blood, UA Negative Negative - 50 Immanuel/mcL [facility] Healthcare Clarity, UA Clear [facility] Healthca re Color, UA Yellow [facility] Healthcar e Glucose, UA Negative Negative - 1999(110) ++++ mg/dL [facility] Interpretation and review of laboratory results Normal [facility] Ketones, UA Negative Negative - 160(16) ++++ mg/dL [facility] Leukocytes, UA Negative Negative - 500+++ Jennyfer/mcL [facility] Nitrite, UA Negative Negative - Positive [facility] pH, UA 5.5 5 - 9 [facility] Healthcar e Protein, UA Negative Negative - 1999(20) ++++ mg/dL [facility] Spec Grav, UA 1.02 1 - 1.03 [facility] Urobilinogen, UA 1.0 0.2 - 12 mg/dL [facility] Vital Signs Date Time Vital Sign Value Performing Clinician Faci lit 01-24-2025 13:11-0400 Diastolic blood pressure 70 mm[Hg] Oumar Yvonne DO Work Phone: [facility] 01-24-2025 13:11-0400 Systolic blood pressure 136 mm[Hg] Oumar Yvonne DO Work Phone: [facility] 01-24-2025 13:03-0400 Body mass index (BMI) [Ratio] 30.44 kg/m2 Oumar Yvonne DO Work Phone: [facility] 01-24-2025 13:03-0400 Body weight 84.26 kg Oumar Yvonne DO Work Phone: [facility] 01-19-2025 13:38-0400 Body mass index (BMI) [Ratio] 30.56 kg/m2 Oumar Yvonne DO Work Phone: [facility] 01-19-2025 13:38-0400 Body weight 84.6 kg Oumar Yvonne DO Work Phone: [facility] 01-12-2025 13:56-0400 Body mass index (BMI) [Ratio] 30.61 kg/m2 Brenda ZIMMER Work Phone: [facility] 01-12-2025 13:56-0400 Body weight 84.73 kg Brenda ZIMMER Work Phone: [facility] 01-12-2025 13:56-0400 Diastolic blood pressure 80 mm[Hg] Brenda Jeff PA Work Phone: [facility] 01-12-2025 13:56-0400 Systolic blood pressure 120 mm[Hg] Brenda Jeff PA Work Phone: [facility] 01-05-2025 13:27-0400 Body mass index (BMI) [Ratio] 30.61 kg/m2 Oumar Yvonne DO Work Phone: [facility] 01-05-2025 13:27-0400 Body weight 84.73 kg Oumar Yvonne DO Work Phone: [facility] 01-05-2025 13:27-0400 Diastolic blood pressure 72 mm[Hg] Oumar Yvonne DO Work Phone: [facility] 01-05-2025 13:27-0400 Systolic blood pressure 110 mm[Hg] Oumar Yvonne DO Work Phone: [facility] 12-29-2024 09:25-0400 Body mass index (BMI) [Ratio] 29.99 kg/m2 Brenda Jeff PA Work Phone: [facility] 12-29-2024 09:25-0400 Body weight 83.01 kg Brenda Tomer PA Work Phone: [facility] 12-29-2024 09:25-0400 Diastolic blood pressure 70 mm[Hg] Brenda Jeff PA Work Phone: [facility] 12-29-2024 09:25-0400 Systolic blood pressure 120 mm[Hg] Brenda Jeff PA Work Phone: [facility] 12-14-2024 08:35-0400 Body mass index (BMI) [Ratio] 29.66 kg/m2 Oumar Yvonne DO Work Phone: [facility] 12-14-2024 08:35-0400 Body weight 82.1 kg Oumar Yvonne DO Work Phone: [facility] 12-14-2024 08:35-0400 Diastolic blood pressure 68 mm[Hg] Oumar Yvonne DO Work Phone: [facility] 12-14-2024 08:35-0400 Systolic blood pressure 110 mm[Hg] Oumar Yvonne DO Work Phone: [facility] 12-01-2024 10:07-0400 Body mass index (BMI) [Ratio] 29.14 kg/m2 Ling Graham POWER NUT RUNNER OPERATOR Work Phone: [facility] 12-01-2024 10:07-0400 Body weight 80.65 kg Ling Graham NP Work Phone: [facility] 12-01-2024 10:07-0400 Diastolic blood pressure 72 mm[Hg] Ling Gladys POWER NUT RUNNER OPERATOR Work Phone: [facility] 12-01-2024 10:07-0400 Systolic blood pressure 120 mm[Hg] Ling Lagoserly POWER NUT RUNNER OPERATOR Work Phone: [facility] 11-16-2024 11:39-0400 Body mass index (BMI) [Ratio] 28.65 kg/m2 Oumar Yvonne DO Work Phone: [facility] 11-16-2024 11:39-0400 Body weight 79.29 kg Oumar Yvonne DO Work Phone: [facility] 11-16-2024 11:39-0400 Diastolic blood pressure 74 mm[Hg] Oumar Yvonne DO Work Phone: [facility] 11-16-2024 11:39-0400 Systolic blood pressure 122 mm[Hg] Oumar Yvonne DO Work Phone: [facility] 11-01-2024 08:58-0400 Body mass index (BMI) [Ratio] 28.25 kg/m2 Oumar Yvonne DO Work Phone: [facility] 11-01-2024 08:58-0400 Body weight 78.2 kg Oumar Yvonne DO Work Phone: [facility] 11-01-2024 08:58-0400 Diastolic blood pressure 60 mm[Hg] Oumar Yvonne DO Work Phone: [facility] 11-01-2024 08:58-0400 Systolic blood pressure 120 mm[Hg] Oumar Yvonne DO Work Phone: [facility] 10-04-2024 08:30-0500 Body mass index (BMI) [Ratio] 27.92 kg/m2 Brenda ZIMMER Work Phone: [facility] 10-04-2024 08:30-0500 Body weight 77.29 kg Brenda ZIMMER Work Phone: [facility] 10-04-2024 08:30-0500 Diastolic blood pressure 64 mm[Hg] Brenda Middleburg PA Work Phone: [facility] 10-04-2024 08:30-0500 Systolic blood pressure 110 mm[Hg] Brenda Tomer PA Work Phone: [facility] 09-06-2024 10:48-0500 Body mass index (BMI) [Ratio] 25.86 kg/m2 Oumar Yvonne DO Work Phone: [facility] 09-06-2024 10:48-0500 Body weight 71.58 kg Oumar Yvonne DO Work Phone: [facility] 09-06-2024 10:48-0500 Diastolic blood pressure 60 mm[Hg] Oumar Yvonne DO Work Phone: [facility] 09-06-2024 10:48-0500 Systolic blood pressure 116 mm[Hg] Oumar Yvonne DO Work Phone: [facility] 08-09-2024 10:44-0500 Body mass index (BMI) [Ratio] 26.06 kg/m2 Brenda Jeff PA Work Phone: [facility] 08-09-2024 10:44-0500 Body weight 72.12 kg Brenda Tomer PA Work Phone: [facility] 08-09-2024 10:44-0500 Diastolic blood pressure 68 mm[Hg] Brenda Tomer PA Work Phone: [facility] 08-09-2024 10:44-0500 Systolic blood pressure 110 mm[Hg] Brenda Tomer PA Work Phone: [facility] 07-08-2024 10:50-0500 Body mass index (BMI) [Ratio] 25.73 kg/m2 Oumar Yvonne DO Work Phone: [facility] 07-08-2024 10:50-0500 Body weight 71.22 kg Oumar Yvonne DO Work Phone: [facility] 07-08-2024 10:50-0500 Diastolic blood pressure 70 mm[Hg] Oumar Yvonne DO Work Phone: [facility] 07-08-2024 10:50-0500 Systolic blood pressure 110 mm[Hg] Oumar Yvonne DO Work Phone: [facility] 06-17-2024 14:25-0500 Body mass index (BMI) [Ratio] 24.88 kg/m2 [facility] Nurse [facility] 06-17-2024 14:25-0500 Body weight 68.86 kg [facility] Nurse [facility] 06-02-2024 10:49-0400 Body height 166.4 cm Bhumika Johnson POWER NUT RUNNER OPERATOR Work Phone: [facility] 06-02-2024 10:49-0400 Body mass index (BMI) [Ratio] 24.88 kg/m2 Bhumika Johnson POWER NUT RUNNER OPERATOR Work Phone: [facility] 06-02-2024 10:49-0400 Body weight 68.86 kg Bhumika Johnson POWER NUT RUNNER OPERATOR Work Phone: [facility] 06-02-2024 10:49-0400 Diastolic blood pressure 60 mm[Hg] Bhumika Johnson POWER NUT RUNNER OPERATOR Work Phone: [facility] 06-02-2024 10:49-0400 Heart rate 75 /min Bhumika Johnson POWER NUT RUNNER OPERATOR Work Phone: [facility] 06-02-2024 10:49-0400 SaO2% (BldA) [Mass fraction] 99 % Bhumika Johnson POWER NUT RUNNER OPERATOR Work Phone: [facility] 06-02-2024 10:49-0400 Systolic blood pressure 120 mm[Hg] Bhumika Johnson POWER NUT RUNNER OPERATOR Work Phone: [facility] Healthcare Encounters Encounter Date Encounter Type Care Provider Facility Start: 01-26-2025 End: 01-26-2025 Clinisync Result Encounter Oumar Yvonne DO Work Phone: [facility] External Department Unsolicited Start: 01-26-2025 End: 01-26-2025 Clinisync Result Encounter Oumar Yvonne DO Work Phone: [facility] External Department Unsolicited Start: 01-24-2025 End: 01-24-2025 [...] Comment on above: Third trimester preg kirk ([facility]); 40 weeks gestation of ([facility]) Start: 01-24-2025 End: 01-24-2025 ambulatory OUMAR YVONNE [...] Comment on above: Third trimester preg kirk ([facility]); 39 weeks gestation of ([facility]) Start: 01-19-2025 End: 01-19-2025 ambulatory OUMAR YVONNE Not Available Start: 01-13-2025 End: 01-13-2025 Clinisync Result Encounter Brenda ZIMMER Work Phone: [facility] External Department Unsolicited Start: 01-13-2025 End: 01-13-2025 Clinisync Result Encounter Brenda ZIMMER Work Phone: [facility] External Department Unsolicited Start: 01-12-2025 End: [...] 12-01-2024 End: 12-01-2024 flow sheet Ling Gladys POWER NUT RUNNER OPERATOR Work Phone: [facility] Comment on [...] 06-02-2024 End: 06-02-2024 Bamboo flowsheet Bhumika Dorseyjose POWER NUT RUNNER OPERATOR Work Phone: [facility] Start: 06-02-2024 End: 06-02-2024 Bamboo flowsheet Bhumika Alex POWER NUT RUNNER OPERATOR Work Phone: [facility] Start: 06-02-2024 End: 06-02-2024 Office outpatient visit 15 minutes Bhumika Johnson POWER NUT RUNNER OPERATOR Work Phone: [facility] Comment on [...] Work Phone: Start: 01-24-2025 [facility] UA (CLEAN/CATCH) HARVESTING MANAGER/MICRO IF IND. Oumar Yvonne DO Work Phone: [...] Screening for malign ant neoplasm of cervix [facility] Start: 04-04-2025 Influenza vaccination Influenz a Vaccine (Season Ended) [facility] Start: 01-24-2025 End: 01-24-2025 Patient encounter [...] unspecified fetus Expected: 01/12/2025 (Approximate), Expires: 07/14/2025 [facility] Comment on above: Expected: 01/12/2025 (Approximate), Expires: 07/14/2025 Start: 01-12-2025 End: 05-14-2025 US for US OB follow up transabdominal approach Imaging Routine Excessive growth affecting management of in third trimester, single or unspecified fetus Expected: 01/12/2025, Expires: 05/14/2025 [facility] Work Phone: Comment on above: Expected: [...] Routine [facility] [address] [place] [id number] Brenda Jeff, PA [address] [place] [address] [facility] Start: 12-29-2024 End: 12-29-2024 Professional / ancillary services management 12/29/2024 9:00 AM EDT Ancillary Procedure [facility] [address] [place] [id number] [facility] Start: 12-14-2024 End: 12-14-2024 Patient encounter procedure [facility] Comment on above: Arrived Start: 12-01-2024 End: 12-01-2024 Patient encounter procedure 12/01/2024 9:50 AM EDT Routine [facility] [address] [place] [address] Brenda Jeff PA [address] [place] [address] [facility] Start: 12-01-2024 End: 12-01-2024 [...] EDT Ancillary Procedure [facility] [address] [address] [facility] Start: 10-04-2024 End: 10-04-2025 CBC panel - Blood by Automated count CBC Lab Routine Diabetes mellitus screening Expected: 10/04/2024 (Approximate), Expires: 10/04/2025 [facility] Healthcare Comment on above: Expected: 10/04/2024 (Approximate), Expires: 10/04/2025 Start: 10-04-2024 End: 10-04-2025 Measurement of glucose 1 hour after glucose challenge for glucose tolerance test Glucose tolerance, 1 hour Lab Routine Diabetes mellitus screening Expected: 10/04/2024 (Approximate), Expires: 10/04/2025 [facility] Healthcare Comment on above: Expected: [...] AM EST Routine [facility] [address] [phone] Oumar Russell DO [address] [place] [address] [facility] Start: 09-06-2024 End: 09-06-2024 Professional / ancillary services management 09/06/2024 9:30 AM EST Ancillary Procedure [facility] [address] [facility] [place] [phone] [facility] Start: 08-09-2024 End: 09-09-2024 [...] PM EST Initial [facility] [address] [facility] [place] [address] [facility] Start: 06-17-2024 End: [...] Missed menses Expected: 06/17/2024 (Approximate), Expires: 06/17/2025 [facility] Comment on above: Expected: 06/17/2024 (Approximate), Expires: 06/17/2025 Start: 06-17-2024 End: 06-17-2024 Professional / ancillary services management 06/17/2024 1:30 PM EST Ancillary Procedure [facility] [address] [place] [address] [facility] Start: 06-02-2024 End: 06-02-2024 Patient encounter procedure 06/02/2024 11:00 AM EDT Office Visit [facility] [address] [place] [phone] Bhumika Jhonson NP [address] [place], [place] [id number] Arrived [facility] Comment on above: Arrived Start: 04-04-2024 Influenza vaccination Influenza Vacc ine (#1) [facility] Start: 2014 Screening for malign ant neoplasm of cervix Pap Smear [facility] Bacteria identified in Urine by Culture Urine culture Microbiology Routine Missed menses Ordered: 06/17/2024 [facility] Comment on above: Ordered: 06/17/2024 CBC W Auto Different ial panel - Blood CBC and differential Lab Routine Missed menses , unspecified gestational age Ordered: 06/17/2024 [facility] Comment on above: Ordered: 06/17/2024 CHLAMYDIA TRACHOMATI S (GENITO/STI) CHLAMYDIA TRACHOMATIS (GENITO/STI) Lab Routine Exposure to STD Ordered: 08/09/2024 [facility] Comment on above: Ordered: 08/09/2024 Hemoglobin A1c/Hemoglobin.total in Blood Hemoglobin A1c Lab Routine Missed menses , unspecified gestational age Ordered: 06/17/2024 [facility] Comment on above: Ordered: 06/17/2024 Hepatitis B virus surface Ag [Presence] in Serum or Plasma by Immunoassay Hepatitis B surface antigen Lab Routine Missed menses , unspecified gestational age Ordered: 06/17/2024 [facility] Comment on above: Ordered: 06/17/2024 Hepatitis C virus Ab [Presence] in Serum or Plasma by Immunoassay Hepatitis C antibody Lab Routine Missed menses , unspecified gestational age Ordered: 06/17/2024 [facility] Comment on above: Ordered: 06/17/2024 HIV-1/HIV-2 antigen/antibody combination immunoassay HIV-1 and HIV-2 antibodies Lab Routine Missed menses , unspecified gestational age Ordered: 06/17/2024 [facility] Comment on above: Ordered: 06/17/2024 Neisseria gonorrhoea e DNA [Presence] in Unspecified specimen by SEVERO with probe detection Neisseria gonorrhea DNA probe, direct Lab Routine Exposure to STD Ordered: 08/09/2024 [facility] Comment on above: Ordered: 08/09/2024 Reagin Ab [Presence] in Serum by RPR RPR Lab Routine Missed menses , unspecified gestational age Ordered: 06/17/2024 [facility] Comment on above: Ordered: 06/17/2024 Rubella antibody, IgG Rubella an tibody, IgG Lab Routine Missed menses , unspecified gestational age Ordered: 06/17/2024 [facility] Comment on above: Ordered: 06/17/2024 SURESWAB(R) ADVANCED VAGINITIS PLUS, TMA SURESWAB(R) ADVANCED VAGINITIS PLUS, TMA Pathology and Cytology Routine Exposure to STD Ordered: 08/09/2024 [facility] Work Phone: Comment on above: Ordered: 08/09/2024 Immunizations Immunization Date Immunization Notes Care Provider Damon dumont 02-24-2012 tetanus toxoid, redu srinath diphtheria toxoid, and acellular pertussis vaccine, adsorbed Bhumika Johnson NP Work Phone: [facility] Payers Date Payer Category Payer [employer] [id number] [id number] 2022 Unknown [id number] 1993 Unknown [id number] 2.16.8 [id number] 1993 Unknown [id number] 2.16.8 40.1.841014.3.579.2.1258 1993 Unknown [id number] 2.16.8 40.1.196011.3.579.2.1258 1993 Unknown [id number] 2.16.8 40.1.446080.3.579.2.1258 1993 Unknown [id number] 2.16.84 0.1.068759.3.579.2.1258 1993 Unknown [id number] 2.16.84 0.1.701549.3.579.2.1258 1993 Unknown [id number] 2.16.84 0.1.164095.3.579.2.1258 1993 Unknown [id number] 2.16.84 0.1.041886.3.579.2.1258 1993 Unknown [id number] 2.16.84 0.1.241769.3.579.2.1258 1993 Unknown [id number] 2.16.84 0.1.597094.3.579.2.1258 1993 Unknown [id number] 2.16.84 0.1.442089.3.579.2.1258 1993 Unknown [id number] 2.16.84 0.1.243097.3.579.2.1258 1993 Unknown [id number] 2.16.84 0.1.146350.3.579.2.1258 1993 Unknown [id number] 2.16.84 0.1.471312.3.579.2.1258 1993 Unknown [id number] 2.16.84 0.1.188231.3.579.2.1258 1993 Unknown [id number] 2.16.84 0.1.840773.3.579.2.1258 1993 Unknown [id number] 2.16.84 0.1.215379.3.579.2.1258 1993 Unknown [id number] 2.16.84 0.1.393298.3.579.2.1259 1993 Unknown [id number] 2.16.84 0.1.085264.3.579.2.1259 1993 Unknown [id number] 2.16.84 0.1.898151.3.579.2.1259 1959 Self-pay Unknown [id number] 2.16.84 0.1.290483.3.579.2.593 Unknown [id number] 2.16.84 0.1.600005.3.579.2.593 Social History Date Type Detail Facility Start: [...] to any clubs or organizations such as sikh groups, unions, fraternal [...] End: 01-12-2025 Alcoholic beverage intake Ex-drinker (finding) [facility] Start: 06-02-2024 Alcohol Comment caffeine intak e: 200mg daily [facility] Healthcare Start: 05-03-2024 [facility] daniella Clinical [...] nursing note reviewed. Exam conducted with a foreign diplomat present. Vitals: Estimated body mass index is 30.44 kg/m as calculated from the following: Height as of 06/02/24: 5' 5.5 . Weight as of this encounter: 185 lb 12 oz. BP: 136/70 Patient's last menstrual period was 04/19/2024. ASSESSMENT & PLAN ICD-10-CM 1. Third trimester ([facility]) Z34.93 POCT urinalysis dipstick manually resulted 2. 40 weeks gestation of ([facility]) Z3A.40 Return OB: Patient presents [...] for routine OB appointment. Documented by Ling Garham NP on behalf of: Oumar Russell DO documented in this encounter [facility] 01-19-2025 History of Presen t illness [...] nursing note reviewed. Exam conducted with a foreign diplomat present. Vitals: Estimated body mass index is 30.56 kg/m as calculated from the following: Height as of 06/02/24: 5' 5.5 . Weight as of this encounter: 186 lb 8 oz. BP: Patient's last menstrual period was 04/19/2024. ASSESSMENT & PLAN ICD-10-CM 1. Third trimester ([facility]) Z34.93 2. 39 weeks gestation of ([facility]) Z3A.39 POCT urinalysis dipstick manually resulted [...] Oumar Russell DO documented in this encounter [facility] 01-12-2025 History of Presen t illness [...] of: GORAN Pedroza documented in this encounter [facility] 01-05-2025 History of Presen t illness [...] nursing note reviewed. Exam conducted with a foreign diplomat present. Vitals: Estimated body mass index is [...] Oumar Russell DO documented in this encounter [facility] 12-29-2024 History of Presen t illness [...] Moderate episode of recurrent major depressive disorder ([facility]) 06/02/2024 Panic disorder ([facility]) 06/02/2024 Resolved Ambulatory Problems Diagnosis Date Noted No Resolved Ambulatory Problems Past Medical History: Diagnosis Date Anxiety Depression ([facility]) HISTORY PAST MEDICAL HISTORY SOCIAL HISTORY Past Medical History: Diagnosis Date Anxiety Depression ([facility]) Social History Tobacco Use Smoking [...] of: GORAN Pedroza documented in this encounter [facility] 12-14-2024 History of Presen t illness [...] nursing note reviewed. Exam conducted with a foreign diplomat present. Vitals: Estimated body mass index is [...] Oumar Russell DO documented in this encounter [facility] 12-01-2024 History of Presen t illness [...] nursing note reviewed. Exam conducted with a foreign diplomat present. Vitals: Estimated body mass index is [...] Ling Graham NP documented in this encounter [facility] 11-16-2024 History of Presen t illness [...] nursing note reviewed. Exam conducted with a foreign diplomat present. Vitals: Estimated body mass index is [...] Oumar Russell DO documented in this encounter [facility] 11-01-2024 History of Presen t illness [...] nursing note reviewed. Exam conducted with a foreign diplomat present. Vitals: Estimated body mass index is [...] Oumar Russell DO documented in this encounter [facility] 10-04-2024 History of Presen t illness [...] Moderate episode of recurrent major depressive disorder ([facility]) 06/02/2024 Panic disorder ([facility]) 06/02/2024 Resolved Ambulatory Problems Diagnosis Date Noted No Resolved Ambulatory Problems Past Medical History: Diagnosis Date Anxiety Depression (CMS/HCC) HISTORY PAST MEDICAL HISTORY SOCIAL HISTORY Past Medical History: Diagnosis Date Anxiety Depression ([facility]) Social History Tobacco Use Smoking status: Never [...] of: GORAN Pedroza documented in this encounter [facility] 09-06-2024 History of Presen t illness [...] nursing note reviewed. Exam conducted with a foreign diplomat present. Vitals: Estimated body mass index is [...] Oumar Russell DO documented in this encounter [facility] 08-09-2024 History of Presen t illness [...] Date Noted Allergic rhinitis 06/02/2024 Exercise-induced asthma ([facility]) 06/02/2024 Moderate episode of recurrent major depressive disorder ([facility]) 06/02/2024 Panic disorder ([facility]) 06/02/2024 Resolved Ambulatory Problems Diagnosis Date Noted No Resolved Ambulatory Problems Past Medical History: Diagnosis Date Anxiety Depression ([facility]) HISTORY PAST MEDICAL HISTORY SOCIAL HISTORY Past Medical History: Diagnosis Date Anxiety Depression ([facility]) Social History Tobacco Use Smoking [...] nursing note reviewed. Exam conducted with a foreign diplomat present. Vitals: Estimated body mass index is [...] of: GORAN Pedroza documented in this encounter [facility] 07-08-2024 History of Presen t illness [...] Past Medical History: Diagnosis Date Anxiety Depression ([facility]) Social History Tobacco Use Smoking [...] nursing note reviewed. Exam conducted with a foreign diplomat present. Vitals: Estimated body mass index is [...] Oumar Russell DO documented in this encounter [facility] 06-17-2024 History of Presen t illness [...] providers found * documented in this encounter [facility] 06-02-2024 History of Presen t illness [...] OBGYN as scheduled documented in this encounter [facility] Healthcare Evaluation note Diagnosis Panic [...] section and content) DATE CREATED AUTHOR 02/27/2019 [employer] DATE CREATED AUTHOR AUTHOR'S ORGANIZ ATION 11/28/2020 [facility] pital DATE CREATED AUTHOR AUTHOR'S ORGANIZ ATION 01/25/2025 [facility] dical Specialists [facility] Care Teams (unrecognized sec tion and content) Learning Disabilities Teacher Relationship Specialty Start Date End Date Samra Aguirre DO [address] [place] [address] PCP - General Family Medicine 12/10/22 Learning Disabilities Teacher Relationship Specialty Start Date End Date Raegan Medina MD [address] [place] [address] PCP - General Family Medicine 06/02/24 Learning Disabilities Teacher Relationship Specialty Start Date End Date Raegan Medina MD [address] [place] [address] PCP - General Family Medicine 06/02/24 Learning Disabilities Teacher Relationship Specialty Start Date End Date Raegan Medina MD [address] [place] [address] PCP - General Family Medicine 06/02/24 Learning Disabilities Teacher Relationship Specialty Start Date End Date Raegan Medina MD [address] [place] [address] PCP - General Family Medicine 06/02/24 Learning Disabilities Teacher Relationship Specialty Start Date End Date Raegan Medina MD [address] [place] [address] PCP - General Family Medicine 06/02/24 Learning Disabilities Teacher Relationship Specialty Start Date End Date Raegan Medina MD [address] [place] [address] PCP - General Family Medicine 06/02/24 Learning Disabilities Teacher Relationship Specialty Start Date End Date Raegan Medina MD [address] [place] [address] PCP - General Family Medicine 06/02/24 Bhumika Johnson NP [address] [place] [address] PCP - [employer] 07/04/24 Learning Disabilities Teacher Relationship Specialty Start Date End Date Raegan Medina MD [address] [place] [address] PCP - General Family Medicine 06/02/24 Bhumika Johnson NP [address] [place] [address] PCP - [employer] 07/04/24 Learning Disabilities Teacher Relationship Specialty Start Date End Date Raegan Medina MD [address] [place] [address] PCP - General Family Medicine 06/02/24 Bhumika Johnson NP [address] [place] [address] PCP - [employer] 07/04/24 Learning Disabilities Teacher Relationship Specialty Start Date End Date Raegan Medina MD [address] [place] [address] PCP - General Family Medicine 06/02/24 Bhumika Johnson NP [address] [place] [address] PCP - [employer] 07/04/24 Learning Disabilities Teacher Relationship Specialty Start Date End Date Raegan Medina MD [address] [place] [address] PCP - General Family Medicine 06/02/24 Bhumika Johnson NP [address] [place] [address] PCP - [employer] 07/04/24 Learning Disabilities Teacher Relationship Specialty Start Date End Date Raegan Medina MD [address] [place] [address] PCP - General Family Medicine 06/02/24 Bhumika Johnson NP [address] [place] [address] PCP - [facility] 07/04/24 Learning Disabilities Teacher Relationship Specialty Start Date End Date Raegan Medina MD [address] [place] [address] PCP - General Family Medicine 06/02/24 Learning Disabilities Teacher Relationship Specialty Start Date End Date Raegan Medina MD [address] [place] [address] PCP - General Family Medicine 06/02/24 Learning Disabilities Teacher Relationship Specialty Start Date End Date Raegan Medina MD [address] [place] [address] PCP - General Family Medicine 06/02/24 Learning Disabilities Teacher Relationship Specialty Start Date End Date Raegan Medina MD [address] [facility] [place] [address] PCP - General Family Medicine 06/02/24 Reason [...] BE BASED ON THE PRIMARY CLINICAL RECORDS. [facility]. provides no warranty or guarantee of the accuracy or completeness of information in this document.
--- NOTE | 2025-02-22 11:06 | PC.NURSE ---
Anthony Hernandes and 4 week old Don arrive for support. Greta states I am much better Was tearful and overwhelmed at last visit. States I was putting too much pressure on myself to do everything perfect . Has now decided to worry less and use the shield if she needs it or latch without as she will sometimes do. Supported in this decision and in efforts to reduce stress. Infant still has infrequent stool, has a day of big blow outs after visiting chiropractor. Still no decision on tongue tie resolution or evaluation. weight today is 8-15, large clear void while on scales. don is alert, tracking voices and socially smiles with dad talking to her. Parents states are doing well. No need for further appointments. Aware to call for questions or concerns as needed, and aware of [facility]OM[facility] group. Family leaves for home.
== END 2025-02-22 08:08 | disposition home or self-care (01) ==
PROVIDERS: Visit Provider Obstetrics & Gynecology
DX: Z39.1 Encounter for care and examination of lactating mother (principal)

== ENCOUNTER 2025-03-21 09:36 | Outpatient (OUT) | payer BC, SELFPAY ==
--- OUTSIDE RECORDS SUMMARY | 2025-02-14 05:15 | XMS_ITS ---
Author Organization [facility] Address [address] [place] [id number] Care Team Providers Care Civil Preparedness Coordinator Name Role Phone An Angel Unavailable [phone] REASON FOR VISIT Prophy (A) (30) & Xrays Social History Sex Assigned At : Social History Observation Description Sex Assigned At Female Encounters Encounter Location Date Provider Diagnosis [facility] [address], [place] [id number] 02/14/2025 An Angel Plan Of Treatment No Information Progress Notes * Greta PAIZDOB:1995 (29 yo F)Acc No.[id number]:02/14/2025 Patient: Greta PETERSON Provider: Jay Angel DDS :1995 A ge:29 Y S ex:Female Date:02/14/2025 Address:[address] [place], [place] [id number] Subjective: * Chief Complaints: * 1 . Prophy (A) (30) & Xrays. * Medical History: Objective: * Vitals: Assessment: Plan: * Treatment: * Billing Information: * Visit Code: * Procedure Codes: * Electronic signature of Martell Angel DDS on 03/21/2025 at 09:41 AM EDT Sign off status: Pending * Provider: Jay Angel DDS Date: 02/14/2025 Generated for Sandy hou/Phil/eTrantinitting on: 03/21/2025 09:41 AM EDT
--- OUTSIDE RECORDS SUMMARY | 2025-03-08 09:30 | XMS_ITS | Encounter Summary ---
Author Organization [facility] Address [address] [place] [address] Care Team Providers Care Shovel Engineer Name Role Phone Raegan Medina MD Primary Care Provider [phone] Reason for Visit * Reason Comments Care Pt present today for a 6 week post visit. Pt delivered vaginally on 01/25/2025. Encounter Details Date Type Department Care Team (Late st Contact Info) Description 03/08/2025 9:30 AM EDT Visit [facility] [address] [address] Brenda Owusu PA [address] [place], [facility] 6 weeks follow-up ([facility]); Spontaneous vaginal delivery ([facility]) Social History Tobacco Use Types Packs/Day [...] often do you attend chur ch or orthodoxy services? Never 06/01/2024 Do you belong to [...] Recorded Patient Health Questionnaire-2 Score 0 01/31/2025 [facility] of Occupat ional [...] any time in the past 12 m [facility], were you homeless or living in a mcc (including now)? No 06/01/2024 Comments No Sex and Gender Information Value Date Recorded [...] - Inhaled Oxygen Concentration - - Weight 75.8 kg (167 lb) 03/08/2025 10:05 AM EDT Height - - Body Mass Index 27.37 06/02/2024 10:49 AM EDT documented in this encounter Progress Notes * GORAN Pedroza - 03/08/2025 9:30 AM EDT Reason for Appointment: Patient ID: Greta Pineda is a 29 y.o. female who presents for Care (Pt present today for a6 week post visit. Pt delivered vaginally on 01/25/2025.) Patient presents today for Post Follow Up appointment. MEDICATIONS Current Outpatient Medications Medication Instructions [...] reviewed. Vitals: Estimated body mass index is 30.44 kg/m?? as calculated from the following: Height as of 06/02/24: 5' 5.5 . Weight as of 01/24/25: 185 lb 12 oz. BP: Patient's last menstrual period was 04/19/2024. ASSESSMENT & PLAN ICD-10-CM 1. 6 weeks follow-up ([facility]) Z39.2 2. Spontaneous vaginal delivery ([facility]) O80 Post Follow Up: Patient is doing well but has complaints of the healing of stitches after delivery. Pt would like Brenda Owusu to take a peek and make sure she is healing well. Patient presents today for 6 week visit. Patient is s/p Vaginal delivery. Patient states depression but denies suicidal and homicidal ideations. All options were discussed with the patient regarding control and patient desires no control at this time. Pt is breast feeding on demand and states she is doing well. Follow Up: Patient is to return for annual unless needed otherwise. Documented by Edita Chavez MA on behalf of: GORAN Pedroza documented in this encounter Plan of Treatment Upcoming Encounters Date Type Department Care Team (Late st Contact Info) Description 03/29/2025 10:30 AM EDT Procedure Visit [facility] [address] [address] Brenda Owusu PA [address] [place] [address] documented as of this encounter Procedures Procedure Name Priority Date/Time Associated Diagnosis Comments PAP SMEAR Routine 02/12/2024 12:00 AM EDT documented in this encounter Results * Pap Smear (02/12/2024 12:00 AM EDT) Swab Cervical swab / Unknown Slim Yvonne DO LAB CYTOLOGY ORDERABLES Final Re sult EXTERNAL LAB documented in this encounter Visit Diagnoses Diagnosis 6 weeks follow-up ([facility]) Spontaneous vaginal delivery ([facility]) Normal delivery documented in this encounter Additional Health Concerns Assessment Noted Time PHQ-9 Depression Total Score: 0 06/02/20 24 10:00 AM EDT documented as of this encounter Care Teams Shovel Engineer Relationship Specialty Start Date End Date Raegan Medina MD [address] [place] [address] PCP - General Family Medicine 06/02/24 documented as of this encounter
--- OUTSIDE RECORDS SUMMARY | 2025-03-21 09:41 | XMS_ITS | Encounter Summary ---
Author Organization [facility] Address [address] [place] [address] Care Team Providers Care Wood Planer Name Role Phone Raegan Medina MD Primary Care Provider [phone] Encounter Details Date Type Department Care Team (Late st Contact Info) Description 01/24/2025 Abstract [facility] [address] [place] [address] [place] [address] Rosa Nguyen LPN Social History Tobacco [...] often do you attend chur ch or methodist services? Never 06/01/2024 Do you belong to [...] any time in the past 12 m [facility], were you homeless or living in a mcc (including now)? No 06/01/2024 Comments Yes Sex and Gender Information Value Date Recorded Sex Assigned at Not on file Legal Sex Female 7:40 PM EDT Gender Identity Not on file Sexual Orientation Not on file documented as of this encounter Plan of Treatment Upcoming Encounters Date Type Department Care Team (Late st Contact Info) Description 03/29/2025 10:30 AM EDT Procedure Visit [facility] [address] [place] [address] Brenda Owusu PA [address] [place] [address] documented as of this encounter Visit Diagnoses Not on filedocumented in this encounter Additional Health Concerns Assessment Noted Time PHQ-9 Depression Total Score: 0 06/02/20 10:00 AM EDT documented as of this encounter Care Teams Wood Planer Relationship Specialty Start Date End Date Raegan Medina MD [address] [place] [address] PCP - General Family Medicine 06/02/24 documented as of this encounter
--- OUTSIDE RECORDS SUMMARY | 2025-03-21 09:42 | XMS_ITS | Encounter Summary ---
Author Organization [facility] Address [address] [place] [address] Care Team Providers Care Lance Crewmember Name Role Phone Raegan Medina MD Primary Care Provider [phone] Mary Ann Johnson NP Unavailable [phone] Encounter Details Date Type Department Care Team (Late st Contact Info) Description 07/14/2024 Abstract [facility] [address] [place] [address] Slim Russell DO [address] [place] [id number] Social History Tobacco Use Types Packs/Day Years [...] How often do you attend chur or caodaism services? Never 06/01/2024 Do you [...] Patient Health Questionnaire-2 Score 0 06/02/2024 [facility] of Occupat ional [facility] - Occupational Stress Questionnaire Answer Date [...] EDT Procedure Visit [facility] [address] [place] [address] Brenda Owusu PA [address] [place] [address] documented as of this encounter Visit Diagnoses Not on filedocumented in this encounter Additional Health Concerns Assessment Noted Time PHQ-9 Depression Total Score: 0 06/02/20 24 10:00 AM EDT documented as of this encounter Care Teams Lance Crewmember Relationship Specialty Start Date End Date Raegan Medina MD [address] [place] [address] PCP - General Family Medicine 06/02/24 Mary Ann Johnson NP [address] [place] [address] PCP - [employer] 07/04/24 documented as of this encounter
--- OUTSIDE RECORDS SUMMARY | 2025-03-21 09:42 | XMS_ITS | Encounter Summary ---
Author Organization [facility] Address [address] [place] [address] Care Team Providers Care Fitter/Welder Name Role Phone Raegan Medina MD Primary Care Provider Encounter Details Date Type Department Care Team (Latest Contact Info) Description 03/07/2025 Travel Social History Tobacco Use Types Packs/Day [...] Recorded Patient Health Questionnaire-2 Score 0 01/31/2025 [facility] of Occupat ional Health [...] a senior living (including now)? No 06/01/2024 Comments Yes Sex [...] EDT Procedure Visit [facility] [address] [place] [address] Brenda Owusu PA [address] [place] [address] documented as of this encounter Visit Diagnoses Not on filedocumented in this encounter Additional Health Concerns Assessment Noted Time PHQ-9 Depression Total Score: 0 06/02/20 10:00 AM EDT documented as of this encounter Care Teams Fitter/Welder Relationship Specialty Start Date End Date Raegan Medina MD [address] [facility] [facility] [place] [address] PCP - General Family Medicine 06/02/24 documented as of this encounter
--- OUTSIDE RECORDS SUMMARY | 2025-03-21 09:42 | XMS_ITS | Patient Health Record ---
Author Organization [facility] Address [address] [place], [place] [address] [id number] Care Team Providers Care Assistant Front End Manager Name Role Phone StanleyAronlandenmarisa Unavailable [phone] Allergies No Known Allergies Reason For Referral No Information Medications Medication SIG (Take, Route, Frequency, Duration) Notes Start Date End Date Status ZyrTEC 10 MG 1 tablet Orally Once a day Active Sertraline HCl 25 MG Oral; Duration: 90 Days Active Citalopram Hydrobromide 20 MG TAKE 1 TABLET BY MOUTH EVERY DAY Oral; Duration: 90 Days Not-Taking busPIRone HCl 5 MG TAKE 1 TABLET BY VALERIE TH TWICE A DAY Oral; Duration: 90 Days Active Social History Tobacco Use: [...] Location Date Provider Diagnosis Dental Main [address] [place], [place] [id number] 09/10/2024 [facility] caries into dentine K02.62 and Encounter for dental examination and cleaning with abnormal findings Z01.21 Assessments Encounter Date Diagnosis (ICD Code) Assessment Notes Treatment Notes Treatment Clinical Notes Section Notes 09/10/2024 Dental caries into dentine (ICD-10 - K02.62) 09/10/2024 Encounter for dental examination and cleaning with abnormal findings (ICD-10 - Z01.21) Plan Of Treatment No Information Insurance Providers Payer Name Payer Address Payer Phone Subscriber Number Group Number Insured Name Patient Relationship to Insured Coverage Start Date Coverage End Date [employer] [address] [place], [place] [id number] Greta Pineda Self - patient is the insured 4
--- OUTSIDE RECORDS SUMMARY | 2025-03-21 09:42 | XMS_ITS | Clinical Summary ---
Author Organization [facility] Address [address] [place] [address] Care Team Providers Care Assistant Manager Retail Name Role Phone Raegan Medina MD Primary Care Provider [phone] Allergies No known active allergies Medications busPIRone (Buspar) 5 MG tabletIndicatio ns:Major depressive disorder, recurrent, moderate (HCC) TAKE 1 TABLET BY MOUTH TWICE A DAY FOR 90 DAYS 180 tablet 3 3 Active cetirizine (ZyrTEC) 10 MG tablet 1 (one) time each day at the same time Active MV-Min-Fe Fum-FA-DHA ( 1 PO) Take by mouth Active sertraline (Zoloft) 25 MG tabletIndicatio ns:Panic disorder,Modera te episode of recurrent major depressive disorder (HCC) TAKE 1 TABLET BY MOUTH EVERY DAY 90 tablet 1 5 Active sertraline (Zoloft) 25 MG tabletIndicatio ns:Panic disorder,Modera te episode of recurrent major depressive disorder (HCC) TAKE 1 TABLET BY MOUTH EVERY DAY 90 tablet 1 5 02/23/20 25 Discontinued Active Problems Problem Noted Date Diagnosed Date Allergic rhinitis 06/02/2024 Exercise-induced asthma 06/02/2024 Moderate episode of recurrent major depressive d isorder 06/02/2024 Panic disorder 06/02/2024 Encounters Date Type Department Care Team Description 03/08/2025 9:30 AM EDT Visit [facility] [address] [place] [address] [place] [address] Brenda Jeff PA 6 weeks follow-up ([facility]); Spontaneous vaginal delivery ([facility]) 03/07/2025 Travel 02/22/2025 Refill [facility] [address] [place] [id number] Mary Ann Johnson NP Panic disorder ; Moderate episode of recurrent major depressive disorder ([facility]) 02/02/2025 Telephone [facility] [place] [address] Slim Russell, DO 01/31/2025 Patient Outreach [facility]ign[facility] [place] [address] Brenda Joe LPN 01/26/2025 Clinisync Result Encounter NOM[facility] External Department Unsolicited Slim Russell, DO 01/24/2025 1:00 PM EDT Routine [facility] [place] [address] Slim Russell, Third trimester ([facility]); 40 weeks gestation of ([facility]) 01/24/2025 Clinisync Result Encounter NOMS External Department Unsolicited Slim Russell, DO 01/24/2025 Abstract [facility] AL[facility] [address] [place] [address] [place] [address] Rosa Nguyen LPN 01/24/2025 Bamboo flowsheet [facility] [address] [place] [address] [place] [address] Slim Russell, DO 01/21/2025 Travel 01/20/2025 Clinisync Result Encounter NOMS External Department Unsolicited Brenda Jeff PA 01/19/2025 1:40 PM EDT Routine [facility] [place] [address] Slim Russell, Third trimester ([facility]); 39 weeks gestation of ([facility]) 01/19/2025 Bamboo flowsheet [facility]GALDEGYN [address] [facility] [place] [address] Slim Russell, 01/18/2025 Travel 01/13/2025 Clinisync Result Encounter NOMS External Department Unsolicited Brenda Jeff PA 01/13/2025 Clinisync Result Encounter NOMS External Department Unsolicited Brenda Jeff PA 01/12/2025 1:50 PM EDT Routine [facility] [place] [address] Brenda Jeff PA Excessive growth affecting management of in third trimester, single or unspecified fetus ([facility]) (Primary Dx); 38 weeks gestation of ([facility]); Third trimester ([facility]) 01/12/2025 Bamboo flowsheet [facility] [place] [address] Brenda Jeff PA 01/06/2025 Travel 01/05/2025 1:20 PM EDT Routine [facility] [place] [address] Slim Russell, Third trimester ([facility]); 37 weeks gestation of ([facility]) 01/05/2025 Bamboo flowsheet [facility] [place] [address] Slim Russell, 12/30/2024 Travel 12/29/2024 9:20 AM EDT Routine [facility] Mur[facility] [place] [address] Brenda Jeff PA 36 weeks gestation of ([facility]); Third trimester ([facility]) 12/29/2024 9:00 AM EDT Ancillary Procedure [facility] Mur[facility] [place] [address] LGA (large for gestational age) fetus affecting management of mother, first trimester, fetus 3 ([facility]) 12/22/2024 Travel from Last 3 Months Immunizations Immunization [...] Recorded Patient Health Questionnaire-2 Score 0 01/31/2025 [facility] of Occupat ional Health - Occupational Stress [...] any time in the past 12 m [facility], were you homeless or living in a penitentiary (including now)? No 06/01/2024 Comments No Sex [...] EDT Inhaled Oxygen Concentration - - Weight 75.8 kg (167 lb) 03/08/2025 10:05 AM EDT Height 166.4 cm (5' 5.5 ) 06/02/2024 10:49 AM ED T Body Mass Index 27.37 06/02/2024 10:49 AM EDT Plan of Treatment Upcoming Encounters Date Type Department Care Team (Late st Contact Info) Description 03/29/2025 10:30 AM EDT Procedure Visit [facility] [address] [facility] [place] [address] Brenda Jeff PA [address] [place] [address] Health Maintenance Due Date Last Done Comments Influenza Vaccine (#1) 2025 Cervical Cancer Screening 02/11/2029 HPV/Cotest 02/11/2029 10/13/2020, 09/28/2019, 09/04 Pap Smear 02/11/2029 02/12/2024 Procedures Procedure Name Priority Date/Time Associated Diagnosis Comments ALL CBC WITH AUTO DIFF Routine 6:37 AM EDT HP CBC WITH PLATELET NO DIFFERENTIAL Routine 01/24/2025 8:09 PM EDT [facility] DRUG SCREEN RAPID (URINE) Routine 01/24/2025 7:15 PM EDT [facility] URINE MICROSCOPIC ONLY Routine 01/24/2025 7:15 PM EDT [facility] UA (CLEAN/CATCH) SIDE PIECE COVERER/MICRO IF IND. Routine 01/24/2025 7:15 PM EDT POCT URINALYSIS DIPSTICK Routine 01/24/2025 1:14 PM EDT Third trimester ([facility]) US OB BPP W NON-STRESS 01/20/2025 8:01 AM EDT POCT URINALYSIS DIPSTICK Routine 01/19/2025 1:45 PM EDT 39 weeks gestation of ([facility]) US OB BPP W NON-STRESS 01/13/2025 9:30 PM EDT US OB GROWTH 01/13/2025 9:26 PM EDT POCT URINALYSIS DIPSTICK Routine 01/12/2025 2:00 PM EDT 38 weeks gestation of ([facility]) Third trimester ([facility]) POCT URINALYSIS DIPSTICK Routine 12/29/2024 9:31 AM EDT 36 weeks gestation of ([facility]) Third trimester ([facility]) CULTURE, GROUP B STREP WITH SUSCEPTIBLITY Routine 12/29/2024 9:21 AM EDT Third trimester ([facility]) US OB FOLLOW UP TRANSABDOMINAL APPROACH Routine 12/29/2024 9:17 AM EDT LGA (large for gestational age) fetus affecting management of mother, first trimester, fetus 3 ([facility]) PAP SMEAR Routine 02/12/2024 12:00 AM EDT Q - THINPREP(R) TIS AND HPV MRNA [...] - 01/26/2025 7:03 AM EDT us Slim Russell DO [facility] Final Result [facility] * ([facility]NORMAL) [facility] CBC WITH PLATELET NO DIFFERENTIAL (01/24/2025 8:09 PM EDT) [facility] WBC 14.9(H) 4.0 - 11.0 10 3/uL [...] DO CLINISYNC Final Result Performing Organization Address [facility]/ZIP Co de Phone Number CLINISYNC [...] us Slim Yvonne DO CLINISYNC Final Result [facility] * [facility] UA (CLEAN/CATCH) SIDE PIECE COVERER/MICRO IF IND. (01/24/2025 7:15 PM EDT) COLOR [...] us Slim Yvonne DO CLINISYNC Final Result [facility] * TB DRUG SCREEN RAPID (URINE) (01/24/2025 7:15 PM EDT) Pathologist [facility] CANNABINOID SCREEN URINE NEGATIVE NEGATIVE [facility] PHENCYCLIDINE [...] Narrative CLINISYNC - 01/24/2025 8:14 PM EDT us Slim Yvonne DO CLINISYNC Final Result [facility] * (ABNORMAL) POCT urinalysis dipstick manually resulted (01/24/2025 1:14 PM EDT) Only the most recent of4 resultswithin the time period is included. Color, [...] - Positive Urine 01/24/2025 1:14 PM EDT us Slim Yvonne DO POINT OF CARE TEST ENTER/EDIT OR DERABLES Final Result * US OB BPP W NON-STRESS (01/20/2025 8:01 AM EDT) Only the most recent of2 resultswithin the time period is included. Anatomical Region Laterality Modality Other 01/20/2025 8:01 AM EDT Narrative 01/20/2025 8:03 [place] [address] Ultrasound Report Signed Patient: GRETA IPNEDA MR#: [id number] : 1995 Acct:[id number] Age/Sex: 29 / F ADM Date: 01/20/25 Loc: [facility] 250-[address]: Brenda Jeff Ordering Physician: Brenda Jeff Date of Service: 01/20/25 Procedure(s): US OB BPP w non-stress Accession Number(s): [id number] cc: Brenda Jeff; Physician,Non-Staff M.DRaji The [place] [id number] Patient Name: GRETA PINEDA MRN: [id number] date: 1995 Sex: F Assigned Patient Location: [facility] Current Patient Location: [facility] Accession/Order Number: [id number] Exam Date: 01/20/2025 07:59 Report Date: 01/20/2025 [...] Aggarwal M.D. 01/20/2025 8:01 AM Dictation Location: [place] [address] Electronically authenticated by: [id number] Y Date: 01/20/2025 08:01 Dictated By: Ronda Aggarwal M.D. Signed By: 01/20/25 0803 DD/ 0801 TD/TT: Refractory Specialist: Procedure Note Radiology, Radiologist, - 01/20/2025 [place] [address] Ultrasound Report Signed Patient: GRETA PINEDA LMR#: [id number] : 1995Acct:[id number] Age/Sex: 29 / FADM Date: 01/20/25 Loc: [place] [address]: Brenda Jeff Ordering Physician: Brenda Jeff Date of Service: 01/20/25 Procedure(s): US OB BPP w non-stress Accession Number(s): [id number] cc: Brenda Jeff; Physician,Non-Staff [facility] [place] [id number] Patient Name: GRETA PINEDA MRN: [id number] date: 1995 Sex: F Assigned Patient Location: [facility] Current Patient Location: [facility] Accession/Order Number: [id number] Exam Date: 01/20/2025 07:59 Report Date: 01/20/2025 [...] Aggarwal M.D. 01/20/2025 8:01 AM Dictation Location: [place] [address] Electronically authenticated by: [id number] Y Date: 508:01 Dictated By: Ronda Aggarwal M.D. Signed By:01/20/25802 DD/ 08 TD/TT: Refractory Specialist: us Brenda ZIMMER CLINISYNC IMAGING Final Result * US OB GROWTH (01/13/2025 9:26 PM EDT) Anatomical Region Laterality Modality Other 01/13/2025 9:26 PM EDT Narrative 01/13/2025 9:29 PM EDT [address] [address] Ultrasound Report Signed Patient: GRETA PINEDA MR#: [id number] : 1995 Acct:[id number] Age/Sex: 29 / F ADM Date: 01/13/25 Loc: US Attending Dr: Brenda Jeff Ordering Physician: Brenda Jeff Date of Service: 01/13/25 Procedure(s): US OB growth Accession Number(s): [id number] cc: Brenda Jeff; Physician,Non-Staff MIsabella [address] [address] Patient Name: GRETA PINEDA MRN: [id number] date: 1995 Sex: F Assigned Patient Location: [facility] Current Patient Location: Accession/Order Number: [id number] Exam Date: 01/13/2025 21:21 Report Date: 01/13/2025 [...] Bauman M.D. 01/13/2025 9:26 PM Dictation [facility] Electron[facility] authenticated by: [id number] Y Date: 01/13/2025 21:26 Dictated By: Casper Bauman D.O. Signed By: 01/13/252128 DD/ 25 TD/TT: Refractory Specialist: Procedure Note Radiology, Radiologist, - 01/13/2025 [place] [address] Ultrasound Report Signed Patient: YARY PINEDA#: [id number] : 1995Acct:[id number] Age/Sex: Date: 01/13/25 Loc: US Attending Dr: Brenda Jeff Ordering Physician: Brenda Jeff Date of Service: 01/13/25 Procedure(s): US OB growth Accession Number(s): [id number] cc: Brenda Jeff; Physician,Non-Staff M.DRaji The [place] [id number] Patient Name: GRETA PINEDA MRN: [id number] date: 1995 Sex: F Assigned Patient Location: [facility] Current Patient Location: Accession/Order Number: [id number] Exam Date: 01/13/2025 21:21 Report Date: 01/13/2025 21:26 At the request of: BRENDA JEFF Procedure: US OB growth Obstetrical Ultrasound for Fetus greater than 14 weeks HISTORY: growth heart rate is 148 bpm. The fetus is in cephalic presentation. The placenta is in a posterior position with normal appearance. Amnioticfluid index is 16.79cm. The cervix not assessed The estimated weight kx3758 g. with percentile 43%. The ovaries are [...] Bauman M.D. 01/13/2025 9:26 PM Dictation Location: [place] [address] Electronically authenticated by: [id number] Y Date: :26 Dictated By: Casper Bauman D.O. Signed By:01/13/252128 DD/ 25 TD/TT: Refractory Specialist: us Brenda ZIMMER CLINIS[facility] IMAGING Final Result * CULTURE, GROUP B STREP WITH SUSCEPTIBLITY (12/29/2024 9:21 AM EDT) Swab 12/29/2024 9:21 AM EDT us Brenda ZIMMER LAB BLOOD ORDERABLES Final Resul t EXTERNAL LAB * US OB follow up transabdominal approach (12/29/2024 9:17 AM EDT) Anatomical Region Laterality Modality Body Ultrasound 12/29/2024 [...] II, MD, PHD at 29-Dec-2024 11:18:48 PM [facility] Procedure Note Arvin Jimenez MD - [...] signed by ARVIN JIMENEZ II, MD, PHD [id number] 11:18:48 PM [facility] us Ling Graham PHOTOGRAPHIC DOUBLE IMG OB US PROCEDURES Final Re sult * Pap Smear (02/12/2024 12:00 AM EDT) Swab Cervical swab / Unknown us Slim Russell DO LAB CYTOLOGY ORDERABLES Final Re sult EXTERNAL LAB * (ABNORMAL) Q - THINPREP(R) TIS AND [...] computer assisted technology. [facility] CARDIOLOGY ASSOCIATE: SEE NOTE NO [facility] Comment: PCJ, SCT(ASCP) CT screening location: [facility] [place] [address]. REVIEW CARDIOLOGY ASSOCIATE: SEE NOTE [facility] Comment: MLH, CT(ASCP) CT screening location: [place] [address]. COMMENT SEE NOTE [facility] EXTERNAL [...] Detected [facility] Comment: Methodology: Suppression Crew Leader-Mediated Amplification This assay detects E6/E7 viral messenger RNA (mRNA) from 14 high-risk HPV types (16,18,31,33,35,39,45,51,52,56,58,59,66,68). The analytical performance characteristics of this assay have been determined by [employer]. The modifications have not been cleared or approved by the FDA. This assay has been validated pursuant to the CLIA regulations and is used for clinical purposes. For additional information, please refer to http://education.[employer].Par8o/faq/LHW995f5 (This link if provided for information/ educational purposes only.) 10/13/2020 us Bennie Cosme PHOTOGRAPHIC DOUBLE ECW LABS Final Result [facility] from Last 3 Months or Most Recently Relevant to Health Maintenance Insurance Care Teams Assistant Manager Retail Relationship Specialty Start Date End Date Raegan Medina MD [address] [place] [address] PCP - General Family Medicine 06/02/24
--- OUTSIDE RECORDS SUMMARY | 2025-03-21 09:42 | XMS_ITS | Encounter Summary ---
Author Organization [facility] Address [address] [place] [address] Care Team Providers Care Salvage Grinder Name Role Phone Raegan Medina MD Primary Care Provider [phone] Mary Ann Johnson NP Unavailable [phone] Encounter Details Date Type Department Care Team (Late st Contact Info) Description 06/18/2024 Abstract [facility] [address] [place] [address] Slim Russell DO [address] [facility] [address] [place] [id number] Social History Tobacco Use Types Packs/Day Years [...] How often do you attend chur or islam services? Never 06/01/2024 Do you belong to any clubs o r organizations such as zoroastrianism groups, unions, fraternal or athletic groups, or [...] Recorded Patient Health Questionnaire-2 Score 0 06/02/2024 [facility] of Occupat ional [facility] - Occupational Stress Questionnaire Answer Date [...] a group home (including now)? No 06/01/2024 Comments Yes Sex [...] EDT Procedure Visit [facility] ALFON[facility] [address] [place] [address] Brenda Owusu PA [address] [facility] [facility] [place] [address] documented as of this encounter Visit Diagnoses Not on filedocumented in this encounter Additional Health Concerns Assessment Noted Time PHQ-9 Depression Total Score: 0 06/02/20 24 10:00 AM EDT documented as of this encounter Care Teams Salvage Grinder Relationship Specialty Start Date End Date Raegan Medina MD [address] [place] [address] PCP - General Family Medicine 06/02/24 Mary Ann Johnson NP [address] [place] [address] PCP - [place] [employer] 07/04/24 documented as of this encounter
--- OUTSIDE RECORDS SUMMARY | 2025-03-21 09:42 | XMS_ITS | Encounter Summary ---
Author Organization [facility] Address [address] [place] [address] Care Team Providers Care Parts Cleaner Name Role Phone Samra Aguirre DO Primary Care Provider [phone] Raegan Medina MD Primary Care Provider [phone] Mary Ann Johnson NP Unavailable [phone] Reason for Visit * Reason Comments Med Refill Encounter Details Date Type Department Care Team (Late st Contact Info) Description 07/02/2023 Refill [facility] Family Medicine [address] [place] [address] Samra Aguirre DO [address] [id number] Social History Tobacco Use Types Packs/Day Years [...] EDT Procedure Visit [facility] [address] [place] [address] Brenda Owusu PA [address] [facility] [place] [address] documented as of this encounter Visit Diagnoses Not on filedocumented in this encounter Care Teams Parts Cleaner Relationship Specialty Start Date End Date Samra Agiurre DO PCP - General Family Medicine 12/10/22 06/01/24 Raegan [place]ina MD [address] [place] [address] PCP - General Family Medicine 06/02/24 Mary Ann Johnson NP [address] [facility] [place], [place] [address] PCP - Anny Rodgers 07/04/24 documented as of this encounter
--- OUTSIDE RECORDS SUMMARY | 2025-03-21 09:42 | XMS_ITS | Encounter Summary ---
Author Organization [facility] Address [address] [place] [address] Care Team Providers Care Statistical Reporting Analyst Name Role Phone Raegan Medina MD Primary Care Provider [phone] Mary Ann Johnson NP Unavailable [phone] Encounter Details Date Type Department Care Team (Late st Contact Info) Description 06/18/2024 Abstract [facility] [address] [place] [address] Slim Russell DO [address] [facility] [address] [place] [id number] Social History Tobacco Use Types Packs/Day Years [...] How often do you attend chur or nondenominational services? Never 06/01/2024 Do you belong to [...] 0 06/02/2024 [facility] of Occupat ional [facility] - Occupational Stress Questionnaire Answer [...] in a custodial (including now)? No 06/01/2024 Comments Yes Sex [...] EDT Procedure Visit [facility] [address] [place] [place] [address] Brenda Owusu PA [address] [place] [address] documented as of this encounter Visit Diagnoses Not on filedocumented in this encounter Additional Health Concerns Assessment Noted Time PHQ-9 Depression Total Score: 0 06/02/20 24 10:00 AM EDT documented as of this encounter Care Teams Statistical Reporting Analyst Relationship Specialty Start Date End Date Raegan Medina MD [address] [place] [address] PCP - General Family Medicine 06/02/24 Mary Ann Johnson NP [address] [place] [address] PCP - [place] [employer] 07/04/24 documented as of this encounter
--- OUTSIDE RECORDS SUMMARY | 2025-03-21 09:42 | XMS_ITS | Encounter Summary ---
Author Organization [facility] Address [address] [place] [address] Care Team Providers Care Lei Maker Name Role Phone Raegan Medina MD Primary Care Provider [phone] Mary Ann Johnson NP Unavailable [phone] Encounter Details Date Type Department Care Team (Late st Contact Info) Description 06/18/2024 Clinisync Result Encounter [facility] External Department Unsolicited Oumar Russell, DO [address] [place] [address] Social History Tobacco Use Types Packs/Day Years [...] often do you attend chur ch or mosque services? Never 06/01/2024 Do you belong to [...] Recorded Patient Health Questionnaire-2 Score 0 06/02/2024 [facility] of Occupat ional Health - [...] any time in the past 12 [facility], were you homeless or living in a residential (including now)? No 06/01/2024 Comments Yes Sex and Gender Information Value Date Recorded Sex Assigned at Not on file Legal Sex Female 7:40 PM EDT Gender Identity Not on file Sexual Orientation Not on file documented as of this encounter Plan of Treatment Upcoming Encounters Date Type Department Care Team (Late st Contact Info) Description 03/29/2025 10:30 AM EDT Procedure Visit [facility] UGALDEGYOnofre [address] [place] [address] Brenda Owusu PA [address] [facility] [address] [place], [place] [address] documented as of this encounter Procedures Procedure Name Priority Date/Time Associated Diagnosis Comments US OB TRANSVAGINAL 06/18/2024 4: 19 AM EST documented in this encounter Results * US OB TRANSVAGINAL (06/18/2024 4:19 AM EST) Anatomical Region Laterality Modality Other 06/18/2024 4:19 AM EST Narrative 06/18/2024 4:21 [place] [address] Ultrasound Report Signed Patient: Greta Pineda MR#: [id number] : 1995 Acct:[id number] Age/Sex: 28 / F ADM Date: 06/17/24 Loc: [facility] Attending Dr: Oumar Russell D.O. Ordering Physician: Oumar Russell D.O. Date of Service: 06/17/24 Procedure(s): US OB transvaginal Accession Number(s): [id number] cc: Oumar Russell D.O.; Samra Aguirre D.O. The [place] [address] Patient Name: GRETA PINEDA MRN: [id number] date: 1995 Sex: F Assigned Patient Location: [facility] Current Patient Location: Accession/Order Number: [id number] Exam Date: 06/17/2024 13:27 Report Date: 06/18/2024 [...] Dictated By: Manpreet Garrido M.D. Signed By: 06/18/24420 DD/ 8 TD/TT: Bilingual Spanish Inbound Sales: Procedure Note Radiology, Radiologist, MD - 06/18/2024 [place] [address] Ultrasound Report Signed Patient: Mary Pineda#: [id number] : 1995Acct:[id number] Age/Sex: 28 / FADM Date: 06/17/24 Loc: [facility] Attending Dr: Oumar Russell D.O. Ordering Physician: Oumar Russell D.O. Date of Service: 06/17/24 Procedure(s): US OB transvaginal Accession Number(s): [id number] cc: Oumar Russell D.O.; Samra Aguirre D.O. [address] [address] Patient Name: GRETA PINEDA MRN: [id number] date: 1995 Sex: F Assigned Patient Location: [facility] Current Patient Location: Accession/Order Number: [id number] Exam Date: 06/17/2024 13:27 Report Date: 06/18/2024 [...] 04:19 Dictated By: Manpreet Garrido M.D. Signed By:06/18/241 DD/ 0419 TD/TT: Bilingual Spanish Inbound Sales: us Oumar Russell DO [facility]IN[facility] IMAGING Final Result documented in this encounter Visit Diagnoses Not on filedocumented in this encounter Additional Health Concerns Assessment Noted Time PHQ-9 Depression Total Score: 0 06/02/20 24 10:00 AM EDT documented as of this encounter Care Teams Lei Maker Relationship Specialty Start Date End Date Raegan Medina MD [address] [place], [place] [id number] PCP - General Family Medicine 06/02/24 Mary Ann Johnson NP [address] [facility] [place], [place] [address] PCP - Anny Commercial 07/04/24 documented as of this encounter
--- OUTSIDE RECORDS SUMMARY | 2025-03-21 09:42 | XMS_ITS | Encounter Summary ---
Author Organization [facility] Address [address] [place] [address] Care Team Prov[address] Care [address] Patcher Name Role Phone Raegan Medina MD Primary Care Provider [phone] Mary Ann Johnson NP Unavailable [phone] Encounter Details Date Type Department Care Team (Late st Contact Info) Description 07/14/2024 Abstract [facility] [address] [place] [address] Slim Russell DO [address] [place] [id number] Social History Tobacco Use Types Packs/Day Years [...] How often do you attend chur or jehovah's witness services? Never 06/01/2024 Do you belong to [...] [facility] - Occupational Stress Questionnaire Answer Date Recorded [...] in the past 12 [facility], were you homeless or living in a usp (including now)? No 06/01/2024 Comments Yes Sex [...] EDT Procedure Visit [facility] [address] [place] [address] Brenda Owusu PA [address] [place] [address] documented as of this encounter Visit Diagnoses Not on filedocumented in this encounter Additional Health Concerns Assessment Noted Time PHQ-9 Depression Total Score: 0 06/02/20 24 10:00 AM EDT documented as of this encounter Care Teams Road Patcher Relationship Specialty Start Date End Date Raegan Medina MD [address] [place] [address] PCP - General Family Medicine 06/02/24 Mary Ann Johnson NP [address] [place] [address] PCP - [place] [employer] 07/04/24 documented as of this encounter
--- OUTSIDE RECORDS SUMMARY | 2025-03-21 09:42 | XMS_ITS | Clinical Summary ---
Author Organization [facility] Address [address] [place] [address] Phone Care Team Providers Care Atg Java Developer Name Role Phone Unavailable Primary Care Provider [...]
--- OUTSIDE RECORDS SUMMARY | 2025-03-21 09:42 | XMS_ITS | Encounter Summary ---
Author Organization [facility] Address [address] [place] [address] Care Team Providers Care Chief Information Security Officer Name Role Phone Raegan Medina MD Primary Care Provider [phone] Mary Ann Johnson NP Unavailable [phone] Encounter Details Date Type Department Care Team (Late st Contact Info) Description 07/19/2024 Abstract [facility] [address] [place] [address] Slim Russell DO [address] [place] [id number] Social History Tobacco Use Types Packs/Day Years [...] How often do you attend chur or mosque services? Never 06/01/2024 Do you belong to any clubs o r organizations such as jewish groups, unions, fraternal or athletic groups, or [...] Recorded Patient Health Questionnaire-2 Score 0 06/02/2024 [facility] of Occupat ional [facility] - Occupational Stress Questionnaire Answer [...] in a longterm (including now)? No 06/01/2024 Comments Yes Sex [...] EDT Procedure Visit [facility] [address] [place] [address] Brenda Owusu PA [address] [place] [address] documented as of this encounter Visit Diagnoses Not on filedocumented in this encounter Additional Health Concerns Assessment Noted Time PHQ-9 Depression Total Score: 0 06/02/20 24 10:00 AM EDT documented as of this encounter Care Teams Chief Information Security Officer Relationship Specialty Start Date End Date Raegan Medina MD [address] [place] [address] PCP - General Family Medicine 06/02/24 Mary Ann Johnson NP [address] [place] [address] PCP - [place] [employer] 07/04/24 documented as of this encounter
--- OUTSIDE RECORDS SUMMARY | 2025-03-21 09:42 | XMS_ITS | Clinical Summary ---
[facility] Address [id number] [address] [place] [address] Care Team Providers Care Belly Roller Name Role Phone Unavailable Primary Care Provider [...]
--- OUTSIDE RECORDS SUMMARY | 2025-03-21 09:49 | XMS_ITS | CCD ---
Author Organization [facility] CliniSyri Care Team Providers Care Correctional Probation Officer Name Role Phone PACO CHACON Attending Unavailable PACO CHACON Consulting Unavailable PACO CHACON Admitting Unavailable REQUEST, NONE LISTED Admitting Unavaila ble REQUEST, NONE LISTED Attending Unavaila ble REQUEST, NONE LISTED Consulting Unavaila ble Samra Aguirre DO Primary Care Provider [phone] Raegan Medina MD Primary Care Provider Alex LOCAL TRUCK DRIVER, Bhumika Unavailable YVONNE, OUMAR Attending Unavailable TOMER, BRENDA Attending Unavailable YVONNE, OUMAR Attending Unavailable YVONNE, OUMAR Attending Unavailable YVONNE, OUMAR Referring Unavailable GLADYS, LING Attending Unavailable YVONNE, OUMAR Attending Unavailable GLADYS, LING Referring Unavailable TOMER, BRENDA Attending Unavailable YVONNE, OUMAR Attending Unavailable TOMER, BRENDA Attending Unavailable YVONNE, OUMAR Attending Unavailable YVONNE, OUMAR Attending Unavailable TOMER, BRENDA Attending Unavailable KAMPFER, BHUMIKA Attending Unavailable YVONNE, [...] sources) Serotonin Reuptake Inhibitor Start: 06-02-2024 End: 02-22-2025 take 1 tablet by mouth once daily sertraline (Zoloft) 25 MG tablet Indications: Panic disorder , Moderate episode of recurrent major depressive disorder (HCC) TAKE 1 TABLET BY MOUTH EVERY DAY 90 tablet 1 02/22/2025 Active Problems Active Problems Problem Classification Problem [...] WITH AUTO DIFFon BASOPHILS ABSOLUTE AUTO 0.1 [facility] Healthcare Basophils/100 WBC (Bld) 0.5 % 0.2 - 2.0 % [facility] Eosinophils/100 WBC (Bld) 2.6 % 0.9 - 7.0 % [facility] Erythrocyte distribution width (RBC) [Ratio] 13.1 % 11.0 - 15.0 % [facility] Hematocrit (Bld) [Volume fraction] 27.1 % Low 36.0 - 48.0 % [facility] Health[facility] e Hemoglobin (Bld) [Mass/Vol] 9 g/dL Low 12.0 - 16.0 g/dL [facility] IMMATURE GRANULOCYTES ABS AUTO 0.07 High [facility] Immature granulocytes/100 WBC (Bld) 0.5 % 0.0 - 0.5 % [facility] Interpretation and review of laboratory results Abnormal [facility] LYMPHOCYTES ABSOLUTE AUTO 1.7 [facility] Lymphocytes/100 WBC (Bld) 13.1 % Low 20.5 - 60.0 % [facility] MCH (RBC) [Entitic mass] 30.9 pg 26.7 - 34.0 pg [facility] MCHC (RBC) [Mass/Vol] 33.2 g/dL 29.9 - 35.2 g/dL [facility] MCV (RBC) [Entitic vol] 93.1 fL 81.0 - 99.0 fL [facility] Healthcare MONOCYTES ABSOLUTE AUTO 0.9 High [facility] Monocytes/100 WBC (Bld) 7.3 % 1.7 - 12.0 % [facility] NEUTROPHILS ABSOLUTE AUTO 9.8 High [facility] Neutrophils/100 WBC (Bld) 76 % High 43.0 - 75.0 % [facility] Platelet mean volume (Bld) [Entitic vol] 9 fL Low 9.5 - 13.5 fL [facility] EO # 0.3 [facility] PLT 215 [facility] RBC 2.91 Low [facility] WBC 12.9 High [facility] UA (CLEAN/CATCH) BOBBIN WINDER/REINALDO RO IF IND.on 01-24-2025 BILIRUBIN URINE Negative NEGATIVE [facility] BLOOD URINE TRACE-I NEGATIVE [facility] re Clarity (U) CLEAR CLEAR [facility] Color (U) LT. YELLOW YELLOW [facility] GLUCOSE URINE UA Negative NEGATIVE mg/dL [facility] Ketones Ql (U) Negative NEGATIVE mg/dL [facility] Leukocyte esterase Test strip Ql (U) Negative NEGATIVE [facility] NITRITE URINE Negative NEGATIVE [facility] Health care pH (U) 6.0 [pH] 5.0 - 9.0 [facility] PROTEIN URINE Negative NEG/TRACE mg/dL [facility] SPECIFIC GRAVITY URINE 1.010 1.005 - 1.025 [facility] URINE MICROSCOPIC INDICATED YES [facility] UROBILINOGEN URINE 0.2 EU/dL 0.2 - 1.0 EU/dL [facility] Urinalysis macro (dipstick) panel (U)on 01-24-2025 Bilirubin, UA Negative Negative - 4(70) +++ mg/dL [facility] Blood, UA Positive Negative - 50 Immanuel/mcL [facility] Comment on above: Trace-intact Clarity, UA Clear [facility] Healthca re Color, UA Yellow [facility] Glucose, UA Negative Negative - 1999(110) ++++ mg/dL [facility] Interpretation and review of laboratory results Abnormal [facility] Ketones, UA Negative Negative - 160(16) ++++ mg/dL [facility] Leukocytes, UA Negative Negative - 500+++ Jennyfer/mcL [facility] Nitrite, UA Negative Negative - Positive [facility] pH, UA 7 5 - 9 [facility] Protein, UA Negative Negative - 1999(20) ++++ mg/dL [facility] Spec Grav, UA 1.015 1 - 1.03 [facility] Urobilinogen, UA 0.2 0.2 - 12 mg/dL [facility] US OB BPP W NON-STRESS on 01-20-2025 [facility] [address] [place] [address] Ultrasound Report Signed Patient: GRETA PINEDA MR#: [id number] : 1995 Acct:[id number] Age/Sex: 29 / F ADM Date: 01/20/25 Loc: [facility] 250-[address]: Brenda Jeff Ordering Physician: Brenda Jeff Date of Service: 01/20/25 Procedure(s): US OB BPP w non-stress Accession Number(s): [id number] cc: Brenda Jeff; Physician,Non-Staff MIsabella The [place] [address] Patient Name: GRETA PINEDA MRN: [facility]:[id number] date: 1995 Sex: F Assigned Patient Location: [facility] Current Patient Location: [facility] Accession/Order Number: [id number] Exam Date: 01/20/2025 07:59 Report Date: 01/20/2025 [...] Aggarwal M.D. 01/20/2025 8:01 AM Dictation Location: [place] [address] Electronically authenticated by: [id number] Y Date: 01/20/2025 08:01 Dictated By: Ronda Aggarwal M.D. Signed By: 01/20/25 08 DD/ 08 TD/TT: Ship Captain: [facility] Radiology, Radiologist, MD - 01/20/2025 [place] [address] Ultrasound Report Signed Patient: GRETA PINEDA MR#: [id number] : 1995 Acct:[id number] Age/Sex: 29 / F ADM Date: 01/20/25 Loc: [place] [address]- Attending Dr: Brenda Jeff Ordering Physician: Brenda Jeff Date of Service: 01/20/25 Procedure(s): US OB BPP w non-stress Accession Number(s): [id number] cc: Brenda Jeff; Physician,Non-Staff M.Glendy The [place] [id number] Patient Name: GRETA PINEDA MRN: [id number] date: 1995 Sex: F Assigned Patient Location: [facility] Current Patient Location: [facility] Accession/Order Number: [id number] Exam Date: 01/20/2025 07:59 Report Date: 01/20/2025 [...] Aggarwal M.D. 01/20/2025 8:01 AM Dictation Location: [place] [address] Electronically authenticated by: [id number] Y Date: 01/20/2025 08:01 Dictated By: Ronda Aggarwal M.D. Signed By: 01/20/25802 DD/ 0 TD/TT: Ship Captain: [facility] Radiology Study observation (narrative) [facility] US OB BPP W NON-STRESS Ordered By: Radiologist Radiology on 01-20-2025 [facility] Health[facility] Work Phone: Urinalysis macro (dipstick) panel (U)on 01-19-2025 Bilirubin, UA Negative Negative - 4(70) +++ mg/dL [facility] Blood, UA Positive Negative - 50 Immanuel/mcL [facility] Comment on above: Trace-intact Clarity, UA Clear [facility] re Color, UA Yellow [facility] e Glucose, UA Negative Negative - 1999(110) ++++ mg/dL [facility] Interpretation and review of laboratory results Abnormal [facility] Ketones, UA Negative Negative - 160(16) ++++ mg/dL [facility] Leukocytes, UA Negative Negative - 500+++ Jennyfer/mcL [facility] Nitrite, UA Negative Negative - Positive [facility] pH, UA 6.5 5 - 9 [facility] Protein, UA Negative Negative - 1999(20) ++++ mg/dL [facility] Spec Grav, UA 1.01 1 - 1.03 [facility] Urobilinogen, UA 0.2 0.2 - 12 mg/dL [facility] US OB BPP W NON-STRESS on 01-13-[address] [address] Ultrasound Report Signed Patient: GRETA PINEDA MR#: [id number] : 1995 Acct:[id number] Age/Sex: 29 / F ADM Date: 01/13/25 Loc: US Attending Dr: Brenda Jeff Ordering Physician: Brenda Jeff Date of Service: 01/13/25 Procedure(s): US OB BPP w non-stress Accession Number(s): [id number] cc: Brenda Jeff; Physician,Non-Staff Radhames The [address] [address] Patient Name: GRETA PINEDA MRN: [facility]:[id number] date: 1995 Sex: F Assigned Patient Location: [facility] Current Patient Location: Accession/Order Number: [id number] Exam Date: 01/13/2025 21:27 Report Date: 01/13/2025 [...] Bauman M.D. 01/13/2025 9:30 PM Dictation Location[facility] Electronically authenticated by: [id number] Y Date: 01/13/2025 21:30 Dictated By: Casper Bauman D.O. Signed By: 01/13/252132 DD/ 29 TD/TT: Ship Captain: [facility] Radiology, Radiologist, MD - 01/13/[address] [address] Ultrasound Report Signed Patient: GRETA PINEDA MR#: [id number] : 1995 Acct:[id number] Age/Sex: 29 / F ADM Date: 01/13/25 Loc: US Attending Dr: Brenda Jeff Ordering Physician: Brenda Jeff Date of Service: 01/13/25 Procedure(s): US OB BPP w non-stress Accession Number(s): [id number] cc: Brenda Jeff; Physician,Non-Staff Radhames The [address] [address] Patient Name: GRETA PINEDA MRN: [facility]:[id number] date: 1995 Sex: F Assigned Patient Location: [facility] Current Patient Location: Accession/Order Number: [id number] Exam Date: 01/13/2025 21:27 Report Date: 01/13/2025 [...] Bauman M.D. 01/13/2025 9:30 PM Dictation Location: [facility] Electronically authenticated by: [id number] Y Date: 01/13/2025 21:30 Dictated By: Casper Bauman D.O. Signed By: 01/13/252132 DD/ 29 TD/TT: Ship Captain: [facility] [employer] Radiology Study observation (narrative) [facility] US OB BPP W NON-STRESS Ordered By: Radiologist Radiology on 01-13-2025 [facility] Sc[facility] Work Phone: US OB GROWTHon 01-13-2025 [place] [address] Ultrasound Report Signed Patient: GRETA PINEDA MR#: [id number] : 1995 Acct:[id number] Age/Sex: 29 / F ADM Date: 01/13/25 Loc: US Attending Dr: Brenda Jeff Ordering Physician: Brenda Jeff Date of Service: 01/13/25 Procedure(s): US OB growth Accession Number(s): [id number] cc: Brenda Jeff; Physician,Non-Staff M.Glendy The [address] [address] Patient Name: GRETA PINEDA MRN: [id number] date: 1995 Sex: F Assigned Patient Location: [facility] Current Patient Location: Accession/Order Number: [id number] Exam Date: 01/13/2025 21:21 Report Date: 01/13/2025 [...] Bauman M.D. 01/13/2025 9:26 PM Dictation Location: [facility] Electronically authenticated by: [id number] Y Date: 01/13/2025 21:26 Dictated By: Casper Bauman D.O. Signed By: 01/13/252128 DD/ 25 TD/TT: Ship Captain: [facility] Radiology, Radiologist, - 01/13/2025 [place] [address] Ultrasound Report Signed Patient: GRETA PINEDA MR#: [id number] : 1995 Acct:[id number] Age/Sex: 29 / F ADM Date: 01/13/25 Loc: US Attending Dr: Brenda Jeff Ordering Physician: Brenda Jeff Date of Service: 01/13/25 Procedure(s): US OB growth Accession Number(s): [id number] cc: Brenda Jeff; Physician,Non-Staff Radhames The [address] [address] Patient Name: GRETA PINEDA MRN: [facility]:[id number] date: 1995 Sex: F Assigned Patient Location: [facility] Current Patient Location: Accession/Order Number: [id number] Exam Date: 01/13/2025 21:21 Report Date: 01/13/2025 [...] Bauman M.D. 01/13/2025 9:26 PM Dictation Location: [facility] Electronically authenticated by: [id number] Y Date: 01/13/2025 21:26 Dictated By: Casper Bauman D.O. Signed By: 01/13/252128 DD/ 25 TD/TT: Ship Captain: [facility] Radiology Study observation (narrative) [facility] OB GROWTHOrdered By: Lloyd ologist Radiology on 01-13-2025 [facility] Work Phone: Urinalysis macro (dipstick) panel (U)on 01-12-2025 Bilirubin, UA Negative Negative - 4(70) +++ mg/dL [facility] Blood, UA Positive Negative - 50 Immanuel/mcL [facility] Comment on above: trace-intact Clarity, UA Clear [facility] re Color, UA Yellow [facility] Glucose, UA Negative Negative - 2000(110) ++++ mg/dL [facility] Interpretation and review of laboratory results Abnormal [facility] Ketones, UA Negative Negative - 160(16) ++++ mg/dL [facility] Leukocytes, UA Trace Negative - 500+++ Jennyfer/mcL [facility] Nitrite, UA Negative Negative - Positive [facility] pH, UA 6 5 - 9 [facility] Health[facility] Protein, UA Negative Negative - 2000(20) ++++ mg/dL [facility] Spec Grav, UA 1.01 1 - 1.03 [facility] Urobilinogen, UA 0.2 0.2 - 12 mg/dL [facility] US OB FOLLOW UP TRANSABDOMIN [...] II, MD, PHD at 29-Dec-2024 11:18:48 PM [facility] Normal Not Available Comment on above: Order Comment: US OB SCAN FOR GROWTH Estimated Date of Delivery: 01/24/25 Gestational Age as of 12/01/2024: 32w2d Urinalysis macro (dipstick) panel (U)on 12-29-2024 Bilirubin, UA Negative Negative - 4(70) +++ mg/dL [facility] Blood, UA Negative Negative - 50 Immanuel/mcL [facility] Healthcare Clarity, UA Clear [facility] re Color, UA Yellow [facility] Health[facility] e Glucose, UA Negative Negative - 1999(110) ++++ mg/dL [facility] Interpretation and review of laboratory results Abnormal [facility] Ketones, UA Negative Negative - 160(16) ++++ mg/dL [facility] Leukocytes, UA Trace Negative - 500+++ Jennyfer/mcL [facility] Nitrite, UA Negative Negative - Positive [facility] pH, UA 7 5 - 9 [facility] Health[facility] e Protein, UA Negative Negative - 1999(20) ++++ mg/dL [facility] Spec Grav, UA 1.01 1 - 1.03 [facility] Urobilinogen, UA 0.2 0.2 - 12 mg/dL [facility] Urinalysis macro (dipstick) panel (U)on 12-14-2024 Bilirubin, UA Negative Negative - 4(70) +++ mg/dL [facility] Blood, UA Negative Negative - 50 Immanuel/mcL [facility] Healthcare Clarity, UA Clear [facility] Color, UA Light Yellow [facility] are Glucose, UA Negative Negative - 1999(110) ++++ mg/dL [facility] Interpretation and review of laboratory results Normal [facility] Ketones, UA Negative Negative - 160(16) ++++ mg/dL [facility] Leukocytes, UA Trace Negative - 500+++ Jennyfer/mcL [facility] Nitrite, UA Negative Negative - Positive [facility] pH, UA 7 5 - 9 [facility] Health[facility] e Protein, UA Negative Negative - 1999(20) ++++ mg/dL [facility] Spec Grav, UA 1.015 1 - 1.03 [facility] Urobilinogen, UA 0.2 0.2 - 12 mg/dL [facility] US OB FOLLOW UP TRANSABDOMIN [...] II, MD, PHD at 05-Dec-2024 08:53:04 PM [facility] Normal Not Available Comment on above: Order Comment: US OB SCAN FOR GROWTH Estimated Date of Delivery: 01/24/25 Gestational Age as of 11/16/2024: 30w1d Urinalysis macro (dipstick) panel (U)on 12-01-2024 Bilirubin, UA Negative Negative - 4(70) +++ mg/dL [facility] Blood, UA Positive Negative - 50 Immanuel/mcL [facility] Comment on above: Trace-intact Clarity, UA Clear [facility] re Color, UA Yellow [facility] Glucose, UA Negative Negative - 1999(110) ++++ mg/dL [facility] Interpretation and review of laboratory results Abnormal [facility] Ketones, UA Negative Negative - 160(16) ++++ mg/dL [facility] Leukocytes, UA Positive Negative - 500+++ Jennyfer/mcL [facility] Comment on above: Moderate Nitrite, UA Negative Negative - Positive [facility] pH, UA 6.5 5 - 9 [facility] e Comment on above: ne Protein, UA Negative Negative - 1999(20) ++++ mg/dL [facility] Spec Grav, UA 1.01 1 - 1.03 [facility] Health care Urobilinogen, UA 0.2 0.2 - 12 mg/dL [facility] Urinalysis macro (dipstick) panel (U)on 11-16-2024 Bilirubin, UA Negative Negative - 4(70) +++ mg/dL [facility] Healthcare Blood, UA Negative Negative - 50 Immanuel/mcL [facility] Healthcare Clarity, UA Clear [facility] Color, UA Yellow [facility] Glucose, UA Negative Negative - 1999(110) ++++ mg/dL [facility] Interpretation and review of laboratory results Normal [facility] Ketones, UA Negative Negative - 160(16) ++++ mg/dL [facility] Healthcare Leukocytes, UA Negative Negative - 500+++ Jennyfer/mcL [facility] Healthcare Nitrite, UA Negative Negative - Positive [facility] Healthcare pH, UA 6.5 5 - 9 [facility] e Protein, UA Negative Negative - 1999(20) ++++ mg/dL [facility] Spec Grav, UA 1.025 1 - 1.03 [facility] Health care Urobilinogen, UA 1.0 0.2 - 12 mg/dL [facility] Urinalysis macro (dipstick) panel (U)on 11-01-2024 Bilirubin, UA Negative Negative - 4(70) +++ mg/dL [facility] Blood, UA Negative Negative - 50 Immanuel/mcL [facility] Healthcare Clarity, UA Clear [facility] Color, UA Yellow [facility] Glucose, UA Negative Negative - 1999(110) ++++ mg/dL [facility] Interpretation and review of laboratory results Normal [facility] Ketones, UA Negative Negative - 160(16) ++++ mg/dL [facility] Healthcare Leukocytes, UA Negative Negative - 500+++ Jennyfer/mcL [facility] Healthcare Nitrite, UA Negative Negative - Positive [facility] Healthcare pH, UA 6.5 5 - 9 [facility] Protein, UA Negative Negative - 1999(20) ++++ mg/dL [facility] Healthcare Spec Grav, UA 1.01 1 - 1.03 [facility] Health care Urobilinogen, UA 0.2 0.2 - 12 mg/dL [facility] Healthcare [facility] US OB LIMITED [...] II, MD, PHD at 19-Oct-2024 12:32:31 AM [facility] Normal Not Available Comment on above: Order Comment: US OB INCOMPLETE ANATOMY Estimated Date of Delivery: 01/24/25 Gestational Age as of 10/04/2024: 24w0d ALL CBC WITH AUTO DIFFon BASOPHILS ABSOLUTE AUTO 0 [facility] Basophils/100 WBC (Bld) 0.3 % 0.2 - 2.0 % [facility] Eosinophils/100 WBC (Bld) 1.3 % 0.9 - 7.0 % [facility] Erythrocyte distribution width (RBC) [Ratio] 11.9 % 11.0 - 15.0 % [facility] Hematocrit (Bld) [Volume fraction] 35.1 % Low 36.0 - 48.0 % [facility] Hem[facility] (Bld) [Mass/Vol] 11.5 g/dL Low 12.0 - 16.0 g/dL [facility] IMMATURE GRANULOCYTES ABS AUTO 0.02 [facility] Immature granulocytes/100 WBC (Bld) 0.2 % 0.0 - 0.5 % [facility] Interpretation and review of laboratory results Abnormal [facility] LYMPHOCYTES ABSOLUTE AUTO 1.6 [facility] Lymphocytes/100 WBC (Bld) 17.7 % Low 20.5 - 60.0 % [facility] MCH (RBC) [Entitic mass] 31.6 pg 26.7 - 34.0 pg [facility] MCHC (RBC) [Mass/Vol] 32.8 g/dL 29.9 - 35.2 g/dL [facility] MCV (RBC) [Entitic vol] 96.4 fL 81.0 - 99.0 fL [facility] MONOCYTES ABSOLUTE AUTO 0.4 [facility] Monocytes/100 WBC (Bld) 4.7 % 1.7 - 12.0 % [facility] NEUTROPHILS ABSOLUTE AUTO 7 High [facility] Neutrophils/100 WBC (Bld) 75.8 % High 43.0 - 75.0 % [facility] Platelet mean volume (Bld) [Entitic vol] 8.8 fL Low 9.5 - 13.5 fL [facility] are [facility] EO # 0.1 [facility] TB PLT 300 [facility] RBC 3.64 Low [facility] TB WBC 9.2 [facility] Urinalysis macro (dipstick) panel (U)on 10-04-2024 Bilirubin, UA Negative Negative - 4(70) +++ mg/dL [facility] Blood, UA Negative Negative - 50 Immanuel/mcL [facility] Clarity, UA Clear [facility] re Color, UA Yellow [facility] Glucose, UA Negative Negative - 1999(110) ++++ mg/dL [facility] Interpretation and review of laboratory results Normal [facility] Ketones, UA Negative Negative - 160(16) ++++ mg/dL [facility] Leukocytes, UA Negative Negative - 500+++ Jennyfer/mcL [facility] Nitrite, UA Negative Negative - Positive [facility] pH, UA 7 5 - 9 [facility] Protein, UA Negative Negative - 1999(20) ++++ mg/dL [facility] Spec Grav, UA 1.01 1 - 1.[address] [facility] Urobilinogen, UA 0.2 0.2 - 12 mg/dL [facility] AFP, SERUM, OPEN SPINA BIFID Aon 09-08-2024 AFP MOM 1.39 . [facility] AFP VALUE 74.7 ng/mL . [facility] COMMENT: Comment . [facility] Comment on above: Gwendolyn Tarango , Ph.D., [facility] Director References: Available Upon Request. Multiples Of Median Cutoffs For AFP Elevations Stevens 2.5 Black 2.8 IDD 2.0 Twins 4.5 Abbreviation Definitions IDD - Insulin Dep Diabetes OSBR - Open Spina Bifida Risk For further inquiries contact [facility] at [phone]. This test was developed and its performance characteristics determined by [facility]. It has not been cleared or approved by the Food and Drug Administration. Performed at: [facility] [address] [place], [place] [id number] Biology Research Assistant: Micah Mancia [facility], Phone: [phone] GEST. AGE ON COLLECTION DATE 20.0 . weeks [facility] GESTAT. AGE BASED ON LMP . [facility] Comment on above: Recalculations are n ot recommended when gestational dating by LMP and ultrasound are within 10 days. INSULIN DEP DIABETES No . [facility] INTERPRETATION Comment . [facility] Comment on above: Interpretation: Scre en [...] Customer Services to discuss available options. The [employer] recommends amniocentesis be offered to women age 35 and older. [age] [facility] MULTIPLE GESTATION No . [facility] H ealthcare OSBR RISK 1 [place] 3704 . [facility] bre[facility] RACE . [facility] [place] RESULTS Report . [facility] TEST RESULTS: Negative . [facility] WEIGHT 159 . lbs [facility] Sc[facility] N [id number] N LMP [id number] 16 N 1 Y 159 N N N N N White/ [facility] Health[facility] e US OB 14+ WEEKS ANATOMY [...] report is generated using voice recognition reporting ([employer]). On occasion [employer] erroneously drops words from the report or [...] UA Negative Negative - 4(70) +++ mg/dL [facility] Blood, UA Negative Negative - 50 Immanuel/mcL [facility] Healthcare Clarity, UA Clear [facility] Color, UA Colorless [facility] Glucose, UA Negative Negative - 2000(110) ++++ mg/dL [facility] Interpretation and review of laboratory results Normal [facility] Ketones, UA Negative Negative - 160(16) ++++ mg/dL [facility] Leukocytes, UA Negative Negative - 500+++ Jennyfer/mcL [facility] Healthcare Nitrite, UA Negative Negative - Positive [facility] pH, UA 7 5 - 9 [facility] Protein, UA Negative Negative - 1999(20) ++++ mg/dL [facility] Spec Grav, UA 1.01 1 - 1.[address] [facility] Urobilinogen, UA 0.2 0.2 - 12 mg/dL [facility] e RECURRENT VAGINITIS (HTRX)on 08-11-2024 ATOPOBIUM VAGINAE 0 [facility] ATOPOBIUM VAGINAE Not detected [facility] BVAB 2,3 (BACTERIAL VAGINOSIS ASSOCIATED BACTERIA 2, 3); MOBILUNCUS SPP 0 [facility] BVAB 2,3 (BACTERIAL VAGINOSIS ASSOCIATED BACTERIA 2, 3); MOBILUNCUS SPP Not detected [facility] MALOU ALBICANS, PARAPSILOSIS, TROPICALIS 0 [facility] MALOU ALBICANS, PARAPSILOSIS, TROPICALIS Not detected [facility]ATA 0 [facility] GLABRATA Not detected [facility] ealthcare MALOU KRUSEI 0 [facility] MALOU KRUSEI Not detected [facility] lthcare CHLAMYDIA TRACHOMATIS 0 [facility] CHLAMYDIA TRACHOMATIS Not detected [facility] GARDNERELLA VAGINALIS 0 [facility] GARDNERELLA VAGINALIS Not detected [facility] MEGASPHAERA (TYPES 1, 2) 0 [facility] MEGASPHAERA (TYPES 1, 2) Not detected [facility] MYCOPLASMA GENITALIUM 0 [facility] MYCOPLASMA GENITALIUM Not detected [facility] NEISSERIA GONORRHOEAE 0 [facility] NEISSERIA GONORRHOEAE Not detected [facility] TRICHOMONAS VAGINALIS 0 [facility] TRICHOMONAS VAGINALIS Not detected [facility] Urinalysis macro (dipstick) panel (U)on 08-09-2024 Bilirubin, UA Negative Negative - 4(70) +++ mg/dL [facility] Blood, UA Negative Negative - 50 Immanuel/mcL [facility] Clarity, UA Clear [facility] re Color, UA Yellow [facility] e Glucose, UA Negative Negative - 1999(110) ++++ mg/dL [facility] Interpretation and review of laboratory results Normal [facility] Ketones, UA Negative Negative - 160(16) ++++ mg/dL [facility] Leukocytes, UA Negative Negative - 500+++ Jennyfer/mcL [facility] Nitrite, UA Negative Negative - Positive [facility] pH, UA 7 5 - 9 [facility] Protein, UA Negative Negative - 1999(20) ++++ mg/dL [facility] Spec Grav, UA 1.01 1 - 1.[address] [facility] Urobilinogen, UA 0.2 0.2 - 12 mg/dL [facility] e ALL CBC WITH AUTO DIFFon BASOPHILS ABSOLUTE AUTO 0.1 [facility] Basophils/100 WBC (Bld) 0.6 % 0.2 - 2.0 % [facility] Eosinophils/100 WBC (Bld) 0.6 % Low 0.9 - 7.0 % [facility] Erythrocyte distribution width (RBC) [Ratio] 11.5 % 11.0 - 15.0 % [facility] Hematocrit (Bld) [Volume fraction] 39.1 % 36.0 - 48.0 % [facility] e Hemoglobin (Bld) [Mass/Vol] 13 g/dL 12.0 - 16.0 g/dL [facility] IMMATURE GRANULOCYTES ABS AUTO 0.02 [facility] Immature granulocytes/100 WBC (Bld) 0.2 % 0.0 - 0.5 % [facility] Interpretation and review of laboratory results Abnormal [facility] LYMPHOCYTES ABSOLUTE AUTO 2 [facility] Lymphocytes/100 WBC (Bld) 22.3 % 20.5 - 60.0 % [facility] MCH (RBC) [Entitic mass] 31.5 pg 26.7 - 34.0 pg [facility] MCHC (RBC) [Mass/Vol] 33.2 g/dL 29.9 - 35.2 g/dL [facility] MCV (RBC) [Entitic vol] 94.7 fL 81.0 - 99.0 fL [facility] MONOCYTES ABSOLUTE AUTO 0.5 [facility] Monocytes/100 WBC (Bld) 5.6 % 1.7 - 12.0 % [facility] NEUTROPHILS ABSOLUTE AUTO 6.3 [facility] Neutrophils/100 WBC (Bld) 70.7 % 43.0 - 75.0 % [facility] Platelet mean volume (Bld) [Entitic vol] 9.3 fL Low 9.5 - 13.5 fL [facility] # [facility].1 [facility] PLT 268 [facility] RBC 4.13 Low [facility] TB WBC 9 [facility] e Urinalysis macro (dipstick) panel (U)on 07-08-2024 Bilirubin, UA Negative Negative - 4(70) +++ mg/dL [facility] Blood, UA Negative Negative - 50 Immanuel/mcL [facility] Healthcare Clarity, UA Clear [facility] Healthca re Color, UA Yellow [facility] Health[facility] e Glucose, UA Negative Negative - 1999(110) ++++ mg/dL [facility] Interpretation and review of laboratory results Normal [facility] Ketones, UA Negative Negative - 160(16) ++++ mg/dL [facility] Leukocytes, UA Negative Negative - 500+++ Jennyfer/mcL [facility] Nitrite, UA Negative Negative - Positive [facility] pH, UA 6.5 5 - 9 [facility] e Protein, UA Negative Negative - 1999(20) ++++ mg/dL [facility] Spec Grav, UA 1.02 1 - 1.[address] [facility] Urobilinogen, UA 1.0 0.2 - 12 mg/dL [facility] HCG ( test) Ql (U)o n 06-17-2024 Interpretation and review of laboratory results Abnormal [facility] Preg Test, Ur Positive Negative [facility] Urinalysis macro (dipstick) panel (U)on 06-17-2024 Bilirubin, UA Negative Negative - 4(70) +++ mg/dL [facility] Blood, UA Negative Negative - 50 Immanuel/mcL [facility] Healthcare Clarity, UA Clear [facility] Healthca re Color, UA Yellow [facility] Health[facility] e Glucose, UA Negative Negative - 1999(110) ++++ mg/dL [facility] Interpretation and review of laboratory results Normal [facility] Ketones, UA Negative Negative - 160(16) ++++ mg/dL [facility] Leukocytes, UA Negative Negative - 500+++ Jennyfer/mcL [facility] Nitrite, UA Negative Negative - Positive [facility] pH, UA 5.5 5 - 9 [facility] Health[facility] e Protein, UA Negative Negative - 1999(20) ++++ mg/dL [facility] Spec Grav, UA 1.02 1 - 1.[address] [facility] Urobilinogen, UA 1.0 0.2 - 12 mg/dL [facility] Cytology Cervical or vaginal smear or scraping studyon 02-12-2024 [facility] Vital Sign[facility] Date Time Vital Sign Value Performing Clinician Faci lity 03-08-2025 10:05-0400 Body mass index (BMI) [Ratio] 27.37 kg/m2 Brenda ZIMMER Work Phone: [facility] 03-08-2025 10:05-0400 Body weight 75.75 kg Brenda ZIMMER Work Phone: [facility] 01-24-2025 13:11-0400 Diastolic blood pressure 70 mm[Hg] Oumar Yvonne DO Work Phone: [facility] 01-24-2025 13:11-0400 Systolic blood pressure 136 mm[Hg] Oumar Yvonne DO Work Phone: [facility] 01-24-2025 13:03-0400 Body mass index (BMI) [Ratio] 30.44 kg/m2 Oumar Yvonne DO Work Phone: [facility] 01-24-2025 13:03-0400 Body weight 84.26 kg Oumar Yvonne DO Work Phone: [facility] 01-19-2025 13:38-0400 Body mass index (BMI) [Ratio] 30.56 kg/m2 Oumar Yvonne DO Work Phone: [facility] 01-19-2025 13:38-0400 Body weight 84.6 kg Oumar Yvonne DO Work Phone: [facility] 01-12-2025 13:56-0400 Body mass index (BMI) [Ratio] 30.61 kg/m2 Brenda ZIMMER Work Phone: [facility] 01-12-2025 13:56-0400 Body weight 84.73 kg Brenda ZIMMER Work Phone: [facility] 01-12-2025 13:56-0400 Diastolic blood pressure 80 mm[Hg] Brenda ZIMMER Work Phone: [facility] 01-12-2025 13:56-0400 Systolic blood pressure 120 mm[Hg] Brenda ZIMMER Work Phone: [facility] 01-05-2025 13:27-0400 Body mass index (BMI) [Ratio] 30.61 kg/m2 Oumar Yvonne DO Work Phone: [facility] 01-05-2025 13:27-0400 Body weight 84.73 kg Oumar Yvonne DO Work Phone: [facility] 01-05-2025 13:27-0400 Diastolic blood pressure 72 mm[Hg] Oumar Yvonne DO Work Phone: [facility] 01-05-2025 13:27-0400 Systolic blood pressure 110 mm[Hg] Oumar Yvonne DO Work Phone: [facility] 12-29-2024 09:25-0400 Body mass index (BMI) [Ratio] 29.99 kg/m2 Brenda ZIMMER Work Phone: [facility] 12-29-2024 09:25-0400 Body weight 83.01 kg Brenda ZIMMER Work Phone: [facility] 12-29-2024 09:25-0400 Diastolic blood pressure 70 mm[Hg] Brenda ZIMMER Work Phone: [facility] 12-29-2024 09:25-0400 Systolic blood pressure 120 mm[Hg] Brenda ZIMMER Work Phone: [facility] 12-14-2024 08:35-0400 Body mass index (BMI) [Ratio] 29.66 kg/m2 Oumar Yvonne DO Work Phone: [facility] 12-14-2024 08:35-0400 Body weight 82.1 kg Oumar Yvonne DO Work Phone: [facility] 12-14-2024 08:35-0400 Diastolic blood pressure 68 mm[Hg] Oumar Yvonne DO Work Phone: [facility] 12-14-2024 08:35-0400 Systolic blood pressure 110 mm[Hg] Oumar Yvonne DO Work Phone: [facility] 12-01-2024 10:07-0400 Body mass index (BMI) [Ratio] 29.14 kg/m2 Ling Lagoserly [employer] Work Phone: [facility] 12-01-2024 10:07-0400 Body weight 80.65 kg Ling Lagoserly [employer] Work Phone: [facility] 12-01-2024 10:07-0400 Diastolic blood pressure 72 mm[Hg] Ling Gladys [employer]IVER Work Phone: [facility] 12-01-2024 10:07-0400 Systolic blood pressure 120 mm[Hg] Ling Gladys [employer]AL [employer]IVER Work Phone: [facility] 11-16-2024 11:39-0400 Body mass index (BMI) [Ratio] 28.65 kg/m2 Oumar Yvonne DO Work Phone: [facility] 11-16-2024 11:39-0400 Body weight 79.29 kg Oumar Yvonne DO Work Phone: [facility] 11-16-2024 11:39-0400 Diastolic blood pressure 74 mm[Hg] Oumar Yvonne DO Work Phone: [facility] 11-16-2024 11:39-0400 Systolic blood pressure 122 mm[Hg] Oumar Yvonne DO Work Phone: [facility] 11-01-2024 08:58-0400 Body mass index (BMI) [Ratio] 28.25 kg/m2 Oumar Yvonne DO Work Phone: [facility] 11-01-2024 08:58-0400 Body weight 78.2 kg Oumar Yvonne DO Work Phone: [facility] 11-01-2024 08:58-0400 Diastolic blood pressure 60 mm[Hg] Oumar Yvonne DO Work Phone: [facility] 11-01-2024 08:58-0400 Systolic blood pressure 120 mm[Hg] Oumar Yvonne DO Work Phone: [facility] 10-04-2024 08:30-0500 Body mass index (BMI) [Ratio] 27.92 kg/m2 Brenda Tomer PA Work Phone: [facility] 10-04-2024 08:30-0500 Body weight 77.29 kg Brenda Tomer PA Work Phone: [facility] 10-04-2024 08:30-0500 Diastolic blood pressure 64 mm[Hg] Brenda Tomer PA Work Phone: [facility] 10-04-2024 08:30-0500 Systolic blood pressure 110 mm[Hg] Brenda Solomon PA Work Phone: [facility] 09-06-2024 10:48-0500 Body mass index (BMI) [Ratio] 25.86 kg/m2 Oumar Yvonne DO Work Phone: [facility] 09-06-2024 10:48-0500 Body weight 71.58 kg Oumar Yvonne DO Work Phone: [facility] 09-06-2024 10:48-0500 Diastolic blood pressure 60 mm[Hg] Oumar Yvonne DO Work Phone: [facility] 09-06-2024 10:48-0500 Systolic blood pressure 116 mm[Hg] Oumar Yvonne DO Work Phone: [facility] 08-09-2024 10:44-0500 Body mass index (BMI) [Ratio] 26.06 kg/m2 Brenda Solomon PA Work Phone: [facility] 08-09-2024 10:44-0500 Body weight 72.12 kg Brenda Solomon PA Work Phone: [facility] 08-09-2024 10:44-0500 Diastolic blood pressure 68 mm[Hg] Brenda Tomer PA Work Phone: [facility] 08-09-2024 10:44-0500 Systolic blood pressure 110 mm[Hg] Brenda Tomer PA Work Phone: [facility] 07-08-2024 10:50-0500 Body mass index (BMI) [Ratio] 25.73 kg/m2 Oumar Yvonne DO Work Phone: [facility] 07-08-2024 10:50-0500 Body weight 71.22 kg Oumar Yvonne DO Work Phone: [facility] 07-08-2024 10:50-0500 Diastolic blood pressure 70 mm[Hg] Oumar Yvonne DO Work Phone: [facility] 07-08-2024 10:50-0500 Systolic blood pressure 110 mm[Hg] Oumar Yvonne DO Work Phone: [facility] 06-17-2024 14:25-0500 Body mass index (BMI) [Ratio] 24.88 kg/m2 [facility] Nurse [facility] 06-17-2024 14:25-0500 Body weight 68.86 kg [facility] Nurse [facility] 06-02-2024 10:49-0400 Body height 166.4 cm Bhumika Johnson [employer] Work Phone: [facility] 06-02-2024 10:49-0400 Body mass index (BMI) [Ratio] 24.88 kg/m2 Bhumika Johnson [employer] Work Phone: [facility] 06-02-2024 10:49-0400 Body weight 68.86 kg Bhumika Alex [employer]IVER Work Phone: [facility] 06-02-2024 10:49-0400 Diastolic blood pressure 60 mm[Hg] Bhumika Johnson [employer]IVER Work Phone: [facility] 06-02-2024 10:49-0400 Heart rate 75 /min Bhumika Johnson [employer] Work Phone: [facility] 06-02-2024 10:49-0400 SaO2% (BldA) [Mass fraction] 99 % Bhumika Johnson [employer] Work Phone: [facility] 06-02-2024 10:49-0400 Systolic blood pressure 120 mm[Hg] Bhumika Johnson LOCAL [employer] DRIVER Work Phone: [facility] Encounters Encounter Date Encounter Type Care Provider Facility Start: 03-08-2025 End: 03-08-2025 care visit Brenda ZIMMER Work Phone: [facility] Comment on above: 6 weeks f ollow-up ([facility]); Spontaneous vaginal delivery ([facility]) Start: 03-08-2025 End: 03-08-2025 ambulatory BRENDA JEFF Not Available Start: 02-22-2025 End: 02-22-2025 Refill Bhumika Johnson [employer] Work Phone: [facility] Comment on above: Panic disorder ; Moderate episode of recurrent major depressive disorder ([facility]) Start: 01-26-2025 End: 01-26-2025 Clinisync Result Encounter Oumar Yvonne DO Work Phone: [facility] Unsolicited Start: 01-26-2025 End: 01-26-2025 [...] Comment on above: Third trimester preg kirk ([facility]); 40 weeks gestation of ([facility]) Start: 01-24-2025 End: 01-24-2025 ambulatory OUMAR YVONNE Not Available Start: 01-20-2025 End: 01-20-2025 Clinisync Result Encounter Brenda ZIMMER Work Phone: [facility] Unsolicited Start: 01-20-2025 End: 01-20-2025 Clinisync Result Encounter Brenda ZIMMER Work Phone: [facility] External Department Unsolicited Start: 01-19-2025 End: 01-19-2025 Bamboo flowsheet Oumar Yvonne DO Work Phone: [facility] Start: 01-19-2025 End: 01-19-2025 Bamboo flowsheet Oumar Yvonne DO Work Phone: [facility] Start: 01-19-2025 End: 01-19-2025 flow sheet Oumar Yvonne DO Work Phone: [facility] Comment on above: Third trimester preg kirk ([facility]); 39 weeks gestation of ([facility]) Start: 01-19-2025 End: 01-19-2025 ambulatory OUMAR YVONNE Not Available Start: 01-13-2025 End: 01-13-2025 Clinisync Result Encounter Brenda ZIMMER Work Phone: [facility] External Department Unsolicited Start: 01-13-2025 End: 01-13-2025 Clinisync Result Encounter Brenda ZIMMER Work Phone: [facility] External Department Unsolicited Start: 01-12-2025 End: [...] Not Available Start: 10-18-2024 End: 10-18-2024 ambulatory UOMAR YVONNE Not Available Start: 10-04-2024 End: 10-04-2024 Bamboo flowsheet Brenda ZIMMER Work Phone: [facility] Start: 10-04-2024 End: 10-04-2024 Bamboo flowsheet Brenda ZIMMER Work Phone: [facility] Start: 10-04-2024 End: 10-04-2024 Clinisync Result Encounter Brenda ZIMMER Work Phone: [facility] External Department Unsolicited Start: 10-04-2024 End: 10-04-2024 flow sheet Brenda ZIMMER Work Phone: [facility] Comment on above: Second [...] 8w3d Start: 06-17-2024 End: 06-17-2024 ambulatory OUMAR YVNONE Not Available Start: 06-02-2024 End: 06-02-2024 Bamboo flowsheet Bhumika Johnson LOCAL TRUCK [employer]IVER Work Phone: [facility] Start: 06-02-2024 End: 06-02-2024 Bamboo flowsheet Bhumika Johnson LOCAL TRUCK DRIVER Work Phone: [facility] Start: 06-02-2024 End: 06-02-2024 Office outpatient visit 15 minutes Bhumika Johnson LOCAL [employer]UCK DRIVER Work Phone: [facility] Comment on above: Panic disorder (CMS/ HCC) (Primary Dx); Moderate episode of recurrent major depressive disorder (CMS/HCC) Start: 06-02-2024 End: 06-02-2024 ambulatory BHUMIKA JOHNSON Not Available Start: 11-29-2020 End: 11-30-2020 ambulatory PACO CHACON Facility:[facility] Start: 11-08-2020 End: 11-09-[address] NONE LISTED REQUEST Facility:[facility] Procedures Date Procedure Procedure Detail Performing Clinician Start: 01-26-2025 ALL CBC WITH AUTO DIFF Oumar Yvonne DO Work Phone: Start: 01-24-2025 TBH UA (CLEAN/CATCH) BOBBIN WINDER/MICRO IF IND. Oumar Yvonne DO Work Phone: Start: 01-24-2025 Urnls dip stick/tabl et rgnt non-auto w/o micrscp Oumar Yvonne DO Work Phone: Start: 01-20-2025 US OB BPP W NON-STRESS Brenda ZIMMER [...] micrscp Oumar Yvonne DO Work Phone: Start: 02-12-2024 Microscopic observat ion [Identifier] in Cervix by Cyto stain Brenda ZIMMER Work Phone: Start: 02-12-2024 Cytp cerv/vag auto t hin layer prep mnl screen Oumar Yvonne DO Work Phone: Start: 02-27-2019 Follow-up visit Plan of Treatment Date Care Activity Detail Author Start: 02-11-2029 Screening for malign ant neoplasm of cervix [facility] Start: 10-13-2025 Screening for malign ant neoplasm of cervix [facility] Start: 04-04-2025 Influenza vaccination [facility] Start: 03-29-2025 End: 03-29-2025 Patient encounter procedure 03/29/2025 10:30 AM EDT Procedure Visit [facility] [address] [place] [id number] Brenda Jeff, PA [address] [place] [address] [facility] Start: 03-08-2025 End: 03-08-2025 ambulatory 03/08/2025 9:30 AM EDT Visit [facility] [address] [place] [id number] Brenda Jeff, PA [address] [place] [address] [facility] Start: 01-24-2025 End: 01-24-2025 Patient encounter procedure [...] unspecified fetus Expected: 01/12/2025 (Approximate), Expires: 07/14/2025 [facility] Comment on above: Expected: 01/12/2025 (Approximate), [...] Routine [facility] [address] [place] [id number] Brenda Jeff, PA [address] [place] [address] [facility] Start: 12-29-2024 End: 12-29-2024 Professional / ancillary services management 12/29/2024 9:00 AM EDT Ancillary Procedure [facility] [address] [place] [phone] [facility] Start: 12-14-2024 End: 12-14-2024 Patient encounter procedure [facility] Comment on above: Arrived Start: 12-01-2024 End: 12-01-2024 Patient encounter procedure 12/01/2024 9:50 AM EDT Routine [facility] [address] [place] [phone] Brenda Jeff, PA [address] [place] [address] [facility] Start: 12-01-2024 End: 12-01-2024 Professional / ancillary services management 12/01/2024 9:00 AM EDT Ancillary Procedure [facility] [address] [place] [address] [facility] Start: 11-16-2024 End: 03-18-2025 US for US OB follow up transabdominal approach Imaging Routine size inconsistent with dates Expected: 11/16/2024, Expires: 03/18/2025 [facility] Work Phone: Comment on above: Expected: 11/16/2024 , Expires: 03/18/2025 Start: 11-16-2024 End: 11-16-2024 Patient encounter procedure [facility] Comment on above: Arrived Start: 11-01-2024 End: 11-01-2025 US for US OB follow up transabdominal approach Imaging Routine Size of fetus inconsistent with dates in third trimester Expected: 11/01/2024, Expires: 11/01/2025 [facility] Work Phone: Comment on above: Expected: 11/01/2024 , Expires: 11/01/2025 Start: 11-01-2024 End: 11-01-2024 Patient encounter procedure [facility] Comment on above: Arrived Start: 10-18-2024 End: 10-18-2024 Professional / ancillary services management 10/18/2024 11:30 AM EDT Ancillary Procedure [facility] [address] [place] [phone] [facility] Start: 10-04-2024 End: 10-04-2025 CBC panel - Blood by Automated count CBC Lab Routine Diabetes mellitus screening Expected: 10/04/2024 (Approximate), Expires: 10/04/2025 [facility] Comment on above: Expected: 10/04/2024 (Approximate), Expires: 10/04/2025 Start: 10-04-2024 End: 10-04-2025 Measurement of glucose 1 hour after glucose challenge for glucose tolerance test Glucose tolerance, 1 hour Lab Routine Diabetes mellitus screening Expected: 10/04/2024 (Approximate), Expires: 10/04/2025 [facility] Comment on above: Expected: 10/04/2024 (Approximate), Expires: 10/04/2025 Start: 10-04-2024 End: 10-04-2025 US for US OB limited 1+ fetuses Imaging Routine Encounter for follow-up ultrasound of anatomy Expected: 10/04/2024, Expires: 10/04/2025 [facility] Work Phone: Comment on above: Expected: 10/04/2024 , Expires: 10/04/2025 Start: 10-04-2024 End: 10-04-2024 Patient encounter procedure [facility] Comment on above: Arrived Start: 09-06-2024 End: 09-06-2025 CBC panel - Blood by Automated count CBC Lab Routine Diabetes mellitus screening Expected: 09/06/2024 (Approximate), Expires: 09/06/2025 [facility] Work Phone: Comment on above: Expected: 09/06/2024 (Approximate), Expires: 09/06/2025 Start: 09-06-2024 End: 09-06-2025 Measurement of glucose 1 hour after glucose challenge for glucose tolerance test Glucose tolerance, 1 hour Lab Routine Diabetes mellitus screening Expected: 09/06/2024 (Approximate), Expires: 09/06/2025 [facility] Comment on above: Expected: 09/06/2024 (Approximate), Expires: 09/06/2025 Start: 09-06-2024 End: 09-06-2024 Patient encounter procedure 09/06/2024 10:50 AM EST Routine [facility] [address] [place] [phone] Oumar Russell, [address] [place] [address] [facility] Start: 09-06-2024 End: 09-06-2024 Professional / ancillary services management 09/06/2024 9:30 AM EST Ancillary Procedure [facility] [address] [place] [phone] [facility] Start: 08-09-2024 End: 09-09-2024 Alpha [...] PM EST Initial [facility] [address] [place] [phone] [facility] Start: 06-17-2024 End: 06-17-2025 Blood type and Indirect antibody screen panel - Blood Type and screen Lab Routine Missed menses , unspecified gestational age Expected: 06/17/2024 (Approximate), Expires: 06/17/2025 [facility] Work Phone: Comment on above: [...] Missed menses Expected: 06/17/2024 (Approximate), Expires: 06/17/2025 [facility] Comment on above: Expected: 06/17/2024 (Approximate), Expires: 06/17/2025 Start: 06-17-2024 End: 06-17-2024 Professional / ancillary services management 06/17/2024 1:30 PM EST Ancillary Procedure [facility] [address] [place] [address] [facility] Start: 06-02-2024 End: 06-02-2024 Patient encounter procedure 06/02/2024 11:00 AM EDT Office Visit [facility] [address] [place] [address] Bhumika Johnson NP [address] [place], [place] [id number] Arrived [facility] [place] Comment on above: Arrived Start: 04-04-2024 Influenza vaccination Influenza Vacc ine (#1) [facility] Start: 2014 Screening for malign ant neoplasm of cervix Pap Smear [facility] Bacteria identified in Urine by Culture Urine culture Microbiology Routine Missed menses Ordered: 06/17/2024 [facility] Comment on above: Ordered: 06/17/2024 CBC W Auto Different ial panel - Blood CBC and differential Lab Routine Missed menses , unspecified gestational age Ordered: 06/17/2024 [facility] Comment on above: Ordered: 06/17/2024 CHLAMYDIA TRACHOMATI S (GENITO/STI) CHLAMYDIA TRACHOMATIS (GENITO/STI) Lab Routine Exposure to STD Ordered: 08/09/2024 [facility] Comment on above: Ordered: 08/09/2024 Hemoglobin A1c/Hemoglobin.total in Blood Hemoglobin A1c Lab Routine Missed menses , unspecified gestational age Ordered: 06/17/2024 [facility] Comment on above: Ordered: 06/17/2024 Hepatitis B virus surface Ag [Presence] in Serum or Plasma by Immunoassay Hepatitis B surface antigen Lab Routine Missed menses , unspecified gestational age Ordered: 06/17/2024 [facility] Comment on above: Ordered: 06/17/2024 Hepatitis C virus Ab [Presence] in Serum or Plasma by Immunoassay Hepatitis C antibody Lab Routine Missed menses , unspecified gestational age Ordered: 06/17/2024 [facility] Comment on above: Ordered: 06/17/2024 HIV-1/HIV-2 antigen/antibody combination immunoassay HIV-1 and HIV-2 antibodies Lab Routine Missed menses , unspecified gestational age Ordered: 06/17/2024 [facility] Comment on above: Ordered: 06/17/2024 Neisseria gonorrhoea e DNA [Presence] in Unspecified specimen by SEVERO with probe detection Neisseria gonorrhea DNA probe, direct Lab Routine Exposure to STD Ordered: 08/09/2024 [facility] Comment on above: Ordered: 08/09/2024 Reagin Ab [Presence] in Serum by RPR RPR Lab Routine Missed menses , unspecified gestational age Ordered: 06/17/2024 [facility] Comment on above: Ordered: 06/17/2024 Rubella antibody, IgG Rubella an tibody, IgG Lab Routine Missed menses , unspecified gestational age Ordered: 06/17/2024 [facility] Comment on above: Ordered: 06/17/2024 SURESWAB(R) ADVANCED VAGINITIS PLUS, TMA SURESWAB(R) ADVANCED VAGINITIS PLUS, TMA Pathology and Cytology Routine Exposure to STD Ordered: 08/09/2024 [facility] Work Phone: Comment on above: Ordered: 08/09/2024 Immunizations Immunization Date Immunization Notes Care Provider Damon dumont 02-24-2012 tetanus toxoid, redu srinath diphtheria toxoid, and acellular pertussis vaccine, adsorbed Bhumika Johnson [employer] Work Phone: [facility] Payers Date Payer Category Payer [employer] Blue [employer] [id number] [id number] 2022 Unknown [id number] 1993 Unknown [id number] 2.16.8 40.1.865256.3.579.2.1258 1993 Unknown [id number] 2.16.8 40.1.771105.3.579.2.1258 1993 Unknown [id number] 2.16.8 40.1.501675.3.579.2.1258 1993 Unknown [id number] 2.16.8 40.1.962844.3.579.2.1258 1993 Unknown [id number] 2.16.8 40.1.280337.3.579.2.1258 1993 Unknown [id number] 2.16.84 0.1.771528.3.579.2.1258 1993 Unknown [id number] 2.16.84 0.1.062588.3.579.2.1258 1993 Unknown [id number] 2.16.84 0.1.230830.3.579.2.1258 1993 Unknown [id number] 2.16.84 0.1.892074.3.579.2.1258 1993 Unknown [id number] 2.16.84 0.1.635585.3.579.2.1258 1993 Unknown [id number] 2.16.84 0.1.593487.3.579.2.1258 1993 Unknown [id number] 2.16.84 0.1.521664.3.579.2.1258 1993 Unknown [id number] 2.16.84 0.1.106031.3.579.2.1258 1993 Unknown [id number] 2.16.84 0.1.170470.3.579.2.1258 1993 Unknown [id number] 2.16.84 0.1.034392.3.579.2.1258 1993 Unknown [id number] 2.16.84 0.1.668161.3.579.2.1258 1993 Unknown [id number] 2.16.84 0.1.934958.3.579.2.1259 1993 Unknown [id number] 2.16.84 0.1.908186.3.579.2.1259 1993 Unknown [id number] 2.16.84 0.1.473647.3.579.2.1259 1993 Unknown [id number] 2.16.84 0.1.753418.3.579.2.1259 1959 Self-pay Unknown [id number] 2.16.84 0.1.015562.3.579.2.593 Unknown [id number] 2.16.84 0.1.367987.3.579.2.593 Social History Date Type Detail Facility Start: 02-12-2024 Tobacco smoking status NHIS Never sm oked tobacco [facility] Start: 02-12-2024 Tobacco use and exposure Smoke less tobacco non-user [facility] Start: 02-12-2024 Alcoholic beverage intake Curr ent drinker of alcohol (finding) [facility] Start: 06-01-2024 End: 01-31-2025 [facility] of [facility] function [facility] Start: 06-01-2024 End: 01-31-2025 [id number] Health Literacy [facility] How often do you nee d to have someone help you when you read instructions, pamphlets, or other written material from your doctor or pharmacy [SILS] Never [facility] Do you belong to any clubs or organizations such as mu-ism groups, unions, fraternal or athletic groups, or [...] Sex assigned at Not on file [facility] Start: 06-02-2024 End: 03-08-2025 Alcoholic beverage intake Ex-drinker (finding) [facility] Start: 06-02-2024 Alcohol Comment caffeine intak e: 200mg daily [facility] Start: 05-03-2024 [facility] Clinical Notes 06-02-2024 to 03-08-2025 GORAN Pedroza - 03/08/2025 9:30 AM Nathalie Graham NP - 01/24/2025 1:00 PM Nathalie Graham NP - 01/19/2025 1:40 PM GORAN Miller - 01/12/2025 1:50 PM EDT Note Date & Type Note Facility 03-08-2025 History of Presen t illness Narrative Reason for Appointment: Patient ID: Greta Pineda is a 29 y.o. female who presents for Care (Pt present today for a 6 week post [...] & PLAN ICD-10-CM 1. 6 weeks follow-up ([facility]) Z39.2 2. Spontaneous vaginal delivery ([facility]) O80 Post Follow Up: Patient is doing well but has complaints of the healing of stitches after delivery. Pt would like Brenda Jeff to take a peek and make sure [...] of: GORAN Pedroza documented in this encounter [facility] 01-24-2025 History of Presen t illness Narrative [...] nursing note reviewed. Exam conducted with a arts and crafts teacher present. Vitals: Estimated body mass index is 30.44 kg/m as calculated from the following: Height as of 06/02/24: 5' 5.5 . Weight as of this encounter: 185 lb 12 oz. BP: 136/70 Patient's last menstrual period was 04/19/2024. ASSESSMENT & PLAN ICD-10-CM 1. Third trimester ([facility]) Z34.93 POCT urinalysis dipstick manually resulted 2. 40 weeks gestation of ([facility]) Z3A.40 Return OB: Patient presents today for [...] Oumar Russell DO documented in this encounter [facility] 01-19-2025 History of Presen t illness Narrative [...] nursing note reviewed. Exam conducted with a arts and crafts teacher present. Vitals: Estimated body mass index is 30.56 kg/m as calculated from the following: Height as of 06/02/24: 5' 5.5 . Weight as of this encounter: 186 lb 8 oz. BP: Patient's last menstrual period was 04/19/2024. ASSESSMENT & PLAN ICD-10-CM 1. Third trimester ([facility]) Z34.93 2. 39 weeks gestation of ([facility]) Z3A.39 POCT urinalysis dipstick manually resulted [...] Oumar Russell DO documented in this encounter [facility] 01-12-2025 History of Presen t illness Narrative [...] of: GORAN Pedroza documented in this encounter [facility] 01-05-2025 History of Presen t illness Narrative Reason for Appointment: Patient ID: Grtea Pineda is a 29 y.o. female who [...] nursing note reviewed. Exam conducted with a arts and crafts teacher present. Vitals: Estimated body mass index is [...] Oumar Russell DO documented in this encounter [facility] 12-29-2024 History of Presen t illness Narrative [...] of: GORAN Pedroza documented in this encounter [facility] 12-14-2024 History of Presen t illness Narrative [...] nursing note reviewed. Exam conducted with a arts and crafts teacher present. Vitals: Estimated body mass index is [...] Oumar Russell DO documented in this encounter [facility] 12-01-2024 History of Presen t illness Narrative [...] Past Medical History: Diagnosis Date Anxiety Depression ([facility]) Social History Tobacco Use Smoking status: Never [...] nursing note reviewed. Exam conducted with a arts and crafts teacher present. Vitals: Estimated body mass index is [...] Ling Graham NP documented in this encounter [facility] 11-16-2024 History of Presen t illness Narrative [...] nursing note reviewed. Exam conducted with a arts and crafts teacher present. Vitals: Estimated body mass index is [...] Oumar Russell DO documented in this encounter [facility] 11-01-2024 History of Presen t illness Narrative [...] episode of recurrent major depressive disorder ([facility]) 06/02/2024 Panic disorder ([facility]) 06/02/2024 Resolved Ambulatory Problems Diagnosis Date Noted No Resolved Ambulatory Problems Past Medical History: Diagnosis Date Anxiety Depression ([facility]) HISTORY PAST MEDICAL HISTORY SOCIAL HISTORY Past Medical History: Diagnosis Date Anxiety Depression ([facility]) Social History Tobacco Use Smoking status: Never [...] nursing note reviewed. Exam conducted with a arts and crafts teacher present. Vitals: Estimated body mass index is [...] Oumar Russell DO documented in this encounter [facility] 10-04-2024 History of Presen t illness Narrative [...] Noted Allergic rhinitis 06/02/2024 Exercise-induced asthma ([facility]) 06/02/2024 Moderate episode of recurrent major depressive [...] of: GORAN Pedroza documented in this encounter [facility] 09-06-2024 History of Presen t illness Narrative [...] Noted Allergic rhinitis 06/02/2024 Exercise-induced asthma ([facility]) 06/02/2024 Moderate episode of recurrent major depressive disorder ([facility]) 06/02/2024 Panic disorder ([facility]) 06/02/2024 Resolved Ambulatory Problems Diagnosis Date Noted No Resolved Ambulatory Problems Past Medical History: Diagnosis Date Anxiety Depression ([facility]) HISTORY PAST MEDICAL HISTORY SOCIAL HISTORY Past [...] nursing note reviewed. Exam conducted with a arts and crafts teacher present. Vitals: Estimated body mass index is 25.86 kg/m as calculated from the following: Height as of 10/30/24: 5' 5.5 . Weight as of this [...] Oumar Russell DO documented in this encounter [facility] 08-09-2024 History of Presen t illness Narrative [...] nursing note reviewed. Exam conducted with a arts and crafts teacher present. Vitals: Estimated body mass index is [...] of: GORAN Pedroza documented in this encounter [facility] 07-08-2024 History of Presen t illness Narrative [...] nursing note reviewed. Exam conducted with a arts and crafts teacher present. Vitals: Estimated body mass index is [...] or undercooked meat, and stay away from [facility]. Patient has been consulted regarding any further do's and don'ts of . Patient voiced understanding and all questions and concerns were answered. Orders Placed This Encounter Procedures POCT urinalysis dipstick manually resulted Follow Up: Patient is to return in 4 weeks for routine OB appointment. Documented by Rosa Nguyen LPN on behalf of: Oumar Russell DO documented in this encounter [facility] 06-17-2024 History of Presen t illness Narrative [...] Noted Allergic rhinitis 06/02/2024 Exercise-induced asthma ([facility]) 06/02/2024 Moderate episode of recurrent major depressive disorder ([facility]) 06/02/2024 Panic disorder ([facility]) 06/02/2024 Resolved Ambulatory Problems Diagnosis Date Noted No Resolved Ambulatory Problems Past Medical History: Diagnosis Date Anxiety Depression ([facility]) No family history on file. Social History [...] or undercooked meat, and stay away from [facility]. Patient has also been advised to not [...] providers found * documented in this encounter [facility] 06-02-2024 History of Presen t illness Narrative [...] [facility] Diagnosis Panic disorder Panic disorder without agoraphobia Moderate episode of recurrent major depressive disorder ([facility]) [facility] Diagnosis 6 weeks follow-up ([facility]) Spontaneous vaginal delivery ([facility]) Normal delivery documented in this encounter [facility] Summary Purpose Family History No Family History Records FoundNo Family History Records FoundNo Family History Records Found Advance Directives No Advanced Directives Records FoundNo Advanced Directives Records FoundNo Advanced Directives Records Found Additional Source Comments INFORMATION SOURCE (unrecogn ized section and content) DATE CREATED AUTHOR 02/27/2019 [employer] DATE CREATED AUTHOR AUTHOR'S ORGANIZ ATION 11/28/2020 [facility] DATE CREATED AUTHOR AUTHOR'S ORGANIZ ATION 03/11/2025 [facility] Care Teams (unrecognized sec tion and content) Correctional Probation Officer Relationship Specialty Start Date End Date Samra Aguirre DO [address] [place] [address] PCP - General Family Medicine 12/10/22 Correctional Probation Officer Relationship Specialty Start Date End Date Raegan Medina MD [address] [facility] [place] [address] PCP - General Family Medicine 06/02/24 Correctional Probation Officer Relationship Specialty Start Date End Date Raegan Medina MD [address] [facility] [place] [address] PCP - General Family Medicine 06/02/24 Correctional Probation Officer Relationship Specialty Start Date End Date Raegan Medina MD [address] [place] [address] PCP - General Family Medicine 06/02/24 Correctional Probation Officer Relationship Specialty Start Date End Date Raegan Medina MD [address] [place] [address] PCP - General Family Medicine 06/02/24 Correctional Probation Officer Relationship Specialty Start Date End Date Raegan Medina MD [address] [place] [address] PCP - General Family Medicine 06/02/24 Correctional Probation Officer Relationship Specialty Start Date End Date Raegan Medina MD [address] [place] [address] PCP - General Family Medicine 06/02/24 Correctional Probation Officer Relationship Specialty Start Date End Date Raegan Medina MD [address] [place] [address] PCP - General Family Medicine 06/02/24 Bhumika Johnson NP [address] [place] [address] [facility] 07[facility]04[facility] Correctional Probation Officer Relationship Specialty Start Date End Date Raegan Medina MD [address] [place] [address] PCP - General Family Medicine 06/02/24 Bhumika Johnson NP [address] [place] [address] PCP - [employer] 07/04/24 Correctional Probation Officer Relationship Specialty Start Date End Date Raegan Medina MD [address] [place] [address] PCP - General Family Medicine 06/02/24 Bhumika Johnson NP [address] [place] [address] PCP - [employer] 07/04/24 Correctional Probation Officer Relationship Specialty Start Date End Date Raegan Medina MD [address] [place] [address] PCP - General Family Medicine 06/02/24 Bhumika Johnson NP [address] [place] [address] PCP - [employer] 07/04/24 Correctional Probation Officer Relationship Specialty Start Date End Date Raegan Medina MD [address] [place] [address] PCP - General Family Medicine 06/02/24 Bhumika Johnson NP [address] [place] [address] PCP - [employer] 07/04/24 Correctional Probation Officer Relationship Specialty Start Date End Date Raegan Medina MD [address] [place] [address] PCP - General Family Medicine 06/02/24 Bhumika Johnson NP [address] [place] [address] PCP - [employer] 07/04/24 Correctional Probation Officer Relationship Specialty Start Date End Date Raegan Medina MD [address] [place] [address] PCP - General Family Medicine 06/02/24 Correctional Probation Officer Relationship Specialty Start Date End Date Raegan Medina MD [address] [place] [address] PCP - General Family Medicine 06/02/24 Correctional Probation Officer Relationship Specialty Start Date End Date Raegan Medina MD [address] [place] [address] PCP - General [facility] Medicine 06/02/24 Correctional Probation Officer Relationship Specialty Start Date End Date Raegan Medina MD [address] [place] [address] PCP - General Family Medicine 06/02/24 Reason for Visit (unrecogniz ed section and content) Reason Comments Medication Problem Pt would like to see about switching anxiety medication due to . Reason Comments Amenorrhea Reason Comments Routine Visit Reason Comments Med Refill Reason Comments Care Pt present today for a 6 week post visit. Pt delivered vaginally on 01/25/2025. FOR RECORDS PERTAINING TO PATIENTS WHO ARE [...] BE BASED ON THE PRIMARY CLINICAL RECORDS. [facility]. provides no warranty or guarantee of the accuracy or completeness of information in this document.
--- NOTE | 2025-03-21 16:59 | PC.NURSE ---
Greta and Don arrive for post lip and tongue revision care. Was revised on 03/18/2025 and tolerated well. Upper lip tie healing, as well as tongue tie revision. Mom doing expected stretches 4 times per day and has noticed that infant does not dribble milk from corners of mouth like previously noted. Oral assessment of tongue include lateral movement and pushing tongue out past lips with massage and exercises. Mom shown suck exercises. Dno is now 10-11.5 and doing well. Mom reports abundant milk supply and use of nipple shield. Don to the breast, mom still not bringing deep into breast and baby becomes fussy and agitated. Encouraged to bring baby in firmly and keep supportive arm along her bacj=k and hand behind shoulder blades. Mom return demo's and baby latches deep and settles. I am afraid she will not like to be so close . LC had mom note relaxed position of baby, no longer fighting or pushing on mom, audible swallows. Mom agrees infant is comfortable and content at breast. Infant used shield for latching, mom eases baby back, removes shield and re-latched quickly. Don nurses well 7-8 minutes. Burped and returned to breast. Greta states is doing well, and has noted improvement with latch. Shown suck training exercises to aid in baby's adjustment post procedure. States will work them into awake time for Don. Couplet leave for home, doing well.
== END 2025-03-21 17:23 | disposition home or self-care (01) ==
LOC: FBCO 09:39
PROVIDERS: Visit Provider Obstetrics & Gynecology
DX: Z39.1 Encounter for care and examination of lactating mother (principal)
CPT/HCPCS: G0463

== ENCOUNTER 2025-03-29 20:17 | Outpatient (REF) | payer BC, SELFPAY ==
[2025-04-05 15:08] LABS: Age Gdln ACOG Testing Note (.); IGP, Aptima HPV, rfx 16/18,45 Note (.)
== END 2025-03-29 20:18 | disposition home or self-care (01) ==
LOC: LAB 20:17
PROVIDERS: Visit Provider Physician Assistant
DX: Z01.419 Encounter for gynecological examination (general) (routine) without abnormal findings (principal)
CPT/HCPCS: 87624; 88175